=== PATIENT | female | born 1965 | race African-American/Black ===

== ENCOUNTER 2017-07-19 19:36 | Inpatient (IN) | payer OTHER ==
--- NOTE | 2017-07-19 19:57 | ED ---
General Adult HPI - General Chief complaint: Shortness of Breath Stated complaint: SOB Time Seen by Provider: 07/19/17 19:45 Source: EMS, RN notes reviewed Mode of arrival: EMS Limitations: no limitations - History of Present Illness Initial comments: This is a 52-year-old female presents from the emergency room at [facility]. Patient went there because she has a four-day history of cough and shortness of breath and coughing up a lot of sputum. Patient states she also had a fever. Patient states they diagnosed her with pneumonia on both sides. Patient states they were unable to keep it eventually transferred down here. Patient states she still mildly short of breath but she does feel little bit better at this time. Patient had Levaquin started up at the other facility. Patient denies any chest pain or palpitations. Patient denies abdominal pain patient denies nausea vomiting diarrhea. Patient denies headache patient denies numbness weakness. Patient denies any leg swelling or calf pain. - Related Data Allergies Allergy/AdvReac Type Severity Reaction Status Date / Time No Known Allergies Allergy Verified 07/19/17 19:48 Review of Systems ROS Statement: Those systems with pertinent positive or pertinent negative responses have been documented in the HPI. ROS Other: All systems not noted in ROS Statement are negative. Past Medical History Past Medical History: Asthma, Diabetes Mellitus, Fibromyalgia Additional Past Medical History / Comment(s): back pain History of Any Multi-Drug Resistant Organisms: None Reported Past Surgical History: No Surgical Hx Reported Past Psychological History: Anxiety, Depression Smoking Status: Current every day smoker Past Alcohol Use History: Occasional Past Drug Use History: None Reported General Exam - General Exam Comments Initial Comments: GENERAL: Patient is well-developed and well-nourished. Patient is nontoxic and well- hydrated and is in mild distress. ENT: Neck is soft and supple. No significant lymphadenopathy is noted. Oropharynx is clear. Moist mucous membranes. Neck has full range of motion without eliciting any pain. EYES: The sclera were anicteric and conjunctiva were pink and moist. Extraocular movements were intact and pupils were equal round and reactive to light. Eyelids were unremarkable. PULMONARY: Patient is crackles bilateral bases. CARDIOVASCULAR: There is a regular rate and rhythm without any murmurs gallops or rubs. ABDOMEN: Soft and nontender with normal bowel sounds. No palpable organomegaly was noted. There is no palpable pulsatile mass. SKIN: Skin is clear with no lesions or rashes and otherwise unremarkable. NEUROLOGIC: Patient is alert and oriented x3. Cranial nerves II through XII are grossly intact. Motor and sensory are also intact. Normal speech, volume and content. Symmetrical smile. MUSCULOSKELETAL: Normal extremities with adequate strength and full range of motion. No lower extremity swelling or edema. No calf tenderness. LYMPHATICS: No significant lymphadenopathy is noted PSYCHIATRIC: Normal psychiatric evaluation. Limitations: no limitations Course Vital Signs 07/19/17 19:44 Temperature 98.4 F Pulse Rate 99 Respiratory 20 Rate Blood Pressure 116/65 O2 Sat by Pulse 95 Oximetry Disposition Clinical Impression: Pneumonia Disposition: ADMITTED IP TO THIS HOSP Referrals: Krish Arevalo MD [Primary Care Provider] - 1-2 days Time of Disposition: 20:00
[2017-07-19] MEDS ORDERED: PNEUMONIA PROTOCOL UTILIZED 1 EACH MISC PO PRN (20:01)
[2017-07-19] MEDS ORDERED: HYDROcodone/APAP 7.5-325MG 1 EACH TAB PO PRN (21:50)
[2017-07-19] MEDS ORDERED: ALPRAZolam 0.5 MG TAB PO PRN (21:50)
[2017-07-19] MEDS ORDERED: BACLOFEN 10 MG TAB PO SCH (22:00)
[2017-07-19 23:14] LABS: Glucose,Whole Blood 183 mg/dL (75-99)
[2017-07-20] MEDS ORDERED: METHADONE 10 MG TAB PO SCH
[2017-07-20] MEDS ORDERED: BACLOFEN 10 MG TAB PO PRN (01:10)
[2017-07-20] MEDS ORDERED: ALPRAZolam 0.5 MG TAB PO PRN (01:11)
[2017-07-20] MEDS: METHADONE 10 MG TAB PO PRN ×2 (06:16→17:47)
--- NOTE | 2017-07-20 06:52 | XR ---
EXAMINATION TYPE: XR chest 2V DATE OF EXAM: 07/20/2017 HISTORY: pneumonia. REFERENCE: Previous study dated 07/15/2015. FINDINGS: The lungs are overinflated. There is diffuse groundglass opacity throughout both lungs. Thi s has improved slightly. There is atelectatic change at the right lung base. No definite pleural flui d. Size is upper limits of normal. IMPRESSION: DIFFUSE, BILATERAL AIRSPACE DISEASE, MOST COMPATIBLE WITH BILATERAL PNEUMONIAS.
[2017-07-20] MEDS: IPRATROPIUM-ALBUTEROL 3 ML NEB INHALATION SCH ×4 (07:17→19:18)
[2017-07-20] MEDS: BUDESONIDE 1 MG/2 ML NEBU INHALATION SCH ×2 (07:17→19:18)
[2017-07-20 07:45] LABS: Glucose,Whole Blood 166 mg/dL (75-99)
[2017-07-20] MEDS: POTASSIUM CHLORIDE ER 20 MEQ TAB.ER PO SCH ×2 (07:58→20:36)
[2017-07-20] MEDS: TOPIRAMATE 25 MG TAB PO SCH ×2 (07:58→20:35)
[2017-07-20] MEDS: PREGABALIN 75 MG CAP PO SCH ×2 (07:58→20:36)
[2017-07-20] MEDS ORDERED: PANTOPRAZOLE 40 MG TABLET PO SCH (09:00)
[2017-07-20] MEDS ORDERED: TOPIRAMATE 25 MG TAB PO SCH (09:00)
[2017-07-20] MEDS ORDERED: PREGABALIN 75 MG CAP PO SCH (09:00)
[2017-07-20] MEDS ORDERED: POTASSIUM CHLORIDE ER 20 MEQ TAB.ER PO SCH (09:00)
[2017-07-20] MEDS: cefTRIAXone IN SWFI 1,000 MG/10 ML SYRINGE IVP SCH (12:24)
[2017-07-20] MEDS: VENLAFAXINE HCL ER 75 MG CAP PO SCH (12:24)
[2017-07-20] MEDS: AZITHROMYCIN 500 MG in SODIUM CHLORIDE 0.9% 250 ML IVPB SCH (12:24)
[2017-07-20] MEDS: PANTOPRAZOLE 40 MG TABLET PO SCH (12:25)
[2017-07-20] MEDS: ARIPiprazole 10 MG TAB PO SCH (12:25)
[2017-07-20] MEDS: INSULIN ASPART 100 UNIT/ML 1 ML 10 ML VIAL SQ SCH ×3 (12:34→21:43)
[2017-07-20 12:36] LABS: Glucose,Whole Blood 96 mg/dL (75-99)
[2017-07-20 12:54] LABS: Basophils % (A) 0 %; CH 30.5; CHCM 31.4; Eosinophils % (A) 0 %; HDW 2.11; HGB 12.3 gm/dL (11.4-16.0); Luc # (Auto) 0.17; Luc % (Auto) 1; Lymphocytes % (A) 7 %; MCH 30.9 pg (25.0-35.0); MCHC 31.6 g/dL (31.0-37.0); MCV 97.7 fL (80.0-100.0); Macrocytosis Slight; Mean Platelet Volume 8.3; Monocytes # (A) 0.8 k/uL (0-1.0); Monocytes % (A) 6 %; Neutrophils # (A) 12.8 k/uL (1.3-7.7); Neutrophils % (A) 86 %; RBC 3.99 m/uL (3.80-5.40); WBC 14.8 k/uL (3.8-10.6); WBC (Perox) 15.38
[2017-07-20 13:09] LABS: ALT 35 U/L (9-52); AST 17 U/L (14-36); Alkaline Phosphatase 93 U/L (38-126); Anion Gap 7 mmol/L; Blood Urea Nitrogen 7 mg/dL (7-17); Carbon Dioxide 30 mmol/L (22-30); Chloride 100 mmol/L (98-107); Glucose 97 mg/dL (74-99); Non-African American GFR(MDRD) >60 (>60 ml/min/1.73 sqM); Potassium 4.2 mmol/L (3.5-5.1); Sodium 137 mmol/L (137-145); Total Bilirubin 0.2 mg/dL (0.2-1.3)
[2017-07-20] MEDS ORDERED: methylPREDNISolone SOD SUCCI 125 MG/2 ML VIAL IV STA (15:28)
[2017-07-20] MEDS ORDERED: LEVOFLOXACIN 750MG-D5W PMX 750 MG in DEXTROSE/WATER 1 150ML.BAG IVPB SCH (17:00)
[2017-07-20 17:04] LABS: Glucose,Whole Blood 112 mg/dL (75-99)
[2017-07-20] MEDS: methylPREDNISolone SOD SUCCI 125 MG/2 ML VIAL IV SCH ×2 (17:45→23:53)
--- NOTE | 2017-07-20 19:10 | HP ---
HISTORY AND PHYSICAL DATE OF SERVICE: 07/20/2017. CHIEF COMPLAINT: Shortness of breath, cough and sputum. HISTORY OF PRESENT ILLNESS: This 52-year-old woman with a past medical history of multiple medical problems, including history of asthma, diabetes mellitus, fibromyalgia, hyperlipidemia, history anxiety, depression, being followed by in the outpatient setting was complaining of shortness with cough and sputum over the past 4 days. The patient presented to [facility] and directly transferred to [facility] for further evaluation and treatment. There is no history of fever, rigors, chills. No history of headache, loss of consciousness, seizures. PAST MEDICAL HISTORY: Asthma, diabetes, fibromyalgia, hyperlipidemia, history of anxiety depression. MEDICATIONS PRIOR TO ADMISSION: Include home medications are: 1. HydroDIURIL 25 mg p.o. daily. 2. Xanax 0.5 q.i.d. p.r.n. 3. Topamax 50 mg p.o. b.i.d. 5. Vitamin D2 50,000 p.o. Saturday. 6. Symbicort 80/4.5, 2 puffs b.i.d. 7. Effexor XR 225 mg. 8. Klor-Con 10 mg p.o. daily. 9. Prednisone 10 mg p.o. daily. 10.Q-Jenni 80 mcg 1 puff daily p.r.n. 11.Omeprazole 20 mg daily. 12.Chromo 7.5 q.4h p.r.n. 13.Baclofen 10 mg p.o. t.i.d. 14.Albuterol 1 puff q.4h p.r.n. 15.Abilify 10 mg p.o. daily. 16.Singular 10 mg q.h.s. 17.Advair 250/50, 1 puff b.i.d. 19.Zestril 10 mg p.o. daily. ALLERGIES: None. FAMILY HISTORY: History of diabetes mellitus in the family, aneurysm. SOCIAL HISTORY: History of continued ongoing smoking. History of alcohol. REVIEW OF SYSTEMS: ENT: No diminished vision. No diminished vision. CARDIOVASCULAR: As mentioned earlier. RESPIRATORY: As mentioned earlier. GI: No nausea, vomiting. : No dysuria. NERVOUS: No numbness or weakness. ALLERGY/IMMUNOLOGY: No asthma, hay fever. MUSCULOSKELETAL: As mentioned earlier. HEMATOLOGY/ONCOLOGY: No history of anemia. ENDOCRINE: No history of diabetes, hypothyroidism. CONSTITUTIONAL: As mentioned earlier. DERMATOLOGY: Negative. RHEUMATOLOGY: Negative. PSYCHIATRY: As mentioned earlier. PHYSICAL EXAMINATION: Alert and oriented x3. Pulse 89, blood pressure 109/78, respirations 18, temperature 97.2, pulse ox 93% on 4L. HEENT: Conjunctivae normal. Oral mucosa moist. NECK: No jugular venous distention. No carotid bruits. No lymph node enlargement. CARDIOVASCULAR: S1, S2 muffled. No S3. No S4. RESPIRATORY: Breath sounds diminished in the bases. Bilateral scattered rhonchi. No crackles. Expiratory wheezing also present. Prolongation of expiration present. ABDOMEN: Soft, nontender. No mass palpable. LEGS: No edema. No swelling. NERVOUS SYSTEM: Higher functions as mentioned earlier. Moves all 4 limbs. No focal motor or sensory deficits. LYMPHATIC: No lymph nodes palpable in neck, axillae or groins. SKIN: No ulcers, rash or bleeding. LABS: WBC 14.8, hemoglobin is 12.3. Albumin is 3.8. Influenza negative. ASSESSMENT: 1. Acute bilateral multifocal pneumonia, possibly community-acquired. 2. Increased WBC. 3. Asthma. 4. Diabetes mellitus type 2. 5. Fibromyalgia. 6. Hyperlipidemia. 7. Back pain. 8. History of ethanol. 9. Anxiety and depression. RECOMMENDATIONS AND DISCUSSION: In this 52-year-old woman who presented with multiple complex medical issues, monitor the patient closely. Continue the current medical management and symptomatic treatment. Otherwise at this time, I recommend continuing with bronchodilators , IV steroids. Otherwise repeat labs. Broad-spectrum IV antibiotics. Follow the patient closely with pulmonary, Dr. Johnathan Ponce. Guarded prognosis because of multiple complex medical issues. Further recommendations to follow. See orders for further details. MMODL / IJN: [id number] / ELVIA
[2017-07-20] MEDS: HEPARIN SODIUM,PORCINE 5,000 UNIT/ML 1 ML VIAL SQ SCH (20:36)
[2017-07-20] MEDS: MONTELUKAST 10 MG TAB PO SCH (20:36)
[2017-07-20] MEDS: FAMOTIDINE 20 MG/2 ML VIAL IV SCH (20:36)
[2017-07-20] MEDS ORDERED: MONTELUKAST 10 MG TAB PO SCH (21:00)
[2017-07-20 21:40] LABS: Glucose,Whole Blood 143 mg/dL (75-99)
[2017-07-20] MEDS: HYDROcodone/APAP 7.5-325MG 1 EACH TAB PO PRN (21:44)
--- NOTE | 2017-07-20 21:47 | CONS ---
CONSULTATION Skyla Cruz is a 52-year-old female who is well known to me who comes in with a history of increasing shortness of breath for about 5 days' duration. This has been associated with some chills and scant sputum production. She was seen at [facility], was thought to have pneumonia bilaterally and was transferred for further evaluation. PAST MEDICAL HISTORY: Positive for severe asthma with extremely high IgE levels and positivity to several aeroallergens, history of diabetes mellitus type 2, history of fibromyalgia, anxiety, depression, history of nicotine dependence. FAMILY HISTORY: Positive for asthma in her son, who unfortunately of asthma. SOCIAL HISTORY: The patient is a smoker, smokes about a half pack to 1 pack of cigarettes per day and is in the process of quitting smoking. MEDICATIONS PRIOR TO ADMISSION: 1. HydroDIURIL. 2. Xanax. 3. Topamax. 4. Methadone. 5. Vitamin D2. 6. Budesonide with formoterol in the form of Symbicort. 7. Klor-Con. 8. Prilosec. 9. Qvar. 10.Hydrocodone with acetaminophen. 11.Baclofen. 12.Albuterol. 13.Abilify. 14.Singulair. 15.Lyrica and. 16.Zestril. PHYSICAL EXAMINATION: Patient is sleepy, but arousable. She is in moderate respiratory distress. She has shallow respirations. She is using accessory muscles of respiration. Her respiratory rate is 18, pulse rate of 89, temperature 97.2, blood pressure 109/78, O2 saturation on 4L by nasal cannula is 93%. HEENT reveals pupils that are equal. Chest reveals decreased breath sounds, prolonged expiration, bilateral expiratory wheeze. Cardiovascular system reveals an S1, S2. No S3. No S4. ABDOMEN: Soft. There is no pedal edema. LABS: Reveal a white count of 14.3, hemoglobin of 12.3. Sodium 137, potassium 4.2, chloride 100, bicarb 30, BUN 7, creatinine 0.56. Albumin is 3, total protein of 6. Influenza A and B are negative. Chest x-ray shows bilateral lower zone infiltrates. IMPRESSION AT THIS TIME: 1. Severe asthma with acute exacerbation. 2. Pneumonia. 3. Possible hypersensitivity pneumonitis. 4. Fibromyalgia. 5. Diabetes mellitus. At this point in time, would continue her on azithromycin and Rocephin, have ID further evaluate the patient. Add intravenous steroids at 60 mg IV push with an extra dose of 80 mg right now. Keep her on montelukast, budesonide, albuterol and ipratropium. Keep her on GI and DVT prophylaxis and check peak flows on her. Her prognosis at this time is extremely guarded. I would like to thank you for allowing me to participate in the care off my patient. We did try to arrange anti IgE treatment as Xolair, which would have helped prevent this. Her insurance company is directly responsible in denying this and is responsible for this admission as well as they have denied her care. She was counseled on the need to quit smoking. MMODL / IJN: [id number] /
[2017-07-21] MEDS: methylPREDNISolone SOD SUCCI 125 MG/2 ML VIAL IV SCH ×3 (06:54→17:06)
[2017-07-21 07:21] LABS: Glucose,Whole Blood 131 mg/dL (75-99)
[2017-07-21] MEDS: BUDESONIDE 1 MG/2 ML NEBU INHALATION SCH ×2 (07:24→19:45)
[2017-07-21] MEDS: IPRATROPIUM-ALBUTEROL 3 ML NEB INHALATION SCH ×4 (07:24→19:45)
[2017-07-21] MEDS: METHADONE 10 MG TAB PO PRN ×2 (07:48→20:22)
[2017-07-21] MEDS: INSULIN ASPART 100 UNIT/ML 1 ML 10 ML VIAL SQ SCH ×4 (07:49→21:30)
[2017-07-21] MEDS: FAMOTIDINE 20 MG/2 ML VIAL IV SCH ×2 (07:49→20:14)
[2017-07-21] MEDS: HYDROCHLOROTHIAZIDE 25 MG TAB PO SCH (07:50)
[2017-07-21] MEDS: POTASSIUM CHLORIDE ER 20 MEQ TAB.ER PO SCH ×2 (07:50→20:14)
[2017-07-21] MEDS: PANTOPRAZOLE 40 MG TABLET PO SCH (07:50)
[2017-07-21] MEDS: TOPIRAMATE 25 MG TAB PO SCH ×2 (07:50→20:14)
[2017-07-21] MEDS: VENLAFAXINE HCL ER 75 MG CAP PO SCH (07:50)
[2017-07-21] MEDS: LISINOPRIL 10 MG TAB PO SCH (07:51)
[2017-07-21] MEDS: ARIPiprazole 10 MG TAB PO SCH (07:51)
[2017-07-21] MEDS: HEPARIN SODIUM,PORCINE 5,000 UNIT/ML 1 ML VIAL SQ SCH ×2 (07:51→20:14)
[2017-07-21] MEDS: PREGABALIN 75 MG CAP PO SCH ×2 (07:55→20:14)
[2017-07-21 08:05] LABS: Basophils % (A) 0 %; CH 30.3; Eosinophils % (A) 0 %; HCT 37.9 % (34.0-46.0); HDW 2.12; HGB 11.8 gm/dL (11.4-16.0); Luc # (Auto) 0.07; Luc % (Auto) 1; Lymphocytes # (A) 0.9 k/uL (1.0-4.8); Lymphocytes % (A) 10 %; MCH 30.6 pg (25.0-35.0); MCHC 31.2 g/dL (31.0-37.0); MCV 98.2 fL (80.0-100.0); Macrocytosis Slight; Mean Platelet Volume 8.3; Monocytes # (A) 0.2 k/uL (0-1.0); Monocytes % (A) 2 %; Neutrophils % (A) 87 %; RBC 3.86 m/uL (3.80-5.40); RDW 15.8 % (11.5-15.5); WBC 9.2 k/uL (3.8-10.6); WBC (Perox) 9.17
[2017-07-21 08:22] LABS: Anion Gap 7 mmol/L; Blood Urea Nitrogen 9 mg/dL (7-17); Calcium 9.3 mg/dL (8.4-10.2); Carbon Dioxide 29 mmol/L (22-30); Chloride 102 mmol/L (98-107); Glucose 124 mg/dL (74-99); Non-African American GFR(MDRD) >60 (>60 ml/min/1.73 sqM); Potassium 4.7 mmol/L (3.5-5.1); Sodium 138 mmol/L (137-145)
--- NOTE | 2017-07-21 11:59 | PN ---
PROGRESS NOTE DATE OF SERVICE: 07/21/17 She was seen again on 07/21/17. She is hemodynamically stable, less short of breath. She is sleepy but easily arousable and is awake and alert when she is aroused. On physical examination, her vital signs are stable. She is afebrile. Her chest with increased breath sounds, prolonged expiration. Expiratory wheeze but improved air entry compared to the previous day. Cardiovascular system revealed an S1, S2, abdomen soft. There is no pedal edema. IMPRESSION: At this time is: 1. Severe allergic asthma with acute exacerbation. 2. Continue IV steroids and antibiotics for at least 24 hours more. If she is doing better tomorrow, may consider switching her to oral steroids. Check peak flows on her. Depending on how she does, we shall make further changes to her care. ALEXISL / MANGON: [id number] /
[2017-07-21 12:21] LABS: Glucose,Whole Blood 152 mg/dL (75-99)
[2017-07-21] MEDS: cefTRIAXone IN SWFI 1,000 MG/10 ML SYRINGE IVP SCH (13:34)
[2017-07-21] MEDS: AZITHROMYCIN 500 MG in SODIUM CHLORIDE 0.9% 250 ML IVPB SCH (13:35)
[2017-07-21 17:05] LABS: Glucose,Whole Blood 102 mg/dL (75-99)
--- NOTE | 2017-07-21 19:59 | CONS ---
CONSULTATION DATE OF SERVICE: 07/21/2017. REASON FOR CONSULTATION: Pneumonia. HISTORY OF PRESENT ILLNESS: The patient is a 52-year-old female who has been transferred from the [place] ER for further evaluation of a pneumonia. Apparently the patient presented to the ED with the chief complaints of increasing shortness of breath and cough. However the patient denies significant sputum production. The patient also have a fever. With these symptoms, the patient was transferred to the [facility] ER. The patient has been evaluated by the ER physician. The pt did have chest xray-- bilateral infiltrate suggestive of bilateral pneumonia. The patient did not did have elevated white count of 14.8. The patient was started on Zithromax. ID was consulted for further recommendation regarding antibiotic therapy. REVIEW OF SYSTEMS: Constitutional: Positive for weakness along with the fever. Eyes no complaint. ENT no complaint. Respiratory as per HPI. Cardiovascular: No complaint. Genitourinary: No complaint. Gastrointestinal: No complaint. Musculoskeletal: No complaint. Integumentary: No complaint. Psychological: No complaint. Endocrine: No complaint. Neurologic no complaint. PAST MEDICAL HISTORY: Diabetes mellitus, asthma, fibromyalgia. PAST SURGICAL HISTORY: No major surgery. PAST PSYCHOLOGICAL HISTORY: Positive for anxiety and depression. SOCIAL HISTORY: Positive for smoking 1 pack a day. Patient drinks. No drug use. FAMILY HISTORY: No pertinent findings noticed. ALLERGIES: No known drug allergies. MEDICATIONS: Include the patient is currently on: 1. [place]. 2. DuoNeb. 3. Xanax. 4. Abilify. 5. Zithromax. 6. Baclofen. 7. Pulmicort. 8. Rocephin 1 g daily. 9. Vitamin D2. 10.Pepcid. 11.Heparin. 12.Hydrochlorothiazide. 13.NovoLog. 14.Zestril. 15.Methadone. 16.Solu-Medrol. 17.Singulair. 18.Protonix. 19.K-Dur. 20.Lyrica. 21.Topamax. 22.Effexor. EXAMINATION: Blood pressure 131/87, pulse of 82, temperature of 96.7. He is 98% on room air. General description is a middle-aged female up in the bed in no distress. No tachypnea or accessory muscle of respiration use. HEENT: Shows no pallor or scleral icterus. Oral mucous membranes dry. Neck trachea central. No thyromegaly. Lungs unlabored breathing. Coarse breath sounds bilaterally. Occasional wheeze. Heart S1, S2. Regular rate and rhythm. ABDOMEN: Soft, no tenderness. No guarding or rigidity. Extremities are no edema of the feet. Skin examination: No rash or mass palpable. Neurological patient is awake, alert, oriented x3. Mood and affect normal. LABS: Hemoglobin is 11.8, white count of 9.2. Admission white count was 14.8. BUN of 9, creatinine 0.54. Electrolytes have been normal. Blood culture obtained currently pending. Sputum not collected. DIAGNOSTIC IMPRESSION AND PLAN: Patient admitted to the hospital with increasing shortness of breath and cough with evidence of bilateral pneumonia likely community acquired. The patient seemed to have shown clinical improvement on Rocephin already started by the admitting team. PLAN: 1. Will try to obtain sputum for Gram stain culture and sensitivity. 2. We will keep the patient on Rocephin and Zithromax. 3. Depending upon the clinical response as well as cultures to further adjust medication if needed. Thank you for this consultation. Will follow this patient along with you. MMODL / IJN: [id number] / ELVIA
[2017-07-21] MEDS: MONTELUKAST 10 MG TAB PO SCH (20:14)
[2017-07-21 20:50] LABS: Glucose,Whole Blood 151 mg/dL (75-99)
[2017-07-22] MEDS: methylPREDNISolone SOD SUCCI 125 MG/2 ML VIAL IV SCH ×2 (00:05→06:21)
[2017-07-22 07:16] LABS: Glucose,Whole Blood 113 mg/dL (75-99)
[2017-07-22] MEDS: INSULIN ASPART 100 UNIT/ML 1 ML 10 ML VIAL SQ SCH ×4 (07:20→21:06)
[2017-07-22] MEDS: VENLAFAXINE HCL ER 75 MG CAP PO SCH (07:43)
[2017-07-22] MEDS: FAMOTIDINE 20 MG/2 ML VIAL IV SCH (07:44)
[2017-07-22] MEDS: PREGABALIN 75 MG CAP PO SCH ×2 (07:44→20:59)
[2017-07-22] MEDS: TOPIRAMATE 25 MG TAB PO SCH ×2 (07:44→20:59)
[2017-07-22] MEDS: HEPARIN SODIUM,PORCINE 5,000 UNIT/ML 1 ML VIAL SQ SCH ×2 (07:44→20:59)
[2017-07-22] MEDS: HYDROCHLOROTHIAZIDE 25 MG TAB PO SCH (07:44)
[2017-07-22] MEDS: LISINOPRIL 10 MG TAB PO SCH (07:44)
[2017-07-22] MEDS: PANTOPRAZOLE 40 MG TABLET PO SCH (07:45)
[2017-07-22] MEDS: POTASSIUM CHLORIDE ER 20 MEQ TAB.ER PO SCH ×2 (07:45→20:59)
[2017-07-22] MEDS: ARIPiprazole 10 MG TAB PO SCH (07:45)
[2017-07-22] MEDS: BUDESONIDE 1 MG/2 ML NEBU INHALATION SCH (07:57)
[2017-07-22] MEDS: IPRATROPIUM-ALBUTEROL 3 ML NEB INHALATION SCH ×4 (07:57→20:25)
[2017-07-22 08:18] LABS: Basophils % (A) 0 %; CH 31.5; CHCM 32.3; Eosinophils % (A) 0 %; HCT 40.7 % (34.0-46.0); HGB 13.1 gm/dL (11.4-16.0); Luc # (Auto) 0.05; Luc % (Auto) 1; Lymphocytes # (A) 1.1 k/uL (1.0-4.8); Lymphocytes % (A) 10 %; MCH 31.6 pg (25.0-35.0); MCHC 32.3 g/dL (31.0-37.0); MCV 97.9 fL (80.0-100.0); Mean Platelet Volume 7.4; Monocytes # (A) 0.3 k/uL (0-1.0); Monocytes % (A) 3 %; Neutrophils % (A) 86 %; RBC 4.15 m/uL (3.80-5.40); RDW 14.5 % (11.5-15.5); WBC 10.4 k/uL (3.8-10.6); WBC (Perox) 9.82
[2017-07-22 08:28] LABS: Anion Gap 8 mmol/L; Blood Urea Nitrogen 11 mg/dL (7-17); Calcium 9.3 mg/dL (8.4-10.2); Carbon Dioxide 28 mmol/L (22-30); Chloride 103 mmol/L (98-107); Glucose 141 mg/dL (74-99); Non-African American GFR(MDRD) >60 (>60 ml/min/1.73 sqM); Potassium 4.2 mmol/L (3.5-5.1); Sodium 139 mmol/L (137-145)
[2017-07-22] MEDS ORDERED: INFLUENZA VACCINE (6 MOS+) 60 MCG/0.5 ML SYRINGE IM ONE (08:41)
[2017-07-22] MEDS ORDERED: PNEUMOCOCCAL VACC-PNEUMOVAX 23 25 MCG/0.5 ML VIAL IM ONE (08:41)
--- NOTE | 2017-07-22 08:51 | PN ---
PROGRESS NOTE DATE OF SERVICE: 07/21/2017 This 52-year-old woman who was admitted with acute bilateral multifocal pneumonia is being closely monitored. The patient is also closely monitored by Pulmonary Dr. Johnathan Ponce also. PAST MEDICAL HISTORY: Reviewed. REVIEW OF SYSTEMS: Cardiovascular: No angina. Respiratory: As mentioned earlier. GI mentioned earlier. : No dysuria. Central nervous system: No numbness, weakness. CURRENT MEDICATIONS ARE: Reviewed include: 1. [place] 7.5 mg q.4h p.r.n. 2. DuoNeb q.i.d. and p.r.n. 3. Xanax 0.5 q.i.d. 4. Abilify 10 mg p.o. daily. 5. Zithromax 500 mg p.o. daily. 6. Lioresal 10 mg p.o. t.i.d. 7. Pulmicort 1 mg b.i.d. 8. Rocephin 1 g IV daily. 9. Vitamin D2 50,000 daily. 10.Pepcid 20 mg b.i.d. 11.Heparin 5000 subcu b.i.d. 12.HydroDIURIL. 13.Zestril 10 mg daily. 14.Methadone 20 mg p.o. q.8h p.r.n. 15.Solu-Medrol 60 IV q.6h. 16.Singulair 10 mg q.h.s. 17.Protonix. 18.Lyrica. PHYSICAL EXAMINATION: The patient is alert, oriented times three. Pulse 82, blood pressure 131/80, respiration 18, temperature 98.7, pulse ox 98% on room air. HEENT conjunctivae normal. Neck: No jugular venous distention. Cardiovascular: S1, S2 muffled. Respiratory: Breath sounds diminished in the bases. A few scattered rhonchi and crackles. Abdomen is soft, nontender. Legs are no edema. Central nervous system: No focal deficits. LABORATORY DATA: WBC 9.2, hemoglobin 11.6. BMP within normal limits. ASSESSMENT: 1. Acute bilateral multifocal pneumonia possibly community acquired. 2. Acute allergic asthma acute exacerbation. 3. Increased WBC. 4. Diabetes type 2. 5. Fibromyalgia. 6. Hyperlipidemia. 7. History of back pain. 8. History of ETOH. 9. Anxiety, depression. RECOMMENDATION: In this 52-year-old woman who presented with multiple complex medical issues, we will monitor the patient closely, continue the current management, continue symptomatic treatment, and continue IV steroids. Continue the rest of medications and including antibiotics. Pulmonary evaluation appreciated. Chest x-ray reviewed. We will repeat a chest x-ray in the morning and continue to monitor. Otherwise, see orders for details. Further recommendations to follow. MMODL / IJN: [id number] /
[2017-07-22] MEDS ORDERED: ERGOCALCIFEROL 50,000 UNIT CAP PO SCH (09:00)
--- NOTE | 2017-07-22 09:53 | P.PN ---
Subjective Progress Note Date: 07/22/17 Principal diagnosis: Acute exacerbation of asthma Patient seen and examined. Patient states she has not had any fevers or chills. She is coughing but unable to produce phlegm. The patient has no other needs or complaints at this time. Objective - Vital Signs Vital signs: Vital Signs Temp 97.3 F L 07/22/17 07:00 Pulse 88 07/22/17 08:00 Resp 16 07/22/17 07:00 BP 145/95 07/22/17 07:00 Pulse Ox 92 L 07/22/17 08:00 Intake & Output 07/21/17 07/22/17 07/22/17 18:59 06:59 18:59 Intake Total 400 800 Balance 400 800 Intake: Oral 400 800 Other: # Voids 2 1 - Exam Gen.: Patient is alert and oriented 3, no acute distress, obese Cardiovascular: Regular rate and rhythm, S1/S2 Lungs: Diffuse bilateral expiratory wheezing Abdomen: Soft nontender nondistended positive bowel sounds Extremities: No edema - Labs CBC & Chem 7: 07/22/17 07:47 07/22/17 07:47 Labs: Abnormal Lab Results - Last 24 Hours (Table) 07/21/17 07/21/17 07/21/17 Range/Units 12:15 17:03 20:46 Neutrophils # (1.3-7.7) k/uL Glucose (74-99) mg/dL POC Glucose (mg/dL) 152 H 102 H 151 H (75-99) mg/dL 07/22/17 07/22/17 07/22/17 Range/Units 06:37 07:47 07:47 Neutrophils # 9.0 H (1.3-7.7) k/uL Glucose 141 H (74-99) mg/dL POC Glucose (mg/dL) 113 H (75-99) mg/dL Microbiology - Last 24 Hours (Table) 07/19/17 22:30 Blood Culture - Preliminary Blood No Growth after 48 hours 07/21/17 13:44 Urine Culture - Preliminary Urine,Clean Catch Assessment and Plan Assessment: Acute exacerbation of severe persistent ALLERGIC asthma Bilateral community-acquired pneumonia Possible hypersensitivity pneumonitis Fibromyalgia Leukocytosis POA, improving Diabetes mellitus Dyslipidemia Anxiety and depression Active tobacco abuse O2 to maintain saturation greater than or equal to 90% Solu-Medrol taper Singulair Pulmicort Bronchodilators GI and DVT prophylaxis Incentive spirometry and pulmonary hygiene Smoking cessation Repeat CXR reviewed, shows improvement in bilateral infiltrates, consistent more with HP given rapid improvement Patient would benefit from Xolair, however, her insurance has denies this medication
--- NOTE | 2017-07-22 09:58 | XR ---
EXAMINATION TYPE: XR chest 1V portable DATE OF EXAM: 07/22/2017 COMPARISON: 07/20/2017 HISTORY: Pneumonia TECHNIQUE: Single frontal view of the chest is obtained. FINDINGS: Persistent bilateral airspace disease greater involving the upper lobes. There may be very mild improvement on the left. Heart size stable. No pleural effusion or pneumothorax. IMPRESSION: Bilateral infiltrate with mild improvement on the left relative to the previous exam.
--- NOTE | 2017-07-22 12:06 | PN ---
PROGRESS NOTE DATE OF SERVICE: 07/22/2017. REASON FOR FOLLOWUP: Pneumonia. INTERVAL HISTORY: The patient is afebrile. She is breathing comfortably. Cough decreased in intensity. Denies any chest pain. No abdominal pain. No nausea, vomiting, diarrhea. EXAMINATION: Blood pressure is 145/95 with a pulse of 88, temperature 97.3. She is 92% on 2 L nasal cannula. General description is a middle-aged female up in the bed in no distress. Respiratory system unlabored breathing. Coarse breath sounds bilaterally. No wheeze. Heart S1, S2. Regular rate and rhythm. Abdomen soft, no tenderness. LABS: BUN of 11, creatinine 0.60. White count 10.4, so far blood culture negative. Sputum currently pending. DIAGNOSTIC IMPRESSION AND PLAN: Patient with bilateral pneumonia, likely community-acquired. The patient at this time will continue with Rocephin and Zithromax while waiting for the sputum culture to finalize. Continue supportive care. MMODL / IJN: [id number] /
[2017-07-22] MEDS: AZITHROMYCIN 500 MG in SODIUM CHLORIDE 0.9% 250 ML IVPB SCH (12:12)
[2017-07-22] MEDS: METHADONE 10 MG TAB PO PRN ×2 (12:20→19:28)
[2017-07-22 12:22] LABS: Glucose,Whole Blood 83 mg/dL (75-99)
[2017-07-22] MEDS: cefTRIAXone IN SWFI 1,000 MG/10 ML SYRINGE IVP SCH (12:44)
--- NOTE | 2017-07-22 15:23 | P.DS ---
Providers Date of admission: 07/19/17 20:00 Attending physician: Duong Ghosh Consults: 07/20/17 11:58 Consult Physician Routine Consulting Provider: Joaquin Ponce Consult Reason/Comments: pneumonia Do you want consulting provider notified?: Yes 07/20/17 15:30 Consult Physician Routine Consulting Provider: Alexsander Zarate Consult Reason/Comments: infection Do you want consulting provider notified?: Yes Primary care physician: [facility] Course: This 52 woman with a past medical history of multiple medical problems was admitted with a bilateral multifocal pneumonia and as well as acute asthma exacerbation. Patient was treated with IV antibiotics, bronchodilators and steroids. Dr. JERMAINE Ponce saw the patient during the hospitalization. Patient improved significantly. Patient will be discharged in a stable condition with guarded prognosis. Patient is extremely keen on going home. Total time taken is 35 minutes. On exam vitals are stable. Cardio S1 and S2 normal. Respirator system few scattered rhonchi. Abdomen soft nontender. Nervous system no focal deficit. Final diagnosis 1. Acute bilateral multifocal pneumonia possibly community acquired. 2. Acute ALLERGIC asthma acute exacerbation. 3. Increased WBC. 4. Diabetes was type II. 5. Fibromyalgia. 6. Hyperlipidemia. 7. History of back pain. 8. History of EtOH. 9. Anxiety depression. Plan - Discharge Summary New Discharge Prescriptions: New Azithromycin [Zithromax] 500 mg PO DAILY #7 tab Cefuroxime Axetil [Ceftin] 500 mg PO BID #14 tab Ipratropium-Albuterol Nebulize [Duoneb 0.5 mg-3 mg/3 ml Soln] 3 ml INHALATION RT-QID #120 ampul.neb predniSONE 10 mg PO DIRECTED #30 tab Continue Hydrochlorothiazide [Hydrodiuril] 25 mg PO DAILY ALPRAZolam [Xanax] 0.5 mg PO QID PRN PRN Reason: Anxiety Topiramate [Topamax] 50 mg PO BID Methadone [Dolophine] 20 mg PO Q8HR Ergocalciferol [Vitamin D2 (DRISDOL)] 50,000 unit PO MO Budesonide/Formoterol Fumarate [Symbicort 80-4.5 Mcg Inhaler] 2 puff INHALATION RT-BID Venlafaxine HCl [Effexor XR] 225 mg PO DAILY Potassium Chloride [Klor-Con 20] 20 meq PO BID Omeprazole [PriLOSEC] 20 mg PO DAILY Beclomethasone Dipropionate [Qvar 80 mcg] 1 puff INHALATION RT-DAILY PRN PRN Reason: Shortness Of Breath Omeprazole 20 mg PO DAILY HYDROcodone/APAP 7.5-325MG [[place] 7.5-325] 1 tab PO Q4H PRN PRN Reason: Pain Baclofen 10 mg PO TID Albuterol Inhaler [Ventolin Hfa Inhaler] 1 puff INHALATION RT-Q4H PRN PRN Reason: Shortness Of Breath ARIPiprazole [Abilify] 10 mg PO DAILY Montelukast [Singulair] 10 mg PO HS Fluticasone/Salmeterol [Advair 250-50 Diskus] 1 puff INHALATION RT-BID Pregabalin [Lyrica] 75 mg PO BID Lisinopril [Zestril] 10 mg PO DAILY Discharge Medication List ALPRAZolam [Xanax] 0.5 mg PO QID PRN 07/19/17 [History] ARIPiprazole [Abilify] 10 mg PO DAILY 07/19/17 [History] Albuterol Inhaler [Ventolin Hfa Inhaler] 1 puff INHALATION RT-Q4H PRN 07/19/17 [ History] Baclofen 10 mg PO TID 07/19/17 [History] Beclomethasone Dipropionate [Qvar 80 mcg] 1 puff INHALATION RT-DAILY PRN [History] Budesonide/Formoterol Fumarate [Symbicort 80-4.5 Mcg Inhaler] 2 puff INHALATION RT-BID 07/19/17 [History] Ergocalciferol [Vitamin D2 (DRISDOL)] 50,000 unit PO MO 07/19/17 [History] Fluticasone/Salmeterol [Advair 250-50 Diskus] 1 puff INHALATION RT-BID 07/19/17 [History] HYDROcodone/APAP 7.5-325MG [[place] 7.5-325] 1 tab PO Q4H PRN 07/19/17 [History] Hydrochlorothiazide [Hydrodiuril] 25 mg PO DAILY 07/19/17 [History] Lisinopril [Zestril] 10 mg PO DAILY 07/19/17 [History] Methadone [Dolophine] 20 mg PO Q8HR 07/19/17 [History] Montelukast [Singulair] 10 mg PO HS 07/19/17 [History] Omeprazole 20 mg PO DAILY 07/19/17 [History] Omeprazole [PriLOSEC] 20 mg PO DAILY 07/19/17 [History] Potassium Chloride [Klor-Con 20] 20 meq PO BID 07/19/17 [History] Pregabalin [Lyrica] 75 mg PO BID 07/19/17 [History] Topiramate [Topamax] 50 mg PO BID 07/19/17 [History] Venlafaxine HCl [Effexor XR] 225 mg PO DAILY 07/19/17 [History] Azithromycin [Zithromax] 500 mg PO DAILY #7 tab 07/22/17 [Rx] Cefuroxime Axetil [Ceftin] 500 mg PO BID #14 tab 07/22/17 [Rx] Ipratropium-Albuterol Nebulize [Duoneb 0.5 mg-3 mg/3 ml Soln] 3 ml INHALATION RT -QID #120 ampul.neb 07/22/17 [Rx] predniSONE 10 mg PO DIRECTED #30 tab 07/22/17 [Rx] Follow up Appointment(s)/Referral(s): Stacia Saleem DO [Doctor of Osteopathic Medicine] - 07/23/17 9:00 am () Krish Arevalo MD [Primary Care Provider] - 3 Days (Call for appointment) Joaquin Ponce MD [STAFF PHYSICIAN] - 08/08/17 12:15 pm (at [place]) Ambulatory/Diagnostic Orders: Complete Blood Count w/diff [LAB.AMB] Time Frame: 3 Days, Location: Determined By Patient Patient Instructions/Handouts: How to Stop Smoking (DC), Type 2 Diabetes in Adults (DC), Pneumonia (DC)
[2017-07-22] MEDS: methylPREDNISolone SOD SUCCI 40 MG/ML 1 ML VIAL IV SCH (15:52)
--- NOTE | 2017-07-22 16:40 | PN ---
PROGRESS NOTE . DATE OF SERVICE: 07/22/17 This 52 -year-old woman was admitted with acute asthma exacerbation as well as acute bilateral multifocal pneumonia, is being closely monitored. No chest pain. No palpitations. Patient is on tapering dose of steroids. EXAM: Alert and oriented times three. Pulse is 81, blood pressure 130/80, respiration 18, temp 97.4, pulse ox 94% on room air. HEENT is conjunctivae normal. Neck is no jugular venous distention. Cardiovascular: S1, S2 muffled. Respiratory: Breath sounds diminished in the bases. A few scattered rhonchi and crackles. Abdomen is soft, nontender. Legs are no edema. No swelling. Central nervous system: No focal deficits. LAB: CBC and BMP within normal limits. ASSESSMENT: 1. Acute bilateral multifocal pneumonia possibly community acquired. 2. Acute allergic bronchial asthma acute exacerbation. 3. Increased WBC. 4. Diabetes type 2. 5. Fibromyalgia. 6. Hyperlipidemia. 7. History back pain. 8. History of EtOH. 9. Anxiety, depression. RECOMMENDATIONS AND DISCUSSION: Recommend to continue current management, continue current medications, symptomatic treatment, and continue to taper the steroids. Continue the bronchodilators, antibiotics. Follow closely with Pulmonary. Guarded prognosis. Further recommendations to follow. MMODL / IJN: [id number] /
[2017-07-22 17:19] LABS: Glucose,Whole Blood 82 mg/dL (75-99)
[2017-07-22] MEDS: BUDESONIDE 0.5 MG/2 ML NEBU INHALATION SCH (20:25)
[2017-07-22 20:49] LABS: Glucose,Whole Blood 143 mg/dL (75-99)
[2017-07-22] MEDS: FAMOTIDINE 20 MG TAB PO SCH (20:59)
[2017-07-22] MEDS: MONTELUKAST 10 MG TAB PO SCH (20:59)
[2017-07-22 23:20] VITALS: TEMP 97.2
[2017-07-23] MEDS: methylPREDNISolone SOD SUCCI 40 MG/ML 1 ML VIAL IV SCH ×2 (00:10→07:46)
[2017-07-23] MEDS: METHADONE 10 MG TAB PO PRN (03:25)
[2017-07-23 07:20] LABS: Glucose,Whole Blood 144 mg/dL (75-99)
[2017-07-23 07:33] VITALS: RESP 20
[2017-07-23] MEDS: PREGABALIN 75 MG CAP PO SCH (07:45)
[2017-07-23] MEDS: VENLAFAXINE HCL ER 75 MG CAP PO SCH (07:45)
[2017-07-23] MEDS: HEPARIN SODIUM,PORCINE 5,000 UNIT/ML 1 ML VIAL SQ SCH (07:46)
[2017-07-23] MEDS: ARIPiprazole 10 MG TAB PO SCH (07:46)
[2017-07-23] MEDS: TOPIRAMATE 25 MG TAB PO SCH (07:46)
[2017-07-23] MEDS: PANTOPRAZOLE 40 MG TABLET PO SCH (07:46)
[2017-07-23] MEDS: POTASSIUM CHLORIDE ER 20 MEQ TAB.ER PO SCH (07:46)
[2017-07-23] MEDS: LISINOPRIL 10 MG TAB PO SCH (07:46)
[2017-07-23] MEDS: FAMOTIDINE 20 MG TAB PO SCH (07:46)
[2017-07-23] MEDS: HYDROCHLOROTHIAZIDE 25 MG TAB PO SCH (07:46)
[2017-07-23] MEDS: INSULIN ASPART 100 UNIT/ML 1 ML 10 ML VIAL SQ SCH ×2 (07:48→12:19)
[2017-07-23] MEDS: HYDROcodone/APAP 7.5-325MG 1 EACH TAB PO PRN (07:54)
[2017-07-23] MEDS: BUDESONIDE 0.5 MG/2 ML NEBU INHALATION SCH (08:12)
[2017-07-23] MEDS: IPRATROPIUM-ALBUTEROL 3 ML NEB INHALATION SCH ×2 (08:12→11:48)
[2017-07-23 08:18] VITALS: PULSE 76
[2017-07-23 08:32] LABS: Basophils % (A) 0 %; CH 31.6; CHCM 32.7; Eosinophils % (A) 0 %; HGB 13.7 gm/dL (11.4-16.0); Luc # (Auto) 0.09; Luc % (Auto) 1; Lymphocytes # (A) 1.5 k/uL (1.0-4.8); Lymphocytes % (A) 14 %; MCH 30.9 pg (25.0-35.0); MCV 96.8 fL (80.0-100.0); Mean Platelet Volume 7.3; Monocytes # (A) 0.5 k/uL (0-1.0); Monocytes % (A) 4 %; Neutrophils # (A) 8.5 k/uL (1.3-7.7); Neutrophils % (A) 81 %; RBC 4.44 m/uL (3.80-5.40); RDW 14.3 % (11.5-15.5); WBC 10.6 k/uL (3.8-10.6); WBC (Perox) 10.53
[2017-07-23 08:56] LABS: Anion Gap 9 mmol/L; Blood Urea Nitrogen 14 mg/dL (7-17); Calcium 9.6 mg/dL (8.4-10.2); Carbon Dioxide 28 mmol/L (22-30); Chloride 102 mmol/L (98-107); Glucose 146 mg/dL (74-99); Non-African American GFR(MDRD) >60 (>60 ml/min/1.73 sqM); Potassium 4.1 mmol/L (3.5-5.1); Sodium 139 mmol/L (137-145)
[2017-07-23] MEDS ORDERED: AZITHROMYCIN 500 MG TAB PO SCH (12:00)
[2017-07-23] MEDS: cefTRIAXone IN SWFI 1,000 MG/10 ML SYRINGE IVP SCH (12:03)
[2017-07-23 12:25] LABS: Glucose,Whole Blood 98 mg/dL (75-99)
[2017-07-23 13:01] VITALS: BP 164/102
--- NOTE | 2017-07-23 13:37 | PN ---
PROGRESS NOTE DATE OF SERVICE: 07/23/2017. REASON FOR FOLLOWUP: Pneumonia. INTERVAL HISTORY: The patient is afebrile. She is breathing more comfortably. Denies any chest pain. Occasional cough. No abdominal pain. No diarrhea. EXAMINATION: Blood pressure 155/108 with a pulse of 73. Temperature 97.2. She is 97% on room air. General description is a middle-aged female up in the room in no distress. RESPIRATORY SYSTEM: Unlabored breathing. Occasional wheeze. HEART: S1, S2. Regular rate and rhythm. ABDOMEN: Soft, no tenderness. LABS: Hemoglobin is 13.7, white count 10.6, BUN of 14, creatinine 0.80. Sputum so far negative. DIAGNOSTIC IMPRESSION AND PLAN: Patient with bilateral pneumonia, community-acquired. The patient seemed to be responding to Rocephin, Zithromax. Plan to finish therapy with p.o. Ceftin. Continue supportive care. MMODL / IJN: [id number] /
--- NOTE | 2017-07-23 14:06 | P.PN ---
Subjective Progress Note Date: 07/23/17 Principal diagnosis: Acute exacerbation of asthma Patient seen and examined. Patient states her breathing and wheezing are better today. She is hoping to go home. She denies cough, fever, chills. She follows with Dr. JERMAINE Ponce at the [place] office. Objective - Vital Signs Vital signs: Vital Signs Temp 97.2 F L 07/23/17 07:00 Pulse 76 07/23/17 11:58 Resp 20 07/23/17 07:00 BP 164/102 07/23/17 09:20 Pulse Ox 97 07/23/17 07:00 Intake & Output 07/22/17 07/23/17 07/23/17 18:59 06:59 18:59 Other: Voiding Method Toilet Toilet # Voids 2 2 - Exam Gen.: Patient is alert and oriented 3, no acute distress, obese Cardiovascular: Regular rate and rhythm, S1/S2 Lungs: Diffuse bilateral expiratory wheezing - improving air movement Abdomen: Soft nontender nondistended positive bowel sounds Extremities: No edema - Labs CBC & Chem 7: 07/23/17 08:01 07/23/17 08:01 Labs: Abnormal Lab Results - Last 24 Hours (Table) 07/22/17 07/23/17 07/23/17 Range/Units 20:48 07:06 08:01 Neutrophils # 8.5 H (1.3-7.7) k/uL Glucose (74-99) mg/dL POC Glucose (mg/dL) 143 H 144 H (75-99) mg/dL 07/23/17 Range/Units 08:01 Neutrophils # (1.3-7.7) k/uL Glucose 146 H (74-99) mg/dL POC Glucose (mg/dL) (75-99) mg/dL Microbiology - Last 24 Hours (Table) 07/19/17 22:30 Blood Culture - Preliminary Blood No Growth after 72 hours 07/22/17 08:00 Gram Stain - Preliminary Sputum 07/21/17 13:44 Urine Culture - Final Urine,Clean Catch Assessment and Plan Assessment: Acute exacerbation of severe persistent ALLERGIC asthma Bilateral community-acquired pneumonia Hypersensitivity pneumonitis Fibromyalgia Leukocytosis POA, improving Diabetes mellitus Dyslipidemia Anxiety and depression Active tobacco abuse O2 to maintain saturation greater than or equal to 90% Change to PO Prednisone Singulair Pulmicort Bronchodilators GI and DVT prophylaxis Incentive spirometry and pulmonary hygiene Smoking cessation Repeat CXR reviewed, shows improvement in bilateral infiltrates, consistent more with HP given rapid improvement Patient would benefit from Xolair, however, her insurance has denies this medication OK to DC from pulmonary standpoint with close follow up with Dr. JERMAINE Ponce at the [facility].
--- NOTE | 2017-07-23 16:05 | P.DS ---
Providers Date of admission: 07/19/17 20:00 Expected date of discharge: 07/23/17 Attending physician: Duong Neal. Consults: 07/20/17 11:58 Consult Physician Routine Consulting Provider: Joaquin Ponce Consult Reason/Comments: pneumonia Do you want consulting provider notified?: Yes 07/20/17 15:30 Consult Physician Routine Consulting Provider: Alexsander Zarate Consult Reason/Comments: infection Do you want consulting provider notified?: Yes Primary care physician: [facility] Course: Final diagnosis 1. Acute bilateral multifocal pneumonia possibly community acquired. 2. Acute ALLERGIC asthma acute exacerbation. 3. Diabetes mellitus type II. 4. Fibromyalgia. 5. Hyperlipidemia. 6. History of back pain. 7. History of EtOH. 8. Anxiety depression. Hospital course: This 52 woman with a past medical history of multiple medical problems was admitted with a bilateral multifocal pneumonia and as well as acute asthma exacerbation. Patient was treated with IV antibiotics, bronchodilators and steroids. Dr. JERMAINE Ponce saw the patient during the hospitalization. Patient improved significantly. Patient will be discharged in a stable condition with guarded prognosis. Patient is extremely keen on going home. Total time taken is 35 minutes. The impression and plan of care has been dictated as directed. DrKike: I performed a history and examination of this patient, discussed the same with the dictator. I agree with the dictator's note ,documented as a scribe. Any additional findings or plans will be noted. Patient Condition at Discharge: Stable Plan - Discharge Summary New Discharge Prescriptions: New Azithromycin [Zithromax] 500 mg PO DAILY #7 tab Cefuroxime Axetil [Ceftin] 500 mg PO BID #14 tab Ipratropium-Albuterol Nebulize [Duoneb 0.5 mg-3 mg/3 ml Soln] 3 ml INHALATION RT-QID #120 ampul.neb predniSONE 10 mg PO DIRECTED #30 tab Continue Hydrochlorothiazide [Hydrodiuril] 25 mg PO DAILY ALPRAZolam [Xanax] 0.5 mg PO QID PRN PRN Reason: Anxiety Topiramate [Topamax] 50 mg PO BID Methadone [Dolophine] 20 mg PO Q8HR Ergocalciferol [Vitamin D2 (DRISDOL)] 50,000 unit PO MO Budesonide/Formoterol Fumarate [Symbicort 80-4.5 Mcg Inhaler] 2 puff INHALATION RT-BID Venlafaxine HCl [Effexor XR] 225 mg PO DAILY Potassium Chloride [Klor-Con 20] 20 meq PO BID Omeprazole [PriLOSEC] 20 mg PO DAILY Beclomethasone Dipropionate [Qvar 80 mcg] 1 puff INHALATION RT-DAILY PRN PRN Reason: Shortness Of Breath Omeprazole 20 mg PO DAILY HYDROcodone/APAP 7.5-325MG [[place] 7.5-325] 1 tab PO Q4H PRN PRN Reason: Pain Baclofen 10 mg PO TID Albuterol Inhaler [Ventolin Hfa Inhaler] 1 puff INHALATION RT-Q4H PRN PRN Reason: Shortness Of Breath ARIPiprazole [Abilify] 10 mg PO DAILY Montelukast [Singulair] 10 mg PO HS Fluticasone/Salmeterol [Advair 250-50 Diskus] 1 puff INHALATION RT-BID Pregabalin [Lyrica] 75 mg PO BID Lisinopril [Zestril] 10 mg PO DAILY Discharge Medication List ALPRAZolam [Xanax] 0.5 mg PO QID PRN 07/19/17 [History] ARIPiprazole [Abilify] 10 mg PO DAILY 07/19/17 [History] Albuterol Inhaler [Ventolin Hfa Inhaler] 1 puff INHALATION RT-Q4H PRN 07/19/17 [ History] Baclofen 10 mg PO TID 07/19/17 [History] Beclomethasone Dipropionate [Qvar 80 mcg] 1 puff INHALATION RT-DAILY PRN [History] Budesonide/Formoterol Fumarate [Symbicort 80-4.5 Mcg Inhaler] 2 puff INHALATION RT-BID 07/19/17 [History] Ergocalciferol [Vitamin D2 (DRISDOL)] 50,000 unit PO MO 07/19/17 [History] Fluticasone/Salmeterol [Advair 250-50 Diskus] 1 puff INHALATION RT-BID 07/19/17 [History] HYDROcodone/APAP 7.5-325MG [[place] 7.5-325] 1 tab PO Q4H PRN 07/19/17 [History] Hydrochlorothiazide [Hydrodiuril] 25 mg PO DAILY 07/19/17 [History] Lisinopril [Zestril] 10 mg PO DAILY 07/19/17 [History] Methadone [Dolophine] 20 mg PO Q8HR 07/19/17 [History] Montelukast [Singulair] 10 mg PO HS 07/19/17 [History] Omeprazole 20 mg PO DAILY 07/19/17 [History] Omeprazole [PriLOSEC] 20 mg PO DAILY 07/19/17 [History] Potassium Chloride [Klor-Con 20] 20 meq PO BID 07/19/17 [History] Pregabalin [Lyrica] 75 mg PO BID 07/19/17 [History] Topiramate [Topamax] 50 mg PO BID 07/19/17 [History] Venlafaxine HCl [Effexor XR] 225 mg PO DAILY 07/19/17 [History] Azithromycin [Zithromax] 500 mg PO DAILY #7 tab 07/22/17 [Rx] Cefuroxime Axetil [Ceftin] 500 mg PO BID #14 tab 07/22/17 [Rx] Ipratropium-Albuterol Nebulize [Duoneb 0.5 mg-3 mg/3 ml Soln] 3 ml INHALATION RT -QID #120 ampul.neb 07/22/17 [Rx] predniSONE 10 mg PO DIRECTED #30 tab 07/22/17 [Rx] Follow up Appointment(s)/Referral(s): Stacia Saleem DO [Doctor of Osteopathic Medicine] - 08/08/17 12:15 pm ([place] location. ) Krish Arevalo MD [Primary Care Provider] - 08/07/17 11:00 am () Ambulatory/Diagnostic Orders: Complete Blood Count w/diff [LAB.AMB] Time Frame: 3 Days, Location: Determined By Patient Patient Instructions/Handouts: How to Stop Smoking (DC), Type 2 Diabetes in Adults (DC), Pneumonia (DC) Activity/Diet/Wound Care/Special Instructions: Cardiac, diabetic diet. Limited activity until follow up with primary care doctor. NO smoking, cessation information provided. Discharge Disposition: HOME SELF-CARE
[2017-07-24] MEDS ORDERED: predniSONE 20 MG TAB PO SCH (09:00)
== END 2017-07-23 15:32 | disposition home or self-care (01) | DRG 139 ==
LOC: EC 19:36 → 4MS4W 20:00
PROVIDERS: ADMIT Hospitalist; ATTEND Hospitalist
DX: J18.9 Pneumonia, unspecified organism (principal); J45.901 Unspecified asthma with (acute) exacerbation; F32.9 Major depressive disorder, single episode, unspecified; E11.9 Type 2 diabetes mellitus without complications; M79.7 Fibromyalgia; E78.5 Hyperlipidemia, unspecified; M54.9 Dorsalgia, unspecified; F41.9 Anxiety disorder, unspecified; F17.210 Nicotine dependence, cigarettes, uncomplicated; Z71.6 Tobacco abuse counseling; Z83.3 Family history of diabetes mellitus; Z79.899 Other long term (current) drug therapy; Z79.51 Long term (current) use of inhaled steroids; Z79.891 Long term (current) use of opiate analgesic
CPT/HCPCS: 71010; 71020; 80048; 80053; 85025; 87040; 87070; 87086; 87205; 87502; 90686; 90732; 93005; 94640; 94760; 99285

== ENCOUNTER → 2019-04-29 | Day surgery (SDC) | payer OTHER ==
[2019-04-22 15:41] VITALS: BMI 24.3
[~2019-04-29] MED LIST: ALPRAZolam 0.25 MG TAB PO PRN; ALPRAZolam 0.5 MG TAB PO PRN; ASPIRIN 325 MG TAB PO STA; ATORVASTATIN 80 MG TAB PO STA; BENZOCAINE SPRAY 1 CAN MUCOUS MEM ONE; ENALAPRILAT 1.25 MG/ML 1 ML VIAL IV ONE; ENALAPRILAT 1.25 MG/ML 1 ML VIAL ONE; FUROSEMIDE 20 MG TAB PO SCH; IOPAMIDOL-370 100ML BTL INJ ONE; IV FLUID CONTINUATION 1,000 ML IV ONE; LIDOCAINE 1% INJ 10MG/ML (20 ML MDV) ONE; LIDOCAINE 1% INJ 10MG/ML (20 ML MDV) SQ ONE; NITROGLYCERIN SL TABS 0.4 MG TAB SUBLINGUAL PRN; RX INFO: IV CONTRAST WAS GIVEN 1 EACH MISC MISCELLANE PRN; SODIUM CHLORIDE 0.9% 1,000 ML in EMPTY BAG 1 BAG IV ONE; amLODIPine 10 MG TAB PO SCH; fentaNYL (PF) 50 MCG/ML 2 ML AMP ONE; hydrALAZINE HCL 20 MG/ML 1 ML VIAL IV ONE; hydrALAZINE HCL 20 MG/ML 1 ML VIAL IVP PRN; hydrALAZINE HCL 20 MG/ML 1 ML VIAL ONE
[2019-04-29 08:42] VITALS: TEMP 97.5
[2019-04-29 09:23] VITALS: RESP 14
[2019-04-29] MEDS: BENZOCAINE SPRAY 1 CAN MUCOUS MEM ONE ×2 (09:23→09:39)
[2019-04-29] MEDS: MIDAZOLAM PF (FBP) 2 MG/2 ML VIAL IV ONE ×2 (09:43→09:46)
[2019-04-29] MEDS: LISINOPRIL 20 MG TAB PO SCH ×2 (11:03→12:10)
--- NOTE | 2019-04-29 11:09 | CC ---
CARDIAC CATHETERIZATION REPORT INDICATION: Severe mitral regurgitation. PROCEDURE NOTE: After obtaining informed consent, left heart catheterization, coronary angiogram are performed via the right femoral artery using standard Kristen catheters. Patient tolerated the procedure well without any obvious immediate complications. A femoral angiogram was performed and Angio-Seal was deployed for hemostasis. FINDINGS: 1. Left ventricular end-diastolic pressure is 20 mm. There is no significant gradient across the aortic valve. 2. LEFT VENTRICULOGRAM: Left ventriculogram is not performed due to frequent ventricular ectopy with pigtail in the left ventricle. 3. ANGIOGRAPHIC DATA: Left Main Coronary Artery: Left main coronary artery is a normal-sized vessel and is free of stenosis. Divides into left anterior descending coronary artery and circumflex coronary artery. LAD and its branches and circumflex coronary artery and its branches are free of significant stenosis. Right coronary artery is free of significant disease. CONCLUSIONS: 1. Normal coronary arteries. 2. Severe left ventricular dysfunction and mitral regurgitation based on noninvasive studies. MMODL / IJN: [id number] /
--- NOTE | 2019-04-29 11:21 | ECHOT ---
TRANSESOPHAGEAL ECHOCARDIOGRAM INDICATION: Mitral regurgitation. PROCEDURE NOTE: After obtaining informed consent, a transesophageal echocardiogram was performed in left lateral position using an Omniplane probe. Local and IV sedation were obtained using Xylocaine spray, intravenous Versed and fentanyl. The patient tolerated the procedure well without any obvious immediate complications. FINDINGS: 1. Mitral Valve: Mitral valve appears anatomically normal with poor coaptation of the mitral valve leaflets with moderate to severe eccentric mitral regurgitation that it seems predominantly posteriorly directed. 2. Tricuspid valve shows severe tricuspid regurgitation. 3. Aortic valve is a 3-leaflet valve. There is no evidence of aortic stenosis or regurgitation. 4. Left atrium appears enlarged. 5. Right atrium appears severely enlarged. 6. Right ventricle appears mildly enlarged. 7. Left ventricle is enlarged and shows severe diffuse global hypokinesis with an ejection fraction of around 25% to 30%. 8. Aorta shows [id number] atherosclerotic changes. CONCLUSIONS: 1. Moderate to severe mitral regurgitation secondary to poor coaptation of the mitral valve leaflets. 2. Severe tricuspid regurgitation. 3. Severe left ventricular systolic dysfunction. 4. Severe enlargement of the right atrium. PLAN: I am going to ask a cardiothoracic surgeon to evaluate the patient for possible mitral and tricuspid valve repair. The patient's blood pressures are poorly controlled. I am going to optimize the antihypertensives. MMODL / IJN: [id number] /
--- NOTE | 2019-04-29 12:40 | P.GSCN ---
History of Present Illness Consult date: 04/29/19 Reason for Consult: Severe mitral and tricuspid valve regurgitation, surgical recommendations Requesting physician: Antonio Dumont History of present illness: This is a 54-year-old patient who follows on an outpatient basis with Dr. Anthony Alvarez. She has a previous medical history of poorly controlled hypertension, hyperlipidemia, asthma, remote pneumonia, current tobacco dependence as she has smoked 1 pack per day since she was 11 years old equating to [id number] history, EtOH abuse with 6-12 beers daily with history of alcohol withdrawal, and methamphetamine and Fentanyl abuse clean for 1 month on Suboxone. She was recently in [place] for a year spending time with her terminally ill son who from colon cancer approximately 3-4 months ago. Her brought her back from [place] about a month ago. Apparently while in [place] she had multiple hospitalizations for what they thought was asthma but likely was in fact heart failure. Her complaints were of shortness of breath with exertion, she had no complaints of chest pain, lightheadedness, dizziness, nausea, syncope, or any other symptoms. Upon returning to [place] she went to see Dr. Dumont from [facility]. In the office a transthoracic echocardiogram was completed demonstrating LV dysfunction with severe mitral and tricuspid regurgitation. She was also noted to have uncontrolled hypertension. Norvasc a nd Toprol were initiated and the patient was recommended to undergo heart catheterization and transesophageal echocardiogram, both of which were completed today. The heart catheterization demonstrated normal coronaries with no obstruction. Transesophageal echocardiogram confirmed diffuse global hypokinesis with an ejection fraction 25-30%, poor coaptation of the mitral valve leaflets with moderate to severe regurgitation and posteriorly directed eccentric jet, and severe tricuspid regurgitation. Dr. Trejo from cardiothoracic surgery was consulted regarding surgical recommendations. Review of Systems Review of systems was completed and was negative except as noted. - Cardiovascular Reports as per HPI, Reports shortness of breath Past Medical History Past Medical History: Asthma, Heart Failure, Fibromyalgia, Hyperlipidemia, Hypertension, Pneumonia Additional Past Medical History / Comment(s): back pain, DDD, SOB w/exertion, "2 leaky valves" per pt. History of Any Multi-Drug Resistant Organisms: None Reported Past Surgical History: Hernia Repair Past Anesthesia/Blood Transfusion Reactions: No Reported Reaction Past Psychological History: Depression Smoking Status: Current every day smoker Past Alcohol Use History: Daily Additional Past Alcohol Use History / Comment(s): 1 pack per day smoker since she was 11, 6-12 beers daily Past Drug Use History: Methamphetamine Additional Drug Use History / Comment(s): Methamphetamine and fentanyl use, quit 1 month ago, currently on Suboxone - Past Family History Mother Family Medical History: Diabetes Mellitus Sister(s) Family Medical History: Asthma Father Additional Family Medical History / Comment(s): of brain anrysm 48 Son(s) Family Medical History: Cancer Additional Family Medical History / Comment(s): at 35 years old of aggressive colon cancer Medications and Allergies Home Medications Medication Instructions Recorded Confirmed Type Albuterol Sulfate [Proair Hfa] 1 - 2 puff INHALATION Q6HR PRN 04/22/19 04/29/19 History Buprenorphine HCl/Naloxone HCl 1 each SL BID 04/22/19 04/29/19 History [Suboxone 12 mg-3 mg Sl Film] Metoprolol Succinate (ER) [Toprol 50 mg PO DAILY 04/22/19 04/29/19 History XL] Montelukast [Singulair] 10 mg PO DAILY 04/22/19 04/29/19 History Rosuvastatin [Crestor] 20 mg PO TU 04/22/19 04/29/19 History ALPRAZolam [Xanax] 0.5 mg PO BID PRN 04/29/19 04/29/19 History Furosemide [Lasix] 20 mg PO DAILY #90 tab 04/29/19 Rx Lisinopril [Zestril] 20 mg PO DAILY #90 tab 04/29/19 Rx amLODIPine [Norvasc] 10 mg PO DAILY #90 tab 04/29/19 Rx Allergies Allergy/AdvReac Type Severity Reaction Status Date / Time No Known Allergies Allergy Verified 04/29/19 08:33 Surgical - Exam Vital Signs Temp Pulse Resp BP Pulse Ox 97.5 F L 80 18 165/101 97 04/29/19 08:41 04/29/19 08:41 04/29/19 08:41 04/29/19 08:41 04/29/19 08:41 - General well developed, well nourished, no distress, no pain - Eyes PERRL, normal ocular movement - ENT no hearing loss, poor half-way - Neck no masses, no bruits, trachea midline - Respiratory Lungs sounds diminished with coarse expiratory wheezes heard bilaterally. Respirations even, nonlabored. Currently on 2 L nasal cannula with oxygen sat uration 100%. No chest wall deformities. - Cardiovascular S1, S2 present. Regular rate and rhythm, sinus rhythm on telemetry. Palpable peripheral pulses bilaterally. No edema present. No calf pain or tenderness noted. No varicosities noted. - Abdomen Abdomen: soft, non tender, bowel sounds - Genitourinary Deferred - Rectum Deferred - Integumentary no rash, no growths - Neurologic Patient is very sleepy but does arouse to voice - Musculoskeletal normal posture - Psychiatric oriented to time, oriented to person, oriented to place, speech is normal, memory intact Assessment and Plan Assessment: 1. Severe mitral regurgitation 2. Severe tricuspid regurgitation 3. Poorly controlled hypertension 4. Hyperlipidemia 5. Asthma 6. Remote pneumonia 7. Current tobacco dependence 8. Daily EtOH abuse with history of withdrawal 9. 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 Chart/diagnostics were reviewed including heart catheterization film and transesophageal echocardiogram film. The case will be discussed with Dr. Trejo who will see the patient today before she leaves the hospital. The usual perioperative course was discussed with the patient and , risks and benefits were reviewed, all questions were answered. We will obtain carotid Dopplers, pulmonary function tests, and lab work. The patient will need dental clearance prior to surgery and this was discussed and agreed upon with the patient/. We would highly recommend the patient quit smoking, as well as quit drinking to prevent withdrawal post surgery. STS risk score will be calculated and discussed with the patient and her . More recommendations to follow once Dr. Trejo has had the opportunity to review the patient's films and talked with the patient and her . Thank you Dr. Dumont for this consult. We look forward to working with you care patient. Time with Patient: Greater than 30
[2019-04-29 15:11] VITALS: BP 121/73; PULSE 78
--- NOTE | 2019-04-29 15:17 | US ---
EXAMINATION TYPE: US carotid duplex BILAT DATE OF EXAM: 04/29/2019 COMPARISON: NONE CLINICAL HISTORY: preop open heart. valve replacement EXAM MEASUREMENTS: RIGHT: Peak Systolic Velocity (PSV) cm/sec ----- Right CCA: 39.8 ----- Right ICA: 72.9 ----- Right ECA: 76.4 ICA/CCA ratio: 1.8 RIGHT: End Diastole cm/sec ----- Right CCA: 15.6 ----- Right ICA: 17.1 ----- Right ECA: 14.5 LEFT: Peak Systolic Velocity (PSV) cm/sec ----- Left CCA: 60.5 ----- Left ICA: 62.4 ----- Left ECA: 58.6 ICA/CCA ratio: 1.0 LEFT: End Diastole cm/sec ----- Left CCA: 14.2 ----- Left ICA: 29.6 ----- Left ECA: 14.4 VERTEBRALS (direction of flow): Right Vertebral: Antegrade Left Vertebral: not seen Rhythm: Normal Challenging study due to heavy breathing, mild homogeneous plaque seen with no significant stenosis IMPRESSION: Atheromatous plaquing. Significant flow-limiting stenosis based on velocities is not rosa m dent. Criteria for Assigning % of Stenosis / Diameter reduction (Estimation based on the indirect measurements of the internal carotid artery velocities (ICA PSV). 1. Normal (no stenosis)=ICA PSV < 125 cm/s: ratio < 2.0: ICA EDV<40 cm/s. 2. Less than 50% stenosis=ICA PSV < 125 cm/s: ratio < 2.0: ICA EDV<40 cm/s. 3. 50 to 69% stenosis=ICA PSV of 125 to 230 cm/s: ration 2.0 ? 4.0: ICA EDV 40-100 cm/s. 4. Greater than 70% stenosis to near occlusion= ICA PSV > 230 cm/s: ratio > 4.0: ICA EDV > 100 cm/s. 5. Near occlusion= ICA PSV velocities may be low or undetectable: variable ratio and ICA EDV. 6. Total occlusion=unable to detect flow.
[2019-04-29 20:16] LABS: Hepatitis A Antibody IgM Non-Reactive (Non-Reactive); Hepatitis B Core IgM Non-Reactive (Non-Reactive); Hepatitis B Surface Antigen Non-Reactive (Non-Reactive); Hepatitis C IgG Antibody Non-Reactive (Non-Reactive)
[2019-04-29 22:22] LABS: Hemoglobin A1C 5.2 % (4.0-6.0)
--- NOTE | 2019-05-15 13:18 | CDI ---
Documentation Clarification Request Date: 05/15/19 From: Kita Mirza, [employer]ender ([phone]) Patient: Skyla Cruz Acct: [id number] Date of Service: 04/29/[address] Johnathan Dumont, On 04/29/19 you performed a SEBASTIÁN on this patient. However, your dictated report does not include indication that you performed all aspects of SEBASTIÁN---there is no documentation that you did the color doppler or pulse wave portions of the procedure. If you performed, color doppler and pulse wave, please dictate an addendum to you SEBASTIÁN procedure report OR you may dictate that addendum detail below the line on this Clarification Form since this document will be part of the legal medical record for this patient. OR Please indicate below that you did not perform these aspects during this SEBASTIÁN. Thank you for you assistance in our effort to ensure accurate documentation and charging for services provided to your patient. MTDD
== END ==
LOC: CATHCVL 08:17
PROVIDERS: ATTEND Internal Medicine Cardiovascular Disease
DX: I08.1 Rheumatic disorders of both mitral and tricuspid valves (principal); I70.0 Atherosclerosis of aorta; I49.3 Ventricular premature depolarization; I10 Essential (primary) hypertension; E78.5 Hyperlipidemia, unspecified; F17.210 Nicotine dependence, cigarettes, uncomplicated; F10.11 Alcohol abuse, in remission; F11.10 Opioid abuse, uncomplicated; F15.11 Other stimulant abuse, in remission; Z80.0 Family history of malignant neoplasm of digestive organs; Z79.899 Other long term (current) drug therapy
CPT/HCPCS: 93312; 93320; 93325; 93458; 80061; 80074; 84443; 83036; 93880; C1760; C1894; C1769; J0360; J2001; Q9967; J2250

== ENCOUNTER 2019-12-06 03:33 | Inpatient (IN) | payer OTHER ==
--- NOTE | 2019-12-06 03:42 | ED ---
Altered Mental Status HPI - General Stated Complaint: Altered Mental Status Time Seen by Provider: 12/06/19 03:35 Limitations: altered mental status - History of Present Illness Initial Comments: This patient is a 54-year-old woman who arrives as a transfer from [facility]. The patient had gone there after her was concerned about altered mental status. The patient reportedly had not wanted to get out of bed in the morning and had declined breakfast. She then basically spent all day in bed, and then she also reportedly was unresponsive she was brought to the other hospital. The workup at the other hospital included chest x-ray that is reported to have shown lower lobe infiltrate and small left upper lobe infiltrate. She had head CT that was interpreted as negative. She had lab s revealing white blood cell count 17.7 thousand. Lactic acid 3.5. BUN of 26 and creatinine 1.8. Urine drug screen positive for methadone, and the patient currently being treated for opioid addiction. Remainder of labs unremarkable. The patient also reported to be hypotensive on arrival with blood pressures ranging from the 70s over 40s to the 90s. Patient also was tachycardic and febrile. Treatment at the other hospital included 3 L saline bolus, dose of cefepime 2 g, and dose of vancomycin. On arrival, patient not able to give additional history here due to mental status change. MD Complaint: altered mental status Onset/Timin -: days(s) Consistency of Symptoms: getting worse Treatments Prior to Arrival: IV fluid, oxygen, other pre-hospital medication - Related Data Home Medications Medication Instructions Recorded Confirmed Buprenorphine HCl/Naloxone HCl 1 film SL BID 04/22/19 12/06/19 [Suboxone 12 mg-3 mg Sl Film] Montelukast [Singulair] 10 mg PO DAILY 04/22/19 12/06/19 Rosuvastatin [Crestor] 20 mg PO DAILY 04/22/19 12/06/19 Ergocalciferol [Vitamin D2 50,000 unit PO Q7D 12/06/19 12/06/19 (DRISDOL)] Escitalopram [Lexapro] 10 mg PO DAILY 12/06/19 12/06/19 Escitalopram [Lexapro] 20 mg PO DAILY 12/06/19 12/06/19 PARoxetine HCL [Paxil] 30 mg PO DAILY 12/06/19 12/06/19 Pregabalin [Lyrica] 150 mg PO BID 12/06/19 12/06/19 busPIRone HCL 15 mg PO TID 12/06/19 12/06/19 Previous Rx's Medication Instructions Recorded amLODIPine [Norvasc] 10 mg PO DAILY #90 tab 04/29/19 Albuterol Inhaler [Ventolin Hfa 2 puff INHALATION RT-QID puff 12/18/19 Inhaler] Amoxic-Pot Clav 875-125Mg 1 tab PO Q12HR 5 Days #10 tab 12/18/19 [Augmentin 875-125] Carvedilol [Coreg] 3.125 mg PO BID #10 tablet 12/18/19 Tiotropium [place] [Spiriva] 1 cap INHALATION DAILY #1 device 12/18/19 predniSONE [Deltasone] 10 mg PO DAILY tab 12/18/19 Allergies Allergy/AdvReac Type Severity Reaction Status Date / Time No Known Allergies Allergy Verified 12/06/19 10:16 Review of Systems ROS Statement: Those systems with pertinent positive or pertinent negative responses have been documented in the HPI. ROS Other: All systems not noted in ROS Statement are negative. Limitations: ROS unobtainable due to patients medical condition Past Medical History Past Medical History: Asthma, Heart Failure, Fibromyalgia, Hyperlipidemia, Hypertension, Pneumonia Additional Past Medical History / Comment(s): back pain, DDD, SOB w/exertion, "2 leaky valves" per pt. History of Any Multi-Drug Resistant Organisms: None Reported Past Surgical History: Hernia Repair Past Anesthesia/Blood Transfusion Reactions: No Reported Reaction Past Psychological History: Depression Smoking Status: Current every day smoker Past Alcohol Use History: Daily Additional Past Alcohol Use History / Comment(s): 1 pack per day smoker since she was 11, 6-12 beers daily Past Drug Use History: Methamphetamine Additional Drug Use History / Comment(s): Methamphetamine and fentanyl use, quit 1 month ago, currently on Suboxone - Past Family History Mother Family Medical History: Diabetes Mellitus Sister(s) Family Medical History: Asthma Father Additional Family Medical History / Comment(s): of brain anrysm 48 Son(s) Family Medical History: Cancer Additional Family Medical History / Comment(s): at 35 years old of aggressive colon cancer General Exam General appearance: obtunded Head exam: Present: atraumatic, normocephalic, normal inspection Eye exam: Present: PERRL, conjunctival injection. Absent: scleral icterus ENT exam: Present: mucous membranes dry Neck exam: Present: normal inspection Respiratory exam: Present: respiratory distress (Tachypnea), rales (Left-sided), rhonchi Cardiovascular Exam: Present: normal rhythm, tachycardia, normal heart sounds. Absent: systolic murmur, diastolic murmur, rubs, gallop GI/Abdominal exam: Present: soft. Absent: distended, tenderness, guarding, rebound, rigid, mass Extremities exam: Present: normal capillary refill. Absent: pedal edema, calf tenderness Back exam: Present: normal inspection Neurological exam: Present: altered. Absent: motor sensory deficit Skin exam: Present: warm, dry, intact, normal color. Absent: rash Course Vital Signs 12/06/19 12/06/19 12/06/19 03:37 03:53 04:34 Temperature 97.7 F Pulse Rate 110 H 107 H 109 H Respiratory 28 H 30 H 26 H Rate Blood Pressure 74/45 98/68 88/60 O2 Sat by Pulse 96 97 100 Oximetry 12/06/19 12/06/19 05:15 05:45 Temperature Pulse Rate 109 H 108 H Respiratory 24 24 Rate Blood Pressure 91/59 98/64 O2 Sat by Pulse 96 96 Oximetry - Reevaluation(s) Reevaluation #1: 12/06/19 05:34 Case D/W Dr. Sharp and his recommendations incorporated. Procedures - Central Line Placement Right Femoral Consent Obtained: emergent situation Patient Placed on Monitor/Pulse Ox: Yes MD Prep: mask, gown, gloves Central Line Prep: Chlorhexidine scrub Local Anesthesia Used: Lidocaine 1% Central Line Lumen Inserted: triple Central Line Position: good blood return, all ports aspirated, flushed, capped, sutured in place with nylon Dressing Applied: Tegaderm Patient Tolerated Procedure: well Complications: none Additional Comments: Following timeout, the patient has a right femoral triple-lumen central venous catheter placed, with the indication that the patient is hypotensive requiring pressors, fluids and multiple medications. The placement is accomplished without complication patient tolerated well. Medical Decision Making - Medical Decision Making Patient is a 54-year-old woman transferred here for pneumonia, sepsis, altered mental status. The patient did remain hypotensive despite fluid resuscitation, and on arrival I did place a central line, please see the procedure note. Patient started on levo fed. - Lab Data Result diagrams: 12/17/19 04:50 12/18/19 10:52 Lab Results 12/06/19 12/06/19 12/06/19 Range/Units 03:37 04:07 04:07 WBC 12.5 H (3.8-10.6) k/uL RBC 3.81 (3.80-5.40) m/uL Hgb 12.1 (11.4-16.0) gm/dL Hct 36.0 (34.0-46.0) % MCV 94.3 (80.0-100.0) fL MCH 31.7 (25.0-35.0) pg MCHC 33.6 (31.0-37.0) g/dL RDW 13.8 (11.5-15.5) % Plt Count 146 L (150-450) k/uL Neutrophils % (Manual) 57 % Band Neutrophils % 28 % Lymphocytes % (Manual) 13 % Monocytes % (Manual) 2 % Neutrophils # (Manual) 10.60 H (1.3-7.7) k/uL Lymphocytes # (Manual) 1.63 (1.0-4.8) k/uL Monocytes # (Manual) 0.25 (0-1.0) k/uL Nucleated RBCs 0 (0-0) /100 WBC Manual Slide Review Performed Sodium (137-145) mmol/L Potassium (3.5-5.1) mmol/L Chloride (98-107) mmol/L Carbon Dioxide (22-30) mmol/L Anion Gap mmol/L BUN (7-17) mg/dL Creatinine (0.52-1.04) mg/dL Est GFR (CKD-EPI)AfAm (>60 ml/min/1.73 sqM) Est GFR (CKD-EPI)NonAf (>60 ml/min/1.73 sqM) Glucose (74-99) mg/dL POC Glucose (mg/dL) 92 (75-99) mg/dL POC Glu All Around Presser ID Jessy Dimas Lactic Ac Sepsis Rflx Plasma Lactic Acid Mateo (0.7-2.0) mmol/L Calcium (8.4-10.2) mg/dL Total Bilirubin (0.2-1.3) mg/dL AST (14-36) U/L ALT (4-34) U/L Alkaline Phosphatase (38-126) U/L Troponin I (0.000-0.034) ng/mL Total Protein (6.3-8.2) g/dL Albumin (3.5-5.0) g/dL Urine Color Yellow Urine Appearance Clear (Clear) Urine pH 5.5 (5.0-8.0) Ur Specific Mcmillan 1.015 (1.001-1.035) Urine Protein Trace H (Negative) Urine Glucose (UA) Negative (Negative) Urine Ketones Negative (Negative) Urine Blood Moderate H (Negative) Urine Nitrite Negative (Negative) Urine Bilirubin Negative (Negative) Urine Urobilinogen <2.0 (<2.0) mg/dL Ur Leukocyte Esterase Negative (Negative) Urine RBC 1 (0-5) /hpf Urine WBC 2 (0-5) /hpf Ur Squamous Epith Cells <1 (0-4) /hpf Hyaline Casts 1 (0-2) /lpf Urine Mucus Rare H (None) /hpf Coronavirus (PCR) Hepatitis A IgM Ab (Non-Reactive) Hep Bs Antigen (Non-Reactive) Hep B Core IgM Ab (Non-Reactive) Hep C IgG Ab (Non-Reactive) Influenza Type A RNA (Not Detectd) Influenza Type B (PCR) (Not Detectd) 12/06/19 12/06/19 12/06/19 Range/Units 04:07 04:07 04:07 WBC (3.8-10.6) k/uL RBC (3.80-5.40) m/uL Hgb (11.4-16.0) gm/dL Hct (34.0-46.0) % MCV (80.0-100.0) fL MCH (25.0-35.0) pg MCHC (31.0-37.0) g/dL RDW (11.5-15.5) % Plt Count (150-450) k/uL Neutrophils % (Manual) % Band Neutrophils % % Lymphocytes % (Manual) % Monocytes % (Manual) % Neutrophils # (Manual) (1.3-7.7) k/uL Lymphocytes # (Manual) (1.0-4.8) k/uL Monocytes # (Manual) (0-1.0) k/uL Nucleated RBCs (0-0) /100 WBC Manual Slide Review Sodium 139 (137-145) mmol/L Potassium 3.9 (3.5-5.1) mmol/L Chloride 110 H (98-107) mmol/L Carbon Dioxide 22 (22-30) mmol/L Anion Gap 7 mmol/L BUN 26 H (7-17) mg/dL Creatinine 1.11 H (0.52-1.04) mg/dL Est GFR (CKD-EPI)AfAm 64 (>60 ml/min/1.73 sqM) Est GFR (CKD-EPI)NonAf 56 (>60 ml/min/1.73 sqM) Glucose 104 H (74-99) mg/dL POC Glucose (mg/dL) (75-99) mg/dL POC Glu All Around Presser ID Lactic Ac Sepsis Rflx Plasma Lactic Acid Mateo 2.2 H* (0.7-2.0) mmol/L Calcium 7.1 L (8.4-10.2) mg/dL Total Bilirubin 2.1 H (0.2-1.3) mg/dL AST 163 H (14-36) U/L ALT 35 H (4-34) U/L Alkaline Phosphatase 37 L (38-126) U/L Troponin I 0.947 H* (0.000-0.034) ng/mL Total Protein 5.1 L (6.3-8.2) g/dL Albumin 2.7 L (3.5-5.0) g/dL Urine Color Urine Appearance (Clear) Urine pH (5.0-8.0) Ur Specific Mcmillan (1.001-1.035) Urine Protein (Negative) Urine Glucose (UA) (Negative) Urine Ketones (Negative) Urine Blood (Negative) Urine Nitrite (Negative) Urine Bilirubin (Negative) Urine Urobilinogen (<2.0) mg/dL Ur Leukocyte Esterase (Negative) Urine RBC (0-5) /hpf Urine WBC (0-5) /hpf Ur Squamous Epith Cells (0-4) /hpf Hyaline Casts (0-2) /lpf Urine Mucus (None) /hpf Coronavirus (PCR) Hepatitis A IgM Ab (Non-Reactive) Hep Bs Antigen (Non-Reactive) Hep B Core IgM Ab (Non-Reactive) Hep C IgG Ab (Non-Reactive) Influenza Type A RNA (Not Detectd) Influenza Type B (PCR) (Not Detectd) 12/06/19 12/06/19 12/06/19 Range/Units 04:07 04:07 04:14 WBC (3.8-10.6) k/uL RBC (3.80-5.40) m/uL Hgb (11.4-16.0) gm/dL Hct (34.0-46.0) % MCV (80.0-100.0) fL MCH (25.0-35.0) pg MCHC (31.0-37.0) g/dL RDW (11.5-15.5) % Plt Count (150-450) k/uL Neutrophils % (Manual) % Band Neutrophils % % Lymphocytes % (Manual) % Monocytes % (Manual) % Neutrophils # (Manual) (1.3-7.7) k/uL Lymphocytes # (Manual) (1.0-4.8) k/uL Monocytes # (Manual) (0-1.0) k/uL Nucleated RBCs (0-0) /100 WBC Manual Slide Review Sodium (137-145) mmol/L Potassium (3.5-5.1) mmol/L Chloride (98-107) mmol/L Carbon Dioxide (22-30) mmol/L Anion Gap mmol/L BUN (7-17) mg/dL Creatinine (0.52-1.04) mg/dL Est GFR (CKD-EPI)AfAm (>60 ml/min/1.73 sqM) Est GFR (CKD-EPI)NonAf (>60 ml/min/1.73 sqM) Glucose (74-99) mg/dL POC Glucose (mg/dL) (75-99) mg/dL POC Glu All Around Presser ID Lactic Ac Sepsis Rflx Plasma Lactic Acid Mateo (0.7-2.0) mmol/L Calcium (8.4-10.2) mg/dL Total Bilirubin (0.2-1.3) mg/dL AST (14-36) U/L ALT (4-34) U/L Alkaline Phosphatase (38-126) U/L Troponin I (0.000-0.034) ng/mL Total Protein (6.3-8.2) g/dL Albumin (3.5-5.0) g/dL Urine Color Urine Appearance (Clear) Urine pH (5.0-8.0) Ur Specific Mcmillan (1.001-1.035) Urine Protein (Negative) Urine Glucose (UA) (Negative) Urine Ketones (Negative) Urine Blood (Negative) Urine Nitrite (Negative) Urine Bilirubin (Negative) Urine Urobilinogen (<2.0) mg/dL Ur Leukocyte Esterase (Negative) Urine RBC (0-5) /hpf Urine WBC (0-5) /hpf Ur Squamous Epith Cells (0-4) /hpf Hyaline Casts (0-2) /lpf Urine Mucus (None) /hpf Coronavirus (PCR) [facility] Hep[facility] A IgM Ab Non-Reactive (Non-Reactive) Hep Bs Antigen Non-Reactive (Non-Reactive) Hep B Core IgM Ab Non-Reactive (Non-Reactive) Hep C IgG Ab Non-Reactive (Non-Reactive) Influenza Type A RNA Not Detected (Not Detectd) Influenza Type B (PCR) Not Detected (Not Detectd) 12/06/19 Range/Units 04:54 WBC (3.8-10.6) k/uL RBC (3.80-5.40) m/uL Hgb (11.4-16.0) gm/dL Hct (34.0-46.0) % MCV (80.0-100.0) fL MCH (25.0-35.0) pg MCHC (31.0-37.0) g/dL RDW (11.5-15.5) % Plt Count (150-450) k/uL Neutrophils % (Manual) % Band Neutrophils % % Lymphocytes % (Manual) % Monocytes % (Manual) % Neutrophils # (Manual) (1.3-7.7) k/uL Lymphocytes # (Manual) (1.0-4.8) k/uL Monocytes # (Manual) (0-1.0) k/uL Nucleated RBCs (0-0) /100 WBC Manual Slide Review Sodium (137-145) mmol/L Potassium (3.5-5.1) mmol/L Chloride (98-107) mmol/L Carbon Dioxide (22-30) mmol/L Anion Gap mmol/L BUN (7-17) mg/dL Creatinine (0.52-1.04) mg/dL Est GFR (CKD-EPI)AfAm (>60 ml/min/1.73 sqM) Est GFR (CKD-EPI)NonAf (>60 ml/min/1.73 sqM) Glucose (74-99) mg/dL POC Glucose (mg/dL) (75-99) mg/dL POC Glu All Around Presser ID Lactic Ac Sepsis Rflx Y Plasma Lactic Acid Mateo (0.7-2.0) mmol/L Calcium (8.4-10.2) mg/dL Total Bilirubin (0.2-1.3) mg/dL AST (14-36) U/L ALT (4-34) U/L Alkaline Phosphatase (38-126) U/L Troponin I (0.000-0.034) ng/mL Total Protein (6.3-8.2) g/dL Albumin (3.5-5.0) g/dL Urine Color Urine Appearance (Clear) Urine pH (5.0-8.0) Ur Specific Mcmillan (1.001-1.035) Urine Protein (Negative) Urine Glucose (UA) (Negative) Urine Ketones (Negative) Urine Blood (Negative) Urine Nitrite (Negative) Urine Bilirubin (Negative) Urine Urobilinogen (<2.0) mg/dL Ur Leukocyte Esterase (Negative) Urine RBC (0-5) /hpf Urine WBC (0-5) /hpf Ur Squamous Epith Cells (0-4) /hpf Hyaline Casts (0-2) /lpf Urine Mucus (None) /hpf Coronavirus (PCR) Hepatitis A IgM Ab (Non-Reactive) Hep Bs Antigen (Non-Reactive) Hep B Core IgM Ab (Non-Reactive) Hep C IgG Ab (Non-Reactive) Influenza Type A RNA (Not Detectd) Influenza Type B (PCR) (Not Detectd) - EKG Data -: EKG Interpreted by [place] EKG shows normal: sinus rhythm, axis (Normal), intervals (IN interval 138 seconds, QRS duration 90 ms, both Normal. QTC 636 ms, prolonged.), QRS complexes (Normal), ST-T waves (Possible anterior ischemia.) Rate: tachycardia (Rate approximately 111 bpm) Critical Care Time Critical Care Time: Yes (35 minutes) Disposition Clinical Impression: Pneumonia, Delirium due to general medical condition, Hypotension, Sepsis, Elevated troponin I level Disposition: ADMITTED IP TO THIS HOSP Condition: Critical
[2019-12-06 03:43] LABS: Glucose,Whole Blood 92 mg/dL (75-99)
[2019-12-06] MEDS ORDERED: NOREPINEPHRINE 4 MG in SODIUM CHLORIDE 0.9% 250 ML IV ONE (03:45)
[2019-12-06] MEDS ORDERED: NOREPINEPHRINE 8 MG in SODIUM CHLORIDE 0.9% 250 ML IV STA (03:52)
[2019-12-06] MEDS ORDERED: NOREPINEPHRINE 32 MG in SODIUM CHLORIDE 0.9% 218 ML IV ONE (03:55)
[2019-12-06 04:27] LABS: Appearance,Urine Clear (Clear); Bilirubin,Urine Negative (Negative); Blood,Urine Moderate (Negative); Color,Urine Yellow; Glucose,Urine (UA) Negative (Negative); Hyaline Casts,Urine 1 /lpf (0-2); Ketones,Urine Negative (Negative); Leukocyte Esterase,Urine Negative (Negative); Mucus,Urine Rare /hpf; Nitrite,Urine Negative (Negative); PH, Urine 5.5 (5.0-8.0); Protein,Urine Trace (Negative); RBC,Urine 1 /hpf (0-5); Specific Gravity,Urine 1.015 (1.001-1.035); Squamous Epithelial Cell,Urine <1 /hpf (0-4); Urobilinogen,Urine <2.0 mg/dL (<2.0); WBC,Urine 2 /hpf (0-5)
[2019-12-06 04:28] LABS: HGB 12.1 gm/dL (11.4-16.0); MCH 31.7 pg (25.0-35.0); MCHC 33.6 g/dL (31.0-37.0); MCV 94.3 fL (80.0-100.0); Mean Platelet Volume 8.3; Platelet Count 146 k/uL (150-450); RBC 3.81 m/uL (3.80-5.40); RDW 13.8 % (11.5-15.5); WBC 12.5 k/uL (3.8-10.6)
[2019-12-06 04:33] LABS: Albumin 2.7 g/dL (3.5-5.0); Calcium 7.1 mg/dL (8.4-10.2); Potassium 3.9 mmol/L (3.5-5.1); Total Bilirubin 2.1 mg/dL (0.2-1.3); Total Protein 5.1 g/dL (6.3-8.2)
[2019-12-06 04:56] LABS: Band Neutrophils % 28 %; Lymphocytes # (M) 1.63 k/uL (1.0-4.8); Monocytes # (M) 0.25 k/uL (0-1.0); Neutrophils % (M) 57 %; Nucleated Red Blood Cells 0 /100 WBC (0-0); Total Cells Counted 200
[2019-12-06] MEDS ORDERED: NALOXONE 0.4 MG/ML 1 ML VIAL IV PRN (05:21)
[2019-12-06] MEDS ORDERED: PNEUMONIA PROTOCOL UTILIZED 1 EACH MISC PO PRN (05:21)
[2019-12-06] MEDS ORDERED: ACETAMINOPHEN SUPPOSITORY 650 MG SUPP RECTAL PRN (05:21)
[2019-12-06] MEDS ORDERED: VANCOMYCIN IV PER PHARMACY 1 EACH MISC MISCELLANE PRN (05:26)
[2019-12-06] MEDS: SODIUM CHLORIDE 0.9% 1,000 ML IV SCH ×2 (05:32→13:51)
[2019-12-06 06:21] LABS: Glucose,Whole Blood 90 mg/dL (75-99)
[2019-12-06] MEDS: PIPERACILLIN-TAZOBACTAM 3.375 GM in SODIUM CHLORIDE 0.9% 100 ML IVPB SCH ×3 (08:09→23:26)
[2019-12-06] MEDS: IPRATROPIUM-ALBUTEROL 3 ML NEB INHALATION SCH ×2 (08:16→13:04)
[2019-12-06 08:51] LABS: ABG Base Excess -2.4 mmol/L; ABG HCO3 25 mmol/L (21-25); ABG Oxygen Saturation 84.2 % (94-97); ABG PCO2 55 mmHg (35-45); ABG PH 7.26 (7.35-7.45); ABG TCO2 26 mmol/L (19-24); Allen Test Performed? Yes
--- NOTE | 2019-12-06 08:53 | XR ---
EXAMINATION TYPE: XR chest 1V portable DATE OF EXAM: 12/06/2019 HISTORY: respiratory distress. REFERENCE: Previous study dated 07/22/2017. FINDINGS: There is a moderate opacity of the left lower lung. This likely represents a combination of consolidation and pleural fluid. There is some interstitial change present bilaterally, worse in the left upper lobe. There is a small amount of right pleural fluid. The heart is obscured. IMPRESSION: LEFT LOWER LOBE OPACITY, LIKELY REPRESENTING A COMBINATION OF CONSOLIDATION AND PLEURAL F LUID. INTERSTITIAL CHANGE IN THE LEFT UPPER LOBE MAY BE PART OF THIS INFLAMMATORY PROCESS.
[2019-12-06] MEDS: PROPOFOL 1,000 MG in EMPTY BAG 1 BAG IV SCH ×3 (09:05→20:39)
[2019-12-06 09:35] LABS: ABG Base Excess -3.2 mmol/L; ABG HCO3 25 mmol/L (21-25); ABG Oxygen Saturation 96.8 % (94-97); ABG PCO2 69 mmHg (35-45); ABG PO2 113 mmHg (83-108); ABG TCO2 27 mmol/L (19-24)
[2019-12-06 09:37] LABS: ABG PO2 55 mmHg (83-108)
[2019-12-06 09:38] LABS: ABG PH 7.17 (7.35-7.45); Allen Test Performed? ns
--- NOTE | 2019-12-06 09:40 | XR ---
EXAMINATION TYPE: XR chest 1V DATE OF EXAM: 12/06/2019 HISTORY: intubation. REFERENCE: Previous study dated 12/06/2019. FINDINGS: There has been interval intubation of the patient. ET tube is in satisfactory position with its tip approximately 4.9 cm from the augustine. An NG tube is in place and its tip is within the stoma ch. There is continuing left lower lobe infiltrate +/- effusion. There is atelectasis at the right lung b ase. The heart is not enlarged. IMPRESSION: 1. NO SIGNIFICANT CHANGE IN THE APPEARANCE OF CHEST. 2. SATISFACTORY ET TUBE PLACEMENT.
[2019-12-06] MEDS: FAMOTIDINE 20 MG/2 ML VIAL IV SCH ×2 (09:53→20:39)
[2019-12-06] MEDS ORDERED: CISATRACURIUM 2 MG/ML 5 ML VIAL IV ONE ×2 (11:15→13:07)
[2019-12-06] MEDS: ZINC SULFATE 220 MG CAP PO SCH (11:29)
[2019-12-06] MEDS ORDERED: SODIUM CHLORIDE 0.9% 1,000 ML IV ONE ×2 (11:30→12:53)
--- NOTE | 2019-12-06 11:56 | P.HPIM ---
History of Present Illness 54-year-old female was transferred from [facility] after she present today with altered mental status found to have significant pneumonia in the left lower lobe appears to have lobar pneumonia. Patient was isolated for COVID and the testing was ordered for that patient was severely septic patient went into respiratory failure requiring intubation patient was subsequently intubated patient is presently on Zosyn and vancomycin and azithromycin. Hydroxychloroquine is being considered because of concerns of COVID, and. Patient is definitely high risk for that as she goes to methadone clinic for opiate addiction. Patient was tested for hepatitis in April 2019 which was negative for any chronic hep C and hep B. She does have mildly elevated troponin secondary to sepsis. Patient is not requiring any pressor support at this time patient was in shock yesterday was requiring pressors as today.. Patient does have significant valvular heart disease including very low ejection fraction the past because of which I'm cutting down the fluids to 75 mL per hour today patient is admitted sedated presently on 70% FiO2 and PEEP of 15 set up respiratory DrKike Delacruz patient has both hypercapnic and hypoxic respiratory f ailure.. Patient does have mildly elevated liver enzymes because of which I'll obtain another hepatitis panel. Patient is on Nimbex and the propofol drips Review of Systems Unable to obtain due to her clinical condition Past Medical History Past Medical History: Asthma, Heart Failure, Fibromyalgia, Hyperlipidemia, Hypertension, Pneumonia Additional Past Medical History / Comment(s): back pain, DDD, SOB w/exertion, "2 leaky valves" per pt. History of Any Multi-Drug Resistant Organisms: None Reported Past Surgical History: Hernia Repair Past Anesthesia/Blood Transfusion Reactions: No Reported Reaction Past Psychological History: Depression Smoking Status: Current every day smoker Past Alcohol Use History: Daily Additional Past Alcohol Use History / Comment(s): 1 pack per day smoker since she was 11, 6-12 beers daily Past Drug Use History: Methamphetamine Additional Drug Use History / Comment(s): Methamphetamine and fentanyl use, quit 1 month ago, currently on Suboxone - Past Family History Mother Family Medical History: Diabetes Mellitus Sister(s) Family Medical History: Asthma Father Additional Family Medical History / Comment(s): of brain anrysm 48 Son(s) Family Medical History: Cancer Additional Family Medical History / Comment(s): at 35 years old of aggressive colon cancer Medications and Allergies Home Medications Medication Instructions Recorded Confirmed Type Albuterol Sulfate [Proair Hfa] 1 - 2 puff INHALATION RT-Q6H PRN 04/22/19 12/06/19 History Buprenorphine HCl/Naloxone HCl 1 film SL BID 04/22/19 12/06/19 History [Suboxone 12 mg-3 mg Sl Film] Metoprolol Succinate (ER) [Toprol 50 mg PO BID 04/22/19 12/06/19 History XL] Montelukast [Singulair] 10 mg PO DAILY 04/22/19 12/06/19 History Rosuvastatin [Crestor] 20 mg PO DAILY 04/22/19 12/06/19 History amLODIPine [Norvasc] 10 mg PO DAILY #90 tab 04/29/19 12/06/19 Rx Doxycycline Monohydrate [Monodox] 100 mg PO DAILY 12/06/19 12/06/19 History Ergocalciferol [Vitamin D2] 50,000 unit PO Q7D 12/06/19 12/06/19 History Escitalopram [Lexapro] 10 mg PO DAILY 12/06/19 12/06/19 History Escitalopram [Lexapro] 20 mg PO DAILY 12/06/19 12/06/19 History Naproxen 500 mg PO BID 12/06/19 12/06/19 History PARoxetine HCL [Paxil] 30 mg PO DAILY 12/06/19 12/06/19 History Pregabalin [Lyrica] 150 mg PO BID 12/06/19 12/06/19 History Sacubitril/Valsartan [Entresto 24 1 tab PO DAILY 12/06/19 12/06/19 History mg-26 mg Tablet] busPIRone HCL 15 mg PO TID 12/06/19 12/06/19 History Allergies Allergy/AdvReac Type Severity Reaction Status Date / Time No Known Allergies Allergy Verified 12/06/19 10:16 Physical Exam Vitals: Vital Signs Temp Pulse Resp BP Pulse Ox 12/06/19 11:00 128 H 26 H 107/62 95 12/06/19 10:30 126 H 26 H 128/68 97 12/06/19 10:00 125 H 26 H 138/70 99 12/06/19 09:30 125 H 20 120/69 98 12/06/19 09:00 116 H 18 88 L 12/06/19 08:30 116 H 17 112/73 89 L 12/06/19 08:15 115 H 15 103/68 88 L 12/06/19 08:00 98.0 F 114 H 15 108/62 89 L 12/06/19 07:45 112 H 15 108/66 89 L 12/06/19 07:30 112 H 13 98/64 90 L 12/06/19 07:15 110 H 15 105/64 86 L 12/06/19 07:00 111 H 20 93/72 91 L 12/06/19 06:45 111 H 18 102/64 89 L 12/06/19 06:30 108 H 14 103/62 90 L 12/06/19 06:10 98.3 F 108 H 15 94/63 92 L 12/06/19 06:01 107 H 15 12/06/19 05:45 108 H 24 98/64 96 12/06/19 05:15 109 H 24 91/59 96 12/06/19 04:34 109 H 26 H 88/60 100 12/06/19 03:53 107 H 30 H 98/68 97 12/06/19 03:37 97.7 F 110 H 28 H 74/45 96 Intake and Output 12/05/19 12/06/19 12/06/19 22:59 06:59 14:59 Intake Total 135.68 706.742 Output Total 550 545 Balance -414.32 161.742 Intake: IV 565 Piperacillin-Tazobactam 3 100 .375 gm In Sodium Chloride 0.9% 100 ml @ 25 mls/hr IVPB Q8HR [facility] Rx# :[id number] Sodium Chloride 0.9% 1, 465 000 ml @ 75 mls/hr IV . [id number] [facility] Rx#:[id number] Intake, IV Titration 135.68 141.742 Amount Norepinephrine 32 mg In 5.68 3.761 Sodium Chloride 0.9% 218 ml @ 0.05 MCG/KG/MIN 2. 078 mls/hr IV .Q24H [facility] Rx#:[id number] Propofol 1,000 mg In 7.981 Empty Bag 1 bag @ Titrate IV .Q0M [facility] Rx#: [id number] Sodium Chloride 0.9% 1, 130 130 000 ml @ 75 mls/hr IV . [id number] [facility] Rx#:[id number] Output: Urine 550 545 Other: Voiding Method Indwelling Catheter Indwelling Catheter Weight 88.677 kg ABP, PAP, CO, CI - Last 8 Hours Arterial Blood Pressure 77/41 Arterial Blood Pressure 98/46 Arterial Blood Pressure 130/52 Arterial Blood Pressure 131/58 PHYSICAL EXAMINATION: GENERAL: Patient is intubated sedated HEENT: Pupils are round and equally reacting to light. EOMI. No scleral icterus. No conjunctival pallor. Normocephalic, atraumatic. No pharyngeal erythema. No thyromegaly. CARDIOVASCULAR: S1 and S2 present. No murmurs, rubs, or gallops. PULMONARY: Chest is clear to auscultation, no wheezing or crackles. ABDOMEN: Soft, nontender, nondistended, normoactive bowel sounds. No palpable organomegaly. MUSCULOSKELETAL: No joint swelling or deformity. EXTREMITIES: No cyanosis, clubbing, or pedal edema. NEUROLOGICAL: On sedation please refer to nursing documentation for scores SKIN: No rashes. Results CBC & Chem 7: 12/06/19 04:07 12/06/19 04:07 Labs: Abnormal Lab Results - Last 24 Hours (Table) 12/06/19 12/06/19 12/06/19 Range/Units 04:07 04:07 04:07 WBC 12.5 H (3.8-10.6) k/uL Plt Count 146 L (150-450) k/uL Neutrophils # (Manual) 10.60 H (1.3-7.7) k/uL ABG pH (7.35-7.45) ABG pCO2 (35-45) mmHg ABG pO2 (83-108) mmHg ABG Total CO2 (19-24) mmol/L ABG O2 Saturation (94-97) % Chloride 110 H (98-107) mmol/L BUN 26 H (7-17) mg/dL Creatinine 1.11 H (0.52-1.04) mg/dL Glucose 104 H (74-99) mg/dL Plasma Lactic Acid Mateo (0.7-2.0) mmol/L Calcium 7.1 L (8.4-10.2) mg/dL Total Bilirubin 2.1 H (0.2-1.3) mg/dL AST 163 H (14-36) U/L ALT 35 H (4-34) U/L Alkaline Phosphatase 37 L (38-126) U/L Troponin I (0.000-0.034) ng/mL Total Protein 5.1 L (6.3-8.2) g/dL Albumin 2.7 L (3.5-5.0) g/dL Urine Protein Trace H (Negative) Urine Blood Moderate H (Negative) Urine Mucus Rare H (None) /hpf 12/06/19 12/06/19 12/06/19 Range/Units 04:07 04:07 08:40 WBC (3.8-10.6) k/uL Plt Count (150-450) k/uL Neutrophils # (Manual) (1.3-7.7) k/uL ABG pH (7.35-7.45) ABG pCO2 (35-45) mmHg ABG pO2 (83-108) mmHg ABG Total CO2 (19-24) mmol/L ABG O2 Saturation (94-97) % Chloride (98-107) mmol/L BUN (7-17) mg/dL Creatinine (0.52-1.04) mg/dL Glucose (74-99) mg/dL Plasma Lactic Acid Mateo 2.2 H* 2.4 H* (0.7-2.0) mmol/L Calcium (8.4-10.2) mg/dL Total Bilirubin (0.2-1.3) mg/dL AST (14-36) U/L ALT (4-34) U/L Alkaline Phosphatase (38-126) U/L Troponin I 0.947 H* (0.000-0.034) ng/mL Total Protein (6.3-8.2) g/dL Albumin (3.5-5.0) g/dL Urine Protein (Negative) Urine Blood (Negative) Urine Mucus (None) /hpf 12/06/19 12/06/19 Range/Units 08:48 09:28 WBC (3.8-10.6) k/uL Plt Count (150-450) k/uL Neutrophils # (Manual) (1.3-7.7) k/uL ABG pH 7.26 L 7.17 L* (7.35-7.45) ABG pCO2 55 H 69 H (35-45) mmHg ABG pO2 55 L* 113 H (83-108) mmHg ABG Total CO2 26 H 27 H (19-24) mmol/L ABG O2 Saturation 84.2 L (94-97) % Chloride (98-107) mmol/L BUN (7-17) mg/dL Creatinine (0.52-1.04) mg/dL Glucose (74-99) mg/dL Plasma Lactic Acid Mateo (0.7-2.0) mmol/L Calcium (8.4-10.2) mg/dL Total Bilirubin (0.2-1.3) mg/dL AST (14-36) U/L ALT (4-34) U/L Alkaline Phosphatase (38-126) U/L Troponin I (0.000-0.034) ng/mL Total Protein (6.3-8.2) g/dL Albumin (3.5-5.0) g/dL Urine Protein (Negative) Urine Blood (Negative) Urine Mucus (None) /hpf Assessment and Plan Plan: -Septic shock: Shock improved at this time because on IV fluids patient will be continued on broad-spectrum antibiotics vancomycin and Zosyn and azithromycin sputum cultures and blood cultures were obtained patient mostly has lobar pneumonia although COVID need to be ruled out as well. She is on isolation for that. Hydroxy chloroquine is being considered as well -Acute hypercapnic and hypoxic respiratory failure: Continue with ventilator support continue with inhalational treatments. -History of congestive heart failure severe systolic dysfunction I do not know the ejection fraction. Patient has multi valvular heart disease including severe mitral regurgitation severe tricuspid regurgitation. Will need to be cautious with IV fluids will Cut down the IV fluids closely monitor for worsening of heart failure. -COPD present smoker further management as mentioned above -History of opiate abuse with mildly elevated liver enzymes will obtain a hepatitis panel. -Fibromyalgia -Hyperlipidemia -Hypertension
[2019-12-06] MEDS ORDERED: AZITHROMYCIN 500 MG in SODIUM CHLORIDE 0.9% 250 ML IVPB SCH (12:00)
[2019-12-06] MEDS: ACETAMINOPHEN TAB 325 MG TAB PO PRN (12:09)
--- NOTE | 2019-12-06 12:25 | XR ---
EXAMINATION TYPE: XR chest 1V confirm line [facility] DATE OF EXAM: 12/06/2019 HISTORY: line placement. REFERENCE: Previous study dated 12/06/2019. FINDINGS: Patient is ET tube and NG tube remain in place, unchanged in appearance. There has been a l eft internal jugular catheter inserted. Its tip is in the right atrium. I do not see evidence of pneu mothorax. There continues to be dense consolidation on the left with interstitial change in the left upper lobe. Heart size is largely obscured. I suspect a small right pleural effusion. IMPRESSION: 1. NO SIGNIFICANT CHANGE IN APPEARANCE OF THE CHEST. 2. I DO NOT SEE A POST CATHETER INSERTION COMPLICATION.
--- NOTE | 2019-12-06 13:22 | PCN ---
PROCEDURE NOTE PRE-PROCEDURE DIAGNOSES:: 1. Hemodynamic monitoring. 2. IV access for fluid resuscitation. POST PROCEDURE DIAGNOSES:: 1. Hemodynamic monitoring. 2. IV access for fluid resuscitation. PROCEDURE: Left internal jugular catheter placement. TRIPLE LUMEN CATHETER PLACEMENT: Indication: Hemodynamic monitoring/Intravenous access. A time-out was completed verifying correct patient, procedure, site, positioning, and implant(s) or special equipment if applicable. The patient was placed in a dependent position appropriate for triple lumen catheter placement based on the vein to be cannulated. The patient's left neck was prepped and draped in sterile fashion. 1% Lidocaine was used to anesthetize the surrounding skin area. A triple lumen 9F Cordis catheter was introduced into the left internal jugular using Seldinger technique. The catheter was threaded smoothly over the guide wire and appropriate blood return was obtained. Each lumen of the catheter was evacuated of air and flushed with sterile saline. The catheter was then sutured in place to the skin and a sterile dressing applied. Perfusion to the extremity distal to the point of catheter insertion was checked and found to be adequate. There were no immediate complications. MMODL / IJN: [id number] /
[2019-12-06] MEDS: HYDROXYCHLOROQUINE ORAL SUSP 200 MG/8 ML ORAL.SYRG PO SCH ×2 (13:30→23:22)
[2019-12-06] MEDS: CISATRACURIUM 200 MG in SODIUM CHLORIDE 0.9% 100 ML IV SCH (13:30)
[2019-12-06 15:16] LABS: Allen Test Performed? Yes
[2019-12-06 15:17] LABS: ABG Base Excess -4.2 mmol/L; ABG HCO3 24 mmol/L (21-25); ABG Oxygen Saturation 93.7 % (94-97); ABG PCO2 67 mmHg (35-45); ABG PO2 81 mmHg (83-108); ABG TCO2 26 mmol/L (19-24)
[2019-12-06 15:24] LABS: ABG PH 7.17 (7.35-7.45)
[2019-12-06] MEDS ORDERED: INSULIN ASPART (NovoLOG) 100 UNIT/ML VIAL SQ SCH (15:45)
--- NOTE | 2019-12-06 17:32 | CONS ---
CONSULTATION PULMONARY/CRITICAL CARE CONSULTATION: DATE OF CONSULTATION: December 06, 2019. REASON FOR CONSULTATION: Mental status changes and respiratory failure. HISTORY OF PRESENT ILLNESS: This is a 54-year-old Black female who apparently is a transfer from [facility]. She apparently had gone there because her was concerned about her mental status changes. The patient apparently had not wanted to get out of bed in the morning and also declined to have any breakfast. She apparently spent a whole day in bed and then she also was unresponsive and when she was brought to the hospital, she had a chest x-ray which showed lower lobe infiltrates and small left upper lobe infiltrate. She had a CT scan that was interpreted as negative. Her white count was 17.7. Her lactic acid was 3.5, and she had some other abnormalities including a drug screen that was positive for methadone. Anyway, the patient was admitted to the hospital and then developed worsening respiratory status and required intubation and mechanical ventilation. The intubation was done by Anesthesia. At that time they placed an art line. It was sutured in. Anyway, currently we are seeing her for the first time in the intensive care unit. The patient again is admitted for respiratory failure, hypoxemia, pneumonia, and sepsis. Currently, the patient is on the volume assist-control mode with a rate of 26, tidal volume 350, FiO2 100%, PEEP of 5. Blood gases show pO2 of 113, pCO2 of 69, and a pH of 7.17. The patient will have the FiO2 dropped down to 90%. In addition, we will increase the PEEP from 5-10. Repeat blood gases. Finally, the blood gases that were done were done on FiO2 of 20. Repeat blood gases are going to be performed because we did increase the rate from 20-26. We attempted VC plus cycle ventilation. This is because she was dyssynchronous with the ventilator. We went for a targeted tidal volume 350, inspiratory time of 0.8 seconds. Unfortunately, she was not able to synchronize with the ventilator. Hence, we gave her Nimbex 10 mg and started her on the Nimbex drip at 2 mcg/kg per minute. Her COVID status is currently pending. Her flu status is negative. In addition, she is on saline at 130 mL an hour. Levophed has currently been turned off. Propofol at 30 mcg/kg per minute. I have asked the nurses to start Vital high-protein at 10 mL an hour in anticipation of dietary recommendations. Currently, she is on vancomycin, Zinc, Zithromax, Zosyn and Plaquenil. The endotracheal tube can be pulled back 1 cm. Current medications include ProAir HFA, Suboxone, metoprolol, montelukast, Crestor, and Xanax. She apparently is also on amlodipine, Lasix and Zestril. ALLERGIES: Denied. PAST MEDICAL HISTORY: Positive for heart failure, asthma, fibromyalgia, hyperlipidemia, hypertension, pneumonia. Additional medical history includes chronic back pain, degenerative disk disease, and valvular heart disease. SURGICAL HISTORY: Includes previous hernia repair. SOCIAL HISTORY: Positive for ongoing tobacco use. She also drinks 6-12 beers a day. She has used methamphetamines in the past. FAMILY HISTORY: Positive for mother with diabetes. Sister with asthma and a father who of a brain aneurysm at age 48. She has a son who apparently had aggressive colon cancer who at age 45. REVIEW OF SYSTEMS: Cannot be obtained. The patient is currently mechanically ventilated. PHYSICAL EXAMINATION: VITAL SIGNS: Current vital signs include a temperature of 98.8, heart rate 120, respiratory rate 26, blood pressure 107/65 mean 79, and CVP of 13. Saturations are 95%. GENERAL: Currently sedated and paralyzed. HEENT examination is unremarkable. Mucous membranes are moist. No oral lesions. NECK: Supple. Full range of motion. No adenopathy. Neck veins are flat. CARDIOVASCULAR: Examination reveals tachycardia. Heart rate about 115. Appears to be sinus. Regular. S1, S2 normal. LUNGS: Reveal diffuse coarse rhonchi bilaterally. Breath sounds equal. No crackles. ABDOMEN: Soft. No bowel sounds. EXTREMITIES are intact. No edema. SKIN: Without rash. NEUROLOGIC: Examination is difficult to assess. LABS: Reviewed. Her current laboratory data includes a white count of 12.5, hemoglobin 12.1, hematocrit 36, platelet count 146,000. Blood gases initially as mentioned above show pO2 of 113, pCO2 of 69, and pH is 7.17. Sodium 139.9, chloride 110, CO2 22, anion gap is 7, BUN and creatinine were 26 and 1.11. Lactic acid was 2.4, glucose 104, calcium 7.1, bilirubin 2.1, AST 163, ALT 35, troponin 0.947. The urine, which appears to be negative. Her Covid-19 status is currently pending. Specimens to be sent to the lab for evaluation. Chest x-ray showed a dense consolidation in the left mid lung and left lower lobe. There may be a small right-sided effusion. Also, the central line looks to be in good position. That was placed by us today. CURRENT MEDICATIONS: Reviewed. She is on Tylenol, chlorhexidine, Nimbex, Pepcid hydroxychloroquine, Narcan, norepinephrine intermittently, Zosyn, vancomycin, and Zinc. ASSESSMENT: 1. Acute hypoxemic respiratory failure secondary to pneumonia, rule out Covid-19 infection. 2. Mental status changes, likely secondary to underlying sepsis. 3. Hypotension, secondary to infection and sepsis. 4. History of asthma. 5. History of congestive heart failure. 6. History of fibromyalgia. 7. History of hyperlipidemia. 8. History of hypertension. 9. History of valvular heart disease. PLAN: The patient's medications are reviewed. The patient is on appropriate medication. We will continue to follow. An art line was placed by the nurse envelope machine adjuster when he intubated the patient early this morning. We placed a central line. It was a left internal jugular triple lumen catheter. Chest x-ray looks good. We will continue to follow. Prognosis is guarded. Again medications are reviewed. MMODL / IJN: [id number] / MTDD
[2019-12-06] MEDS ORDERED: VANCOMYCIN 1,500 MG in SODIUM CHLORIDE 0.9% 250 ML IVPB SCH (18:00)
[2019-12-06 18:13] LABS: Glucose,Whole Blood 100 mg/dL (75-99)
[2019-12-06] MEDS: INSULIN ASPART (NovoLOG) 100 UNIT/ML VIAL SQ SCH ×2 (18:22→23:23)
[2019-12-06] MEDS: CHLORHEXIDINE GLUCONATE 15 ML CUP MUCOUS MEM SCH (20:39)
[2019-12-06 23:22] LABS: Glucose,Whole Blood 117 mg/dL (75-99)
[2019-12-07] MEDS: SODIUM CHLORIDE 0.9% 1,000 ML IV SCH ×2 (04:10→17:17)
[2019-12-07 04:25] LABS: HGB 11.4 gm/dL (11.4-16.0); MCH 30.8 pg (25.0-35.0); MCHC 31.7 g/dL (31.0-37.0); Mean Platelet Volume 8.7; Platelet Count 165 k/uL (150-450); RBC 3.72 m/uL (3.80-5.40)
[2019-12-07 04:42] LABS: ALT 43 U/L (4-34); AST 143 U/L (14-36); African American GFR (CKD) >90 (>60 ml/min/1.73 sqM); Albumin 2.4 g/dL (3.5-5.0); Alkaline Phosphatase 68 U/L (38-126); Anion Gap 3 mmol/L; Blood Urea Nitrogen 22 mg/dL (7-17); Calcium 7.3 mg/dL (8.4-10.2); Carbon Dioxide 28 mmol/L (22-30); Chloride 113 mmol/L (98-107); Glucose 132 mg/dL (74-99); Non-African American GFR(CKD) 86 (>60 ml/min/1.73 sqM); Potassium 4.2 mmol/L (3.5-5.1); Sodium 144 mmol/L (137-145); Total Bilirubin 2.7 mg/dL (0.2-1.3); Total Protein 4.8 g/dL (6.3-8.2)
[2019-12-07 05:00] LABS: Band Neutrophils % 58 %; Metamyelocytes % 1 %; Myelocytes % 2 %; Neutrophils % (M) 35 %; Nucleated Red Blood Cells 1 /100 WBC (0-0); Total Cells Counted 200
[2019-12-07] MEDS: PROPOFOL 1,000 MG in EMPTY BAG 1 BAG IV SCH ×6 (05:00→23:24)
[2019-12-07 05:01] LABS: Toxic Vacuolation Present; WBC 20.1 k/uL (3.8-10.6)
[2019-12-07] MEDS ORDERED: LEVOFLOXACIN 750MG-D5W PMX 750 MG in DEXTROSE/WATER 1 150ML.BAG IVPB SCH (05:30)
[2019-12-07] MEDS: NOREPINEPHRINE 32 MG in SODIUM CHLORIDE 0.9% 218 ML IV SCH (05:37)
[2019-12-07 05:41] LABS: Glucose,Whole Blood 124 mg/dL (75-99)
[2019-12-07 05:42] LABS: ABG Base Excess -2.5 mmol/L; ABG HCO3 26 mmol/L (21-25); ABG Oxygen Saturation 95.5 % (94-97); ABG PO2 85 mmHg (83-108); ABG TCO2 28 mmol/L (19-24)
[2019-12-07] MEDS: VANCOMYCIN 1,500 MG in SODIUM CHLORIDE 0.9% 250 ML IVPB SCH ×2 (05:43→17:22)
[2019-12-07] MEDS: INSULIN ASPART (NovoLOG) 100 UNIT/ML VIAL SQ SCH ×4 (05:44→23:38)
[2019-12-07 05:47] LABS: Allen Test Performed? no
--- NOTE | 2019-12-07 07:46 | XR ---
EXAMINATION TYPE: XR chest 1V portable DATE OF EXAM: 12/07/2019 COMPARISON: 12/06/2019 HISTORY: Follow-up pneumonia FINDINGS: Indwelling tubes and catheters are unchanged. Airspace consolidation throughout the left mid and left lower lobe. No significant change appreciated . Stable appearance of the cardio-mediastinal structures at this time. Pleural effusion unchanged. IMPRESSION: 1. Stable portable chest. Clinical correlation and follow up until resolution is recommended.
[2019-12-07] MEDS ORDERED: SODIUM CHLORIDE 0.9% 1,000 ML IV ONE ×3 (07:51→14:52)
[2019-12-07] MEDS: PIPERACILLIN-TAZOBACTAM 3.375 GM in SODIUM CHLORIDE 0.9% 100 ML IVPB SCH ×3 (08:42→23:41)
[2019-12-07] MEDS: CHLORHEXIDINE GLUCONATE 15 ML CUP MUCOUS MEM SCH ×2 (08:44→20:04)
[2019-12-07] MEDS: FAMOTIDINE 20 MG/2 ML VIAL IV SCH ×2 (08:44→20:04)
[2019-12-07] MEDS: ZINC SULFATE 220 MG CAP PO SCH (08:50)
[2019-12-07] MEDS: HYDROXYCHLOROQUINE ORAL SUSP 200 MG/8 ML ORAL.SYRG PO SCH ×2 (09:17→20:04)
[2019-12-07 11:53] LABS: Glucose,Whole Blood 141 mg/dL (75-99)
[2019-12-07 12:18] LABS: Hepatitis A Antibody IgM Non-Reactive (Non-Reactive); Hepatitis B Core IgM Non-Reactive (Non-Reactive); Hepatitis B Surface Antigen Non-Reactive (Non-Reactive); Hepatitis C IgG Antibody Non-Reactive (Non-Reactive)
[2019-12-07] MEDS: AZITHROMYCIN 500 MG in SODIUM CHLORIDE 0.9% 250 ML IVPB SCH (12:21)
--- NOTE | 2019-12-07 12:50 | P.PN ---
Subjective 54-year-old female was transferred from [facility] after she present today with altered mental status found to have significant pneumonia in the left lower lobe appears to have lobar pneumonia. Patient was isolated for COVID and the testing was ordered for that patient was severely septic patient went into respiratory failure requiring intubation patient was subsequently intubated patient is presently on Zosyn and vancomycin and azithromycin. Hydroxychloroquine is being considered because of concerns of COVID, and. Patient is definitely high risk for that as she goes to methadone clinic for opiate addiction. Patient was tested for hepatitis in April 2019 which was negative for any chronic hep C and hep B. She does have mildly elevated troponin secondary to sepsis. Patient is not requiring any pressor support at this time patient was in shock yesterday was requiring pressors as today.. Patient does have significant valvular heart disease including very low ejection fraction the past because of which I'm cutting down the fluids to 75 mL per hour today patient is admitted sedated presently on 70% FiO2 and PEEP of 15 set up respiratory rate of around 25 patient has both hypercapnic and hypoxic respiratory failure.. Patient does have mildly elevated liver enzymes because of which I'll obtain another hepatitis panel. Patient is on Nimbex and the propofol drips 12/07/2019 Patient is still not doing well. Patient remains on ventilator patient is still on 85% FiO2 patient remains acidotic is in both the acute hypoxic and hypercapnic Respiratory failure patient set up respiratory rate yesterday was around 25 in spite of which patient is breathing over the ventilator since patient remains acidotic patient was started on Nimbex drip and the respiratory rate was increased to 35 patient is on height deep at 15 overall she is looking worse. Her white blood cell count is 20,000. Patient is still on norepi nephrine Review of systems: Unable to obtain due to her clinical condition All inpatient medications were reviewed and appropriate changes in these medications as dictated in the interval history and assessment and plan. Objective - Vital Signs Vital signs: Vital Signs Temp 98.2 F 12/07/19 04:00 Pulse 124 H 12/07/19 07:00 Resp 34 H 12/07/19 07:00 BP 103/59 12/07/19 07:00 Pulse Ox 95 12/07/19 07:00 Intake & Output 12/06/19 12/07/19 12/07/19 18:59 06:59 18:59 Intake Total 3916.223 1719.792 323.973 Output Total 1295 1050 30 Balance 2621.223 669.792 293.973 Weight 83.6 kg Intake: IV 3338 1122 206 Azithromycin 500 mg In 250 Sodium Chloride 0.9% 250 ml @ 250 mls/hr IVPB DAILY [facility] Rx#:[id number] Piperacillin-Tazobactam 3 200 100 .375 gm In Sodium Chloride 0.9% 100 ml @ 25 mls/hr IVPB Q8HR [facility] Rx# :[id number] Pressure Bag 48 72 6 Sodium Chloride 0.9% 1, 840 825 75 000 ml @ 75 mls/hr IV . [id number] [facility] Rx#:[id number] Sodium Chloride 0.9% 1, 2000 000 ml @ 999 mls/hr IV . Q1H1M [facility] Rx#:[id number] Vancomycin 1,500 mg In 125 125 Sodium Chloride 0.9% 250 ml @ 125 mls/hr IVPB Q12H [facility] Rx#:[id number] Intake, IV Titration 538.223 243.792 95.973 Amount Cisatracurium 200 mg In 28.553 Sodium Chloride 0.9% 100 ml @ 1 MCG/KG/MIN 5.321 mls/hr IV .Q24H [facility] Rx#: [id number] Norepinephrine 32 mg In 29.670 Sodium Chloride 0.9% 218 ml @ 0.05 MCG/KG/MIN 2. 078 mls/hr IV .Q24H [facility] Rx#:[id number] Propofol 1,000 mg In 100.000 243.792 95.973 Empty Bag 1 bag @ Titrate IV .Q0M [facility] Rx#: [id number] Sodium Chloride 0.9% 1, 130 000 ml @ 75 mls/hr IV . [id number] [facility] Rx#:[id number] Vancomycin 1,500 mg In 250 Sodium Chloride 0.9% 250 ml @ 125 mls/hr IVPB Q12H [facility] Rx#:[id number] Tube Feeding 40 264 22 Other 90 Output: Urine 1295 1050 30 Other: Voiding Method Indwelling Catheter Indwelling Catheter ABP, PAP, CO, CI - Last Documented Arterial Blood Pressure 55/36 - Exam PHYSICAL EXAMINATION: GENERAL: Patient is intubated sedated HEENT: Pupils are round and equally reacting to light. EOMI. No scleral icterus. No conjunctival pallor. Normocephalic, atraumatic. No pharyngeal erythema. No thyromegaly. CARDIOVASCULAR: S1 and S2 present. No rubs, or gallops. The solids murmur in the tricuspid and mitral areas PULMONARY: Chest is clear to auscultation, no wheezing or crackles. ABDOMEN: Soft, nontender, nondistended, normoactive bowel sounds. No palpable organomegaly. MUSCULOSKELETAL: No joint swelling or deformity. EXTREMITIES: No cyanosis, clubbing, or pedal edema. NEUROLOGICAL: On sedation please refer to nursing documentation for scores SKIN: No rashes - Labs CBC & Chem 7: 12/07/19 04:15 12/07/19 04:15 Labs: Abnormal Lab Results - Last 24 Hours (Table) 12/06/19 12/06/19 12/06/19 Range/Units 15:14 18:11 23:21 WBC (3.8-10.6) k/uL RBC (3.80-5.40) m/uL Neutrophils # (Manual) (1.3-7.7) k/uL Lymphocytes # (Manual) (1.0-4.8) k/uL Metamyelocytes # (Man) (0) k/uL Myelocytes # (Manual) (0) k/uL Nucleated RBCs (0-0) /100 WBC ABG pH 7.17 L* (7.35-7.45) ABG pCO2 67 H (35-45) mmHg ABG pO2 81 L (83-108) mmHg ABG HCO3 (21-25) mmol/L ABG Total CO2 26 H (19-24) mmol/L ABG O2 Saturation 93.7 L (94-97) % Chloride (98-107) mmol/L BUN (7-17) mg/dL Glucose (74-99) mg/dL POC Glucose (mg/dL) 100 H 117 H (75-99) mg/dL Calcium (8.4-10.2) mg/dL Total Bilirubin (0.2-1.3) mg/dL AST (14-36) U/L ALT (4-34) U/L Total Protein (6.3-8.2) g/dL Albumin (3.5-5.0) g/dL 12/07/19 12/07/19 12/07/19 Range/Units 04:15 04:15 05:39 WBC 20.1 H (3.8-10.6) k/uL RBC 3.72 L (3.80-5.40) m/uL Neutrophils # (Manual) 18.60 H (1.3-7.7) k/uL Lymphocytes # (Manual) 0.80 L (1.0-4.8) k/uL Metamyelocytes # (Man) 0.20 H (0) k/uL Myelocytes # (Manual) 0.40 H (0) k/uL Nucleated RBCs 1 H (0-0) /100 WBC ABG pH (7.35-7.45) ABG pCO2 (35-45) mmHg ABG pO2 (83-108) mmHg ABG HCO3 (21-25) mmol/L ABG Total CO2 (19-24) mmol/L ABG O2 Saturation (94-97) % Chloride 113 H (98-107) mmol/L BUN 22 H (7-17) mg/dL Glucose 132 H (74-99) mg/dL POC Glucose (mg/dL) 124 H (75-99) mg/dL Calcium 7.3 L (8.4-10.2) mg/dL Total Bilirubin 2.7 H (0.2-1.3) mg/dL AST 143 H (14-36) U/L ALT 43 H (4-34) U/L Total Protein 4.8 L (6.3-8.2) g/dL Albumin 2.4 L (3.5-5.0) g/dL 12/07/19 12/07/19 Range/Units 05:41 11:52 WBC (3.8-10.6) k/uL RBC (3.80-5.40) m/uL Neutrophils # (Manual) (1.3-7.7) k/uL Lymphocytes # (Manual) (1.0-4.8) k/uL Metamyelocytes # (Man) (0) k/uL Myelocytes # (Manual) (0) k/uL Nucleated RBCs (0-0) /100 WBC ABG pH 7.16 L* (7.35-7.45) ABG pCO2 73 H* (35-45) mmHg ABG pO2 (83-108) mmHg ABG HCO3 26 H (21-25) mmol/L ABG Total CO2 28 H (19-24) mmol/L ABG O2 Saturation (94-97) % Chloride (98-107) mmol/L BUN (7-17) mg/dL Glucose (74-99) mg/dL POC Glucose (mg/dL) 141 H (75-99) mg/dL Calcium (8.4-10.2) mg/dL Total Bilirubin (0.2-1.3) mg/dL AST (14-36) U/L ALT (4-34) U/L Total Protein (6.3-8.2) g/dL Albumin (3.5-5.0) g/dL Microbiology - Last 24 Hours (Table) 12/06/19 04:07 Blood Culture - Preliminary Blood No Growth after 24 hours 12/06/19 12:30 Gram Stain - Preliminary Sputum Sputum Culture - Preliminary Assessment and Plan Plan: -Septic shock: Shock improved at this time because on IV fluids patient will be continued on broad-spectrum antibiotics vancomycin and Zosyn and azithromycin sputum cultures and blood cultures were obtained patient mostly has lobar pneumonia although COVID need to be ruled out as well. She is on isolation for that. Hydroxy chloroquine is being considered as well, patient is still not doing well patient is an above-mentioned mentioned settings -Acute hypercapnic and acute hypoxic respiratory failure: Continue with ventilator support continue with inhalational treatments. -History of congestive heart failure severe systolic dysfunction I do not know the ejection fraction. Patient has multi valvular heart disease including severe mitral regurgitation severe tricuspid regurgitation. Patient remains on IV fluids because of severe sepsis. -COPD present smoker further management as mentioned above -History of opiate abuse with mildly elevated liver enzymes will obtain a hepatitis panel. -Fibromyalgia -Hyperlipidemia -Hypertension
[2019-12-07] MEDS: CISATRACURIUM 200 MG in SODIUM CHLORIDE 0.9% 100 ML IV SCH (13:50)
--- NOTE | 2019-12-07 13:55 | P.PN ---
Subjective Progress Note Date: 12/07/19 On today's evaluation of 12/07/2019 and seeing the patient for a follow-up. This patient came with an extensive left lung pneumonia/airspace disease/consolidation and she is intubated on a mechanical ventilator. Note that she was quite septic and the time of arrival. She is also being ruled out for COVID 19 infection. The patient has multiple medical problems and comorbidities. The patient has COPD/asthma. The patient also has CHF with an ejection fraction of 25-30% along with previous history of moderate degree of mitral regurgitation. She has history of substance abuse including methamphe tamine and fentanyl and the patient has been on methadone on outpatient basis. The patient has hypertension, hyperlipidemia, fibromyalgia, osteoarthritis and previous history of alcoholism This morning, the patient remains sedated with propofol which is currently running at 40 mg per KG per minute. The patient is also paralyzed with Nimbex 01 g per KG per minute. The patient is receiving IV fluids at the rate of 75 mL an hour. The patient is on norepinephrine infusion at 0.15 g per KG per minute. She is an assist-control mode of ventilator. The patient is at the rate of 34 with a tidal volume of 350 and FiO2 of 85% with a PEEP of 15. The blood gases from today showed a pH of 7.16 with a pCO2 of 73 and pO2 of 85 and this was done and FiO2 of 85%. The white cell count is at 20 per lactic acid level is down to 2.4. Renal function is stable with a creatinine of 0.7. Sodium is at 144. The patient had been she with a combination of antibiotics. For now we have the patient a combination of vancomycin and Zosyn. I added Zithromax today. I also have the patient on Plaquenil for the possibility of an underlying coronavirus infection of the lungs. A repeat echocardiogram is still pending regarding the left ventricle ejection fraction and the extent of mitral regurgitation. Noted the patient was noted to be having a lower CVP this morning. I went ahead and gave her another liter of normal saline with a possibility of giving her a second liter if she continues to have lower urine output. Troponin is at 0.9. Blood cultures still negative. Sputum Gram stain and cultures also negative. Note that on her blood work, the patient has a 28% bandemia time of admission and currently she is up to 58%. Legionella urine antigen will be also sent. Objective - Vital Signs Vital signs: Vital Signs Temp 98.2 F 12/07/19 04:00 Pulse 124 H 12/07/19 07:00 Resp 34 H 12/07/19 07:00 BP 103/59 12/07/19 07:00 Pulse Ox 95 12/07/19 07:00 Intake & Output 12/06/19 12/07/19 12/07/19 18:59 06:59 18:59 Intake Total 3916.223 1719.792 323.973 Output Total 1295 1050 30 Balance 2621.223 669.792 293.973 Weight 83.6 kg Intake: IV 3338 1122 206 Azithromycin 500 mg In 250 Sodium Chloride 0.9% 250 ml @ 250 mls/hr IVPB DAILY [facility] Rx#:[id number] Piperacillin-Tazobactam 3 200 100 .375 gm In Sodium Chloride 0.9% 100 ml @ 25 mls/hr IVPB Q8HR [facility] Rx# :[id number] Pressure Bag 48 72 6 Sodium Chloride 0.9% 1, 840 825 75 000 ml @ 75 mls/hr IV . [id number] [facility] Rx#:[id number] Sodium Chloride 0.9% 1, 2000 000 ml @ 999 mls/hr IV . Q1H1M [facility] Rx#:[id number] Vancomycin 1,500 mg In 125 125 Sodium Chloride 0.9% 250 ml @ 125 mls/hr IVPB Q12H [facility] Rx#:[id number] Intake, IV Titration 538.223 243.792 95.973 Amount Cisatracurium 200 mg In 28.553 Sodium Chloride 0.9% 100 ml @ 1 MCG/KG/MIN 5.321 mls/hr IV .Q24H [facility] Rx#: [id number] Norepinephrine 32 mg In 29.670 Sodium Chloride 0.9% 218 ml @ 0.05 MCG/KG/MIN 2. 078 mls/hr IV .Q24H [facility] Rx#:[id number] Propofol 1,000 mg In 100.000 243.792 95.973 Empty Bag 1 bag @ Titrate IV .Q0M [facility] Rx#: [id number] Sodium Chloride 0.9% 1, 130 000 ml @ 75 mls/hr IV . [id number] [facility] Rx#:[id number] Vancomycin 1,500 mg In 250 Sodium Chloride 0.9% 250 ml @ 125 mls/hr IVPB Q12H [facility] Rx#:[id number] Tube Feeding 40 264 22 Other 90 Output: Urine 1295 1050 30 Other: Voiding Method Indwelling Catheter Indwelling Catheter ABP, PAP, CO, CI - Last Documented Arterial Blood Pressure 55/36 - Exam Gen. appearance, comfortable likely distress sedated paralyzed success with the mechanical ventilator for now. Head exam was generally normal. There was no scleral icterus or corneal arcus. Mucous membranes were moist. Neck was supple and without jugular venous distension, thyromegaly, or carotid bruits. Carotids were easily palpable bilaterally. There was no adenopathy. Orogastric and orotracheal tube are both in place and the patient is a left IJ triple-lumen catheter in place. Lung sounds are diminished and some crackles in lung bases bilaterally more so on the left. Otherwise breath on that equal and symmetrical. Heart sounds are regular, positive S1-S2 and there is a systolic ejection murmur grade 3/6 heard along left lateral sternal border. Abdominal exam revealed normal bowel sounds. The abdomen was soft, non-tender, and without masses, organomegaly, or appreciable enlargement of the abdominal aorta. Examination of the extremities revealed easily palpable radial, femoral and pedal pulses. There was no cyanosis, clubbing or edema. Examination of the skin revealed no evidence of significant rashes, suspicious appearing nevi or other concerning lesions. Neurologically the patient sedated and paralyzed. - Labs CBC & Chem 7: 12/07/19 04:15 12/07/19 04:15 Labs: Abnormal Lab Results - Last 24 Hours (Table) 12/06/19 12/06/19 12/06/19 Range/Units 15:14 18:11 23:21 WBC (3.8-10.6) k/uL RBC (3.80-5.40) m/uL Neutrophils # (Manual) (1.3-7.7) k/uL Lymphocytes # (Manual) (1.0-4.8) k/uL Metamyelocytes # (Man) (0) k/uL Myelocytes # (Manual) (0) k/uL Nucleated RBCs (0-0) /100 WBC ABG pH 7.17 L* (7.35-7.45) ABG pCO2 67 H (35-45) mmHg ABG pO2 81 L (83-108) mmHg ABG HCO3 (21-25) mmol/L ABG Total CO2 26 H (19-24) mmol/L ABG O2 Saturation 93.7 L (94-97) % Chloride (98-107) mmol/L BUN (7-17) mg/dL Glucose (74-99) mg/dL POC Glucose (mg/dL) 100 H 117 H (75-99) mg/dL Calcium (8.4-10.2) mg/dL Total Bilirubin (0.2-1.3) mg/dL AST (14-36) U/L ALT (4-34) U/L Total Protein (6.3-8.2) g/dL Albumin (3.5-5.0) g/dL 12/07/19 12/07/19 12/07/19 Range/Units 04:15 04:15 05:39 WBC 20.1 H (3.8-10.6) k/uL RBC 3.72 L (3.80-5.40) m/uL Neutrophils # (Manual) 18.60 H (1.3-7.7) k/uL Lymphocytes # (Manual) 0.80 L (1.0-4.8) k/uL Metamyelocytes # (Man) 0.20 H (0) k/uL Myelocytes # (Manual) 0.40 H (0) k/uL Nucleated RBCs 1 H (0-0) /100 WBC ABG pH (7.35-7.45) ABG pCO2 (35-45) mmHg ABG pO2 (83-108) mmHg ABG HCO3 (21-25) mmol/L ABG Total CO2 (19-24) mmol/L ABG O2 Saturation (94-97) % Chloride 113 H (98-107) mmol/L BUN 22 H (7-17) mg/dL Glucose 132 H (74-99) mg/dL POC Glucose (mg/dL) 124 H (75-99) mg/dL Calcium 7.3 L (8.4-10.2) mg/dL Total Bilirubin 2.7 H (0.2-1.3) mg/dL AST 143 H (14-36) U/L ALT 43 H (4-34) U/L Total Protein 4.8 L (6.3-8.2) g/dL Albumin 2.4 L (3.5-5.0) g/dL 12/07/19 12/07/19 Range/Units 05:41 11:52 WBC (3.8-10.6) k/uL RBC (3.80-5.40) m/uL Neutrophils # (Manual) (1.3-7.7) k/uL Lymphocytes # (Manual) (1.0-4.8) k/uL Metamyelocytes # (Man) (0) k/uL Myelocytes # (Manual) (0) k/uL Nucleated RBCs (0-0) /100 WBC ABG pH 7.16 L* (7.35-7.45) ABG pCO2 73 H* (35-45) mmHg ABG pO2 (83-108) mmHg ABG HCO3 26 H (21-25) mmol/L ABG Total CO2 28 H (19-24) mmol/L ABG O2 Saturation (94-97) % Chloride (98-107) mmol/L BUN (7-17) mg/dL Glucose (74-99) mg/dL POC Glucose (mg/dL) 141 H (75-99) mg/dL Calcium (8.4-10.2) mg/dL Total Bilirubin (0.2-1.3) mg/dL AST (14-36) U/L ALT (4-34) U/L Total Protein (6.3-8.2) g/dL Albumin (3.5-5.0) g/dL Microbiology - Last 24 Hours (Table) 12/06/19 04:07 Blood Culture - Preliminary Blood No Growth after 24 hours 12/06/19 12:30 Gram Stain - Preliminary Sputum Sputum Culture - Preliminary Assessment and Plan Plan: 1 left lower lobe pneumonia. The patient extensive consolidation of the left lower lobe. Suspect a bacterial infection. We are also ruling out the possibility of a COVID 19 infection. Nevertheless, the presentation is most typical of an underlying bacterial infection. The patient has bandemia, leukocy tosis, and a pro-calcitonin level will be sent. Meanwhile the patient is also septic shock related to this extensive left lung pneumonia. Current antibiotic coverage including a combination of Zosyn, vancomycin and Zithromax. The patient was also given Plaquenil for the above-mentioned reason. 2 septic shock currently pressor dependent secondary to pneumonia 3 acute hypoxic/hypercapnic respiratory failure secondary to above 4 history of valvular heart disease with impaired left ventricular ejection fraction of 25-30% and moderate degree of mitral regurgitation. Awaiting a repeat echocardiogram 5 troponin elevation secondary to above 6 COPD 7 history of opiate dependence including fentanyl and the patient has done amphetamines in the past and the patient was receiving subaxon on outpatient basis 8 history of alcoholism 9 fibromyalgia and chronic pain 10 hypertension 11 hyperlipidemia 12 acute leukocytosis and bandemia secondary to above Plan Keep the patient in droplet isolation for the reasons mentioned above At a Legionella urine antigen Continue the current antibiotic coverage Give the patient total of 2 L of IV fluids normal saline Monitor CVP Wean off pressors if possible Continue the combination of sedation and paralytics is. I the patient would benefit from fentanyl drip knowing that she has chronic necrotic dependence. This should also help us in weaning the patient of the paralytics. Monitor the blood pressure and wean off the pressors slowly to maintain mean artery pressure above 65 Start the patient enteral feeding for nutritional support Condition is critical. Awaiting a repeat echocardiogram. We'll continue to follow make further recommendations based on her progress. There is a critically care evaluation that was on a more than 30 minutes. Time with Patient: Greater than 30
--- NOTE | 2019-12-07 16:25 | CDI ---
Documentation Clarification Form Date: 12/07/2019 04:10:24 PM From: Dede Henson RN, CCDS Admit Date: 12/06/2019 05:21:00 AM Patient Name: Skyla Cruz Visit Number: [id number] Discharge Date: ATTENTION: The Clinical Documentation Specialists (CDI) and [facility] Coding Staff appreciate your assistance in clarifying documentation. Please respond to the clarification below the line at the bottom and electronically sign. The CDI & [facility] Coding staff will review the response and follow-up if needed. Please note: Queries are made part of the Legal Health Record. If you have any questions, please contact the author of this message via ITS. Dr. Jonnathan Neal Altered Mental Status was documented in the ED clinical impression on 12/05, H&P and subsequent progress notes, and further clarification is requested for the mental status change. History/Risk Factors: Hypertension, Asthma, Heart Failure Clinical Indicators: 54-year-old female present with altered mental status. She was reported to be unresponsive and was brought to the [facility] and transfer to [place]. Labs: WBC 12.5, Lactic acid 2.2, BUN 26, Creatinine 1.11. Urine drug screen positive for methadone and the patient currently being treated for opioid addition General appearance: obtunded (ED exam) 12/05 Vital signs in ED on arrival: 74/45 110 28 97.7 96 % 15 % NRB 12/05 EKG: Sinus tachycardia 111 bpm 12/05 Chest X Ray: Left lower lobe opacity. combination of consolidation and pleural fluid. Interstitial change in the left upper lobe may be part of this inflammatory process. 12/05 ED clinical impression: Pneumonia, Sepsis Treatment: ICU/Telemetry monitoring Mechanical Intubation (monitoring per pulmonary) Azithromycin 500 mg IV Daily Plaquenil 200 mg PO BID Vancomycin IV (Pharmacy to dose) Levophed 1.959 mls/hr Zosyn 3.375 gm IV Q8hrs Vasopressin 153 mls@4.59 mls hr IV In your professional opinion, please clarify the etiology of the Altered Mental Status, if known. Metabolic Encephalopathy (specify Underlying Medical Illness) Other condition (please specify) Unable to determine (Last Revision: December 2017) she was intubated when I evaluated the patient because of which I cannot really say patient is encephalopathic MTDD
--- NOTE | 2019-12-07 16:33 | ECHOF ---
Referral Reason:r/o endocarditis MEASUREMENTS -------- HEIGHT: 170.2 cm WEIGHT: 83.5 kg BP: IVSd: 0.9 cm (0.6 - 1.1) LVIDd: 3.5 cm (3.9 - 5.3) LVPWd: 1.5 cm (0.6 - 1.1) IVSs: 1.3 cm LVIDs: 3.7 cm LVPWs: 1.3 cm LA Diam: 2.5 cm (2.7 - 3.8) Ao Diam: 2.7 cm (2.0 - 3.7) LA Diam: 3.4 cm (2.7 - 3.8) MV EXCURSION: 20.327 mm (> 18.000) MV EF SLOPE: 86 mm/s (70 - 150) EPSS: 0.5 cm MV E Maynor: 0.56 m/s MV DecT: 143 ms MV A Maynor: 0.56 m/s MV E/A Ratio: 0.99 RAP: 5.00 mmHg RVSP: 39.63 mmHg FINDINGS -------- Sinus rhythm. Resting tachycardia (HR>100bpm). This was a technically difficult study with suboptimal views. LV size, wall thickness and systolic function are normal, with an EF greater than 55%. The left verenice tricular size is normal. The right ventricle is normal in size. The left atrial size is normal. The right atrial size is normal. The aortic valve was not well visualized. There is no evidence of aortic regurgitation. The mitral valve was not well visualized. Mild mitral regurgitation is present. Mild tricuspid regurgitation present. There is no evidence of pulmonary hypertension. The right v entricular systolic pressure, as measured by Doppler, is 39.63mmHg. The pulmonic valve was not well visualized. There is no pulmonic regurgitation present. The aortic root size is normal. There is no pericardial effusion. CONCLUSIONS -------- 1. LV size, wall thickness and systolic function are normal, with an EF greater than 55%. 2. The left ventricular size is normal. 3. The left atrial size is normal. 4. The aortic valve was not well visualized. 5. Mild mitral regurgitation is present. 6. Mild tricuspid regurgitation present. 7. There is no evidence of pulmonary hypertension. 8. There is no pulmonic regurgitation present. 9. There is no pericardial effusion. LICENSED MARINE ENGINEER: Betty Tony RDCS
[2019-12-07] MEDS: ARTIFICIAL TEARS-HYPROMELLOSE DROPS 15 ML BTL BOTH EYES SCH ×3 (17:17→23:42)
[2019-12-07 18:21] LABS: Glucose,Whole Blood 115 mg/dL (75-99)
[2019-12-07] MEDS: CISATRACURIUM 200 MG in SODIUM CHLORIDE 0.9% 180 ML IV SCH (20:14)
[2019-12-07] MEDS: SODIUM CHLORIDE 0.9% 150 ML with VASOPRESSIN 60 UNIT IV SCH ×2 (23:17)
[2019-12-07 23:33] LABS: Glucose,Whole Blood 97 mg/dL (75-99)
[2019-12-08] MEDS: PROPOFOL 1,000 MG in EMPTY BAG 1 BAG IV SCH ×4 (03:23→22:32)
[2019-12-08 04:38] LABS: HCT 33.5 % (34.0-46.0); HGB 10.2 gm/dL (11.4-16.0); Hypochromasia Slight; MCH 30.3 pg (25.0-35.0); MCHC 30.6 g/dL (31.0-37.0); MCV 99.1 fL (80.0-100.0); Mean Platelet Volume 8.9; Platelet Count 137 k/uL (150-450); RBC 3.38 m/uL (3.80-5.40); RDW 14.4 % (11.5-15.5); WBC 24.3 k/uL (3.8-10.6)
[2019-12-08 04:48] LABS: Albumin 2.1 g/dL (3.5-5.0); Calcium 7.5 mg/dL (8.4-10.2); Total Bilirubin 0.9 mg/dL (0.2-1.3); Total Protein 4.4 g/dL (6.3-8.2)
[2019-12-08] MEDS ORDERED: VANCOMYCIN TROUGH DUE 1 EACH MISC MISCELLANE ONE (05:00)
[2019-12-08 05:16] LABS: ABG Base Excess -5.3 mmol/L; ABG HCO3 23 mmol/L (21-25); ABG Oxygen Saturation 95.8 % (94-97); ABG PCO2 62 mmHg (35-45); ABG PO2 83 mmHg (83-108); ABG TCO2 25 mmol/L (19-24); Allen Test Performed? Yes
[2019-12-08 05:18] LABS: ABG PH 7.18 (7.35-7.45)
[2019-12-08 05:25] LABS: Glucose,Whole Blood 102 mg/dL (75-99)
[2019-12-08] MEDS: INSULIN ASPART (NovoLOG) 100 UNIT/ML VIAL SQ SCH ×4 (05:26→23:41)
[2019-12-08] MEDS: NOREPINEPHRINE 32 MG in SODIUM CHLORIDE 0.9% 218 ML IV SCH (05:27)
[2019-12-08] MEDS: ARTIFICIAL TEARS-HYPROMELLOSE DROPS 15 ML BTL BOTH EYES SCH ×6 (05:27→23:41)
[2019-12-08] MEDS: SODIUM CHLORIDE 0.9% 1,000 ML IV SCH ×2 (05:28→21:01)
[2019-12-08] MEDS: VANCOMYCIN 1,500 MG in SODIUM CHLORIDE 0.9% 250 ML IVPB SCH ×2 (05:28→21:26)
[2019-12-08 05:30] LABS: Band Neutrophils % 8 %; Eosinophils # (M) 0.24 k/uL (0-0.7); Lymphocytes # (M) 0.73 k/uL (1.0-4.8); Monocytes # (M) 2.19 k/uL (0-1.0); Myelocytes # (M) 0.24 k/uL (0); Myelocytes % 1 %; Neutrophils % (M) 78 %; Nucleated Red Blood Cells 0 /100 WBC (0-0); Total Cells Counted 200
--- NOTE | 2019-12-08 07:28 | XR ---
EXAMINATION TYPE: XR chest 1V portable DATE OF EXAM: 12/08/2019 Comparison: 12/07/2019 Clinical History: 54-year-old female Tube placement Findings: ET tube is satisfactory. Left CVC tip in upper right atrium. Left heart margin now obscured by adjace nt pleural parenchymal opacity. Increasing consolidation throughout the left hemithorax now only spar ing the apex. Increasing patchy density right base as well. Impression: 1. Progressive airspace disease on the left; now only the apex remains aerated. 2. Increasing patchy infiltrate at the right base as well.
[2019-12-08] MEDS: FAMOTIDINE 20 MG/2 ML VIAL IV SCH (09:34)
[2019-12-08] MEDS: PIPERACILLIN-TAZOBACTAM 3.375 GM in SODIUM CHLORIDE 0.9% 100 ML IVPB SCH ×3 (09:34→23:41)
[2019-12-08] MEDS: CHLORHEXIDINE GLUCONATE 15 ML CUP MUCOUS MEM SCH ×2 (09:34→21:00)
[2019-12-08] MEDS: HYDROXYCHLOROQUINE ORAL SUSP 200 MG/8 ML ORAL.SYRG PO SCH ×2 (09:35→21:00)
[2019-12-08] MEDS: ZINC SULFATE 220 MG CAP PO SCH (09:35)
[2019-12-08] MEDS: methylPREDNISolone SOD SUCCI 40 MG/ML 1 ML VIAL IV SCH ×3 (09:37→23:41)
[2019-12-08] MEDS: AZITHROMYCIN 500 MG in SODIUM CHLORIDE 0.9% 250 ML IVPB SCH (11:30)
--- NOTE | 2019-12-08 11:58 | P.PN ---
Subjective 54-year-old female was transferred from [facility] after she present today with altered mental status found to have significant pneumonia in the left lower lobe appears to have lobar pneumonia. Patient was isolated for COVID and the testing was ordered for that patient was severely septic patient went into respiratory failure requiring intubation patient was subsequently intubated patient is presently on Zosyn and vancomycin and azithromycin. Hydroxychloroquine is being considered because of concerns of COVID, and. Patient is definitely high risk for that as she goes to methadone clinic for opiate addiction. Patient was tested for hepatitis in April 2019 which was negative for any chronic hep C and hep B. She does have mildly elevated troponin secondary to sepsis. Patient is not requiring any pressor support at this time patient was in shock yesterday was requiring pressors as today.. Patient does have significant valvular heart disease including very low ejection fraction the past because of which I'm cutting down the fluids to 75 mL per hour today patient is admitted sedated presently on 70% FiO2 and PEEP of 15 set up respiratory rate of around 25 patient has both hypercapnic and hypoxic respiratory failure.. Patient does have mildly elevated liver enzymes because of which I'll obtain another hepatitis panel. Patient is on Nimbex and the propofol drips 12/07/2019 Patient is still not doing well. Patient remains on ventilator patient is still on 85% FiO2 patient remains acidotic is in both the acute hypoxic and hypercapnic Respiratory failure patient set up respiratory rate yesterday was around 25 in spite of which patient is breathing over the ventilator since patient remains acidotic patient was started on Nimbex drip and the respiratory rate was increased to 35 patient is on height deep at 15 overall she is looking worse. Her white blood cell count is 20,000. Patient is still on norepi nephrine 12/08/2019 Patient respiratory status remains the same and remains on the same ventilator settings. Patient had a repeat echocardiogram which did not show any heart failure or mitral regurgitation. Patient has fairly good out in urine output but patient creatinine went up continues to remain in hypercapnic and hypoxic respiratory failure in spite of above-mentioned vent settings and remains acidotic which is respiratory acidosis as well as a competent of metabolic acidosis. Her heart rate has come down. Covid 19 testing is pending Review of systems: Unable to obtain due to her clinical condition All inpatient medications were reviewed and appropriate changes in these medications as dictated in the interval history and assessment and plan. Objective - Vital Signs Vital signs: Vital Signs Temp 98.5 F 12/08/19 04:00 Pulse 95 12/08/19 07:00 Resp 34 H 12/08/19 07:00 BP 108/68 12/08/19 07:00 Pulse Ox 97 12/08/19 07:00 Intake & Output 12/07/19 12/08/19 12/08/19 18:59 06:59 18:59 Intake Total 4281.144 2671.812 245.923 Output Total 190 275 50 Balance 389.234 3245.812 195.923 Weight 83.6 kg 85.6 kg 85.6 kg Intake: IV 497 1197 206 Piperacillin-Tazobactam 3 100 .375 gm In Sodium Chloride 0.9% 100 ml @ 25 mls/hr IVPB Q8HR [facility] Rx# :[id number] Pressure Bag 72 72 6 Sodium Chloride 0.9% 1, 300 900 75 000 ml @ 75 mls/hr IV . [id number] [facility] Rx#:[id number] Vancomycin 1,500 mg In 125 125 125 Sodium Chloride 0.9% 250 ml @ 125 mls/hr IVPB Q12H [facility] Rx#:[id number] Intake, IV Titration 276.884 353.812 17.923 Amount Norepinephrine 32 mg In 181.596 17.923 Sodium Chloride 0.9% 218 ml @ 0.05 MCG/KG/MIN 1. 959 mls/hr IV .Q24H [facility]O Rx#:[id number] Propofol 1,000 mg In 276.884 172.216 Empty Bag 1 bag @ Titrate IV .Q0M REGINO Rx#: [id number] Tube Feeding 264 264 22 Other 90 90 Output: Urine 190 275 50 Other: Voiding Method Indwelling Catheter Indwelling Catheter ABP, PAP, CO, CI - Last Documented Arterial Blood Pressure 87/48 - Exam PHYSICAL EXAMINATION: GENERAL: Patient is intubated sedated HEENT: Pupils are round and equally reacting to light. EOMI. No scleral icterus. No conjunctival pallor. Normocephalic, atraumatic. No pharyngeal erythema. No thyromegaly. CARDIOVASCULAR: S1 and S2 present. No rubs, or gallops. The solids murmur in the tricuspid and mitral areas PULMONARY: Chest is clear to auscultation, no wheezing or crackles. ABDOMEN: Soft, nontender, nondistended, normoactive bowel sounds. No palpable organomegaly. MUSCULOSKELETAL: No joint swelling or deformity. EXTREMITIES: No cyanosis, clubbing, or pedal edema. NEUROLOGICAL: On sedation please refer to nursing documentation for scores SKIN: No rashes - Labs CBC & Chem 7: 12/08/19 04:30 12/08/19 04:30 Labs: Abnormal Lab Results - Last 24 Hours (Table) 12/07/19 12/07/19 12/08/19 Range/Units 04:15 18:19 04:30 WBC 24.3 H (3.8-10.6) k/uL RBC 3.38 L (3.80-5.40) m/uL Hgb 10.2 L (11.4-16.0) gm/dL Hct 33.5 L (34.0-46.0) % MCHC 30.6 L (31.0-37.0) g/dL Plt Count 137 L (150-450) k/uL Neutrophils # (Manual) 20.80 H (1.3-7.7) k/uL Lymphocytes # (Manual) 0.73 L (1.0-4.8) k/uL Monocytes # (Manual) 2.19 H (0-1.0) k/uL Myelocytes # (Manual) 0.24 H (0) k/uL ABG pH (7.35-7.45) ABG pCO2 (35-45) mmHg ABG Total CO2 (19-24) mmol/L Chloride (98-107) mmol/L BUN (7-17) mg/dL Creatinine (0.52-1.04) mg/dL Glucose (74-99) mg/dL POC Glucose (mg/dL) 115 H (75-99) mg/dL Calcium (8.4-10.2) mg/dL AST (14-36) U/L ALT (4-34) U/L Total Protein (6.3-8.2) g/dL Albumin (3.5-5.0) g/dL Procalcitonin 96.48 H (0.02-0.09) ng/mL 12/08/19 12/08/19 12/08/19 Range/Units 04:30 05:12 05:24 WBC (3.8-10.6) k/uL RBC (3.80-5.40) m/uL Hgb (11.4-16.0) gm/dL Hct (34.0-46.0) % MCHC (31.0-37.0) g/dL Plt Count (150-450) k/uL Neutrophils # (Manual) (1.3-7.7) k/uL Lymphocytes # (Manual) (1.0-4.8) k/uL Monocytes # (Manual) (0-1.0) k/uL Myelocytes # (Manual) (0) k/uL ABG pH 7.18 L* (7.35-7.45) ABG pCO2 62 H (35-45) mmHg ABG Total CO2 25 H (19-24) mmol/L Chloride 117 H (98-107) mmol/L BUN 31 H (7-17) mg/dL Creatinine 1.60 H (0.52-1.04) mg/dL Glucose 113 H (74-99) mg/dL POC Glucose (mg/dL) 102 H (75-99) mg/dL Calcium 7.5 L (8.4-10.2) mg/dL AST 80 H (14-36) U/L ALT 35 H (4-34) U/L Total Protein 4.4 L (6.3-8.2) g/dL Albumin 2.1 L (3.5-5.0) g/dL Procalcitonin (0.02-0.09) ng/mL Microbiology - Last 24 Hours (Table) 12/06/19 12:30 Gram Stain - Final Sputum Sputum Culture - Final 12/06/19 04:07 Blood Culture - Preliminary Blood No Growth after 48 hours Assessment and Plan Plan: -Septic shock: Shock improved at this time because on IV fluids patient will be continued on broad-spectrum antibiotics vancomycin and Zosyn and azithromycin sputum cultures and blood cultures were obtained patient mostly has lobar pneumonia although COVID need to be ruled out as well. She is on isolation for that. Hydroxy chloroquine is being considered as well, patient is still not doing well patient is an above-mentioned mentioned settings -Acute renal failure secondary to sepsis and septic shock can use supportive care IV fluids -Acute hypercapnic and acute hypoxic respiratory failure: Continue with ventilator support continue with inhalational treatments. -History of congestive heart failure severe systolic dysfunction I do not know the ejection fraction. Patient has multi valvular heart disease including severe mitral regurgitation severe tricuspid regurgitation. Patient remains on IV fluids because of severe sepsis. Patient had a echocardiogram which did not show any mitral regurgitation doesn't have any heart failure. -COPD present smoker further management as mentioned above -History of opiate abuse with mildly elevated liver enzymes will obtain a hepatitis panel. -Fibromyalgia -Hyperlipidemia -Hypertension
[2019-12-08 12:03] LABS: Glucose,Whole Blood 115 mg/dL (75-99)
[2019-12-08 12:38] LABS: Amorphous Sediment,Urine Rare /hpf; Appearance,Urine Cloudy (Clear); Bacteria,Urine Rare /hpf; Bilirubin,Urine Negative (Negative); Blood,Urine Small (Negative); Color,Urine Yellow; Glucose,Urine (UA) Negative (Negative); Ketones,Urine Negative (Negative); Leukocyte Esterase,Urine Negative (Negative); Mucus,Urine Rare /hpf; Nitrite,Urine Negative (Negative); PH, Urine 5.5 (5.0-8.0); Protein,Urine 1+ (Negative); Specific Gravity,Urine 1.016 (1.001-1.035); Squamous Epithelial Cell,Urine 1 /hpf (0-4); Urobilinogen,Urine <2.0 mg/dL (<2.0); WBC,Urine 13 /hpf (0-5)
--- NOTE | 2019-12-08 13:33 | P.PN ---
Subjective Progress Note Date: 12/08/19 On today's evaluation of 12/07/2019 and seeing the patient for a follow-up. This patient came with an extensive left lung pneumonia/airspace disease/consolidation and she is intubated on a mechanical ventilator. Note that she was quite septic and the time of arrival. She is also being ruled out for COVID 19 infection. The patient has multiple medical problems and comorbidities. The patient has COPD/asthma. The patient also has CHF with an ejection fraction of 25-30% along with previous history of moderate degree of mitral regurgitation. She has history of substance abuse including methamphe tamine and fentanyl and the patient has been on methadone on outpatient basis. The patient has hypertension, hyperlipidemia, fibromyalgia, osteoarthritis and previous history of alcoholism This morning, the patient remains sedated with propofol which is currently running at 40 mg per KG per minute. The patient is also paralyzed with Nimbex 01 g per KG per minute. The patient is receiving IV fluids at the rate of 75 mL an hour. The patient is on norepinephrine infusion at 0.15 g per KG per minute. She is an assist-control mode of ventilator. The patient is at the rate of 34 with a tidal volume of 350 and FiO2 of 85% with a PEEP of 15. The blood gases from today showed a pH of 7.16 with a pCO2 of 73 and pO2 of 85 and this was done and FiO2 of 85%. The white cell count is at 20 per lactic acid level is down to 2.4. Renal function is stable with a creatinine of 0.7. Sodium is at 144. The patient had been she with a combination of antibiotics. For now we have the patient a combination of vancomycin and Zosyn. I added Zithromax today. I also have the patient on Plaquenil for the possibility of an underlying coronavirus infection of the lungs. A repeat echocardiogram is still pending regarding the left ventricle ejection fraction and the extent of mitral regurgitation. Noted the patient was noted to be having a lower CVP this morning. I went ahead and gave her another liter of normal saline with a possibility of giving her a second liter if she continues to have lower urine output. Troponin is at 0.9. Blood cultures still negative. Sputum Gram stain and cultures also negative. Note that on her blood work, the patient has a 28% bandemia time of admission and currently she is up to 58%. Legionella urine antigen will be also sent. On today's evaluation of 12/08/2019 the patient remains intubated on a mechanical ventilator. We will inform that the patient's blood cultures from [place] showed a gram-positive cocci in pairs. Based on that, we aren't anticipating the possibility of an underlying pneumococcal left lung pneumonia. The patient continues to have extensive consolidation of the left lung on today's chest x-ray. Meanwhile, the patient is a mechanical ventilator. She is quite bronchospastic and wheezy. No nebulizers or steroids have been utilizing anticipating a Covid 19 infection which I think it's less likely possibility on today's evaluation. The patient is currently on an assist-control mode at the rate of 34 with a tidal volume of 350 and FiO2 of 70% with a PEEP of 15. Peak airway pressures 42. Static pressure is 28. The patient is sedated with propofol at a dose of 40 g per KG per minute. The patient on Nimbex at 1 g per KG per minute. The patient is also on norepinephrine infusion at 0.3 g per KG per minute. The patient is also on vasopressin physiologic dose. The patient is septic shock. White cell count is up to 24 with a hemoglobin of 10.2. The patient has a percent bandemia which is improved compared to yesterday. The blood gas showed a pH of 7.18 with a pCO2 of 62 and pO2 of 83. The pro-calcitonin level was 96.4 indicating bacterial infection. Covid testing is still pending for now. The patient is receiving a combination of Zithromax, vancomycin and Zosyn for now. Plaquenil be continued pending the Covid 19 status. The patient also suffered an acute kidney injury. Creatinine is up to 1.6 and the patient has a positive fluid balance of 2.5 L over the past 24 hours. Objective - Vital Signs Vital signs: Vital Signs Temp 98.5 F 12/08/19 04:00 Pulse 95 12/08/19 07:00 Resp 34 H 12/08/19 07:00 BP 108/68 12/08/19 07:00 Pulse Ox 97 12/08/19 07:00 Intake & Output 12/07/19 12/08/19 12/08/19 18:59 06:59 18:59 Intake Total 2958.323 8906.812 245.923 Output Total 190 275 50 Balance 670.180 9180.812 195.923 Weight 83.6 kg 85.6 kg 85.6 kg Intake: IV 497 1197 206 Piperacillin-Tazobactam 3 100 .375 gm In Sodium Chloride 0.9% 100 ml @ 25 mls/hr IVPB Q8HR [facility] Rx# :[id number] Pressure Bag 72 72 6 Sodium Chloride 0.9% 1, 300 900 75 000 ml @ 75 mls/hr IV . [id number] [facility] Rx#:[id number] Vancomycin 1,500 mg In 125 125 125 Sodium Chloride 0.9% 250 ml @ 125 mls/hr IVPB Q12H [facility] Rx#:[id number] Intake, IV Titration 276.884 353.812 17.923 Amount Norepinephrine 32 mg In 181.596 17.923 Sodium Chloride 0.9% 218 ml @ 0.05 MCG/KG/MIN 1. 959 mls/hr IV .Q24H [facility] Rx#:[id number] Propofol 1,000 mg In 276.884 172.216 Empty Bag 1 bag @ Titrate IV .Q0M [facility] Rx#: [id number] Tube Feeding 264 264 22 Other 90 90 Output: Urine 190 275 50 Other: Voiding Method Indwelling Catheter Indwelling Catheter ABP, PAP, CO, CI - Last Documented Arterial Blood Pressure 87/48 - Exam Gen. appearance, comfortable likely distress sedated paralyzed success with the mechanical ventilator for now. The patient has an orogastric and orotracheal tube are both in place. Head exam was generally normal. There was no scleral icterus or corneal arcus. Mucous membranes were moist. Neck was supple and without jugular venous distension, thyromegaly, or carotid bruits. Carotids were easily palpable bilaterally. There was no adenopathy. Orogastric and orotracheal tube are both in place and the patient is a left IJ triple-lumen catheter in place. Lung sounds are diminished and some crackles in lung bases bilaterally more so on the left. Otherwise breath on that equal and symmetrical. On today's evaluation the patient's furthermore bronchospastic and wheezy. Heart sounds are regular, positive S1-S2 and there is a systolic ejection murmur grade 3/6 heard along left lateral sternal border. Abdominal exam revealed normal bowel sounds. The abdomen was soft, non-tender, and without masses, organomegaly, or appreciable enlargement of the abdominal aorta. Examination of the extremities revealed easily palpable radial, femoral and pedal pulses. There was no cyanosis, clubbing or edema. Examination of the skin revealed no evidence of significant rashes, suspicious appearing nevi or other concerning lesions. Neurologically the patient sedated and paralyzed. - Labs CBC & Chem 7: 12/08/19 04:30 12/08/19 04:30 Labs: Abnormal Lab Results - Last 24 Hours (Table) 12/07/19 12/07/19 12/08/19 Range/Units 04:15 18:19 04:30 WBC 24.3 H (3.8-10.6) k/uL RBC 3.38 L (3.80-5.40) m/uL Hgb 10.2 L (11.4-16.0) gm/dL Hct 33.5 L (34.0-46.0) % MCHC 30.6 L (31.0-37.0) g/dL Plt Count 137 L (150-450) k/uL Neutrophils # (Manual) 20.80 H (1.3-7.7) k/uL Lymphocytes # (Manual) 0.73 L (1.0-4.8) k/uL Monocytes # (Manual) 2.19 H (0-1.0) k/uL Myelocytes # (Manual) 0.24 H (0) k/uL ABG pH (7.35-7.45) ABG pCO2 (35-45) mmHg ABG Total CO2 (19-24) mmol/L Chloride (98-107) mmol/L BUN (7-17) mg/dL Creatinine (0.52-1.04) mg/dL Glucose (74-99) mg/dL POC Glucose (mg/dL) 115 H (75-99) mg/dL Calcium (8.4-10.2) mg/dL AST (14-36) U/L ALT (4-34) U/L Total Protein (6.3-8.2) g/dL Albumin (3.5-5.0) g/dL Procalcitonin 96.48 H (0.02-0.09) ng/mL Urine Appearance (Clear) Urine Protein (Negative) Urine Blood (Negative) Urine WBC (0-5) /hpf Amorphous Sediment (None) /hpf Urine Bacteria (None) /hpf Urine Mucus (None) /hpf 12/08/19 12/08/19 12/08/19 Range/Units 04:30 05:12 05:24 WBC (3.8-10.6) k/uL RBC (3.80-5.40) m/uL Hgb (11.4-16.0) gm/dL Hct (34.0-46.0) % MCHC (31.0-37.0) g/dL Plt Count (150-450) k/uL Neutrophils # (Manual) (1.3-7.7) k/uL Lymphocytes # (Manual) (1.0-4.8) k/uL Monocytes # (Manual) (0-1.0) k/uL Myelocytes # (Manual) (0) k/uL ABG pH 7.18 L* (7.35-7.45) ABG pCO2 62 H (35-45) mmHg ABG Total CO2 25 H (19-24) mmol/L Chloride 117 H (98-107) mmol/L BUN 31 H (7-17) mg/dL Creatinine 1.60 H (0.52-1.04) mg/dL Glucose 113 H (74-99) mg/dL POC Glucose (mg/dL) 102 H (75-99) mg/dL Calcium 7.5 L (8.4-10.2) mg/dL AST 80 H (14-36) U/L ALT 35 H (4-34) U/L Total Protein 4.4 L (6.3-8.2) g/dL Albumin 2.1 L (3.5-5.0) g/dL Procalcitonin (0.02-0.09) ng/mL Urine Appearance (Clear) Urine Protein (Negative) Urine Blood (Negative) Urine WBC (0-5) /hpf Amorphous Sediment (None) /hpf Urine Bacteria (None) /hpf Urine Mucus (None) /hpf 12/08/19 12/08/19 Range/Units 11:45 12:02 WBC (3.8-10.6) k/uL RBC (3.80-5.40) m/uL Hgb (11.4-16.0) gm/dL Hct (34.0-46.0) % MCHC (31.0-37.0) g/dL Plt Count (150-450) k/uL Neutrophils # (Manual) (1.3-7.7) k/uL Lymphocytes # (Manual) (1.0-4.8) k/uL Monocytes # (Manual) (0-1.0) k/uL Myelocytes # (Manual) (0) k/uL ABG pH (7.35-7.45) ABG pCO2 (35-45) mmHg ABG Total CO2 (19-24) mmol/L Chloride (98-107) mmol/L BUN (7-17) mg/dL Creatinine (0.52-1.04) mg/dL Glucose (74-99) mg/dL POC Glucose (mg/dL) 115 H (75-99) mg/dL Calcium (8.4-10.2) mg/dL AST (14-36) U/L ALT (4-34) U/L Total Protein (6.3-8.2) g/dL Albumin (3.5-5.0) g/dL Procalcitonin (0.02-0.09) ng/mL Urine Appearance Cloudy H (Clear) Urine Protein 1+ H (Negative) Urine Blood Small H (Negative) Urine WBC 13 H (0-5) /hpf Amorphous Sediment Rare H (None) /hpf Urine Bacteria Rare H (None) /hpf Urine Mucus Rare H (None) /hpf Microbiology - Last 24 Hours (Table) 12/06/19 12:30 Gram Stain - Final Sputum Sputum Culture - Final 12/06/19 04:07 Blood Culture - Preliminary Blood No Growth after 48 hours Assessment and Plan Plan: 1 left lower lobe pneumonia, strongly suspect pneumococcal pneumonia as the patient's blood culture was positive for gram-positive cocci in pairs. This is coming from [facility].. The patient extensive consolidation of the left lower lobe. Suspect a bacterial infection with above-mentioned cultures and the pro-calcitonin being very high. We are also ruling out the possibility of a COVID 19 infection. Meanwhile the patient is also septic shock related to this extensive left lung pneumonia. Current antibiotic coverage including a combination of Zosyn, vancomycin and Zithromax. The patient was also given Plaquenil for the above-mentioned reason. The chest x-ray from today shows extensive left lung consolidation. The patient continues to have leukocytosis and the patient continues to be pressor dependent. The serum cortisol was at 26. 2 septic shock currently pressor dependent secondary to pneumonia, and the patient remains on high-dose pressors and the patient is currently on a combination of norepinephrine infusion running at 0.3 mg per KG per minute in ad dition to vasopressin physiologic dose. 3 acute hypoxic/hypercapnic respiratory failure secondary to above 4 history of valvular heart disease with impaired left ventricular ejection fraction of 25-30% and moderate degree of mitral regurgitation. Awaiting a repeat echocardiogram. Note that the repeat echocardiogram showed no evidence of any significant mitral regurgitation and the patient ejection fraction was reported to be around 55%. 5 acute kidney injury with a creatinine of 1.6 and the patient is oliguric at this point in time 6 COPD 7 history of opiate dependence including fentanyl and the patient has done amphetamines in the past and the patient was receiving subaxon on outpatient basis 8 history of alcoholism 9 fibromyalgia and chronic pain 10 hypertension 11 hyperlipidemia 12 acute leukocytosis and bandemia secondary to above\ 13 troponin leak secondary to above Plan This is likely a pneumococcal left lung pneumonia awaiting further cultures and sensitivities. The patient will be given same antibiotic coverage for now. Continue the current antibiotic coverage The patient has been aggressively resuscitated IV fluids. He remains pressor dependent. The patient will be kept on IV fluids at the rate of 75 mL an hour. The patient has a total of 2 boluses yesterday. The patient is also on a combination of norepinephrine infusion and vasopressin. Will add IV Solu-Medrol 40 mg every 8 hours Abdomen nebulized treatment [id number] as the patient's quite bronchospastic and wheezy with elevated peak airway pressures Continue the combination of sedation and paralytics is. Check triglycerides for tomorrow Monitor the blood pressure and wean off the pressors slowly to maintain mean artery pressure above 65 enteral feeding for nutritional support Condition is critical. The follow-up echocardiogram results were encouraging.. We'll continue to follow make further recommendations based on her progress. There is a critically care evaluation that was on a more than 30 minutes.
[2019-12-08] MEDS ORDERED: IPRATROPIUM-ALBUTEROL 3 ML NEB INHALATION SCH (16:00)
[2019-12-08] MEDS: ALBUTEROL INHALER 60 PUFF/8 GM INHALER (MHU) INHALATION SCH ×3 (17:10→23:00)
[2019-12-08] MEDS ORDERED: ALBUTEROL HFA INHALER INHALATION ONE ×2 (17:10)
[2019-12-08 17:17] LABS: Glucose,Whole Blood 150 mg/dL (75-99)
[2019-12-08] MEDS: SODIUM CHLORIDE 0.9% 150 ML with VASOPRESSIN 60 UNIT IV SCH ×2 (17:36)
[2019-12-08 23:36] LABS: Glucose,Whole Blood 157 mg/dL (75-99)
[2019-12-09] MEDS: PROPOFOL 1,000 MG in EMPTY BAG 1 BAG IV SCH ×4 (02:00→19:53)
[2019-12-09] MEDS: ALBUTEROL INHALER 60 PUFF/8 GM INHALER (MHU) INHALATION SCH ×2 (03:30→07:55)
[2019-12-09] MEDS ORDERED: ALBUTEROL HFA INHALER INHALATION ONE ×2 (03:30)
[2019-12-09] MEDS: ARTIFICIAL TEARS-HYPROMELLOSE DROPS 15 ML BTL BOTH EYES SCH ×6 (04:07→23:25)
[2019-12-09 04:37] LABS: Albumin 2.3 g/dL (3.5-5.0); Calcium 8.1 mg/dL (8.4-10.2); Potassium 3.9 mmol/L (3.5-5.1); Total Bilirubin 0.5 mg/dL (0.2-1.3); Total Protein 4.8 g/dL (6.3-8.2)
[2019-12-09 05:15] LABS: ABG Base Excess -5.6 mmol/L; ABG HCO3 23 mmol/L (21-25); ABG Oxygen Saturation 92.9 % (94-97); ABG PCO2 60 mmHg (35-45); ABG PO2 68 mmHg (83-108); ABG TCO2 25 mmol/L (19-24); Allen Test Performed? Yes
[2019-12-09 05:18] LABS: ABG PH 7.19 (7.35-7.45)
[2019-12-09 05:23] LABS: HCT 33.3 % (34.0-46.0); HGB 10.1 gm/dL (11.4-16.0); Hypochromasia Moderate; MCH 30.4 pg (25.0-35.0); MCHC 30.5 g/dL (31.0-37.0); MCV 99.6 fL (80.0-100.0); Mean Platelet Volume 8.9; Platelet Count 129 k/uL (150-450); RBC 3.34 m/uL (3.80-5.40); RDW 14.2 % (11.5-15.5)
[2019-12-09 06:10] LABS: Glucose,Whole Blood 170 mg/dL (75-99)
[2019-12-09] MEDS: INSULIN ASPART (NovoLOG) 100 UNIT/ML VIAL SQ SCH ×4 (06:17→23:23)
[2019-12-09] MEDS: CISATRACURIUM 200 MG in SODIUM CHLORIDE 0.9% 180 ML IV SCH ×2 (06:18→14:11)
[2019-12-09 07:30] LABS: Band Neutrophils % 27 %; Metamyelocytes % 2 %; Neutrophils % (M) 65 %; Nucleated Red Blood Cells 2 /100 WBC (0-0); Total Cells Counted 200
[2019-12-09 07:31] LABS: Anisocytosis (M) Present; Lymphocytes # (M) 1.96 k/uL (1.0-4.8); Metamyelocytes # (M) 0.65 k/uL (0); Monocytes # (M) 0.65 k/uL (0-1.0); WBC 32.6 k/uL (3.8-10.6)
[2019-12-09 07:32] LABS: Polychromasia Present
[2019-12-09 07:33] LABS: Large Platelets Present
--- NOTE | 2019-12-09 07:41 | XR ---
EXAMINATION TYPE: XR chest 1V portable DATE OF EXAM: 12/09/2019 Comparison: 12/08/2019 Clinical History: 54-year-old female Tube placement Findings: ET tube is satisfactory. Distal aspect of the NG tube is cut off from the [id number]. Heart normal size. Continued extensive consolidation left mid and lower lung with slight improved aer ation. Right lung relatively clear. Impression: Improving aeration but with continued extensive left mid and lower lung consolidation.
[2019-12-09] MEDS: NOREPINEPHRINE 32 MG in SODIUM CHLORIDE 0.9% 218 ML IV SCH (09:14)
[2019-12-09] MEDS: SODIUM CHLORIDE 0.9% 1,000 ML IV SCH (09:15)
[2019-12-09] MEDS: CHLORHEXIDINE GLUCONATE 15 ML CUP MUCOUS MEM SCH ×2 (09:39→20:06)
[2019-12-09] MEDS: PIPERACILLIN-TAZOBACTAM 3.375 GM in SODIUM CHLORIDE 0.9% 100 ML IVPB SCH ×3 (09:39→23:25)
[2019-12-09] MEDS: FAMOTIDINE 20 MG/2 ML VIAL IV SCH (09:41)
[2019-12-09 11:52] LABS: Glucose,Whole Blood 183 mg/dL (75-99)
[2019-12-09 12:26] LABS: ABG Base Excess -4.9 mmol/L; ABG HCO3 23 mmol/L (21-25); ABG Oxygen Saturation 95.8 % (94-97); ABG PCO2 60 mmHg (35-45); ABG PO2 80 mmHg (83-108); ABG TCO2 25 mmol/L (19-24); Allen Test Performed? Yes
[2019-12-09] MEDS: IPRATROPIUM-ALBUTEROL 3 ML NEB INHALATION SCH ×3 (12:26→20:37)
[2019-12-09] MEDS: methylPREDNISolone SOD SUCCI 125 MG/2 ML VIAL IV SCH ×3 (13:26→23:25)
[2019-12-09] MEDS: SODIUM CHLORIDE 0.45% 1,000 ML IV SCH (13:28)
--- NOTE | 2019-12-09 13:58 | P.PN ---
Subjective Progress Note Date: 12/09/19 On today's evaluation of 12/07/2019 and seeing the patient for a follow-up. This patient came with an extensive left lung pneumonia/airspace disease/consolidation and she is intubated on a mechanical ventilator. Note that she was quite septic and the time of arrival. She is also being ruled out for COVID 19 infection. The patient has multiple medical problems and comorbidities. The patient has COPD/asthma. The patient also has CHF with an ejection fraction of 25-30% along with previous history of moderate degree of mitral regurgitation. She has history of substance abuse including methamphe tamine and fentanyl and the patient has been on methadone on outpatient basis. The patient has hypertension, hyperlipidemia, fibromyalgia, osteoarthritis and previous history of alcoholism This morning, the patient remains sedated with propofol which is currently running at 40 mg per KG per minute. The patient is also paralyzed with Nimbex 01 g per KG per minute. The patient is receiving IV fluids at the rate of 75 mL an hour. The patient is on norepinephrine infusion at 0.15 g per KG per minute. She is an assist-control mode of ventilator. The patient is at the rate of 34 with a tidal volume of 350 and FiO2 of 85% with a PEEP of 15. The blood gases from today showed a pH of 7.16 with a pCO2 of 73 and pO2 of 85 and this was done and FiO2 of 85%. The white cell count is at 20 per lactic acid level is down to 2.4. Renal function is stable with a creatinine of 0.7. Sodium is at 144. The patient had been she with a combination of antibiotics. For now we have the patient a combination of vancomycin and Zosyn. I added Zithromax today. I also have the patient on Plaquenil for the possibility of an underlying coronavirus infection of the lungs. A repeat echocardiogram is still pending regarding the left ventricle ejection fraction and the extent of mitral regurgitation. Noted the patient was noted to be having a lower CVP this morning. I went ahead and gave her another liter of normal saline with a possibility of giving her a second liter if she continues to have lower urine output. Troponin is at 0.9. Blood cultures still negative. Sputum Gram stain and cultures also negative. Note that on her blood work, the patient has a 28% bandemia time of admission and currently she is up to 58%. Legionella urine antigen will be also sent. On today's evaluation of 12/08/2019 the patient remains intubated on a mechanical ventilator. We will inform that the patient's blood cultures from [facility] showed a gram-positive cocci in pairs. Based on that, we aren't anticipating the possibility of an underlying pneumococcal left lung pneumonia. The patient continues to have extensive consolidation of the left lung on today's chest x-ray. Meanwhile, the patient is a mechanical ventilator. She is quite bronchospastic and wheezy. No nebulizers or steroids have been utilizing anticipating a Covid 19 infection which I think it's less likely possibility on today's evaluation. The patient is currently on an assist-control mode at the rate of 34 with a tidal volume of 350 and FiO2 of 70% with a PEEP of 15. Peak airway pressures 42. Static pressure is 28. The patient is sedated with propofol at a dose of 40 g per KG per minute. The patient on Nimbex at 1 g per KG per minute. The patient is also on norepinephrine infusion at 0.3 g per KG per minute. The patient is also on vasopressin physiologic dose. The patient is septic shock. White cell count is up to 24 with a hemoglobin of 10.2. The patient has a percent bandemia which is improved compared to yesterday. The blood gas showed a pH of 7.18 with a pCO2 of 62 and pO2 of 83. The pro-calcitonin level was 96.4 indicating bacterial infection. Covid testing is still pending for now. The patient is receiving a combination of Zithromax, vancomycin and Zosyn for now. Plaquenil be continued pending the Covid 19 status. The patient also suffered an acute kidney injury. Creatinine is up to 1.6 and the patient has a positive fluid balance of 2.5 L over the past 24 hours. On 12/09/2019, the patient remains on a mechanical ventilator. This morning, the patient remains essentially on the same ventilator setting. The patient remains on assist control mode at the rate of 34 with a tidal volume of 350 and FiO2 of 60% with a PEEP of 15. The patient's pulse ox currently is around 93%. The peak airway pressures around 40 with a static pressure of 26. The patient has an extensive left lung consolidation which seems to be slightly improved compared to yesterday. We will inform that the patient had a positive gram- positive cocci in pairs and the blood culture that was obtained in the outside hospital. For that reason, I discontinue the Zithromax and a The patient a combination of Zosyn and vancomycin. Also, the Covid 19 testing came back negative and the patient was taken off the Plaquenil. The patient has a blood gas that showed a pH of 7.2 with a pCO2 of 60 and pO2 of 80. The patient was started on bronchodilators. The patient was also started on IV Solu-Medrol y esterday. The patient is being weaned off the pressors. Note that over the past 24-48 hours the patient was profoundly hypotensive and the patient also developed a component of an acute kidney injury. Creatinine came up to 1.6 and today's up to 1.8. Nevertheless urine output improved and the patient has been taken off the vasopressin and the patient is down on the norepinephrine infusion which is currently running at 0.08 g per KG per minute. The patient continues to be paralyzed with Nimbex and the proposed running at 40 g per KG per minute. The patient is on high protein vital running at 42 mL an hour. She is tolerating her enteral feeding for nutritional support. She is afebrile. No other significant events otherwise for now. The cultures that were obtained here in the hospital were all negative. Objective - Vital Signs Vital signs: Vital Signs Temp 97.8 F 12/09/19 12:15 Pulse 89 12/09/19 13:30 Resp 19 12/09/19 13:30 BP 104/63 12/09/19 13:30 Pulse Ox 99 12/09/19 13:00 Intake & Output 12/08/19 12/09/19 12/09/19 18:59 06:59 18:59 Intake Total 2370.010 2557.497 1255.805 Output Total 841 985 485 Balance 8818.361 3072.497 770.805 Weight 85.6 kg 86.6 kg 86.6 kg Intake: IV 1422 1322 667 Azithromycin 500 mg In 250 Sodium Chloride 0.9% 250 ml @ 250 mls/hr IVPB DAILY [facility] Rx#:[id number] Normal Saline Pressure 72 72 42 Bag Piperacillin-Tazobactam 3 75 100 100 .375 gm In Sodium Chloride 0.9% 100 ml @ 25 mls/hr IVPB Q8HR [facility] Rx# :[id number] Sodium Chloride 0.9% 1, 900 900 525 000 ml @ 75 mls/hr IV . [id number] [facility] Rx#:[id number] Vancomycin 1,500 mg In 125 250 Sodium Chloride 0.9% 250 ml @ 125 mls/hr IVPB Q12H [facility] Rx#:[id number] Intake, IV Titration 346.010 553.497 126.805 Amount Cisatracurium 200 mg In 58.531 186.590 Sodium Chloride 0.9% 180 ml @ 1 MCG/KG/MIN 5.321 mls/hr IV .Q24H [facility] Rx#: [id number] Norepinephrine 32 mg In 87.479 105.979 26.805 Sodium Chloride 0.9% 218 ml @ 0.05 MCG/KG/MIN 1. 959 mls/hr IV .Q24H [facility] Rx#:[id number] Propofol 1,000 mg In 200 260.928 100 Empty Bag 1 bag @ Titrate IV .Q0M [facility] Rx#: [id number] Tube Feeding 512 592 462 Other 90 90 Output: Urine 841 985 485 Other: Voiding Method Indwelling Catheter Indwelling Catheter Indwelling Catheter ABP, PAP, CO, CI - Last Documented Arterial Blood Pressure 127/59 - Exam Gen. appearance, comfortable likely distress sedated paralyzed success with the mechanical ventilator for now. The patient has an orogastric and orotracheal tube are both in place. Head exam was generally normal. There was no scleral icterus or corneal arcus. Mucous membranes were moist. Neck was supple and without jugular venous distension, thyromegaly, or carotid bruits. Carotids were easily palpable bilaterally. There was no adenopathy. Orogastric and orotracheal tube are both in place and the patient is a left IJ triple-lumen catheter in place. Lung sounds are diminished and some crackles in lung bases bilaterally more so on the left. Otherwise breath on that equal and symmetrical. On today's evalu ation the patient continues to be bronchospastic and wheezy. Heart sounds are regular, positive S1-S2 and there is a systolic ejection murmur grade 3/6 heard along left lateral sternal border. Abdominal exam revealed normal bowel sounds. The abdomen was soft, non-tender, and without masses, organomegaly, or appreciable enlargement of the abdominal aorta. Examination of the extremities revealed easily palpable radial, femoral and pedal pulses. There was no cyanosis, clubbing or edema. Examination of the skin revealed no evidence of significant rashes, suspicious appearing nevi or other concerning lesions. Neurologically the patient sedated and paralyzed. - Labs CBC & Chem 7: 12/09/19 04:15 12/09/19 04:15 Labs: Abnormal Lab Results - Last 24 Hours (Table) 12/08/19 12/08/19 12/09/19 Range/Units 17:15 23:34 04:15 WBC 32.6 H (3.8-10.6) k/uL RBC 3.34 L (3.80-5.40) m/uL Hgb 10.1 L (11.4-16.0) gm/dL Hct 33.3 L (34.0-46.0) % MCHC 30.5 L (31.0-37.0) g/dL Plt Count 129 L (150-450) k/uL Neutrophils # (Manual) 29.90 H (1.3-7.7) k/uL Metamyelocytes # (Man) 0.65 H (0) k/uL Nucleated RBCs 2 H (0-0) /100 WBC ABG pH (7.35-7.45) ABG pCO2 (35-45) mmHg ABG pO2 (83-108) mmHg ABG Total CO2 (19-24) mmol/L ABG O2 Saturation (94-97) % Sodium (137-145) mmol/L Chloride (98-107) mmol/L BUN (7-17) mg/dL Creatinine (0.52-1.04) mg/dL Glucose (74-99) mg/dL POC Glucose (mg/dL) 150 H 157 H (75-99) mg/dL Calcium (8.4-10.2) mg/dL AST (14-36) U/L Alkaline Phosphatase (38-126) U/L Total Protein (6.3-8.2) g/dL Albumin (3.5-5.0) g/dL 12/09/19 12/09/19 12/09/19 Range/Units 04:15 05:10 06:09 WBC (3.8-10.6) k/uL RBC (3.80-5.40) m/uL Hgb (11.4-16.0) gm/dL Hct (34.0-46.0) % MCHC (31.0-37.0) g/dL Plt Count (150-450) k/uL Neutrophils # (Manual) (1.3-7.7) k/uL Metamyelocytes # (Man) (0) k/uL Nucleated RBCs (0-0) /100 WBC ABG pH 7.19 L* (7.35-7.45) ABG pCO2 60 H (35-45) mmHg ABG pO2 68 L (83-108) mmHg ABG Total CO2 25 H (19-24) mmol/L ABG O2 Saturation 92.9 L (94-97) % Sodium 150 H (137-145) mmol/L Chloride 119 H (98-107) mmol/L BUN 34 H (7-17) mg/dL Creatinine 1.80 H (0.52-1.04) mg/dL Glucose 167 H (74-99) mg/dL POC Glucose (mg/dL) 170 H (75-99) mg/dL Calcium 8.1 L (8.4-10.2) mg/dL AST 51 H (14-36) U/L Alkaline Phosphatase 133 H (38-126) U/L Total Protein 4.8 L (6.3-8.2) g/dL Albumin 2.3 L (3.5-5.0) g/dL 12/09/19 12/09/19 Range/Units 11:50 12:22 WBC (3.8-10.6) k/uL RBC (3.80-5.40) m/uL Hgb (11.4-16.0) gm/dL Hct (34.0-46.0) % MCHC (31.0-37.0) g/dL Plt Count (150-450) k/uL Neutrophils # (Manual) (1.3-7.7) k/uL Metamyelocytes # (Man) (0) k/uL Nucleated RBCs (0-0) /100 WBC ABG pH 7.20 L (7.35-7.45) ABG pCO2 60 H (35-45) mmHg ABG pO2 80 L (83-108) mmHg ABG Total CO2 25 H (19-24) mmol/L ABG O2 Saturation (94-97) % Sodium (137-145) mmol/L Chloride (98-107) mmol/L BUN (7-17) mg/dL Creatinine (0.52-1.04) mg/dL Glucose (74-99) mg/dL POC Glucose (mg/dL) 183 H (75-99) mg/dL Calcium (8.4-10.2) mg/dL AST (14-36) U/L Alkaline Phosphatase (38-126) U/L Total Protein (6.3-8.2) g/dL Albumin (3.5-5.0) g/dL Microbiology - Last 24 Hours (Table) 12/08/19 11:45 Urine Culture - Final Urine,Catheterized 12/06/19 04:07 Blood Culture - Preliminary Blood No Growth after 72 hours 12/06/19 12:30 Gram Stain - Final Sputum Sputum Culture - Final Assessment and Plan Plan: 1 left lower lobe pneumonia, strongly suspect pneumococcal pneumonia as the patient's blood culture was positive for gram-positive cocci in pairs. We are still awaiting for the final cultures to be sent over from [facility]. Meanwhile the cultures were obtained here in our hospital has been negative. The patient continues to have extensive consolidation of the left lung although there is some mild interval improvement. We ruled out out the possibility of a COVID 19 infection. The septic shock is related to this extensive left lung pneumonia. Current antibiotic coverage including a combination of Zosyn, vancomycin and Zithromax. The Zithromax will be discontinued. The Plaquenil will be also discontinued. Hemodynamically, the patient is somewhat improved compared to yesterday. The blood pressure is improved and the patient is on a lower dose of inotropes compared to yesterday. Vasopressin has been discontinued. Nevertheless, the patient remains sedated and paralyzed on a mechanical ventilator. 2 septic shock currently pressor dependent secondary to pneumonia, and the patient remains on high-dose pressors and the patient is currently on a combination of norepinephrine infusion running at 0.3 mg per KG per minute in addition to vasopressin physiologic dose. Note that over the past 24 hours, the patient's blood pressure improved and the patient is currently off the vasopressin and norepinephrine infusion has been drop down to 0.08 mcg/kg per minute. 3 acute hypoxic/hypercapnic respiratory failure secondary to above 4 history of valvular heart disease with impaired left ventricular ejection fraction of 25-30% and moderate degree of mitral regurgitation. Awaiting a repeat echocardiogram. Note that the repeat echocardiogram showed no evidence of any significant mitral regurgitation and the patient ejection fraction was reported to be around 55%. 5 acute kidney injury with a creatinine of 1. 8 and the patient demonstrates improvement in the urine output. 6 COPD 7 history of opiate dependence including fentanyl and the patient has done amphetamines in the past and the patient was receiving subaxone on outpatient basis 8 history of alcoholism 9 fibromyalgia and chronic pain 10 hypertension 11 hyperlipidemia 12 acute leukocytosis and bandemia secondary to above, no white cell count remains quite elevated. 13 troponin leak secondary to above Plan Still awaiting the final cultures obtained and [facility] to clearly narrow down the microorganism causing this left lung pneumonia. Suspect pneumococcal pneumonia. Continue Zosyn and vancomycin Discontinue the Zithromax Discontinue the Plaquenil as the patient was ruled out for Covid 19 infection Increase his IV Solu Medrol 60 mg every 6 hours Continue his own about treatments around the clock Take the patient off the vasopressin and the patient was weaned off the norepinephrine infusion Monitor the white count Monitor renal function Monitor creatinine Unable to wean this patient off the mechanical ventilator for now. The patient remains quite hypoxic and she is still requiring permissive hypercapnia. Peak pressures still elevated as the patient remains quite bronchospastic and wheezy. Not ready for any further weaning. We'll continue the treatment. There is a critically care evaluation that was on a more than 30 minutes. Time with Patient: Greater than 30
[2019-12-09] MEDS: VANCOMYCIN 1,500 MG in SODIUM CHLORIDE 0.9% 250 ML IVPB SCH (14:11)
--- NOTE | 2019-12-09 15:13 | P.PN ---
Subjective 54-year-old female was transferred from [facility] after she present today with altered mental status found to have significant pneumonia in the left lower lobe appears to have lobar pneumonia. Patient was isolated for COVID and the testing was ordered for that patient was severely septic patient went into respiratory failure requiring intubation patient was subsequently intubated patient is presently on Zosyn and vancomycin and azithromycin. Hydroxychloroquine is being considered because of concerns of COVID, and. Patient is definitely high risk for that as she goes to methadone clinic for opiate addiction. Patient was tested for hepatitis in April 2019 which was negative for any chronic hep C and hep B. She does have mildly elevated troponin secondary to sepsis. Patient is not requiring any pressor support at this time patient was in shock yesterday was requiring pressors as today.. Patient does have significant valvular heart disease including very low ejection fraction the past because of which I'm cutting down the fluids to 75 mL per hour today patient is admitted sedated presently on 70% FiO2 and PEEP of 15 set up respiratory rate of around 25 patient has both hypercapnic and hypoxic respiratory failure.. Patient does have mildly elevated liver enzymes because of which I'll obtain another hepatitis panel. Patient is on Nimbex and the propofol drips 12/07/2019 Patient is still not doing well. Patient remains on ventilator patient is still on 85% FiO2 patient remains acidotic is in both the acute hypoxic and hypercapnic Respiratory failure patient set up respiratory rate yesterday was around 25 in spite of which patient is breathing over the ventilator since patient remains acidotic patient was started on Nimbex drip and the respiratory rate was increased to 35 patient is on height deep at 15 overall she is looking worse. Her white blood cell count is 20,000. Patient is still on norepi nephrine 12/08/2019 Patient respiratory status remains the same and remains on the same ventilator settings. Patient had a repeat echocardiogram which did not show any heart failure or mitral regurgitation. Patient has fairly good out in urine output but patient creatinine went up continues to remain in hypercapnic and hypoxic respiratory failure in spite of above-mentioned vent settings and remains acidotic which is respiratory acidosis as well as a competent of metabolic acidosis. Her heart rate has come down. Covid 19 testing is pending. 12/09/2019 Patient's covid 19is negative and patient remains on mechanical ventilator with the continued hypercapnic and hypoxic respiratory failure with metabolic and the respiratory acidosis patient was started on Solu-Medrol patient's hydroxyc hloroquine was discontinued patient is wheezing systemic steroids frequency was increased by pulmonology, creatinine continued to go up patient can use to be a norepinephrine Nimbex propofol patient is receiving enteral NG tube feedings patient remains on IV fluids with hyperchloremia and hyponatremia because of switching the IV fluids to half-normal saline Review of systems: Unable to obtain due to her clinical condition All inpatient medications were reviewed and appropriate changes in these medications as dictated in the interval history and assessment and plan. Objective - Vital Signs Vital signs: Vital Signs Temp 97.8 F 12/09/19 12:15 Pulse 92 12/09/19 14:00 Resp 34 H 12/09/19 14:00 BP 99/63 12/09/19 14:00 Pulse Ox 99 12/09/19 14:00 Intake & Output 12/08/19 12/09/19 12/09/19 18:59 06:59 18:59 Intake Total 2370.010 2557.497 1496.281 Output Total 841 985 535 Balance 1358.844 8547.497 961.281 Weight 85.6 kg 86.6 kg 86.6 kg Intake: IV 1422 1322 748 0.45 NACL 75 Azithromycin 500 mg In 250 Sodium Chloride 0.9% 250 ml @ 250 mls/hr IVPB DAILY [facility] Rx#:[id number] Normal Saline Pressure 72 72 48 Bag Piperacillin-Tazobactam 3 75 100 100 .375 gm In Sodium Chloride 0.9% 100 ml @ 25 mls/hr IVPB Q8HR [facility] Rx# :[id number] Sodium Chloride 0.9% 1, 900 900 525 000 ml @ 75 mls/hr IV . [id number] [facility] Rx#:[id number] Vancomycin 1,500 mg In 125 250 Sodium Chloride 0.9% 250 ml @ 125 mls/hr IVPB Q12H [facility] Rx#:[id number] Intake, IV Titration 346.010 553.497 244.281 Amount Cisatracurium 200 mg In 58.531 186.590 41.947 Sodium Chloride 0.9% 180 ml @ 1 MCG/KG/MIN 5.321 mls/hr IV .Q24H [facility] Rx#: [id number] Norepinephrine 32 mg In 87.479 105.979 27.334 Sodium Chloride 0.9% 218 ml @ 0.05 MCG/KG/MIN 1. 959 mls/hr IV .Q24H [facility] Rx#:[id number] Propofol 1,000 mg In 200 260.928 100 Empty Bag 1 bag @ Titrate IV .Q0M [facility] Rx#: [id number] Sodium Chloride 0.45% 1, 75 000 ml @ 75 mls/hr IV . [id number] [facility] Rx#:[id number] Tube Feeding 512 592 504 Other 90 90 Output: Urine 841 985 535 Other: Voiding Method Indwelling Catheter Indwelling Catheter Indwelling Catheter ABP, PAP, CO, CI - Last Documented Arterial Blood Pressure 121/57 - Exam PHYSICAL EXAMINATION: GENERAL: Patient is intubated sedated HEENT: Pupils are round and equally reacting to light. EOMI. No scleral icterus. No conjunctival pallor. Normocephalic, atraumatic. No pharyngeal erythema. No thyromegaly. CARDIOVASCULAR: S1 and S2 present. No rubs, or gallops. The solids murmur in the tricuspid and mitral areas PULMONARY: Chest is clear to auscultation, no wheezing or crackles. ABDOMEN: Soft, nontender, nondistended, normoactive bowel sounds. No palpable organomegaly. MUSCULOSKELETAL: No joint swelling or deformity. EXTREMITIES: No cyanosis, clubbing, or pedal edema. NEUROLOGICAL: On sedation please refer to nursing documentation for scores SKIN: No rashes - Labs CBC & Chem 7: 12/09/19 04:15 12/09/19 04:15 Labs: Abnormal Lab Results - Last 24 Hours (Table) 12/08/19 12/08/19 12/09/19 Range/Units 17:15 23:34 04:15 WBC 32.6 H (3.8-10.6) k/uL RBC 3.34 L (3.80-5.40) m/uL Hgb 10.1 L (11.4-16.0) gm/dL Hct 33.3 L (34.0-46.0) % MCHC 30.5 L (31.0-37.0) g/dL Plt Count 129 L (150-450) k/uL Neutrophils # (Manual) 29.90 H (1.3-7.7) k/uL Metamyelocytes # (Man) 0.65 H (0) k/uL Nucleated RBCs 2 H (0-0) /100 WBC ABG pH (7.35-7.45) ABG pCO2 (35-45) mmHg ABG pO2 (83-108) mmHg ABG Total CO2 (19-24) mmol/L ABG O2 Saturation (94-97) % Sodium (137-145) mmol/L Chloride (98-107) mmol/L BUN (7-17) mg/dL Creatinine (0.52-1.04) mg/dL Glucose (74-99) mg/dL POC Glucose (mg/dL) 150 H 157 H (75-99) mg/dL Calcium (8.4-10.2) mg/dL AST (14-36) U/L Alkaline Phosphatase (38-126) U/L Total Protein (6.3-8.2) g/dL Albumin (3.5-5.0) g/dL 12/09/19 12/09/19 12/09/19 Range/Units 04:15 05:10 06:09 WBC (3.8-10.6) k/uL RBC (3.80-5.40) m/uL Hgb (11.4-16.0) gm/dL Hct (34.0-46.0) % MCHC (31.0-37.0) g/dL Plt Count (150-450) k/uL Neutrophils # (Manual) (1.3-7.7) k/uL Metamyelocytes # (Man) (0) k/uL Nucleated RBCs (0-0) /100 WBC ABG pH 7.19 L* (7.35-7.45) ABG pCO2 60 H (35-45) mmHg ABG pO2 68 L (83-108) mmHg ABG Total CO2 25 H (19-24) mmol/L ABG O2 Saturation 92.9 L (94-97) % Sodium 150 H (137-145) mmol/L Chloride 119 H (98-107) mmol/L BUN 34 H (7-17) mg/dL Creatinine 1.80 H (0.52-1.04) mg/dL Glucose 167 H (74-99) mg/dL POC Glucose (mg/dL) 170 H (75-99) mg/dL Calcium 8.1 L (8.4-10.2) mg/dL AST 51 H (14-36) U/L Alkaline Phosphatase 133 H (38-126) U/L Total Protein 4.8 L (6.3-8.2) g/dL Albumin 2.3 L (3.5-5.0) g/dL 12/09/19 12/09/19 Range/Units 11:50 12:22 WBC (3.8-10.6) k/uL RBC (3.80-5.40) m/uL Hgb (11.4-16.0) gm/dL Hct (34.0-46.0) % MCHC (31.0-37.0) g/dL Plt Count (150-450) k/uL Neutrophils # (Manual) (1.3-7.7) k/uL Metamyelocytes # (Man) (0) k/uL Nucleated RBCs (0-0) /100 WBC ABG pH 7.20 L (7.35-7.45) ABG pCO2 60 H (35-45) mmHg ABG pO2 80 L (83-108) mmHg ABG Total CO2 25 H (19-24) mmol/L ABG O2 Saturation (94-97) % Sodium (137-145) mmol/L Chloride (98-107) mmol/L BUN (7-17) mg/dL Creatinine (0.52-1.04) mg/dL Glucose (74-99) mg/dL POC Glucose (mg/dL) 183 H (75-99) mg/dL Calcium (8.4-10.2) mg/dL AST (14-36) U/L Alkaline Phosphatase (38-126) U/L Total Protein (6.3-8.2) g/dL Albumin (3.5-5.0) g/dL Microbiology - Last 24 Hours (Table) 12/08/19 11:45 Urine Culture - Final Urine,Catheterized 12/06/19 04:07 Blood Culture - Preliminary Blood No Growth after 72 hours Assessment and Plan Plan: -Septic shock: Shock improved at this time because on IV fluids patient will be continued on broad-spectrum antibiotics vancomycin and Zosyn ,sputum cultures still pendingwere obtained patient mostly has lobar pneumonia although COVID negative. She is on isolation for that. Hydroxy chloroquine his continued -Acute renal failure secondary to sepsis and septic shock can use supportive care IV fluids -Acute hypercapnic and acute hypoxic respiratory failure: Continue with ventilator support continue with inhalational treatments. -History of congestive heart failure severe systolic dysfunction I do not know the ejection fraction. Patient has multi valvular heart disease including severe mitral regurgitation severe tricuspid regurgitation. Patient remains on IV fluids because of severe sepsis. Patient had a echocardiogram which did not show any mitral regurgitation doesn't have any heart failure. -COPD present smoker further management as mentioned above -History of opiate abuse with mildly elevated liver enzymes will obtain a hepatitis panel. -Fibromyalgia -Hyperlipidemia -Hypertension
[2019-12-09 18:02] LABS: Glucose,Whole Blood 145 mg/dL (75-99)
[2019-12-09 23:24] LABS: Glucose,Whole Blood 128 mg/dL (75-99)
[2019-12-10] MEDS: IPRATROPIUM-ALBUTEROL 3 ML NEB INHALATION SCH ×6 (00:19→19:22)
[2019-12-10] MEDS: PROPOFOL 1,000 MG in EMPTY BAG 1 BAG IV SCH ×6 (00:31→21:20)
[2019-12-10] MEDS: SODIUM CHLORIDE 0.45% 1,000 ML IV SCH ×2 (00:42→16:17)
[2019-12-10] MEDS: ARTIFICIAL TEARS-HYPROMELLOSE DROPS 15 ML BTL BOTH EYES SCH ×6 (03:59→23:16)
[2019-12-10] MEDS: NOREPINEPHRINE 32 MG in SODIUM CHLORIDE 0.9% 218 ML IV SCH (03:59)
[2019-12-10 04:48] LABS: HCT 30.5 % (34.0-46.0); HGB 9.3 gm/dL (11.4-16.0); Hypochromasia Moderate; MCH 30.6 pg (25.0-35.0); MCHC 30.6 g/dL (31.0-37.0); MCV 99.9 fL (80.0-100.0); Macrocytosis Slight; Mean Platelet Volume 9.3; Platelet Count 120 k/uL (150-450); RBC 3.05 m/uL (3.80-5.40); RDW 14.5 % (11.5-15.5)
[2019-12-10] MEDS ORDERED: VANCOMYCIN TROUGH DUE 1 EACH MISC MISCELLANE ONE (05:00)
[2019-12-10 05:07] LABS: Band Neutrophils % 8 %; Lymphocytes # (M) 2.81 k/uL (1.0-4.8); Monocytes # (M) 1.87 k/uL (0-1.0); Neutrophils % (M) 72 %; Nucleated Red Blood Cells 3 /100 WBC (0-0); Total Cells Counted 200; WBC 23.4 k/uL (3.8-10.6)
[2019-12-10 05:18] LABS: Glucose,Whole Blood 147 mg/dL (75-99)
[2019-12-10] MEDS: INSULIN ASPART (NovoLOG) 100 UNIT/ML VIAL SQ SCH ×4 (05:23→23:15)
[2019-12-10] MEDS: VANCOMYCIN 1,500 MG in SODIUM CHLORIDE 0.9% 250 ML IVPB SCH (05:25)
[2019-12-10] MEDS: methylPREDNISolone SOD SUCCI 125 MG/2 ML VIAL IV SCH ×4 (05:25→23:15)
[2019-12-10 05:29] LABS: ABG Base Excess -5.3 mmol/L; ABG HCO3 23 mmol/L (21-25); ABG Oxygen Saturation 98.1 % (94-97); ABG PCO2 65 mmHg (35-45); ABG PO2 116 mmHg (83-108); ABG TCO2 25 mmol/L (19-24)
[2019-12-10 05:32] LABS: ABG PH 7.16 (7.35-7.45); Allen Test Performed? no
[2019-12-10 05:58] LABS: Albumin 2.2 g/dL (3.5-5.0); Calcium 8.1 mg/dL (8.4-10.2); Potassium 4.3 mmol/L (3.5-5.1); Total Bilirubin 0.3 mg/dL (0.2-1.3); Total Protein 4.7 g/dL (6.3-8.2)
--- NOTE | 2019-12-10 07:20 | XR ---
EXAMINATION TYPE: XR chest 1V portable DATE OF EXAM: 12/10/2019 COMPARISON: 12/09/2019 HISTORY: Ventilatory dependent respiratory failure. TECHNIQUE: Single frontal view of the chest is obtained. FINDINGS: The endotracheal tube has been slightly retracted in the interim terminating approximately 5 cm of the augustine. This could be related to patient's head positioning. Attention on follow-up exam s. Enteric tube appear satisfactorily placed with its fenestrated portion beyond the gastroesophageal junction. The left lung remains similar with multifocal consolidation and obscuration of the left he midiaphragm. Some faint probable right basilar atelectasis otherwise the right lung is well aerated. Cardiomediastinal silhouette is stable. IMPRESSION: 1. Unchanged multifocal left lung opacities with probable pleural effusion obscuring the left hemidia phragm. Minimal right basilar atelectasis is also seen. 2. Endotracheal tube is slightly cephalad in position in comparison to the prior, which may be relate d the patient's head positioning, attention on follow-up exams.
[2019-12-10] MEDS: PIPERACILLIN-TAZOBACTAM 3.375 GM in SODIUM CHLORIDE 0.9% 100 ML IVPB SCH ×3 (08:52→23:16)
[2019-12-10] MEDS: CHLORHEXIDINE GLUCONATE 15 ML CUP MUCOUS MEM SCH ×2 (08:53→19:47)
[2019-12-10] MEDS: FAMOTIDINE 20 MG/2 ML VIAL IV SCH (08:53)
[2019-12-10 09:13] LABS: ABG Base Excess -5.4 mmol/L; ABG HCO3 23 mmol/L (21-25); ABG Oxygen Saturation 98.6 % (94-97); ABG PCO2 57 mmHg (35-45); ABG PH 7.21 (7.35-7.45); ABG PO2 141 mmHg (83-108); ABG TCO2 24 mmol/L (19-24); Allen Test Performed? Yes
[2019-12-10] MEDS ORDERED: FUROSEMIDE 10 MG/ML 4 ML VIAL IV STA (09:51)
[2019-12-10 11:59] LABS: Glucose,Whole Blood 185 mg/dL (75-99)
--- NOTE | 2019-12-10 12:13 | P.PN ---
Subjective 54-year-old female was transferred from [facility] after she present today with altered mental status found to have significant pneumonia in the left lower lobe appears to have lobar pneumonia. Patient was isolated for COVID and the testing was ordered for that patient was severely septic patient went into respiratory failure requiring intubation patient was subsequently intubated patient is presently on Zosyn and vancomycin and azithromycin. Hydroxychloroquine is being considered because of concerns of COVID, and. Patient is definitely high risk for that as she goes to methadone clinic for opiate addiction. Patient was tested for hepatitis in April 2019 which was negative for any chronic hep C and hep B. She does have mildly elevated troponin secondary to sepsis. Patient is not requiring any pressor support at this time patient was in shock yesterday was requiring pressors as today.. Patient does have significant valvular heart disease including very low ejection fraction the past because of which I'm cutting down the fluids to 75 mL per hour today patient is admitted sedated presently on 70% FiO2 and PEEP of 15 set up respiratory rate of around 25 patient has both hypercapnic and hypoxic respiratory failure.. Patient does have mildly elevated liver enzymes because of which I'll obtain another hepatitis panel. Patient is on Nimbex and the propofol drips 12/07/2019 Patient is still not doing well. Patient remains on ventilator patient is still on 85% FiO2 patient remains acidotic is in both the acute hypoxic and hypercapnic Respiratory failure patient set up respiratory rate yesterday was around 25 in spite of which patient is breathing over the ventilator since patient remains acidotic patient was started on Nimbex drip and the respiratory rate was increased to 35 patient is on height deep at 15 overall she is looking worse. Her white blood cell count is 20,000. Patient is still on norepi nephrine 12/08/2019 Patient respiratory status remains the same and remains on the same ventilator settings. Patient had a repeat echocardiogram which did not show any heart failure or mitral regurgitation. Patient has fairly good out in urine output but patient creatinine went up continues to remain in hypercapnic and hypoxic respiratory failure in spite of above-mentioned vent settings and remains acidotic which is respiratory acidosis as well as a competent of metabolic acidosis. Her heart rate has come down. Covid 19 testing is pending. 12/09/2019 Patient's covid 19is negative and patient remains on mechanical ventilator with the continued hypercapnic and hypoxic respiratory failure with metabolic and the respiratory acidosis patient was started on Solu-Medrol patient's hydroxyc hloroquine was discontinued patient is wheezing systemic steroids frequency was increased by pulmonology, creatinine continued to go up patient can use to be a norepinephrine Nimbex propofol patient is receiving enteral NG tube feedings patient remains on IV fluids with hyperchloremia and hyponatremia because of switching the IV fluids to half-normal saline 12/10/2019 Patient is negative for Covid 19, vent settings are bit better today patient is off pressor support and also IV fluids patient is actually receiving IV fluids patient is. Positive fluid balance and hyponatremic and hypochloremic now. Patient's serum creatinine is actually bit worse to 2.11, most probably secondary to acute tubular necrosis, patient is off pressor support patient vent settings are better patient is presently on 50% FiO2 PEEP of 10 Review of systems: Unable to obtain due to her clinical condition All inpatient medications were reviewed and appropriate changes in these medications as dictated in the interval history and assessment and plan. Objective - Vital Signs Vital signs: Vital Signs Temp 97.5 F L 12/10/19 08:00 Pulse 86 12/10/19 12:02 Resp 29 H 12/10/19 11:00 BP 101/59 12/10/19 11:00 Pulse Ox 96 12/10/19 11:00 Intake & Output 12/09/19 12/10/19 12/10/19 18:59 06:59 18:59 Intake Total 2312.281 1265.801 5740.652 Output Total 700 875 260 Balance 1612.281 861.215 912.652 Weight 86.6 kg 99 kg Intake: IV 1422 972 455 0.45 NACL 375 900 75 Normal Saline Pressure 72 72 30 Bag Piperacillin-Tazobactam 3 200 100 .375 gm In Sodium Chloride 0.9% 100 ml @ 25 mls/hr IVPB Q8HR REGINO Rx# :[id number] Sodium Chloride 0.9% 1, 525 000 ml @ 75 mls/hr IV . [id number] REGINO Rx#:[id number] Vancomycin 250 250 Intake, IV Titration 344.281 170.215 477.652 Amount Cisatracurium 200 mg In 41.947 105.444 Sodium Chloride 0.9% 180 ml @ 1 MCG/KG/MIN 5.321 mls/hr IV .Q24H REGINO Rx#: [id number] Norepinephrine 32 mg In 27.334 2.782 2.208 Sodium Chloride 0.9% 218 ml @ 0.05 MCG/KG/MIN 1. 959 mls/hr IV .Q24H REGINO Rx#:[id number] Piperacillin-Tazobactam 3 100 .375 gm In Sodium Chloride 0.9% 100 ml @ 25 mls/hr IVPB Q8HR REGINO Rx# :[id number] Propofol 1,000 mg In 200 167.433 100 Empty Bag 1 bag @ Titrate IV .Q0M REGINO Rx#: [id number] Sodium Chloride 0.45% 1, 75 170 000 ml @ 10 mls/hr IV . Q24H REGINO Rx#:[id number] Tube Feeding 546 504 210 Other 90 30 Output: Urine 700 875 260 Other: Voiding Method Indwelling Catheter Indwelling Catheter Indwelling Catheter ABP, PAP, CO, CI - Last Documented Arterial Blood Pressure 131/61 - Exam PHYSICAL EXAMINATION: GENERAL: Patient is intubated sedated HEENT: Pupils are round and equally reacting to light. EOMI. No scleral icterus. No conjunctival pallor. Normocephalic, atraumatic. No pharyngeal erythema. No thyromegaly. CARDIOVASCULAR: S1 and S2 present. No rubs, or gallops. The solids murmur in the tricuspid and mitral areas PULMONARY: Chest is clear to auscultation, no wheezing or crackles. ABDOMEN: Soft, nontender, nondistended, normoactive bowel sounds. No palpable organomegaly. MUSCULOSKELETAL: No joint swelling or deformity. EXTREMITIES: No cyanosis, clubbing, or pedal edema. NEUROLOGICAL: On sedation please refer to nursing documentation for scores SKIN: No rashes - Labs CBC & Chem 7: 12/10/19 04:05 12/10/19 04:05 Labs: Abnormal Lab Results - Last 24 Hours (Table) 12/09/19 12/09/19 12/09/19 Range/Units 12:22 18:00 23:22 WBC (3.8-10.6) k/uL RBC (3.80-5.40) m/uL Hgb (11.4-16.0) gm/dL Hct (34.0-46.0) % MCHC (31.0-37.0) g/dL Plt Count (150-450) k/uL Neutrophils # (Manual) (1.3-7.7) k/uL Monocytes # (Manual) (0-1.0) k/uL Nucleated RBCs (0-0) /100 WBC ABG pH 7.20 L (7.35-7.45) ABG pCO2 60 H (35-45) mmHg ABG pO2 80 L (83-108) mmHg ABG Total CO2 25 H (19-24) mmol/L ABG O2 Saturation (94-97) % Sodium (137-145) mmol/L Chloride (98-107) mmol/L BUN (7-17) mg/dL Creatinine (0.52-1.04) mg/dL Glucose (74-99) mg/dL POC Glucose (mg/dL) 145 H 128 H (75-99) mg/dL Calcium (8.4-10.2) mg/dL Alkaline Phosphatase (38-126) U/L Total Protein (6.3-8.2) g/dL Albumin (3.5-5.0) g/dL 12/10/19 12/10/19 12/10/19 Range/Units 04:05 04:05 05:16 WBC 23.4 H (3.8-10.6) k/uL RBC 3.05 L (3.80-5.40) m/uL Hgb 9.3 L (11.4-16.0) gm/dL Hct 30.5 L (34.0-46.0) % MCHC 30.6 L (31.0-37.0) g/dL Plt Count 120 L (150-450) k/uL Neutrophils # (Manual) 18.70 H (1.3-7.7) k/uL Monocytes # (Manual) 1.87 H (0-1.0) k/uL Nucleated RBCs 3 H (0-0) /100 WBC ABG pH (7.35-7.45) ABG pCO2 (35-45) mmHg ABG pO2 (83-108) mmHg ABG Total CO2 (19-24) mmol/L ABG O2 Saturation (94-97) % Sodium 149 H (137-145) mmol/L Chloride 121 H (98-107) mmol/L BUN 41 H (7-17) mg/dL Creatinine 2.11 H (0.52-1.04) mg/dL Glucose 136 H (74-99) mg/dL POC Glucose (mg/dL) 147 H (75-99) mg/dL Calcium 8.1 L (8.4-10.2) mg/dL Alkaline Phosphatase 150 H (38-126) U/L Total Protein 4.7 L (6.3-8.2) g/dL Albumin 2.2 L (3.5-5.0) g/dL 12/10/19 12/10/19 12/10/19 Range/Units 05:20 09:10 11:58 WBC (3.8-10.6) k/uL RBC (3.80-5.40) m/uL Hgb (11.4-16.0) gm/dL Hct (34.0-46.0) % MCHC (31.0-37.0) g/dL Plt Count (150-450) k/uL Neutrophils # (Manual) (1.3-7.7) k/uL Monocytes # (Manual) (0-1.0) k/uL Nucleated RBCs (0-0) /100 WBC ABG pH 7.16 L* 7.21 L (7.35-7.45) ABG pCO2 65 H 57 H (35-45) mmHg ABG pO2 116 H 141 H (83-108) mmHg ABG Total CO2 25 H (19-24) mmol/L ABG O2 Saturation 98.1 H 98.6 H (94-97) % Sodium (137-145) mmol/L Chloride (98-107) mmol/L BUN (7-17) mg/dL Creatinine (0.52-1.04) mg/dL Glucose (74-99) mg/dL POC Glucose (mg/dL) 185 H (75-99) mg/dL Calcium (8.4-10.2) mg/dL Alkaline Phosphatase (38-126) U/L Total Protein (6.3-8.2) g/dL Albumin (3.5-5.0) g/dL Microbiology - Last 24 Hours (Table) 12/06/19 04:07 Blood Culture - Preliminary Blood No Growth after 96 hours 12/08/19 11:45 Urine Culture - Final Urine,Catheterized Assessment and Plan Plan: -Septic shock: Shock improved at this time because on IV fluids patient will be continued on broad-spectrum antibiotics Zosyn ,sputum cultures did not show any abnormality blood cultures were also negative, COVID negative. Patient remains hypoxic hypoxic hypercapnic and acidotic but significant improvement compared to yesterday patient has set up respiratory 25 breathing over the ventilator patient is off pressor support,off fluids, off Nimbex. Patient FiO2 is 50% presently people for 10 -Acute renal failure secondary to sepsis and septic shock can use supportive care IV fluids were discussed because of anasarca. Nephrology will be consulted -Acute hypercapnic and acute hypoxic respiratory failure: Continue with ventilator support continue with inhalational treatments. -History of congestive heart failure severe systolic dysfunction I do not know the ejection fraction. Patient has multi valvular heart disease including severe mitral regurgitation severe tricuspid regurgitation. Patient remains on IV fluids because of severe sepsis. Patient had a echocardiogram which did not show any mitral regurgitation doesn't have any heart failure. -COPD present smoker further management as mentioned above -History of opiate abuse with mildly elevated liver enzymes will obtain a hepatitis panel. -Fibromyalgia -Hyperlipidemia -Hypertension
[2019-12-10] MEDS: CISATRACURIUM 200 MG in SODIUM CHLORIDE 0.9% 180 ML IV SCH (13:49)
--- NOTE | 2019-12-10 15:36 | P.PN ---
Subjective Progress Note Date: 12/10/19 On today's evaluation of 12/07/2019 and seeing the patient for a follow-up. This patient came with an extensive left lung pneumonia/airspace disease/consolidation and she is intubated on a mechanical ventilator. Note that she was quite septic and the time of arrival. She is also being ruled out for COVID 19 infection. The patient has multiple medical problems and comorbidities. The patient has COPD/asthma. The patient also has CHF with an ejection fraction of 25-30% along with previous history of moderate degree of mitral regurgitation. She has history of substance abuse including methamphe tamine and fentanyl and the patient has been on methadone on outpatient basis. The patient has hypertension, hyperlipidemia, fibromyalgia, osteoarthritis and previous history of alcoholism This morning, the patient remains sedated with propofol which is currently running at 40 mg per KG per minute. The patient is also paralyzed with Nimbex 01 g per KG per minute. The patient is receiving IV fluids at the rate of 75 mL an hour. The patient is on norepinephrine infusion at 0.15 g per KG per minute. She is an assist-control mode of ventilator. The patient is at the rate of 34 with a tidal volume of 350 and FiO2 of 85% with a PEEP of 15. The blood gases from today showed a pH of 7.16 with a pCO2 of 73 and pO2 of 85 and this was done and FiO2 of 85%. The white cell count is at 20 per lactic acid level is down to 2.4. Renal function is stable with a creatinine of 0.7. Sodium is at 144. The patient had been she with a combination of antibiotics. For now we have the patient a combination of vancomycin and Zosyn. I added Zithromax today. I also have the patient on Plaquenil for the possibility of an underlying coronavirus infection of the lungs. A repeat echocardiogram is still pending regarding the left ventricle ejection fraction and the extent of mitral regurgitation. Noted the patient was noted to be having a lower CVP this morning. I went ahead and gave her another liter of normal saline with a possibility of giving her a second liter if she continues to have lower urine output. Troponin is at 0.9. Blood cultures still negative. Sputum Gram stain and cultures also negative. Note that on her blood work, the patient has a 28% bandemia time of admission and currently she is up to 58%. Legionella urine antigen will be also sent. On today's evaluation of 12/08/2019 the patient remains intubated on a mechanical ventilator. We will inform that the patient's blood cultures from [place] showed a gram-positive cocci in pairs. Based on that, we aren't anticipating the possibility of an underlying pneumococcal left lung pneumonia. The patient continues to have extensive consolidation of the left lung on today's chest x-ray. Meanwhile, the patient is a mechanical ventilator. She is quite bronchospastic and wheezy. No nebulizers or steroids have been utilizing anticipating a Covid 19 infection which I think it's less likely possibility on today's evaluation. The patient is currently on an assist-control mode at the rate of 34 with a tidal volume of 350 and FiO2 of 70% with a PEEP of 15. Peak airway pressures 42. Static pressure is 28. The patient is sedated with propofol at a dose of 40 g per KG per minute. The patient on Nimbex at 1 g per KG per minute. The patient is also on norepinephrine infusion at 0.3 g per KG per minute. The patient is also on vasopressin physiologic dose. The patient is septic shock. White cell count is up to 24 with a hemoglobin of 10.2. The patient has a percent bandemia which is improved compared to yesterday. The blood gas showed a pH of 7.18 with a pCO2 of 62 and pO2 of 83. The pro-calcitonin level was 96.4 indicating bacterial infection. Covid testing is still pending for now. The patient is receiving a combination of Zithromax, vancomycin and Zosyn for now. Plaquenil be continued pending the Covid 19 status. The patient also suffered an acute kidney injury. Creatinine is up to 1.6 and the patient has a positive fluid balance of 2.5 L over the past 24 hours. On 12/09/2019, the patient remains on a mechanical ventilator. This morning, the patient remains essentially on the same ventilator setting. The patient remains on assist control mode at the rate of 34 with a tidal volume of 350 and FiO2 of 60% with a PEEP of 15. The patient's pulse ox currently is around 93%. The peak airway pressures around 40 with a static pressure of 26. The patient has an extensive left lung consolidation which seems to be slightly improved compared to yesterday. We will inform that the patient had a positive gram- positive cocci in pairs and the blood culture that was obtained in the outside hospital. For that reason, I discontinue the Zithromax and a The patient a combination of Zosyn and vancomycin. Also, the Covid 19 testing came back negative and the patient was taken off the Plaquenil. The patient has a blood gas that showed a pH of 7.2 with a pCO2 of 60 and pO2 of 80. The patient was started on bronchodilators. The patient was also started on IV Solu-Medrol y esterday. The patient is being weaned off the pressors. Note that over the past 24-48 hours the patient was profoundly hypotensive and the patient also developed a component of an acute kidney injury. Creatinine came up to 1.6 and today's up to 1.8. Nevertheless urine output improved and the patient has been taken off the vasopressin and the patient is down on the norepinephrine infusion which is currently running at 0.08 g per KG per minute. The patient continues to be paralyzed with Nimbex and the proposed running at 40 g per KG per minute. The patient is on high protein vital running at 42 mL an hour. She is tolerating her enteral feeding for nutritional support. She is afebrile. No other significant events otherwise for now. The cultures that were obtained here in the hospital were all negative. On 12/10/2019, the patient remains intubated on a mechanical ventilator. The patient also remains sedated and paralyzed. This morning, the patient is an assist-control mode and based on the morning blood gases I made some changes in the mechanical ventilator. Note that the patient was in a assist-control of 34 with a tidal volume of 350 and FiO2 of 60% with a PEEP of 13. The blood gases from this morning showed a pH of 7.16 with a pCO2 of 65 and pO2 of 116. Based on that, increase the tidal volume up to 400s. I also dropped the PEEP. Subsequent evaluation showed that the patient had a pH of 7.21 with a pCO2 of 57 and pO2 of 141. Based on all this, I dropped the PEEP down to 10 and I also drop the FiO2 down to 50% and I dropped a respiratory rate down to 28. In terms of his chest x-ray findings, the patient shows improvement in the left lower lobe consolidation. Hemodynamically, the patient remains on low-dose norepinephrine infusion. The patient is currently on levo fed at 0.01 mcg/kg per minute. The peak air pressure 32 and the static pressures 21. The fluid balance has been positive over the past several days. For that reason the patient will be started on diuretics. Creatinine is up to 2.1. The patient is nonoliguric. Cultures of been all negative thus far and was still awaiting the final cultures to be forwarded to us from an outside hospital which indicated the possibility of a gram-positive cocci in pairs/changes. She is afebrile. She is tolerating enteral feeding for nutrition support. She'll be also taken off the paralytics today and she'll be given a paralytic holiday. He remains on a combination of fentanyl and propofol for sedation. The patient is also taking enteral feeding for nutritional support and she is on vital high protein at the rate of 42 mL an hour. Objective - Vital Signs Vital signs: Vital Signs Temp 97.5 F L 12/10/19 12:00 Pulse 86 12/10/19 15:00 Resp 32 H 12/10/19 15:00 BP 103/63 12/10/19 15:00 Pulse Ox 98 12/10/19 15:00 Intake & Output 12/09/19 12/10/19 12/10/19 18:59 06:59 18:59 Intake Total 2312.281 5727.125 3037.652 Output Total 795 649 7979 Balance 1612.281 861.215 464.652 Weight 86.6 kg 99 kg Intake: IV 1422 972 479 0.45 NACL 375 900 75 Normal Saline Pressure 72 72 54 Bag Piperacillin-Tazobactam 3 200 100 .375 gm In Sodium Chloride 0.9% 100 ml @ 25 mls/hr IVPB Q8HR [facility] Rx# :[id number] Sodium Chloride 0.9% 1, 525 000 ml @ 75 mls/hr IV . [id number] [facility] Rx#:[id number] Vancomycin 250 250 Intake, IV Titration 344.281 170.215 617.652 Amount Cisatracurium 200 mg In 41.947 105.444 Sodium Chloride 0.9% 180 ml @ 1 MCG/KG/MIN 5.321 mls/hr IV .Q24H [facility] Rx#: [id number] Norepinephrine 32 mg In 27.334 2.782 2.208 Sodium Chloride 0.9% 218 ml @ 0.05 MCG/KG/MIN 1. 959 mls/hr IV .Q24H [facility] Rx#:[id number] Piperacillin-Tazobactam 3 100 .375 gm In Sodium Chloride 0.9% 100 ml @ 25 mls/hr IVPB Q8HR [facility] Rx# :[id number] Propofol 1,000 mg In 200 167.433 200 Empty Bag 1 bag @ Titrate IV .Q0M [facility] Rx#: [id number] Sodium Chloride 0.45% 1, 75 210 000 ml @ 10 mls/hr IV . Q24H [facility] Rx#:[id number] Tube Feeding 546 504 378 Other 90 60 Output: Urine 933 029 3530 Other: Voiding Method Indwelling Catheter Indwelling Catheter Indwelling Catheter ABP, PAP, CO, CI - Last Documented Arterial Blood Pressure 118/56 - Exam Gen. appearance, comfortable likely distress sedated paralyzed success with the mechanical ventilator for now. The patient has an orogastric and orotracheal tube are both in place. Head exam was generally normal. There was no scleral icterus or corneal arcus. Mucous membranes were moist. Neck was supple and without jugular venous distension, thyromegaly, or carotid bruits. Carotids were easily palpable bilaterally. There was no adenopathy. Orogastric and orotracheal tube are both in place and the patient is a left IJ triple-lumen catheter in place. Lung sounds are diminished and some crackles in lung bases bilaterally more so on the left. Otherwise breath on that equal and symmetrical. On today's evaluation the patient continues to be bronchospastic and wheezy. Heart sounds are regular, positive S1-S2 and there is a systolic ejection murmur grade 3/6 heard along left lateral sternal border. Abdominal exam revealed normal bowel sounds. The abdomen was soft, non-tender, and without masses, organomegaly, or appreciable enlargement of the abdominal aorta. Examination of the extremities revealed easily palpable radial, femoral and pedal pulses. There was no cyanosis, clubbing or edema. Examination of the skin revealed no evidence of significant rashes, suspicious appearing nevi or other concerning lesions. Neurologically the patient sedated and paralyzed. - Labs CBC & Chem 7: 12/10/19 04:05 12/10/19 04:05 Labs: Abnormal Lab Results - Last 24 Hours (Table) 12/09/19 12/09/19 12/10/19 Range/Units 18:00 23:22 04:05 WBC (3.8-10.6) k/uL RBC (3.80-5.40) m/uL Hgb (11.4-16.0) gm/dL Hct (34.0-46.0) % MCHC (31.0-37.0) g/dL Plt Count (150-450) k/uL Neutrophils # (Manual) (1.3-7.7) k/uL Monocytes # (Manual) (0-1.0) k/uL Nucleated RBCs (0-0) /100 WBC ABG pH (7.35-7.45) ABG pCO2 (35-45) mmHg ABG pO2 (83-108) mmHg ABG Total CO2 (19-24) mmol/L ABG O2 Saturation (94-97) % Sodium (137-145) mmol/L Chloride (98-107) mmol/L BUN (7-17) mg/dL Creatinine (0.52-1.04) mg/dL Glucose (74-99) mg/dL POC Glucose (mg/dL) 145 H 128 H (75-99) mg/dL Calcium (8.4-10.2) mg/dL Alkaline Phosphatase (38-126) U/L Total Protein (6.3-8.2) g/dL Albumin (3.5-5.0) g/dL Procalcitonin 31.53 H (0.02-0.09) ng/mL 12/10/19 12/10/19 12/10/19 Range/Units 04:05 04:05 05:16 WBC 23.4 H (3.8-10.6) k/uL RBC 3.05 L (3.80-5.40) m/uL Hgb 9.3 L (11.4-16.0) gm/dL Hct 30.5 L (34.0-46.0) % MCHC 30.6 L (31.0-37.0) g/dL Plt Count 120 L (150-450) k/uL Neutrophils # (Manual) 18.70 H (1.3-7.7) k/uL Monocytes # (Manual) 1.87 H (0-1.0) k/uL Nucleated RBCs 3 H (0-0) /100 WBC ABG pH (7.35-7.45) ABG pCO2 (35-45) mmHg ABG pO2 (83-108) mmHg ABG Total CO2 (19-24) mmol/L ABG O2 Saturation (94-97) % Sodium 149 H (137-145) mmol/L Chloride 121 H (98-107) mmol/L BUN 41 H (7-17) mg/dL Creatinine 2.11 H (0.52-1.04) mg/dL Glucose 136 H (74-99) mg/dL POC Glucose (mg/dL) 147 H (75-99) mg/dL Calcium 8.1 L (8.4-10.2) mg/dL Alkaline Phosphatase 150 H (38-126) U/L Total Protein 4.7 L (6.3-8.2) g/dL Albumin 2.2 L (3.5-5.0) g/dL Procalcitonin (0.02-0.09) ng/mL 12/10/19 12/10/19 12/10/19 Range/Units 05:20 09:10 11:58 WBC (3.8-10.6) k/uL RBC (3.80-5.40) m/uL Hgb (11.4-16.0) gm/dL Hct (34.0-46.0) % MCHC (31.0-37.0) g/dL Plt Count (150-450) k/uL Neutrophils # (Manual) (1.3-7.7) k/uL Monocytes # (Manual) (0-1.0) k/uL Nucleated RBCs (0-0) /100 WBC ABG pH 7.16 L* 7.21 L (7.35-7.45) ABG pCO2 65 H 57 H (35-45) mmHg ABG pO2 116 H 141 H (83-108) mmHg ABG Total CO2 25 H (19-24) mmol/L ABG O2 Saturation 98.1 H 98.6 H (94-97) % Sodium (137-145) mmol/L Chloride (98-107) mmol/L BUN (7-17) mg/dL Creatinine (0.52-1.04) mg/dL Glucose (74-99) mg/dL POC Glucose (mg/dL) 185 H (75-99) mg/dL Calcium (8.4-10.2) mg/dL Alkaline Phosphatase (38-126) U/L Total Protein (6.3-8.2) g/dL Albumin (3.5-5.0) g/dL Procalcitonin (0.02-0.09) ng/mL Microbiology - Last 24 Hours (Table) 12/06/19 04:07 Blood Culture - Preliminary Blood No Growth after 96 hours 12/08/19 11:45 Urine Culture - Final Urine,Catheterized Assessment and Plan Plan: 1 left lower lobe pneumonia, strongly suspect pneumococcal pneumonia as the patient's blood culture was positive for gram-positive cocci in pairs. We are still awaiting for the final cultures to be sent over from [facility]. The patient remains intubated on a mechanical ventilator. There has been improvement in the patient's oxygenation and the follow-up blood gases shows improvement in oxygenation and the chest x-ray also shows improvement in the left lower lobe consolidation. White cell count remains elevated. Hemodynamically the patient is also improved on low-dose pressors for now. The pleural Level Is at on the Decline in the Level Is down to 31. Patient Remains on a Combination of Zosyn and Vancomycin. 2 septic shock currently pressor dependent secondary to pneumonia, and the patient remains on low-dose pressors for hemodynamic support. . 3 acute hypoxic/hypercapnic respiratory failure secondary to above, oxygenation improving 4 history of valvular heart disease with impaired left ventricular ejection fraction of 25-30% and moderate degree of mitral regurgitation. Awaiting a repeat echocardiogram. Note that the repeat echocardiogram showed no evidence of any significant mitral regurgitation and the patient ejection fraction was reported to be around 55%. 5 acute kidney injury with a creatinine of 2.1 with a positive fluid balance over the past 48-72 hours 6 COPD 7 history of opiate dependence including fentanyl and the patient has done amphetamines in the past and the patient was receiving subaxone on outpatient ba sis 8 history of alcoholism 9 fibromyalgia and chronic pain 10 hypertension 11 hyperlipidemia 12 acute leukocytosis and bandemia secondary to above, no white cell count remains quite elevated. 13 troponin leak secondary to above Plan Give the patient and paralytic holiday and I'm going to stop the paralysis and the patient is able to tolerated well Continue propofol and add fentanyl for sedation Continue ventilator support and this is a ventilator changes were done. The final vent setting revealed that the patient was down to a PEEP of 10 with an FiO2 of 50% and a rate of 28 and a tidal volume of 400. Continue Zosyn and vancomycin Still awaiting the final cultures obtained and [facility] to clearly narrow down the microorganism causing this left lung pneumonia. Suspect IV Solu Medrol 60 mg every 6 hours Continue his own about treatments around the clock weaned off the norepinephrine infusion Monitor the white count, which is improving Monitor renal function, the creatinine is up to 2.1 and the patient is in a positive fluid balance Start the patient on Lasix and we'll give the patient 40 mg of IV Lasix for now and decide on further dosing based on her clinical response There is a critically care evaluation that was on a more than 30 minutes. Time with Patient: Greater than 30
[2019-12-10 17:39] LABS: Glucose,Whole Blood 150 mg/dL (75-99)
[2019-12-10 23:14] LABS: Glucose,Whole Blood 136 mg/dL (75-99)
[2019-12-11] MEDS: IPRATROPIUM-ALBUTEROL 3 ML NEB INHALATION SCH ×7 (00:01→23:30)
[2019-12-11] MEDS: PROPOFOL 1,000 MG in EMPTY BAG 1 BAG IV SCH ×7 (01:17→22:13)
[2019-12-11] MEDS: fentaNYL (PF) 50 MCG/ML 2 ML AMP IVP PRN ×3 (02:07→18:05)
[2019-12-11] MEDS: NOREPINEPHRINE 32 MG in SODIUM CHLORIDE 0.9% 218 ML IV SCH (03:39)
[2019-12-11] MEDS: ARTIFICIAL TEARS-HYPROMELLOSE DROPS 15 ML BTL BOTH EYES SCH ×6 (03:47→23:41)
[2019-12-11 04:52] LABS: Calcium 8.2 mg/dL (8.4-10.2); Potassium 4.1 mmol/L (3.5-5.1)
[2019-12-11 05:10] LABS: HCT 27.8 % (34.0-46.0); HGB 8.9 gm/dL (11.4-16.0); Hypochromasia Slight; MCH 30.9 pg (25.0-35.0); MCV 96.8 fL (80.0-100.0); Mean Platelet Volume 9.4; Platelet Count 130 k/uL (150-450); RBC 2.87 m/uL (3.80-5.40); RDW 14.7 % (11.5-15.5)
[2019-12-11 05:13] LABS: Glucose,Whole Blood 151 mg/dL (75-99)
[2019-12-11] MEDS: methylPREDNISolone SOD SUCCI 125 MG/2 ML VIAL IV SCH ×4 (05:16→23:40)
[2019-12-11] MEDS: INSULIN ASPART (NovoLOG) 100 UNIT/ML VIAL SQ SCH ×4 (05:16→23:40)
[2019-12-11 05:37] LABS: ABG Base Excess -2.3 mmol/L; ABG HCO3 24 mmol/L (21-25); ABG Oxygen Saturation 98.6 % (94-97); ABG PCO2 50 mmHg (35-45); ABG PH 7.29 (7.35-7.45); ABG PO2 131 mmHg (83-108); ABG TCO2 26 mmol/L (19-24); Allen Test Performed? Yes
[2019-12-11 06:05] LABS: Band Neutrophils % 14 %; Neutrophils % (M) 73 %; Nucleated Red Blood Cells 2 /100 WBC (0-0); Total Cells Counted 200
[2019-12-11 06:06] LABS: Lymphocytes # (M) 1.22 k/uL (1.0-4.8); Monocytes # (M) 0.77 k/uL (0-1.0); WBC 15.3 k/uL (3.8-10.6)
[2019-12-11 06:10] LABS: Anisocytosis (M) Present
[2019-12-11 06:11] LABS: Polychromasia Present
[2019-12-11 06:12] LABS: Large Platelets Present
[2019-12-11 06:13] LABS: Poikilocytosis (M) Present
--- NOTE | 2019-12-11 07:15 | XR ---
EXAMINATION TYPE: XR chest 1V portable DATE OF EXAM: 12/11/2019 COMPARISON: December 10, 2019 HISTORY: SOB, Follow Up FINDINGS: Indwelling tubes and catheters are unchanged. Airspace infiltrates throughout the left lung remain unchanged with suspected small sided pleural eff usion. There is increasing infiltrate noted about the right perihilar and right basilar regions. Stable appearance of the cardio-mediastinal structures at this time. Pleural effusion unchanged. IMPRESSION: 1. Airspace infiltrates throughout the left lung remain unchanged with suspected small sided pleural effusion. There is increasing infiltrate noted about the right perihilar and right basilar regions.
[2019-12-11] MEDS: CHLORHEXIDINE GLUCONATE 15 ML CUP MUCOUS MEM SCH ×2 (07:56→20:29)
[2019-12-11] MEDS: FAMOTIDINE 20 MG/2 ML VIAL IV SCH (07:56)
[2019-12-11] MEDS: PIPERACILLIN-TAZOBACTAM 3.375 GM in SODIUM CHLORIDE 0.9% 100 ML IVPB SCH ×3 (07:57→23:40)
[2019-12-11] MEDS ORDERED: FUROSEMIDE 10 MG/ML 4 ML VIAL IV STA (08:48)
[2019-12-11] MEDS ORDERED: VANCOMYCIN 1,500 MG in SODIUM CHLORIDE 0.9% 250 ML IVPB SCH (09:00)
--- NOTE | 2019-12-11 09:30 | P.NPCON ---
History of Present Illness - Reason for Consult acute renal failure - History of Present Illness Reason for consultation: Acute kidney injury History of present illness: Patient is a 54-year-old female seen in renal consultation for acute kidney injury. Patient's baseline creatinine is 1 and is up to 2.32 today. Patient presented to the hospital on December 05 from [facility]. She initially presented with altered mental status and weakness. She is currently intubated. She is noted to have a pneumonia. She is off vasopressors at this time. She is nonoliguric. Urine output is about 75-100 mL per hour. She received IV Lasix yesterday and again this morning. Sodium level is 148. She tested negative for COVID-19. She is receiving tube feeding. Hemodynamically stable. Vital signs are stable. General: The patient appeared well nourished and normally developed. HEENT: Head exam is unremarkable. Neck is without jugular venous distension. Intubated. LUNGS:Breath sounds decreased. HEART: Rate and Rhythm are regular. ABDOMEN: Soft. No distention noted. EXTREMITITES: Trace edema. Past Medical History Past Medical History: Asthma, Heart Failure, Fibromyalgia, Hyperlipidemia, Hypertension, Pneumonia Additional Past Medical History / Comment(s): back pain, DDD, SOB w/exertion, "2 leaky valves" per pt. History of Any Multi-Drug Resistant Organisms: None Reported Past Surgical History: Hernia Repair Past Anesthesia/Blood Transfusion Reactions: No Reported Reaction Past Psychological History: Depression Smoking Status: Current every day smoker Past Alcohol Use History: Daily Additional Past Alcohol Use History / Comment(s): 1 pack per day smoker since she was 11, 6-12 beers daily Past Drug Use History: Methamphetamine Additional Drug Use History / Comment(s): Methamphetamine and fentanyl use, quit 1 month ago, currently on Suboxone - Past Family History Mother Family Medical History: Diabetes Mellitus Sister(s) Family Medical History: Asthma Father Additional Family Medical History / Comment(s): of brain anrysm 48 Son(s) Family Medical History: Cancer Additional Family Medical History / Comment(s): at 35 years old of aggressive colon cancer Medications and Allergies Home Medications Medication Instructions Recorded Confirmed Type Albuterol Sulfate [Proair Hfa] 1 - 2 puff INHALATION RT-Q6H PRN 04/22/19 12/06/19 History Buprenorphine HCl/Naloxone HCl 1 film SL BID 04/22/19 12/06/19 History [Suboxone 12 mg-3 mg Sl Film] Metoprolol Succinate (ER) [Toprol 100 mg PO DAILY 04/22/19 12/07/19 History XL] Montelukast [Singulair] 10 mg PO DAILY 04/22/19 12/06/19 History Rosuvastatin [Crestor] 20 mg PO DAILY 04/22/19 12/06/19 History amLODIPine [Norvasc] 10 mg PO DAILY #90 tab 04/29/19 12/06/19 Rx Doxycycline Monohydrate [Monodox] 100 mg PO DAILY 12/06/19 12/06/19 History Ergocalciferol [Vitamin D2] 50,000 unit PO Q7D 12/06/19 12/06/19 History Escitalopram [Lexapro] 10 mg PO DAILY 12/06/19 12/06/19 History Escitalopram [Lexapro] 20 mg PO DAILY 12/06/19 12/06/19 History Naproxen 500 mg PO BID 12/06/19 12/06/19 History PARoxetine HCL [Paxil] 30 mg PO DAILY 12/06/19 12/06/19 History Pregabalin [Lyrica] 150 mg PO BID 12/06/19 12/06/19 History Sacubitril/Valsartan [Entresto 24 1 tab PO BID 12/06/19 12/07/19 History mg-26 mg Tablet] busPIRone HCL 15 mg PO TID 12/06/19 12/06/19 History Allergies Allergy/AdvReac Type Severity Reaction Status Date / Time No Known Allergies Allergy Verified 12/06/19 10:16 Physical Exam Vitals: Vital Signs Temp Pulse Resp BP Pulse Ox 12/11/19 08:16 78 12/11/19 08:02 78 12/11/19 07:00 75 28 H 113/65 97 12/11/19 06:00 80 22 116/67 97 12/11/19 05:00 83 28 H 115/65 99 12/11/19 04:00 98.1 F 77 28 H 114/67 100 12/11/19 03:59 73 12/11/19 03:50 81 12/11/19 03:00 85 28 H 109/60 98 12/11/19 02:00 82 28 H 115/61 99 12/11/19 01:00 82 28 H 113/64 99 12/11/19 00:18 80 12/11/19 00:02 79 12/11/19 00:00 98 F 82 28 H 111/63 99 12/10/19 23:00 82 28 H 110/63 99 12/10/19 22:00 80 28 H 111/63 100 12/10/19 21:00 88 28 H 103/64 100 12/10/19 20:00 98.1 F 85 14 107/64 99 12/10/19 19:35 80 12/10/19 19:25 78 12/10/19 19:00 86 30 H 106/59 97 12/10/19 18:00 87 31 H 104/64 100 12/10/19 17:00 88 30 H 101/60 99 12/10/19 16:06 80 12/10/19 16:00 98.6 F 79 28 H 100 12/10/19 15:46 82 12/10/19 15:00 86 32 H 103/63 98 12/10/19 14:00 83 30 H 101/61 100 12/10/19 13:00 86 29 H 106/64 97 12/10/19 12:20 88 12/10/19 12:02 86 12/10/19 12:00 97.5 F L 85 29 H 105/61 97 12/10/19 11:00 90 29 H 101/59 96 12/10/19 10:00 90 28 H 98/58 97 Intake and Output 12/10/19 12/11/19 12/11/19 22:59 06:59 14:59 Intake Total 802.596 700.121 184.235 Output Total 855 730 75 Balance -52.404 -29.879 109.235 Intake: IV 178 128 16 0.45 NACL 30 80 10 Normal Saline Pressure 48 48 6 Bag Piperacillin-Tazobactam 3 100 .375 gm In Sodium Chloride 0.9% 100 ml @ 25 mls/hr IVPB Q8HR [facility] Rx# :[id number] Intake, IV Titration 228.596 176.121 126.235 Amount Propofol 1,000 mg In 178.596 176.121 126.235 Empty Bag 1 bag @ Titrate IV .Q0M [facility] Rx#: [id number] Sodium Chloride 0.45% 1, 50 000 ml @ 10 mls/hr IV . Q24H [facility] Rx#:[id number] Tube Feeding 336 336 42 Other 60 60 Output: Urine 855 730 75 Other: Voiding Method Indwelling Catheter Indwelling Catheter Weight 101.4 kg ABP, PAP, CO, CI - Last 8 Hours Arterial Blood Pressure 106/57 Arterial Blood Pressure 105/56 Arterial Blood Pressure 102/55 Arterial Blood Pressure 109/58 Arterial Blood Pressure 101/55 Arterial Blood Pressure 131/59 Results - Lab Results Most recent lab results ABG pH 7.29 (7.35-7.45) L 12/11/19 05:32 ABG pCO2 50 mmHg (35-45) H 12/11/19 05:32 ABG pO2 131 mmHg (83-108) H 12/11/19 05:32 ABG HCO3 24 mmol/L (21-25) 12/11/19 05:32 ABG O2 Saturation 98.6 % (94-97) H 12/11/19 05:32 Calcium 8.2 mg/dL (8.4-10.2) L 12/11/19 04:20 04 04:20 12/11/19 04:20 Assessment and Plan Plan: Assessment: 1. Acute kidney injury secondary to ATN secondary to septic shock. Baseline creatinine near 1 and up at 2.32 today. 2. Septic shock secondary to pneumonia. Maintained on antibiotics. Off vasopressors. 3. Hypernatremia secondary to free water diuresis and lack of oral water intake. 4. Volume overload. Plan: Lasix 40 mg IV once today. Increase free water flushes to 300 mL every 6 hours with tube feeding. Wean FiO2. Continue to monitor renal function and urine output. Case discussed with the nurse and the coding clerks supervisor. Thank you for the consultation. I will continue to follow the patient with you during her hospital stay.
[2019-12-11] MEDS ORDERED: VANCOMYCIN IV PER PHARMACY 1 EACH MISC MISCELLANE PRN (10:23)
[2019-12-11 11:53] LABS: Glucose,Whole Blood 148 mg/dL (75-99)
--- NOTE | 2019-12-11 13:34 | P.PN ---
Subjective Progress Note Date: 12/11/19 On today's evaluation of 12/07/2019 and seeing the patient for a follow-up. This patient came with an extensive left lung pneumonia/airspace disease/consolidation and she is intubated on a mechanical ventilator. Note that she was quite septic and the time of arrival. She is also being ruled out for COVID 19 infection. The patient has multiple medical problems and comorbidities. The patient has COPD/asthma. The patient also has CHF with an ejection fraction of 25-30% along with previous history of moderate degree of mitral regurgitation. She has history of substance abuse including methamphe tamine and fentanyl and the patient has been on methadone on outpatient basis. The patient has hypertension, hyperlipidemia, fibromyalgia, osteoarthritis and previous history of alcoholism This morning, the patient remains sedated with propofol which is currently running at 40 mg per KG per minute. The patient is also paralyzed with Nimbex 01 g per KG per minute. The patient is receiving IV fluids at the rate of 75 mL an hour. The patient is on norepinephrine infusion at 0.15 g per KG per minute. She is an assist-control mode of ventilator. The patient is at the rate of 34 with a tidal volume of 350 and FiO2 of 85% with a PEEP of 15. The blood gases from today showed a pH of 7.16 with a pCO2 of 73 and pO2 of 85 and this was done and FiO2 of 85%. The white cell count is at 20 per lactic acid level is down to 2.4. Renal function is stable with a creatinine of 0.7. Sodium is at 144. The patient had been she with a combination of antibiotics. For now we have the patient a combination of vancomycin and Zosyn. I added Zithromax today. I also have the patient on Plaquenil for the possibility of an underlying coronavirus infection of the lungs. A repeat echocardiogram is still pending regarding the left ventricle ejection fraction and the extent of mitral regurgitation. Noted the patient was noted to be having a lower CVP this morning. I went ahead and gave her another liter of normal saline with a possibility of giving her a second liter if she continues to have lower urine output. Troponin is at 0.9. Blood cultures still negative. Sputum Gram stain and cultures also negative. Note that on her blood work, the patient has a 28% bandemia time of admission and currently she is up to 58%. Legionella urine antigen will be also sent. On today's evaluation of 12/08/2019 the patient remains intubated on a mechanical ventilator. We will inform that the patient's blood cultures from [facility] showed a gram-positive cocci in pairs. Based on that, we aren't anticipating the possibility of an underlying pneumococcal left lung pneumonia. The patient continues to have extensive consolidation of the left lung on today's chest x-ray. Meanwhile, the patient is a mechanical ventilator. She is quite bronchospastic and wheezy. No nebulizers or steroids have been utilizing anticipating a Covid 19 infection which I think it's less likely possibility on today's evaluation. The patient is currently on an assist-control mode at the rate of 34 with a tidal volume of 350 and FiO2 of 70% with a PEEP of 15. Peak airway pressures 42. Static pressure is 28. The patient is sedated with propofol at a dose of 40 g per KG per minute. The patient on Nimbex at 1 g per KG per minute. The patient is also on norepinephrine infusion at 0.3 g per KG per minute. The patient is also on vasopressin physiologic dose. The patient is septic shock. White cell count is up to 24 with a hemoglobin of 10.2. The patient has a percent bandemia which is improved compared to yesterday. The blood gas showed a pH of 7.18 with a pCO2 of 62 and pO2 of 83. The pro-calcitonin level was 96.4 indicating bacterial infection. Covid testing is still pending for now. The patient is receiving a combination of Zithromax, vancomycin and Zosyn for now. Plaquenil be continued pending the Covid 19 status. The patient also suffered an acute kidney injury. Creatinine is up to 1.6 and the patient has a positive fluid balance of 2.5 L over the past 24 hours. On 12/09/2019, the patient remains on a mechanical ventilator. This morning, the patient remains essentially on the same ventilator setting. The patient remains on assist control mode at the rate of 34 with a tidal volume of 350 and FiO2 of 60% with a PEEP of 15. The patient's pulse ox currently is around 93%. The peak airway pressures around 40 with a static pressure of 26. The patient has an extensive left lung consolidation which seems to be slightly improved compared to yesterday. We will inform that the patient had a positive gram- positive cocci in pairs and the blood culture that was obtained in the outside hospital. For that reason, I discontinue the Zithromax and a The patient a combination of Zosyn and vancomycin. Also, the Covid 19 testing came back negative and the patient was taken off the Plaquenil. The patient has a blood gas that showed a pH of 7.2 with a pCO2 of 60 and pO2 of 80. The patient was started on bronchodilators. The patient was also started on IV Solu-Medrol y esterday. The patient is being weaned off the pressors. Note that over the past 24-48 hours the patient was profoundly hypotensive and the patient also developed a component of an acute kidney injury. Creatinine came up to 1.6 and today's up to 1.8. Nevertheless urine output improved and the patient has been taken off the vasopressin and the patient is down on the norepinephrine infusion which is currently running at 0.08 g per KG per minute. The patient continues to be paralyzed with Nimbex and the proposed running at 40 g per KG per minute. The patient is on high protein vital running at 42 mL an hour. She is tolerating her enteral feeding for nutritional support. She is afebrile. No other significant events otherwise for now. The cultures that were obtained here in the hospital were all negative. On 12/10/2019, the patient remains intubated on a mechanical ventilator. The patient also remains sedated and paralyzed. This morning, the patient is an assist-control mode and based on the morning blood gases I made some changes in the mechanical ventilator. Note that the patient was in a assist-control of 34 with a tidal volume of 350 and FiO2 of 60% with a PEEP of 13. The blood gases from this morning showed a pH of 7.16 with a pCO2 of 65 and pO2 of 116. Based on that, increase the tidal volume up to 400s. I also dropped the PEEP. Subsequent evaluation showed that the patient had a pH of 7.21 with a pCO2 of 57 and pO2 of 141. Based on all this, I dropped the PEEP down to 10 and I also drop the FiO2 down to 50% and I dropped a respiratory rate down to 28. In terms of his chest x-ray findings, the patient shows improvement in the left lower lobe consolidation. Hemodynamically, the patient remains on low-dose norepinephrine infusion. The patient is currently on levo fed at 0.01 mcg/kg per minute. The peak air pressure 32 and the static pressures 21. The fluid balance has been positive over the past several days. For that reason the patient will be started on diuretics. Creatinine is up to 2.1. The patient is nonoliguric. Cultures of been all negative thus far and was still awaiting the final cultures to be forwarded to us from an outside hospital which indicated the possibility of a gram-positive cocci in pairs/changes. She is afebrile. She is tolerating enteral feeding for nutrition support. She'll be also taken off the paralytics today and she'll be given a paralytic holiday. He remains on a combination of fentanyl and propofol for sedation. The patient is also taking enteral feeding for nutritional support and she is on vital high protein at the rate of 42 mL an hour. On 12/11/2019 the patient remains intubated on a mechanical ventilator. She is a case of pneumonia with septic shock and multisystem organ failure the patient is still struggling to recover from this. The patient remains on a combination of Zosyn and vancomycin. Clinically, the patient is off paralytics. However, the patient is still requiring a propofol for sedation which is currently running at 14 mcg/kg per minute. On today's evaluation, the patient was assist- control at the rate of 28 with a tidal volume of 400 and PEEP of 10 with an FiO2 of 50%. She was somewhat asynchronous with a mechanical ventilator. She was occasional double stacking. The blood gases showed a pH of 7.29 with a pCO2 of 50 and pO2 131. Based on all this, I switched this patient a VC plus mode with tidal volume of 400. I put in at the rate of 24. Eye doctor tidal down to 40% with a PEEP of 5. I also put her on an inspiratory time of 0.6 seconds. The patient became significantly more synchronous with the mechanical ventilator. The patient however is still the most I a combination of bronchospasm wheezing and for that reason the patient will be kept on a mechanical ventilator for another 24 hours during which she is going to receive bronchodilators and steroids. Antibiotics remain unchanged pending further cultures. The chest x- ray is showing airspace disease throughout the left lung, which is gradually improving compared to the original chest x-ray. There is a small left-sided pleural effusion. There is also some increasing confusion the right lung base. Noted the patient is in a significant fluid positive balance. The patient was given diuretics yesterday. Fluid balance over the past 24 hours is still positive at 2.4 L in the patient's creatinine is up to 2.3. Urine output however his improving. Further diuretics will be given. Case was discussed with nephrology. Objective - Vital Signs Vital signs: Vital Signs Temp 98.5 F 12/11/19 08:00 Pulse 82 12/11/19 12:00 Resp 16 12/11/19 12:00 BP 117/65 12/11/19 12:00 Pulse Ox 100 12/11/19 12:00 Intake & Output 12/10/19 12/11/19 12/11/19 18:59 06:59 18:59 Intake Total 8520.039 5046.349 1227.236 Output Total 1350 1165 1225 Balance 571.020 -106.651 2.236 Weight 101.4 kg 101.4 kg Intake: IV 597 182 496 0.45 NACL 75 110 110 Normal Saline Pressure 72 72 36 Bag Piperacillin-Tazobactam 3 200 100 .375 gm In Sodium Chloride 0.9% 100 ml @ 25 mls/hr IVPB Q8HR [facility] Rx# :[id number] Vancomycin 250 250 Intake, IV Titration 730.020 282.349 184.236 Amount Cisatracurium 200 mg In 105.444 Sodium Chloride 0.9% 180 ml @ 1 MCG/KG/MIN 5.321 mls/hr IV .Q24H [facility] Rx#: [id number] Norepinephrine 32 mg In 2.208 Sodium Chloride 0.9% 218 ml @ 0.05 MCG/KG/MIN 1. 959 mls/hr IV .Q24H [facility] Rx#:[id number] Piperacillin-Tazobactam 3 100 .375 gm In Sodium Chloride 0.9% 100 ml @ 25 mls/hr IVPB Q8HR [facility] Rx# :[id number] Propofol 1,000 mg In 282.368 272.349 184.236 Empty Bag 1 bag @ Titrate IV .Q0M [facility] Rx#: [id number] Sodium Chloride 0.45% 1, 240 10 000 ml @ 10 mls/hr IV . Q24H [facility] Rx#:[id number] Tube Feeding 504 504 247 Other 90 90 300 Output: Urine 1350 1165 1225 Other: Voiding Method Indwelling Catheter Indwelling Catheter Indwelling Catheter ABP, PAP, CO, CI - Last Documented Arterial Blood Pressure 141/66 - Exam Gen. appearance, comfortable likely distress sedated paralyzed success with the mechanical ventilator for now. The patient has an orogastric and orotracheal tube are both in place. Head exam was generally normal. There was no scleral icterus or corneal arcus. Mucous membranes were moist. Neck was supple and without jugular venous distension, thyromegaly, or carotid bruits. Carotids were easily palpable bilaterally. There was no adenopathy. Orogastric and orotracheal tube are both in place and the patient is a left IJ triple-lumen catheter in place. Lung sounds are diminished and some crackles in lung bases bilaterally more so on the left. Otherwise breath on that equal and symmetrical. On today's evaluation the patient continues to be bronchospastic and wheezy. Heart sounds are regular, positive S1-S2 and there is a systolic ejection murmur grade 3/6 heard along left lateral sternal border. Abdominal exam revealed normal bowel sounds. The abdomen was soft, non-tender, and without masses, organomegaly, or appreciable enlargement of the abdominal aorta. Examination of the extremities revealed easily palpable radial, femoral and pedal pulses. There was no cyanosis, clubbing or edema. Examination of the skin revealed no evidence of significant rashes, suspicious appearing nevi or other concerning lesions. Neurologically the patient sedated the patient is off paralytics - Labs CBC & Chem 7: 12/11/19 04:20 12/11/19 04:20 Labs: Abnormal Lab Results - Last 24 Hours (Table) 12/10/19 12/10/19 12/10/19 Range/Units 04:05 17:38 23:13 WBC (3.8-10.6) k/uL RBC (3.80-5.40) m/uL Hgb (11.4-16.0) gm/dL Hct (34.0-46.0) % Plt Count (150-450) k/uL Neutrophils # (Manual) (1.3-7.7) k/uL Nucleated RBCs (0-0) /100 WBC ABG pH (7.35-7.45) ABG pCO2 (35-45) mmHg ABG pO2 (83-108) mmHg ABG Total CO2 (19-24) mmol/L ABG O2 Saturation (94-97) % Sodium (137-145) mmol/L Chloride (98-107) mmol/L BUN (7-17) mg/dL Creatinine (0.52-1.04) mg/dL Glucose (74-99) mg/dL POC Glucose (mg/dL) 150 H 136 H (75-99) mg/dL Calcium (8.4-10.2) mg/dL Procalcitonin 31.53 H (0.02-0.09) ng/mL 12/11/19 12/11/19 12/11/19 Range/Units 04:20 04:20 05:11 WBC 15.3 H (3.8-10.6) k/uL RBC 2.87 L (3.80-5.40) m/uL Hgb 8.9 L (11.4-16.0) gm/dL Hct 27.8 L (34.0-46.0) % Plt Count 130 L (150-450) k/uL Neutrophils # (Manual) 13.30 H (1.3-7.7) k/uL Nucleated RBCs 2 H (0-0) /100 WBC ABG pH (7.35-7.45) ABG pCO2 (35-45) mmHg ABG pO2 (83-108) mmHg ABG Total CO2 (19-24) mmol/L ABG O2 Saturation (94-97) % Sodium 148 H (137-145) mmol/L Chloride 120 H (98-107) mmol/L BUN 55 H (7-17) mg/dL Creatinine 2.32 H (0.52-1.04) mg/dL Glucose 145 H (74-99) mg/dL POC Glucose (mg/dL) 151 H (75-99) mg/dL Calcium 8.2 L (8.4-10.2) mg/dL Procalcitonin (0.02-0.09) ng/mL 12/11/19 12/11/19 Range/Units 05:32 11:52 WBC (3.8-10.6) k/uL RBC (3.80-5.40) m/uL Hgb (11.4-16.0) gm/dL Hct (34.0-46.0) % Plt Count (150-450) k/uL Neutrophils # (Manual) (1.3-7.7) k/uL Nucleated RBCs (0-0) /100 WBC ABG pH 7.29 L (7.35-7.45) ABG pCO2 50 H (35-45) mmHg ABG pO2 131 H (83-108) mmHg ABG Total CO2 26 H (19-24) mmol/L ABG O2 Saturation 98.6 H (94-97) % Sodium (137-145) mmol/L Chloride (98-107) mmol/L BUN (7-17) mg/dL Creatinine (0.52-1.04) mg/dL Glucose (74-99) mg/dL POC Glucose (mg/dL) 148 H (75-99) mg/dL Calcium (8.4-10.2) mg/dL Procalcitonin (0.02-0.09) ng/mL Microbiology - Last 24 Hours (Table) 12/06/19 04:07 Blood Culture - Preliminary Blood No Growth after 120 hours Assessment and Plan Plan: 1 left lower lobe pneumonia, strongly suspect pneumococcal pneumonia as the patient's blood culture was positive for gram-positive cocci in pairs. We are still awaiting for the final cultures to be sent over from [facility]. The patient remains intubated on a mechanical ventilator. The patient is showing improvement in the chest x-ray findings in addition to the oxygenation and ventilation in general. Nevertheless the patient remains bronchospastic and wheezy on today's evaluation. Incidentally ventilator changes will be done and the patient remains on accommodation Zosyn and vancomycin. 2 septic shock currently pressor dependent secondary to pneumonia, and the patient is currently off pressors and the patient is being diuresis with IV Lasix. 3 acute hypoxic/hypercapnic respiratory failure secondary to above, oxygenation improving 4 history of valvular heart disease with impaired left ventricular ejection fraction of 25-30% and moderate degree of mitral regurgitation. Awaiting a repeat echocardiogram. Note that the repeat echocardiogram showed no evidence of any significant mitral regurgitation and the patient ejection fraction was reported to be around 55%. 5 acute kidney injury with a creatinine of 2.3 along with signs of fluid overload, the patient is non-oliguric at this point in time. 6 COPD 7 history of opiate dependence including fentanyl and the patient has done amphetamines in the past and the patient was receiving subaxone on outpatient basis 8 history of alcoholism 9 fibromyalgia and chronic pain 10 hypertension 11 hyperlipidemia 12 acute leukocytosis and bandemia secondary to above, improving white count 13 troponin leak secondary to above Plan Continue vent support and switch this patient to obesity plus mode with a positive alcohol 400 and a 24 with an FiO2 of 40% and a PEEP of 5 and a nighttime of 0.6 seconds Continue propofol for sedation Continue Zosyn and vancomycin Continue IV Solu-Medrol Pressors have been discontinued White cell count is improving Put the patient on Lasix 40 mg IV push every 12 hours Continue bronchodilators Made to keep a mechanical ventilator for now as the patient is not absolutely ready for weaning based on today's evaluation. There is a critically care evaluation that was on a more than 30 minutes. Time with Patient: Greater than 30
[2019-12-11] MEDS: SODIUM CHLORIDE 0.45% 1,000 ML IV SCH (15:04)
--- NOTE | 2019-12-11 15:20 | P.PN ---
Subjective Progress Note Date: 12/11/19 Principal diagnosis: Acute hypoxic/hypercapnic respiratory failure; vent dependent Left lower lobe pneumonia Septic shock 12/11/2019 patient remains intubated on a mechanical ventilator due to pneumonia with septic shock and multisystem organ failure; remains on a combination of Zosyn and vancomycin. The patient however is still bronchospastic and for that reason the patient will be kept on a mechanical ventilator for another 24 hours during which she is going to receive bronchodilators and steroids. Antibiotics remain unchanged pending further cultures. The chest x-ray is showing airspace disease throughout the left lung, which is gradually improving compared to the original chest x-ray. There is a small left-sided pleural effusion. There is also some increasing confusion the right lung base. Noted the patient is in a significant fluid positive balance. The patient was given diuretics yesterday. Fluid balance over the past 24 hours is still positive at 2.4 L in the patient's creatinine is up to 2.3. Urine output however his improving. Further diuretics will be given. Objective - Vital Signs Vital signs: Vital Signs Temp 98.5 F 12/11/19 08:00 Pulse 88 12/11/19 11:23 Resp 13 12/11/19 11:00 BP 112/64 12/11/19 11:00 Pulse Ox 99 12/11/19 11:00 Intake & Output 12/10/19 12/11/19 12/11/19 18:59 06:59 18:59 Intake Total 0562.190 7665.349 860.236 Output Total 1350 1165 975 Balance 571.020 -106.651 -114.764 Weight 101.4 kg 101.4 kg Intake: IV 597 182 470 0.45 NACL 75 110 90 Normal Saline Pressure 72 72 30 Bag Piperacillin-Tazobactam 3 200 100 .375 gm In Sodium Chloride 0.9% 100 ml @ 25 mls/hr IVPB Q8HR [facility] Rx# :[id number] Vancomycin 250 250 Intake, IV Titration 730.020 282.349 184.236 Amount Cisatracurium 200 mg In 105.444 Sodium Chloride 0.9% 180 ml @ 1 MCG/KG/MIN 5.321 mls/hr IV .Q24H [facility] Rx#: [id number] Norepinephrine 32 mg In 2.208 Sodium Chloride 0.9% 218 ml @ 0.05 MCG/KG/MIN 1. 959 mls/hr IV .Q24H [facility] Rx#:[id number] Piperacillin-Tazobactam 3 100 .375 gm In Sodium Chloride 0.9% 100 ml @ 25 mls/hr IVPB Q8HR [facility] Rx# :[id number] Propofol 1,000 mg In 282.368 272.349 184.236 Empty Bag 1 bag @ Titrate IV .Q0M [facility] Rx#: [id number] Sodium Chloride 0.45% 1, 240 10 000 ml @ 10 mls/hr IV . Q24H [facility] Rx#:[id number] Tube Feeding 504 504 206 Other 90 90 Output: Urine 1350 1165 975 Other: Voiding Method Indwelling Catheter Indwelling Catheter Indwelling Catheter ABP, PAP, CO, CI - Last Documented Arterial Blood Pressure 141/66 - Exam Gen. appearance, comfortable likely distress sedated paralyzed success with the mechanical ventilator for now. The patient has an orogastric and orotracheal tube are both in place. Head exam was generally normal. There was no scleral icterus or corneal arcus. Mucous membranes were moist. Neck was supple and without jugular venous distension, thyromegaly, or carotid bruits. Carotids were easily palpable bilaterally. There was no adenopathy. Orogastric and orotracheal tube are both in place and the patient is a left IJ triple-lumen catheter in place. Lung sounds are diminished and some crackles in lung bases bilaterally more so on the left. Otherwise breath on that equal and symmetrical. On today's evaluation the patient continues to be bronchospastic and wheezy. Heart sounds are regular, positive S1-S2 and there is a systolic ejection murmur grade 3/6 heard along left lateral sternal border. Abdominal exam revealed normal bowel sounds. The abdomen was soft, non-tender, and without masses, organomegaly, or appreciable enlargement of the abdominal aorta. Examination of the extremities revealed easily palpable radial, femoral and pedal pulses. There was no cyanosis, clubbing or edema. - Labs CBC & Chem 7: 12/11/19 04:20 12/11/19 04:20 Labs: Abnormal Lab Results - Last 24 Hours (Table) 12/10/19 12/10/19 12/10/19 Range/Units 04:05 11:58 17:38 WBC (3.8-10.6) k/uL RBC (3.80-5.40) m/uL Hgb (11.4-16.0) gm/dL Hct (34.0-46.0) % Plt Count (150-450) k/uL Neutrophils # (Manual) (1.3-7.7) k/uL Nucleated RBCs (0-0) /100 WBC ABG pH (7.35-7.45) ABG pCO2 (35-45) mmHg ABG pO2 (83-108) mmHg ABG Total CO2 (19-24) mmol/L ABG O2 Saturation (94-97) % Sodium (137-145) mmol/L Chloride (98-107) mmol/L BUN (7-17) mg/dL Creatinine (0.52-1.04) mg/dL Glucose (74-99) mg/dL POC Glucose (mg/dL) 185 H 150 H (75-99) mg/dL Calcium (8.4-10.2) mg/dL Procalcitonin 31.53 H (0.02-0.09) ng/mL 12/10/19 12/11/19 12/11/19 Range/Units 23:13 04:20 04:20 WBC 15.3 H (3.8-10.6) k/uL RBC 2.87 L (3.80-5.40) m/uL Hgb 8.9 L (11.4-16.0) gm/dL Hct 27.8 L (34.0-46.0) % Plt Count 130 L (150-450) k/uL Neutrophils # (Manual) 13.30 H (1.3-7.7) k/uL Nucleated RBCs 2 H (0-0) /100 WBC ABG pH (7.35-7.45) ABG pCO2 (35-45) mmHg ABG pO2 (83-108) mmHg ABG Total CO2 (19-24) mmol/L ABG O2 Saturation (94-97) % Sodium 148 H (137-145) mmol/L Chloride 120 H (98-107) mmol/L BUN 55 H (7-17) mg/dL Creatinine 2.32 H (0.52-1.04) mg/dL Glucose 145 H (74-99) mg/dL POC Glucose (mg/dL) 136 H (75-99) mg/dL Calcium 8.2 L (8.4-10.2) mg/dL Procalcitonin (0.02-0.09) ng/mL 12/11/19 12/11/19 Range/Units 05:11 05:32 WBC (3.8-10.6) k/uL RBC (3.80-5.40) m/uL Hgb (11.4-16.0) gm/dL Hct (34.0-46.0) % Plt Count (150-450) k/uL Neutrophils # (Manual) (1.3-7.7) k/uL Nucleated RBCs (0-0) /100 WBC ABG pH 7.29 L (7.35-7.45) ABG pCO2 50 H (35-45) mmHg ABG pO2 131 H (83-108) mmHg ABG Total CO2 26 H (19-24) mmol/L ABG O2 Saturation 98.6 H (94-97) % Sodium (137-145) mmol/L Chloride (98-107) mmol/L BUN (7-17) mg/dL Creatinine (0.52-1.04) mg/dL Glucose (74-99) mg/dL POC Glucose (mg/dL) 151 H (75-99) mg/dL Calcium (8.4-10.2) mg/dL Procalcitonin (0.02-0.09) ng/mL Microbiology - Last 24 Hours (Table) 12/06/19 04:07 Blood Culture - Preliminary Blood No Growth after 120 hours Assessment and Plan Assessment: -Septic shock: Shock improved at this time because on IV fluids patient will be continued on broad-spectrum antibiotics Zosyn ,sputum cultures did not show any abnormality blood cultures were also negative, COVID negative. Patient remains hypoxic hypoxic hypercapnic and acidotic but significant improvement compared to yesterday patient has set up respiratory 25 breathing over the ventilator patient is off pressor support,off fluids, off Nimbex. Patient FiO2 is 50% presently people for 10 -Acute renal failure secondary to sepsis and septic shock can use supportive care IV fluids were discussed because of anasarca. Nephrology will be consulted -Acute hypercapnic and acute hypoxic respiratory failure: Continue with ventilator support continue with inhalational treatments. -History of congestive heart failure severe systolic dysfunction I do not know the ejection fraction. Patient has multi valvular heart disease including severe mitral regurgitation severe tricuspid regurgitation. Patient remains on IV fluids because of severe sepsis. Patient had a echocardiogram which did not show any mitral regurgitation doesn't have any heart failure. -COPD present smoker further management as mentioned above -History of opiate abuse with mildly elevated liver enzymes will obtain a hepatitis panel. -Fibromyalgia -Hyperlipidemia -Hypertension Time with Patient: Greater than 30
[2019-12-11 17:10] LABS: Glucose,Whole Blood 134 mg/dL (75-99)
[2019-12-11] MEDS ORDERED: FUROSEMIDE 10 MG/ML 4 ML VIAL IV SCH (21:00)
[2019-12-11 23:37] LABS: Glucose,Whole Blood 143 mg/dL (75-99)
[2019-12-12] MEDS: PROPOFOL 1,000 MG in EMPTY BAG 1 BAG IV SCH ×6 (01:08→19:33)
[2019-12-12] MEDS: NOREPINEPHRINE 32 MG in SODIUM CHLORIDE 0.9% 218 ML IV SCH (01:42)
[2019-12-12] MEDS: ARTIFICIAL TEARS-HYPROMELLOSE DROPS 15 ML BTL BOTH EYES SCH ×5 (03:46→21:22)
[2019-12-12] MEDS: IPRATROPIUM-ALBUTEROL 3 ML NEB INHALATION SCH ×5 (03:49→19:09)
[2019-12-12 04:55] LABS: ABG Base Excess 1.6 mmol/L; ABG HCO3 26 mmol/L (21-25); ABG Oxygen Saturation 96.9 % (94-97); ABG PCO2 42 mmHg (35-45); ABG PH 7.41 (7.35-7.45); ABG PO2 86 mmHg (83-108); ABG TCO2 28 mmol/L (19-24)
[2019-12-12 04:56] LABS: Allen Test Performed? No
[2019-12-12 05:38] LABS: Glucose,Whole Blood 150 mg/dL (75-99)
[2019-12-12] MEDS: methylPREDNISolone SOD SUCCI 125 MG/2 ML VIAL IV SCH ×3 (05:39→18:20)
[2019-12-12] MEDS: INSULIN ASPART (NovoLOG) 100 UNIT/ML VIAL SQ SCH ×3 (05:39→18:23)
[2019-12-12 06:09] LABS: Basophils % (A) 0 %; Eosinophils % (A) 0 %; HCT 28.3 % (34.0-46.0); HGB 9.2 gm/dL (11.4-16.0); Lymphocytes # (A) 0.8 k/uL (1.0-4.8); Lymphocytes % (A) 5 %; MCH 30.7 pg (25.0-35.0); MCHC 32.6 g/dL (31.0-37.0); MCV 94.2 fL (80.0-100.0); Mean Platelet Volume 9.8; Monocytes # (A) 0.6 k/uL (0-1.0); Monocytes % (A) 4 %; Neutrophils # (A) 15.4 k/uL (1.3-7.7); Neutrophils % (A) 90 %; Platelet Count 142 k/uL (150-450); RDW 14.3 % (11.5-15.5)
[2019-12-12 06:16] LABS: Calcium 8.3 mg/dL (8.4-10.2); Potassium 3.9 mmol/L (3.5-5.1)
--- NOTE | 2019-12-12 06:40 | XR ---
EXAMINATION TYPE: XR chest 1V portable DATE OF EXAM: 12/12/2019 HISTORY: Tube placement. REFERENCE: Previous study dated 12/11/2019. FINDINGS: The patient is NG tube, ET tube and left internal jugular catheter remain in place, unchang ed in appearance. There are continuing bilateral airspace disease. This is worse on the left than the right. There is b lunting of both CP angles and I cannot exclude small effusions. The heart is not enlarged. IMPRESSION: CONTINUING BILATERAL INFILTRATES, WORSE ON THE LEFT THAN THE RIGHT, UNCHANGED FROM PREVIOUS.
[2019-12-12] MEDS: PIPERACILLIN-TAZOBACTAM 3.375 GM in SODIUM CHLORIDE 0.9% 100 ML IVPB SCH ×2 (08:29→16:20)
[2019-12-12] MEDS: CHLORHEXIDINE GLUCONATE 15 ML CUP MUCOUS MEM SCH ×2 (08:29→21:22)
[2019-12-12] MEDS: FAMOTIDINE 20 MG/2 ML VIAL IV SCH (08:31)
--- NOTE | 2019-12-12 08:59 | P.PN ---
Subjective Patient is seen in follow-up for acute kidney injury. Renal function is worse today which is due to diuresis. Patient is nonoliguric with urine output over 100 mL an hour. Sodium level 149 today. She is receiving tube feeding. Maintain on IV Lasix 40 mg twice daily. Vital signs are stable. General: The patient appeared well nourished and normally developed. HEENT: Head exam is unremarkable. Neck is without jugular venous distension. Intubated. LUNGS: Breath sounds decreased. HEART: Rate and Rhythm are regular. ABDOMEN: No distention. Soft. EXTREMITITES: Trace edema. Objective - Vital Signs Vital signs: Vital Signs Temp 99.6 F 12/12/19 04:00 Pulse 86 12/12/19 07:18 Resp 19 12/12/19 07:00 BP 133/73 12/12/19 07:00 Pulse Ox 97 12/12/19 07:00 Intake & Output 12/11/19 12/12/19 12/12/19 18:59 06:59 18:59 Intake Total 2105.496 2796.498 135.726 Output Total 2075 1535 75 Balance 30.496 1261.498 60.726 Weight 101.4 kg 99 kg Intake: IV 778 1486 26 0.45 NACL 250 220 20 Normal Saline Pressure 78 66 6 Bag Piperacillin-Tazobactam 3 200 75 .375 gm In Sodium Chloride 0.9% 100 ml @ 25 mls/hr IVPB Q8HR [facility] Rx# :[id number] Sodium Chloride 0.9% 1, 1125 000 ml @ 75 mls/hr IV . [id number] [facility] Rx#:[id number] Vancomycin 250 Intake, IV Titration 275.496 337.498 67.726 Amount Propofol 1,000 mg In 275.496 337.498 67.726 Empty Bag 1 bag @ Titrate IV .Q0M [facility] Rx#: [id number] Tube Feeding 452 373 42 Other 600 600 Output: Urine 2075 1535 75 Other: Voiding Method Indwelling Catheter Indwelling Catheter ABP, PAP, CO, CI - Last Documented Arterial Blood Pressure 130/63 - Labs CBC & Chem 7: 12/12/19 04:35 12/12/19 04:35 Labs: Abnormal Lab Results - Last 24 Hours (Table) 12/11/19 12/11/1920 Range/Units 11:52 17:09 23:35 WBC (3.8-10.6) k/uL RBC (3.80-5.40) m/uL Hgb (11.4-16.0) gm/dL Hct (34.0-46.0) % Plt Count (150-450) k/uL Neutrophils # (1.3-7.7) k/uL Lymphocytes # (1.0-4.8) k/uL ABG HCO3 (21-25) mmol/L ABG Total CO2 (19-24) mmol/L Sodium (137-145) mmol/L Chloride (98-107) mmol/L BUN (7-17) mg/dL Creatinine (0.52-1.04) mg/dL Glucose (74-99) mg/dL POC Glucose (mg/dL) 148 H 134 H 143 H (75-99) mg/dL Calcium (8.4-10.2) mg/dL 12/12/19 12/12/19 12/12/19 Range/Units 04:35 04:35 04:50 WBC 17.0 H (3.8-10.6) k/uL RBC 3.00 L (3.80-5.40) m/uL Hgb 9.2 L (11.4-16.0) gm/dL Hct 28.3 L (34.0-46.0) % Plt Count 142 L (150-450) k/uL Neutrophils # 15.4 H (1.3-7.7) k/uL Lymphocytes # 0.8 L (1.0-4.8) k/uL ABG HCO3 26 H (21-25) mmol/L ABG Total CO2 28 H (19-24) mmol/L Sodium 149 H (137-145) mmol/L Chloride 117 H (98-107) mmol/L BUN 67 H (7-17) mg/dL Creatinine 2.73 H (0.52-1.04) mg/dL Glucose 155 H (74-99) mg/dL POC Glucose (mg/dL) (75-99) mg/dL Calcium 8.3 L (8.4-10.2) mg/dL 12/12/19 Range/Units 05:35 WBC (3.8-10.6) k/uL RBC (3.80-5.40) m/uL Hgb (11.4-16.0) gm/dL Hct (34.0-46.0) % Plt Count (150-450) k/uL Neutrophils # (1.3-7.7) k/uL Lymphocytes # (1.0-4.8) k/uL ABG HCO3 (21-25) mmol/L ABG Total CO2 (19-24) mmol/L Sodium (137-145) mmol/L Chloride (98-107) mmol/L BUN (7-17) mg/dL Creatinine (0.52-1.04) mg/dL Glucose (74-99) mg/dL POC Glucose (mg/dL) 150 H (75-99) mg/dL Calcium (8.4-10.2) mg/dL Microbiology - Last 24 Hours (Table) 12/06/19 04:07 Blood Culture - Final Blood No Growth after 144 hours Assessment and Plan Plan: Assessment: 1. Acute kidney injury secondary to ATN secondary to septic shock and diuresis. Baseline creatinine near 1 and up at 2.73 today. 2. Septic shock secondary to pneumonia. Maintained on antibiotics. Off vasopressors. 3. Hypernatremia secondary to free water diuresis and lack of oral water intake. 4. Volume overload. Plan: Hold Lasix today. Increase free water flushes to 400 mL every 4 hours with tube feeding. Wean FiO2. Continue to monitor renal function and urine output. Monitor vancomycin levels. Dose to be adjusted for renal function. Case discussed with the nurse and the micro[employer] architect.
[2019-12-12 12:54] LABS: Glucose,Whole Blood 151 mg/dL (75-99)
--- NOTE | 2019-12-12 13:23 | P.PN ---
Subjective Progress Note Date: 12/12/19 On today's evaluation of 12/07/2019 and seeing the patient for a follow-up. This patient came with an extensive left lung pneumonia/airspace disease/consolidation and she is intubated on a mechanical ventilator. Note that she was quite septic and the time of arrival. She is also being ruled out for COVID 19 infection. The patient has multiple medical problems and comorbidities. The patient has COPD/asthma. The patient also has CHF with an ejection fraction of 25-30% along with previous history of moderate degree of mitral regurgitation. She has history of substance abuse including methamphe tamine and fentanyl and the patient has been on methadone on outpatient basis. The patient has hypertension, hyperlipidemia, fibromyalgia, osteoarthritis and previous history of alcoholism This morning, the patient remains sedated with propofol which is currently running at 40 mg per KG per minute. The patient is also paralyzed with Nimbex 01 g per KG per minute. The patient is receiving IV fluids at the rate of 75 mL an hour. The patient is on norepinephrine infusion at 0.15 g per KG per minute. She is an assist-control mode of ventilator. The patient is at the rate of 34 with a tidal volume of 350 and FiO2 of 85% with a PEEP of 15. The blood gases from today showed a pH of 7.16 with a pCO2 of 73 and pO2 of 85 and this was done and FiO2 of 85%. The white cell count is at 20 per lactic acid level is down to 2.4. Renal function is stable with a creatinine of 0.7. Sodium is at 144. The patient had been she with a combination of antibiotics. For now we have the patient a combination of vancomycin and Zosyn. I added Zithromax today. I also have the patient on Plaquenil for the possibility of an underlying coronavirus infection of the lungs. A repeat echocardiogram is still pending regarding the left ventricle ejection fraction and the extent of mitral regurgitation. Noted the patient was noted to be having a lower CVP this morning. I went ahead and gave her another liter of normal saline with a possibility of giving her a second liter if she continues to have lower urine output. Troponin is at 0.9. Blood cultures still negative. Sputum Gram stain and cultures also negative. Note that on her blood work, the patient has a 28% bandemia time of admission and currently she is up to 58%. Legionella urine antigen will be also sent. On today's evaluation of 12/08/2019 the patient remains intubated on a mechanical ventilator. We will inform that the patient's blood cultures from [place] showed a gram-positive cocci in pairs. Based on that, we aren't anticipating the possibility of an underlying pneumococcal left lung pneumonia. The patient continues to have extensive consolidation of the left lung on today's chest x-ray. Meanwhile, the patient is a mechanical ventilator. She is quite bronchospastic and wheezy. No nebulizers or steroids have been utilizing anticipating a Covid 19 infection which I think it's less likely possibility on today's evaluation. The patient is currently on an assist-control mode at the rate of 34 with a tidal volume of 350 and FiO2 of 70% with a PEEP of 15. Peak airway pressures 42. Static pressure is 28. The patient is sedated with propofol at a dose of 40 g per KG per minute. The patient on Nimbex at 1 g per KG per minute. The patient is also on norepinephrine infusion at 0.3 g per KG per minute. The patient is also on vasopressin physiologic dose. The patient is septic shock. White cell count is up to 24 with a hemoglobin of 10.2. The patient has a percent bandemia which is improved compared to yesterday. The blood gas showed a pH of 7.18 with a pCO2 of 62 and pO2 of 83. The pro-calcitonin level was 96.4 indicating bacterial infection. Covid testing is still pending for now. The patient is receiving a combination of Zithromax, vancomycin and Zosyn for now. Plaquenil be continued pending the Covid 19 status. The patient also suffered an acute kidney injury. Creatinine is up to 1.6 and the patient has a positive fluid balance of 2.5 L over the past 24 hours. On 12/09/2019, the patient remains on a mechanical ventilator. This morning, the patient remains essentially on the same ventilator setting. The patient remains on assist control mode at the rate of 34 with a tidal volume of 350 and FiO2 of 60% with a PEEP of 15. The patient's pulse ox currently is around 93%. The peak airway pressures around 40 with a static pressure of 26. The patient has an extensive left lung consolidation which seems to be slightly improved compared to yesterday. We will inform that the patient had a positive gram- positive cocci in pairs and the blood culture that was obtained in the outside hospital. For that reason, I discontinue the Zithromax and a The patient a combination of Zosyn and vancomycin. Also, the Covid 19 testing came back negative and the patient was taken off the Plaquenil. The patient has a blood gas that showed a pH of 7.2 with a pCO2 of 60 and pO2 of 80. The patient was started on bronchodilators. The patient was also started on IV Solu-Medrol y esterday. The patient is being weaned off the pressors. Note that over the past 24-48 hours the patient was profoundly hypotensive and the patient also developed a component of an acute kidney injury. Creatinine came up to 1.6 and today's up to 1.8. Nevertheless urine output improved and the patient has been taken off the vasopressin and the patient is down on the norepinephrine infusion which is currently running at 0.08 g per KG per minute. The patient continues to be paralyzed with Nimbex and the proposed running at 40 g per KG per minute. The patient is on high protein vital running at 42 mL an hour. She is tolerating her enteral feeding for nutritional support. She is afebrile. No other significant events otherwise for now. The cultures that were obtained here in the hospital were all negative. On 12/10/2019, the patient remains intubated on a mechanical ventilator. The patient also remains sedated and paralyzed. This morning, the patient is an assist-control mode and based on the morning blood gases I made some changes in the mechanical ventilator. Note that the patient was in a assist-control of 34 with a tidal volume of 350 and FiO2 of 60% with a PEEP of 13. The blood gases from this morning showed a pH of 7.16 with a pCO2 of 65 and pO2 of 116. Based on that, increase the tidal volume up to 400s. I also dropped the PEEP. Subsequent evaluation showed that the patient had a pH of 7.21 with a pCO2 of 57 and pO2 of 141. Based on all this, I dropped the PEEP down to 10 and I also drop the FiO2 down to 50% and I dropped a respiratory rate down to 28. In terms of his chest x-ray findings, the patient shows improvement in the left lower lobe consolidation. Hemodynamically, the patient remains on low-dose norepinephrine infusion. The patient is currently on levo fed at 0.01 mcg/kg per minute. The peak air pressure 32 and the static pressures 21. The fluid balance has been positive over the past several days. For that reason the patient will be started on diuretics. Creatinine is up to 2.1. The patient is nonoliguric. Cultures of been all negative thus far and was still awaiting the final cultures to be forwarded to us from an outside hospital which indicated the possibility of a gram-positive cocci in pairs/changes. She is afebrile. She is tolerating enteral feeding for nutrition support. She'll be also taken off the paralytics today and she'll be given a paralytic holiday. He remains on a combination of fentanyl and propofol for sedation. The patient is also taking enteral feeding for nutritional support and she is on vital high protein at the rate of 42 mL an hour. On 12/11/2019 the patient remains intubated on a mechanical ventilator. She is a case of pneumonia with septic shock and multisystem organ failure the patient is still struggling to recover from this. The patient remains on a combination of Zosyn and vancomycin. Clinically, the patient is off paralytics. However, the patient is still requiring a propofol for sedation which is currently running at 14 mcg/kg per minute. On today's evaluation, the patient was assist- control at the rate of 28 with a tidal volume of 400 and PEEP of 10 with an FiO2 of 50%. She was somewhat asynchronous with a mechanical ventilator. She was occasional double stacking. The blood gases showed a pH of 7.29 with a pCO2 of 50 and pO2 131. Based on all this, I switched this patient a VC plus mode with tidal volume of 400. I put in at the rate of 24. Eye doctor tidal down to 40% with a PEEP of 5. I also put her on an inspiratory time of 0.6 seconds. The patient became significantly more synchronous with the mechanical ventilator. The patient however is still the most I a combination of bronchospasm wheezing and for that reason the patient will be kept on a mechanical ventilator for another 24 hours during which she is going to receive bronchodilators and steroids. Antibiotics remain unchanged pending further cultures. The chest x- ray is showing airspace disease throughout the left lung, which is gradually improving compared to the original chest x-ray. There is a small left-sided pleural effusion. There is also some increasing confusion the right lung base. Noted the patient is in a significant fluid positive balance. The patient was given diuretics yesterday. Fluid balance over the past 24 hours is still positive at 2.4 L in the patient's creatinine is up to 2.3. Urine output however his improving. Further diuretics will be given. Case was discussed with nephrology. On 12/11/2019, the patient is being seen for a follow-up. The patient is still sedated on propofol and she is currently running at 50 g per KG per minute. She is also on vital high protein for enteral feeding and nutritional support. She is on assist control mode of ventilation and she is in a VC plus mode and I haven't on a tidal volume of 400 with a rate of 24 with an FiO2 of 40% and a PEEP of 5. She was noted to have double stacking and she was requiring significant a higher volumes. Based on that, increase the tidal volume gradually up to 550 and I also dropped a respiratory rate down to 18. She was kept on a PEEP of 5 and FiO2 of 40%. Her current inspiratory time is at 0.65. Her inhalation exhalation ratio is 1-2 and the most recent blood gases from today shows A pH of 7.4 with a pCO2 of 42 and pO2 of 86. Chest x-ray bilateral infiltrates worse on the left compared to the right, somewhat improved compared to yesterday. The patient has no significant orotracheal secretions. The cultures that were sent over from the outside hospital do not to be a coagulase- negative staph epidermidis and it was not of any valuable information. The patient remains on a combination of Zosyn and vancomycin. Vancomycin trough was quite elevated and the patient's vancomycin is currently on hold. All of the cultures are negative. The patient is on is there is Zosyn also. She has developed an acute kidney failure and the creatinine is up to 2.7. Nevertheless the patient is nonoliguric. Neck fluid balance is at +1.4. Noted the patient was given Lasix yesterday at a dose of 40 mg every 12 hours. Based on the ris ing and a creatinine in the based on the ongoing improvement in urine output, we'll stop the Lasix upon discussing this with nephrology. The patient is a component of hyperchloremic hypernatremia. Sodium level is at 149. The patient is receiving free water through the NG. On examination, she is much less bronchospastic and wheezy. Her peak airway pressures down to 22. Static pressures down to 15-17. She is afebrile for now. She is on no pressors. She is tolerating her tube feeds. Objective - Vital Signs Vital signs: Vital Signs Temp 98.9 F 12/12/19 08:00 Pulse 90 12/12/19 11:29 Resp 21 12/12/19 11:00 BP 134/74 12/12/19 11:00 Pulse Ox 97 12/12/19 11:00 Intake & Output 12/11/19 12/12/19 12/12/19 18:59 06:59 18:59 Intake Total 2105.496 2796.498 981.330 Output Total 2075 1535 475 Balance 30.496 1261.498 506.330 Weight 101.4 kg 99 kg Intake: IV 778 1486 104 0.45 NACL 250 220 80 Normal Saline Pressure 78 66 24 Bag Piperacillin-Tazobactam 3 200 75 .375 gm In Sodium Chloride 0.9% 100 ml @ 25 mls/hr IVPB Q8HR [facility] Rx# :[id number] Sodium Chloride 0.9% 1, 1125 000 ml @ 75 mls/hr IV . [id number] [facility] Rx#:[id number] Vancomycin 250 Intake, IV Titration 275.496 337.498 267.330 Amount Piperacillin-Tazobactam 3 100 .375 gm In Sodium Chloride 0.9% 100 ml @ 25 mls/hr IVPB Q8HR [facility] Rx# :[id number] Propofol 1,000 mg In 275.496 337.498 167.330 Empty Bag 1 bag @ Titrate IV .Q0M [facility] Rx#: [id number] Tube Feeding 452 373 210 Other 600 600 400 Output: Urine 2075 1535 475 Other: Voiding Method Indwelling Catheter Indwelling Catheter Indwelling Catheter ABP, PAP, CO, CI - Last Documented Arterial Blood Pressure 134/64 - Exam Gen. appearance, comfortable likely distress sedated paralyzed success with the mechanical ventilator for now. The patient has an orogastric and orotracheal tube are both in place. Head exam was generally normal. There was no scleral icterus or corneal arcus. Mucous membranes were moist. Neck was supple and without jugular venous distension, thyromegaly, or carotid bruits. Carotids were easily palpable bilaterally. There was no adenopathy. Orogastric and orotracheal tube are both in place and the patient is a left IJ triple-lumen catheter in place. Lung sounds are diminished and some crackles in lung bases bilaterally more so on the left. Otherwise breath on that equal and symmetrical. On today's evaluation the patient continues to be bronchospastic and wheezy. Heart sounds are regular, positive S1-S2 and there is a systolic ejection murmur grade 3/6 heard along left lateral sternal border. Abdominal exam revealed normal bowel sounds. The abdomen was soft, non-tender, and without masses, organomegaly, or appreciable enlargement of the abdominal aorta. Examination of the extremities revealed easily palpable radial, femoral and pedal pulses. There was no cyanosis, clubbing and there is increased edema in all 4 extremities questions upper extremities bilaterally. Examination of the skin revealed no evidence of significant rashes, suspicious appearing nevi or other concerning lesions. Neurologically the patient sedated the patient is off paralytics - Labs CBC & Chem 7: 12/12/19 04:35 12/12/19 04:35 Labs: Abnormal Lab Results - Last 24 Hours (Table) 12/11/19 12/11/19 12/12/19 Range/Units 17:09 23:35 04:35 WBC 17.0 H (3.8-10.6) k/uL RBC 3.00 L (3.80-5.40) m/uL Hgb 9.2 L (11.4-16.0) gm/dL Hct 28.3 L (34.0-46.0) % Plt Count 142 L (150-450) k/uL Neutrophils # 15.4 H (1.3-7.7) k/uL Lymphocytes # 0.8 L (1.0-4.8) k/uL ABG HCO3 (21-25) mmol/L ABG Total CO2 (19-24) mmol/L Sodium (137-145) mmol/L Chloride (98-107) mmol/L BUN (7-17) mg/dL Creatinine (0.52-1.04) mg/dL Glucose (74-99) mg/dL POC Glucose (mg/dL) 134 H 143 H (75-99) mg/dL Calcium (8.4-10.2) mg/dL 12/12/19 12/12/19 12/12/19 Range/Units 04:35 04:50 05:35 WBC (3.8-10.6) k/uL RBC (3.80-5.40) m/uL Hgb (11.4-16.0) gm/dL Hct (34.0-46.0) % Plt Count (150-450) k/uL Neutrophils # (1.3-7.7) k/uL Lymphocytes # (1.0-4.8) k/uL ABG HCO3 26 H (21-25) mmol/L ABG Total CO2 28 H (19-24) mmol/L Sodium 149 H (137-145) mmol/L Chloride 117 H (98-107) mmol/L BUN 67 H (7-17) mg/dL Creatinine 2.73 H (0.52-1.04) mg/dL Glucose 155 H (74-99) mg/dL POC Glucose (mg/dL) 150 H (75-99) mg/dL Calcium 8.3 L (8.4-10.2) mg/dL 12/12/19 Range/Units 12:52 WBC (3.8-10.6) k/uL RBC (3.80-5.40) m/uL Hgb (11.4-16.0) gm/dL Hct (34.0-46.0) % Plt Count (150-450) k/uL Neutrophils # (1.3-7.7) k/uL Lymphocytes # (1.0-4.8) k/uL ABG HCO3 (21-25) mmol/L ABG Total CO2 (19-24) mmol/L Sodium (137-145) mmol/L Chloride (98-107) mmol/L BUN (7-17) mg/dL Creatinine (0.52-1.04) mg/dL Glucose (74-99) mg/dL POC Glucose (mg/dL) 151 H (75-99) mg/dL Calcium (8.4-10.2) mg/dL Microbiology - Last 24 Hours (Table) 12/06/19 04:07 Blood Culture - Final Blood No Growth after 144 hours Assessment and Plan Plan: 1 left lower lobe pneumonia, strongly suspect bacterial pneumonia and the patient's final cultures of been all negative. Cultures forwarded to us from the outside hospital returned goods sorter to be coagulase-negative staph. Follow-up chest x-ray shows improvement in the left lower lobe consolidation. The patient is less bronchospastic and wheezy on examination. The patient is covered with a combination of Zosyn and vancomycin. The patient was double stacking on the mechanical ventilator and this is a ventilator changes were done. 2 septic shock currently pressor dependent secondary to pneumonia, and the patient is currently off pressors and the patient is being diuresis with IV Lasix. Diabetes mellitus. Today as the patient developed an acute kidney injury with ongoing rise in the creatinine up to 2.7. Nevertheless she is non- oliguric and she is producing adequate urine output. 3 acute hypoxic/hypercapnic respiratory failure secondary to above, oxygenation improving , today's evaluation the patient was noted to have some double stacking and the necessity ventilator changes were done. 4 history of valvular heart disease with impaired left ventricular ejection fraction of 25-30% and moderate degree of mitral regurgitation. Awaiting a repeat echocardiogram. Note that the repeat echocardiogram showed no evidence of any significant mitral regurgitation and the patient ejection fraction was reported to be around 55%. 5 acute kidney injury with a creatinine of 2.7 along with signs of fluid ov erload, the patient is non-oliguric at this point in time. 6 COPD 7 history of opiate dependence including fentanyl and the patient has done amphetamines in the past and the patient was receiving subaxone on outpatient basis 8 history of alcoholism 9 fibromyalgia and chronic pain 10 hypertension 11 hyperlipidemia 12 acute leukocytosis and bandemia secondary to above, improving white count 13 troponin leak secondary to above Plan Continue vent support and switch this patient to obesity plus mode with a positive alcohol 550 and a 18 with an FiO2 of 40% and a PEEP of 5 and a nighttime of 0.6 seconds. With these changes, the patient became much more success with a mechanical ventilator and the patient was not double stacking. She had high volume requirements. Continue propofol for sedation, may consider the addition of fentanyl at later stages part of weaning the Precedex as the patient may have an underlying dependence opiates. Continue Zosyn and vancomycin, vancomycin trough is quite elevated and currently the medications on hold Continue IV Solu-Medrol Pressors have been discontinued, the patient is maintaining her on blood pressure White cell count is improving Put the patient Lasix on hold and monitor the creatinine Continue bronchodilators Made to keep a mechanical ventilator for now as the patient is not absolutely ready for weaning based on today's evaluation. There is a critically care evaluation that was on a more than 30 minutes. Time with Patient: Greater than 30
--- NOTE | 2019-12-12 15:40 | P.PN ---
Subjective Progress Note Date: 12/12/19 Principal diagnosis: Acute hypoxic/hypercapnic respiratory failure; vent dependent Left lower lobe pneumonia Septic shock 12/11/2019 patient remains intubated on a mechanical ventilator due to pneumonia with septic shock and multisystem organ failure; remains on a combination of Zosyn and vancomycin. The patient however is still bronchospastic and for that reason the patient will be kept on a mechanical ventilator for another 24 hours during which she is going to receive bronchodilators and steroids. Antibiotics remain unchanged pending further cultures. The chest x-ray is showing airspace disease throughout the left lung, which is gradually improving compared to the original chest x-ray. There is a small left-sided pleural effusion. There is also some increasing confusion the right lung base. Noted the patient is in a significant fluid positive balance. The patient was given diuretics yesterday. Fluid balance over the past 24 hours is still positive at 2.4 L in the patient's creatinine is up to 2.3. Urine output however his improving. Further diuretics will be given. 12/11/2019 The patient remains intubated; on vital high protein for enteral feeding and nutritional support. Chest x-ray bilateral infiltrates worse on the left compared to the right, somewhat improved compared to yesterday; [id number] staph epidermidis; The patient remains on a combination of Zosyn and vancomycin. Vancomycin trough was quite elevated and the patient's vancomycin is currently on hold. All of the cultures are negative. The patient has developed an acute kidney failure and the creatinine is up to 2.7; patient is nonoliguric; patient was given Lasix yesterday at a dose of 40 mg every 12 hours. Based on the rising and a creatinine in the based on the ongoing improvement in urine output, nephrology recommended discontinuing Lasix. The patient is a component of hyperchloremic hypernatremia. Sodium level is at 149. The patient is receiving free water through the NG. On examination, she is much less bronchospastic and wheezy. Her peak airway pressures down to 22. Static pressures down to 15-17. She is afebrile for now. Objective - Vital Signs Vital signs: Vital Signs Temp 98.9 F 12/12/19 08:00 Pulse 89 12/12/19 11:00 Resp 21 12/12/19 11:00 BP 134/74 12/12/19 11:00 Pulse Ox 97 04/04/20 11:00 Intake & Output 12/11/19 12/12/19 12/12/19 18:59 06:59 18:59 Intake Total 2105.496 2796.498 881.726 Output Total 2075 1535 475 Balance 30.496 1261.498 406.726 Weight 101.4 kg 99 kg Intake: IV 778 1486 104 0.45 NACL 250 220 80 Normal Saline Pressure 78 66 24 Bag Piperacillin-Tazobactam 3 200 75 .375 gm In Sodium Chloride 0.9% 100 ml @ 25 mls/hr IVPB Q8HR [facility] Rx# :[id number] Sodium Chloride 0.9% 1, 1125 000 ml @ 75 mls/hr IV . [id number] [facility] Rx#:[id number] Vancomycin 250 Intake, IV Titration 275.496 337.498 167.726 Amount Piperacillin-Tazobactam 3 100 .375 gm In Sodium Chloride 0.9% 100 ml @ 25 mls/hr IVPB Q8HR [facility] Rx# :[id number] Propofol 1,000 mg In 275.496 337.498 67.726 Empty Bag 1 bag @ Titrate IV .Q0M [facility] Rx#: [id number] Tube Feeding 452 373 210 Other 600 600 400 Output: Urine 5 1535 475 Other: Voiding Method Indwelling Catheter Indwelling Catheter Indwelling Catheter ABP, PAP, CO, CI - Last Documented Arterial Blood Pressure 134/64 - Exam Gen. appearance, comfortable likely distress sedated paralyzed success with the mechanical ventilator for now. The patient has an orogastric and orotracheal tube are both in place. Head exam was generally normal. There was no scleral icterus or corneal arcus. Mucous membranes were moist. Neck was supple and without jugular venous distension, thyromegaly, or carotid bruits. Carotids were easily palpable bilaterally. There was no adenopathy. Orogastric and orotracheal tube are both in place and the patient is a left IJ triple-lumen catheter in place. Lung sounds are diminished and some crackles in lung bases bilaterally more so on the left. Otherwise breath on that equal and symmetrical. On today's evaluation the patient continues to be bronchospastic and wheezy. Heart sounds are regular, positive S1-S2 and there is a systolic ejection murmur grade 3/6 heard along left lateral sternal border. Abdominal exam revealed normal bowel sounds. The abdomen was soft, non-tender, and without masses, organomegaly, or appreciable enlargement of the abdominal aorta. Examination of the extremities revealed easily palpable radial, femoral and pedal pulses. There was no cyanosis, clubbing or edema. - Labs CBC & Chem 7: 12/12/19 04:35 12/12/19 04:35 Labs: Abnormal Lab Results - Last 24 Hours (Table) 12/11/19 12/11/19 12/11/19 Range/Units 11:52 17:09 23:35 WBC (3.8-10.6) k/uL RBC (3.80-5.40) m/uL Hgb (11.4-16.0) gm/dL Hct (34.0-46.0) % Plt Count (150-450) k/uL Neutrophils # (1.3-7.7) k/uL Lymphocytes # (1.0-4.8) k/uL ABG HCO3 (21-25) mmol/L ABG Total CO2 (19-24) mmol/L Sodium (137-145) mmol/L Chloride (98-107) mmol/L BUN (7-17) mg/dL Creatinine (0.52-1.04) mg/dL Glucose (74-99) mg/dL POC Glucose (mg/dL) 148 H 134 H 143 H (75-99) mg/dL Calcium (8.4-10.2) mg/dL 12/12/19 12/12/19 12/12/19 Range/Units 04:35 04:35 04:50 WBC 17.0 H (3.8-10.6) k/uL RBC 3.00 L (3.80-5.40) m/uL Hgb 9.2 L (11.4-16.0) gm/dL Hct 28.3 L (34.0-46.0) % Plt Count 142 L (150-450) k/uL Neutrophils # 15.4 H (1.3-7.7) k/uL Lymphocytes # 0.8 L (1.0-4.8) k/uL ABG HCO3 26 H (21-25) mmol/L ABG Total CO2 28 H (19-24) mmol/L Sodium 149 H (137-145) mmol/L Chloride 117 H (98-107) mmol/L BUN 67 H (7-17) mg/dL Creatinine 2.73 H (0.52-1.04) mg/dL Glucose 155 H (74-99) mg/dL POC Glucose (mg/dL) (75-99) mg/dL Calcium 8.3 L (8.4-10.2) mg/dL 12/12/19 Range/Units 05:35 WBC (3.8-10.6) k/uL RBC (3.80-5.40) m/uL Hgb (11.4-16.0) gm/dL Hct (34.0-46.0) % Plt Count (150-450) k/uL Neutrophils # (1.3-7.7) k/uL Lymphocytes # (1.0-4.8) k/uL ABG HCO3 (21-25) mmol/L ABG Total CO2 (19-24) mmol/L Sodium (137-145) mmol/L Chloride (98-107) mmol/L BUN (7-17) mg/dL Creatinine (0.52-1.04) mg/dL Glucose (74-99) mg/dL POC Glucose (mg/dL) 150 H (75-99) mg/dL Calcium (8.4-10.2) mg/dL Microbiology - Last 24 Hours (Table) 12/06/19 04:07 Blood Culture - Final Blood No Growth after 144 hours Assessment and Plan Assessment: -Septic shock: Shock improved at this time because on IV fluids patient will be continued on broad-spectrum antibiotics Zosyn ,sputum cultures did not show any abnormality blood cultures were also negative, COVID negative. Patient remains hypoxic hypoxic hypercapnic and acidotic but significant improvement compared to yesterday patient has set up respiratory 25 breathing over the ventilator patient is off pressor support,off fluids, off Nimbex. Patient FiO2 is 50% presently people for 10 -Acute renal failure secondary to sepsis and septic shock can use supportive care IV fluids were discussed because of anasarca. Nephrology will be consulted -Acute hypercapnic and acute hypoxic respiratory failure: Continue with ventilator support continue with inhalational treatments. -History of congestive heart failure severe systolic dysfunction I do not know the ejection fraction. Patient has multi valvular heart disease including severe mitral regurgitation severe tricuspid regurgitation. Patient remains on IV fluids because of severe sepsis. Patient had a echocardiogram which did not show any mitral regurgitation doesn't have any heart failure. -COPD present smoker further management as mentioned above -History of opiate abuse with mildly elevated liver enzymes will obtain a hepati tis panel. -Fibromyalgia -Hyperlipidemia -Hypertension Time with Patient: Greater than 30
[2019-12-12] MEDS: SODIUM CHLORIDE 0.45% 1,000 ML IV SCH (16:16)
[2019-12-12 18:21] LABS: Glucose,Whole Blood 141 mg/dL (75-99)
[2019-12-12] MEDS: fentaNYL (PF) 50 MCG/ML 2 ML AMP IVP PRN (19:32)
[2019-12-12 23:55] LABS: Glucose,Whole Blood 167 mg/dL (75-99)
[2019-12-13] MEDS: methylPREDNISolone SOD SUCCI 125 MG/2 ML VIAL IV SCH ×4 (00:40→17:38)
[2019-12-13] MEDS: INSULIN ASPART (NovoLOG) 100 UNIT/ML VIAL SQ SCH ×4 (00:40→18:03)
[2019-12-13] MEDS: PIPERACILLIN-TAZOBACTAM 3.375 GM in SODIUM CHLORIDE 0.9% 100 ML IVPB SCH ×2 (00:40→07:33)
[2019-12-13] MEDS: ARTIFICIAL TEARS-HYPROMELLOSE DROPS 15 ML BTL BOTH EYES SCH ×6 (00:41→22:19)
[2019-12-13] MEDS: PROPOFOL 1,000 MG in EMPTY BAG 1 BAG IV SCH ×2 (01:31→06:26)
[2019-12-13] MEDS: NOREPINEPHRINE 32 MG in SODIUM CHLORIDE 0.9% 218 ML IV SCH (03:11)
[2019-12-13] MEDS: IPRATROPIUM-ALBUTEROL 3 ML NEB INHALATION SCH ×7 (03:29→20:39)
[2019-12-13] MEDS: DEXMEDETOMIDINE/0.9% NACL(PMX) 400 MCG in EMPTY BAG 1 BAG IV SCH ×3 (03:31→14:48)
[2019-12-13 04:32] LABS: ABG Base Excess 2.1 mmol/L; ABG HCO3 26 mmol/L (21-25); ABG Oxygen Saturation 97.6 % (94-97); ABG PCO2 37 mmHg (35-45); ABG PH 7.46 (7.35-7.45); ABG PO2 93 mmHg (83-108); ABG TCO2 27 mmol/L (19-24); Allen Test Performed? Yes
[2019-12-13 06:07] LABS: Glucose,Whole Blood 194 mg/dL (75-99)
[2019-12-13] MEDS: fentaNYL (PF) 50 MCG/ML 2 ML AMP IVP PRN ×4 (06:15→20:09)
[2019-12-13 06:34] LABS: Basophils % (A) 0 %; Eosinophils % (A) 0 %; HCT 30.2 % (34.0-46.0); HGB 9.7 gm/dL (11.4-16.0); Lymphocytes # (A) 0.8 k/uL (1.0-4.8); Lymphocytes % (A) 5 %; MCH 30.5 pg (25.0-35.0); MCHC 32.1 g/dL (31.0-37.0); MCV 94.8 fL (80.0-100.0); Mean Platelet Volume 9.6; Monocytes # (A) 0.6 k/uL (0-1.0); Monocytes % (A) 4 %; Neutrophils # (A) 12.2 k/uL (1.3-7.7); Neutrophils % (A) 89 %; Platelet Count 149 k/uL (150-450); RBC 3.18 m/uL (3.80-5.40); RDW 14.2 % (11.5-15.5); WBC 13.7 k/uL (3.8-10.6)
[2019-12-13 06:40] LABS: Calcium 8.2 mg/dL (8.4-10.2)
--- NOTE | 2019-12-13 06:44 | XR ---
EXAMINATION TYPE: XR chest 1V DATE OF EXAM: 12/13/2019 HISTORY: intubated. REFERENCE: Previous study dated 12/12/2019. FINDINGS: The patient is ET tube, NG tube and left internal jugular catheter remain in place, unchang ed in appearance. There continue to BE patchy bilateral infiltrates, worse on the left within the right. There is blunt ing of both CP angles. I could not exclude small effusions. The heart is not enlarged. There may have been very slight worsening in the degree of airspace disease on the left. IMPRESSION: I CANNOT EXCLUDE A MILD DEGREE OF WORSENING LEFT-SIDED AIRSPACE DISEASE.
[2019-12-13] MEDS: FAMOTIDINE 20 MG/2 ML VIAL IV SCH (08:04)
[2019-12-13] MEDS: CHLORHEXIDINE GLUCONATE 15 ML CUP MUCOUS MEM SCH ×2 (08:04→20:09)
[2019-12-13] MEDS: CLEVIDIPINE BUTYRATE 25 MG in EMPTY BAG 1 BAG IV SCH ×7 (09:12→22:32)
--- NOTE | 2019-12-13 09:42 | P.PN ---
Subjective Patient is seen in follow-up for acute kidney injury. Renal function is improving. Patient is nonoliguric with urine output over 100 mL an hour. Sodium level 148 today. She is receiving tube feeding with free water flushes. Lasix was held as of yesterday. Vital signs are stable. General: The patient appeared well nourished and normally developed. HEENT: Head exam is unremarkable. Neck is without jugular venous distension. Intubated. LUNGS: Breath sounds decreased. HEART: Rate and Rhythm are regular. ABDOMEN: No distention. Soft. EXTREMITITES: Trace edema. Objective - Vital Signs Vital signs: Vital Signs Temp 97.8 F 12/13/19 04:00 Pulse 55 L 12/13/19 08:19 Resp 18 12/13/19 07:00 BP 152/92 12/13/19 05:00 Pulse Ox 99 12/13/19 07:00 Intake & Output 12/12/19 12/13/19 12/13/19 18:59 06:59 18:59 Intake Total 2307.835 2426.801 778.420 Output Total 1325 1580 375 Balance 982.835 846.801 403.420 Weight 98.9 kg Intake: IV 512 297 172 0.45 NACL 240 240 60 Normal Saline Pressure 72 57 12 Bag Piperacillin-Tazobactam 3 200 100 .375 gm In Sodium Chloride 0.9% 100 ml @ 25 mls/hr IVPB Q8HR [facility] Rx# :[id number] Intake, IV Titration 365.835 341.801 80.420 Amount Clevidipine Butyrate 25 1.067 mg In Empty Bag 1 bag @ 1 MG/HR 2 mls/hr IV .Q24H [facility] Rx#:[id number] Dexmedetomidine/0.9% NaCl 42.900 47.309 (Pmx) 400 mcg In Empty Bag 1 bag @ Titrate IV . Q0M [facility] Rx#:[id number] Piperacillin-Tazobactam 3 100 .375 gm In Sodium Chloride 0.9% 100 ml @ 25 mls/hr IVPB Q8HR [facility] Rx# :[id number] Propofol 1,000 mg In 265.835 298.901 32.044 Empty Bag 1 bag @ Titrate IV .Q0M [facility] Rx#: [id number] Tube Feeding 630 588 126 Other 800 1200 400 Output: Urine 1325 1580 375 Other: Voiding Method Indwelling Catheter Indwelling Catheter ABP, PAP, CO, CI - Last Documented Arterial Blood Pressure 162/77 - Labs CBC & Chem 7: 12/13/19 04:22 12/13/19 04:22 Labs: Abnormal Lab Results - Last 24 Hours (Table) 12/12/19 12/12/19 12/12/19 Range/Units 12:52 18:20 23:54 WBC (3.8-10.6) k/uL RBC (3.80-5.40) m/uL Hgb (11.4-16.0) gm/dL Hct (34.0-46.0) % Plt Count (150-450) k/uL Neutrophils # (1.3-7.7) k/uL Lymphocytes # (1.0-4.8) k/uL ABG pH (7.35-7.45) ABG HCO3 (21-25) mmol/L ABG Total CO2 (19-24) mmol/L ABG O2 Saturation (94-97) % Sodium (137-145) mmol/L Chloride (98-107) mmol/L BUN (7-17) mg/dL Creatinine (0.52-1.04) mg/dL Glucose (74-99) mg/dL POC Glucose (mg/dL) 151 H 141 H 167 H (75-99) mg/dL Calcium (8.4-10.2) mg/dL 12/13/19 12/13/19 12/13/19 Range/Units 04:22 04:22 04:27 WBC 13.7 H (3.8-10.6) k/uL RBC 3.18 L (3.80-5.40) m/uL Hgb 9.7 L (11.4-16.0) gm/dL Hct 30.2 L (34.0-46.0) % Plt Count 149 L (150-450) k/uL Neutrophils # 12.2 H (1.3-7.7) k/uL Lymphocytes # 0.8 L (1.0-4.8) k/uL ABG pH 7.46 H (7.35-7.45) ABG HCO3 26 H (21-25) mmol/L ABG Total CO2 27 H (19-24) mmol/L ABG O2 Saturation 97.6 H (94-97) % Sodium 148 H (137-145) mmol/L Chloride 119 H (98-107) mmol/L BUN 76 H (7-17) mg/dL Creatinine 2.40 H (0.52-1.04) mg/dL Glucose 169 H (74-99) mg/dL POC Glucose (mg/dL) (75-99) mg/dL Calcium 8.2 L (8.4-10.2) mg/dL 12/13/19 Range/Units 06:06 WBC (3.8-10.6) k/uL RBC (3.80-5.40) m/uL Hgb (11.4-16.0) gm/dL Hct (34.0-46.0) % Plt Count (150-450) k/uL Neutrophils # (1.3-7.7) k/uL Lymphocytes # (1.0-4.8) k/uL ABG pH (7.35-7.45) ABG HCO3 (21-25) mmol/L ABG Total CO2 (19-24) mmol/L ABG O2 Saturation (94-97) % Sodium (137-145) mmol/L Chloride (98-107) mmol/L BUN (7-17) mg/dL Creatinine (0.52-1.04) mg/dL Glucose (74-99) mg/dL POC Glucose (mg/dL) 194 H (75-99) mg/dL Calcium (8.4-10.2) mg/dL Microbiology - Last 24 Hours (Table) 12/06/19 04:07 Blood Culture - Final Blood No Growth after 144 hours Assessment and Plan Plan: Assessment: 1. Acute kidney injury secondary to ATN secondary to septic shock and diuresis. Baseline creatinine near 1 and peaked at 2.73 this admission. 2.4 today. 2. Septic shock secondary to pneumonia. Maintained on antibiotics. Off vasopressors. 3. Hypernatremia secondary to free water diuresis and lack of oral water intake. 4. Volume overload. Improving. Plan: Continue to hold Lasix. Increase free water flushes to 500 mL every 4 hours with tube feeding. Wean FiO2. Continue to monitor renal function and urine output. Monitor vancomycin levels. Dose to be adjusted for renal function. Prognosis poor. No improvement in her neurologic status.
--- NOTE | 2019-12-13 11:25 | CT ---
EXAMINATION TYPE: CT brain wo con DATE OF EXAM: 12/13/2019 COMPARISON: Outside study from [facility] dated 12/05/2019. HISTORY: altered mental status CT DLP: 1099.4 mGycm Automated exposure control for dose reduction was used. FINDINGS: This study is compromised by patient motion artifact. It is virtually nondiagnostic for subtle change s. IMPRESSION: NONDIAGNOSTIC STUDY. THIS SHOULD BE REPEATED.
[2019-12-13 11:53] LABS: Glucose,Whole Blood 154 mg/dL (75-99)
--- NOTE | 2019-12-13 13:31 | P.PN ---
Subjective Progress Note Date: 12/13/19 On today's evaluation of 12/07/2019 and seeing the patient for a follow-up. This patient came with an extensive left lung pneumonia/airspace disease/consolidation and she is intubated on a mechanical ventilator. Note that she was quite septic and the time of arrival. She is also being ruled out for COVID 19 infection. The patient has multiple medical problems and comorbidities. The patient has COPD/asthma. The patient also has CHF with an ejection fraction of 25-30% along with previous history of moderate degree of mitral regurgitation. She has history of substance abuse including methamphe tamine and fentanyl and the patient has been on methadone on outpatient basis. The patient has hypertension, hyperlipidemia, fibromyalgia, osteoarthritis and previous history of alcoholism This morning, the patient remains sedated with propofol which is currently running at 40 mg per KG per minute. The patient is also paralyzed with Nimbex 01 g per KG per minute. The patient is receiving IV fluids at the rate of 75 mL an hour. The patient is on norepinephrine infusion at 0.15 g per KG per minute. She is an assist-control mode of ventilator. The patient is at the rate of 34 with a tidal volume of 350 and FiO2 of 85% with a PEEP of 15. The blood gases from today showed a pH of 7.16 with a pCO2 of 73 and pO2 of 85 and this was done and FiO2 of 85%. The white cell count is at 20 per lactic acid level is down to 2.4. Renal function is stable with a creatinine of 0.7. Sodium is at 144. The patient had been she with a combination of antibiotics. For now we have the patient a combination of vancomycin and Zosyn. I added Zithromax today. I also have the patient on Plaquenil for the possibility of an underlying coronavirus infection of the lungs. A repeat echocardiogram is still pending regarding the left ventricle ejection fraction and the extent of mitral regurgitation. Noted the patient was noted to be having a lower CVP this morning. I went ahead and gave her another liter of normal saline with a possibility of giving her a second liter if she continues to have lower urine output. Troponin is at 0.9. Blood cultures still negative. Sputum Gram stain and cultures also negative. Note that on her blood work, the patient has a 28% bandemia time of admission and currently she is up to 58%. Legionella urine antigen will be also sent. On today's evaluation of 12/08/2019 the patient remains intubated on a mechanical ventilator. We will inform that the patient's blood cultures from [place] showed a gram-positive cocci in pairs. Based on that, we aren't anticipating the possibility of an underlying pneumococcal left lung pneumonia. The patient continues to have extensive consolidation of the left lung on today's chest x-ray. Meanwhile, the patient is a mechanical ventilator. She is quite bronchospastic and wheezy. No nebulizers or steroids have been utilizing anticipating a Covid 19 infection which I think it's less likely possibility on today's evaluation. The patient is currently on an assist-control mode at the rate of 34 with a tidal volume of 350 and FiO2 of 70% with a PEEP of 15. Peak airway pressures 42. Static pressure is 28. The patient is sedated with propofol at a dose of 40 g per KG per minute. The patient on Nimbex at 1 g per KG per minute. The patient is also on norepinephrine infusion at 0.3 g per KG per minute. The patient is also on vasopressin physiologic dose. The patient is septic shock. White cell count is up to 24 with a hemoglobin of 10.2. The patient has a percent bandemia which is improved compared to yesterday. The blood gas showed a pH of 7.18 with a pCO2 of 62 and pO2 of 83. The pro-calcitonin level was 96.4 indicating bacterial infection. Covid testing is still pending for now. The patient is receiving a combination of Zithromax, vancomycin and Zosyn for now. Plaquenil be continued pending the Covid 19 status. The patient also suffered an acute kidney injury. Creatinine is up to 1.6 and the patient has a positive fluid balance of 2.5 L over the past 24 hours. On 12/09/2019, the patient remains on a mechanical ventilator. This morning, the patient remains essentially on the same ventilator setting. The patient remains on assist control mode at the rate of 34 with a tidal volume of 350 and FiO2 of 60% with a PEEP of 15. The patient's pulse ox currently is around 93%. The peak airway pressures around 40 with a static pressure of 26. The patient has an extensive left lung consolidation which seems to be slightly improved compared to yesterday. We will inform that the patient had a positive gram- positive cocci in pairs and the blood culture that was obtained in the outside hospital. For that reason, I discontinue the Zithromax and a The patient a combination of Zosyn and vancomycin. Also, the Covid 19 testing came back negative and the patient was taken off the Plaquenil. The patient has a blood gas that showed a pH of 7.2 with a pCO2 of 60 and pO2 of 80. The patient was started on bronchodilators. The patient was also started on IV Solu-Medrol y esterday. The patient is being weaned off the pressors. Note that over the past 24-48 hours the patient was profoundly hypotensive and the patient also developed a component of an acute kidney injury. Creatinine came up to 1.6 and today's up to 1.8. Nevertheless urine output improved and the patient has been taken off the vasopressin and the patient is down on the norepinephrine infusion which is currently running at 0.08 g per KG per minute. The patient continues to be paralyzed with Nimbex and the proposed running at 40 g per KG per minute. The patient is on high protein vital running at 42 mL an hour. She is tolerating her enteral feeding for nutritional support. She is afebrile. No other significant events otherwise for now. The cultures that were obtained here in the hospital were all negative. On 12/10/2019, the patient remains intubated on a mechanical ventilator. The patient also remains sedated and paralyzed. This morning, the patient is an assist-control mode and based on the morning blood gases I made some changes in the mechanical ventilator. Note that the patient was in a assist-control of 34 with a tidal volume of 350 and FiO2 of 60% with a PEEP of 13. The blood gases from this morning showed a pH of 7.16 with a pCO2 of 65 and pO2 of 116. Based on that, increase the tidal volume up to 400s. I also dropped the PEEP. Subsequent evaluation showed that the patient had a pH of 7.21 with a pCO2 of 57 and pO2 of 141. Based on all this, I dropped the PEEP down to 10 and I also drop the FiO2 down to 50% and I dropped a respiratory rate down to 28. In terms of his chest x-ray findings, the patient shows improvement in the left lower lobe consolidation. Hemodynamically, the patient remains on low-dose norepinephrine infusion. The patient is currently on levo fed at 0.01 mcg/kg per minute. The peak air pressure 32 and the static pressures 21. The fluid balance has been positive over the past several days. For that reason the patient will be started on diuretics. Creatinine is up to 2.1. The patient is nonoliguric. Cultures of been all negative thus far and was still awaiting the final cultures to be forwarded to us from an outside hospital which indicated the possibility of a gram-positive cocci in pairs/changes. She is afebrile. She is tolerating enteral feeding for nutrition support. She'll be also taken off the paralytics today and she'll be given a paralytic holiday. He remains on a combination of fentanyl and propofol for sedation. The patient is also taking enteral feeding for nutritional support and she is on vital high protein at the rate of 42 mL an hour. On 12/11/2019 the patient remains intubated on a mechanical ventilator. She is a case of pneumonia with septic shock and multisystem organ failure the patient is still struggling to recover from this. The patient remains on a combination of Zosyn and vancomycin. Clinically, the patient is off paralytics. However, the patient is still requiring a propofol for sedation which is currently running at 14 mcg/kg per minute. On today's evaluation, the patient was assist- control at the rate of 28 with a tidal volume of 400 and PEEP of 10 with an FiO2 of 50%. She was somewhat asynchronous with a mechanical ventilator. She was occasional double stacking. The blood gases showed a pH of 7.29 with a pCO2 of 50 and pO2 131. Based on all this, I switched this patient a VC plus mode with tidal volume of 400. I put in at the rate of 24. Eye doctor tidal down to 40% with a PEEP of 5. I also put her on an inspiratory time of 0.6 seconds. The patient became significantly more synchronous with the mechanical ventilator. The patient however is still the most I a combination of bronchospasm wheezing and for that reason the patient will be kept on a mechanical ventilator for another 24 hours during which she is going to receive bronchodilators and steroids. Antibiotics remain unchanged pending further cultures. The chest x- ray is showing airspace disease throughout the left lung, which is gradually improving compared to the original chest x-ray. There is a small left-sided pleural effusion. There is also some increasing confusion the right lung base. Noted the patient is in a significant fluid positive balance. The patient was given diuretics yesterday. Fluid balance over the past 24 hours is still positive at 2.4 L in the patient's creatinine is up to 2.3. Urine output however his improving. Further diuretics will be given. Case was discussed with nephrology. On 12/12/2019, the patient is being seen for a follow-up. The patient is still sedated on propofol and she is currently running at 50 g per KG per minute. She is also on vital high protein for enteral feeding and nutritional support. She is on assist control mode of ventilation and she is in a VC plus mode and I haven't on a tidal volume of 400 with a rate of 24 with an FiO2 of 40% and a PEEP of 5. She was noted to have double stacking and she was requiring significant a higher volumes. Based on that, increase the tidal volume gradually up to 550 and I also dropped a respiratory rate down to 18. She was kept on a PEEP of 5 and FiO2 of 40%. Her current inspiratory time is at 0.65. Her inhalation exhalation ratio is 1-2 and the most recent blood gases from today shows A pH of 7.4 with a pCO2 of 42 and pO2 of 86. Chest x-ray bilateral infiltrates worse on the left compared to the right, somewhat improved compared to yesterday. The patient has no significant orotracheal secretions. The cultures that were sent over from the outside hospital do not to be a coagulase- negative staph epidermidis and it was not of any valuable information. The patient remains on a combination of Zosyn and vancomycin. Vancomycin trough was quite elevated and the patient's vancomycin is currently on hold. All of the cultures are negative. The patient is on is there is Zosyn also. She has developed an acute kidney failure and the creatinine is up to 2.7. Nevertheless the patient is nonoliguric. Neck fluid balance is at +1.4. Noted the patient was given Lasix yesterday at a dose of 40 mg every 12 hours. Based on the ris ing and a creatinine in the based on the ongoing improvement in urine output, we'll stop the Lasix upon discussing this with nephrology. The patient is a component of hyperchloremic hypernatremia. Sodium level is at 149. The patient is receiving free water through the NG. On examination, she is much less bronchospastic and wheezy. Her peak airway pressures down to 22. Static pressures down to 15-17. She is afebrile for now. She is on no pressors. She is tolerating her tube feeds. On 12/13/2019 on seeing the patient for a follow-up. Note that the patient is a case of extensive left lung pneumonia with septic shock and she was ruled out for coronary 19 infection. The patient was extremely hypoxic and hemodynamically unstable at time of admission and she gradually improved. This morning, we are on no pressors. The patient is on propofol which were trying to wean and replace it with Precedex. I'm trying to introduce Precedex as the patient is getting quite agitated and restless and tachypneic and tachycardic and hypertensive as the propofol is being weaned off. Nevertheless, she never gets the point where she becomes unresponsive. I'm also going to do a CAT scan of the brain to evaluate her underlying mental status as the patient unable to come off the propofol without any major difficulties. This morning from 4 is running at 20 g and Precedex at 0.7. She remains on a mechanical ventilator. She is having significant amount of double stacking. For that reason, I switched to a pressure control mode of ventilation and she is at the rate of 18 with a pressure control of 24 cm of water with an FiO2 of 40% with a PEEP of 5 and a respiratory time of 1 ms. This very much is eliminated her double stacking and she is very synchronous with the mechanical ventilator for now. She is afebrile. She remains on examination Zosyn and vancomycin. She remains on IV Solu Medrol pH is on DuoNeb nebulized treatments on the clock. In regards to her acute hypertension, I'm going to use clevidipine drip for blood pressure control. The creatinine is improving and creatinine is down to 2.4. She is producing adequate amount of urine output. The blood gases showed a pH of 7.46 with a pCO2 of 37 and pO2 of 93 and this was done and FiO2 of 40%. The chest x- ray shows left sided airspace disease. CAT scan of the brain is to follow. The white cell count is down to 13.7. Hemoglobin is at 9.7. The net fluid balance remains +1.43 yesterday and 1.8 L for today. Her weight is up and she would benefit from diuresis. We'll discuss this with nephrology. Note that she was also getting free water flushes at a dose of 500 mL every 4 hours. Her sodium level is down to 148. Objective - Vital Signs Vital signs: Vital Signs Temp 97.8 F 12/13/19 08:00 Pulse 93 12/13/19 09:00 Resp 20 12/13/19 09:00 BP 155/92 12/13/19 09:00 Pulse Ox 99 12/13/19 09:00 Intake & Output 12/12/19 12/13/19 12/13/19 18:59 06:59 18:59 Intake Total 2307.835 2426.801 868.419 Output Total 1325 1580 375 Balance 982.835 846.801 493.419 Weight 98.9 kg Intake: IV 512 297 172 0.45 NACL 240 240 60 Normal Saline Pressure 72 57 12 Bag Piperacillin-Tazobactam 3 200 100 .375 gm In Sodium Chloride 0.9% 100 ml @ 25 mls/hr IVPB Q8HR [facility] Rx# :[id number] Intake, IV Titration 365.835 341.801 128.419 Amount Clevidipine Butyrate 25 49.066 mg In Empty Bag 1 bag @ 1 MG/HR 2 mls/hr IV .Q24H [facility] Rx#:[id number] Dexmedetomidine/0.9% NaCl 42.900 47.309 (Pmx) 400 mcg In Empty Bag 1 bag @ Titrate IV . Q0M [facility] Rx#:[id number] Piperacillin-Tazobactam 3 100 .375 gm In Sodium Chloride 0.9% 100 ml @ 25 mls/hr IVPB Q8HR [facility] Rx# :[id number] Propofol 1,000 mg In 265.835 298.901 32.044 Empty Bag 1 bag @ Titrate IV .Q0M RE[facility] Rx#: [id number] Tube Feeding 630 588 168 Other 800 1200 400 Output: Urine 1325 1580 375 Other: Voiding Method Indwelling Catheter Indwelling Catheter ABP, PAP, CO, CI - Last Documented Arterial Blood Pressure 191/97 - Exam Gen. appearance, comfortable likely distress sedated paralyzed success with the mechanical ventilator for now. The patient has an orogastric and orotracheal tube are both in place. The patient is on a pressure control mode of ventilation. She is quite synchronous with the mechanical ventilator. No kentrell ble stacking at this point in time. Head exam was generally normal. There was no scleral icterus or corneal arcus. Mucous membranes were moist. Neck was supple and without jugular venous distension, thyromegaly, or carotid bruits. Carotids were easily palpable bilaterally. There was no adenopathy. Orogastric and orotracheal tube are both in place and the patient is a left IJ triple-lumen catheter in place. Lung sounds are diminished and some crackles in lung bases bilaterally more so on the left. Otherwise breath on that equal and symmetrical. On today's evaluation the patient continues to be bronchospastic and wheezy. Heart sounds are regular, positive S1-S2 and there is a systolic ejection murmur grade 3/6 heard along left lateral sternal border. Abdominal exam revealed normal bowel sounds. The abdomen was soft, non-tender, and without masses, organomegaly, or appreciable enlargement of the abdominal aorta. Examination of the extremities revealed easily palpable radial, femoral and pedal pulses. There was no cyanosis, clubbing and there is increased edema in all 4 extremities questions upper extremities bilaterally. Examination of the skin revealed no evidence of significant rashes, suspicious appearing nevi or other concerning lesions. Neurologically the patient sedated the patient is off paralytics. The patient is on a combination of Precedex and propofol. Unable to come off the propofol without being hypertensive agitated restless and tachycardic. For that reason P recedex was added. - Labs CBC & Chem 7: 12/13/19 04:22 12/13/19 04:22 Labs: Abnormal Lab Results - Last 24 Hours (Table) 12/12/19 12/12/19 12/13/19 Range/Units 18:20 23:54 04:22 WBC 13.7 H (3.8-10.6) k/uL RBC 3.18 L (3.80-5.40) m/uL Hgb 9.7 L (11.4-16.0) gm/dL Hct 30.2 L (34.0-46.0) % Plt Count 149 L (150-450) k/uL Neutrophils # 12.2 H (1.3-7.7) k/uL Lymphocytes # 0.8 L (1.0-4.8) k/uL ABG pH (7.35-7.45) ABG HCO3 (21-25) mmol/L ABG Total CO2 (19-24) mmol/L ABG O2 Saturation (94-97) % Sodium (137-145) mmol/L Chloride (98-107) mmol/L BUN (7-17) mg/dL Creatinine (0.52-1.04) mg/dL Glucose (74-99) mg/dL POC Glucose (mg/dL) 141 H 167 H (75-99) mg/dL Calcium (8.4-10.2) mg/dL 12/13/19 12/13/19 12/13/19 Range/Units 04:22 04:27 06:06 WBC (3.8-10.6) k/uL RBC (3.80-5.40) m/uL Hgb (11.4-16.0) gm/dL Hct (34.0-46.0) % Plt Count (150-450) k/uL Neutrophils # (1.3-7.7) k/uL Lymphocytes # (1.0-4.8) k/uL ABG pH 7.46 H (7.35-7.45) ABG HCO3 26 H (21-25) mmol/L ABG Total CO2 27 H (19-24) mmol/L ABG O2 Saturation 97.6 H (94-97) % Sodium 148 H (137-145) mmol/L Chloride 119 H (98-107) mmol/L BUN 76 H (7-17) mg/dL Creatinine 2.40 H (0.52-1.04) mg/dL Glucose 169 H (74-99) mg/dL POC Glucose (mg/dL) 194 H (75-99) mg/dL Calcium 8.2 L (8.4-10.2) mg/dL 12/13/19 Range/Units 11:51 WBC (3.8-10.6) k/uL RBC (3.80-5.40) m/uL Hgb (11.4-16.0) gm/dL Hct (34.0-46.0) % Plt Count (150-450) k/uL Neutrophils # (1.3-7.7) k/uL Lymphocytes # (1.0-4.8) k/uL ABG pH (7.35-7.45) ABG HCO3 (21-25) mmol/L ABG Total CO2 (19-24) mmol/L ABG O2 Saturation (94-97) % Sodium (137-145) mmol/L Chloride (98-107) mmol/L BUN (7-17) mg/dL Creatinine (0.52-1.04) mg/dL Glucose (74-99) mg/dL POC Glucose (mg/dL) 154 H (75-99) mg/dL Calcium (8.4-10.2) mg/dL Assessment and Plan Plan: 1 left lower lobe pneumonia, strongly suspect bacterial pneumonia and the patient's final cultures of been all negative. Cultures forwarded to us from the outside hospital apple turner to be coagulase-negative staph. The patient gradually improved in terms of left lower lobe pneumonia and septic shock. The patient demonstrated improvement in the oxygenation. The patient also demonstrated improvement in the overall hemodynamics. Nevertheless, she is currently at the point where she hasn't recovered her mentation and while being given a sedation holiday she is becoming quite restless and agitated and tachypneic and tachycardic making it very difficult to wean her off the mechanical ventilator. I have placed on pressure control mode of ventilation to prevent any patient/ventilator asynchrony and this has worked nicely. I'm going to utilize Precedex and try to wean off the propofol if possible. I think she would deserve a CAT scan of the brain to make sure there is no acute abnormalities contributing to her difficulties from weaning off the mechanical ventilator with seems to be essentially neurologic at this point in time. Note that this patient also has issues with substance abuse, drug dependence and alcoholism. 2 septic shock currently pressor dependent secondary to pneumonia, and the patient is currently off pressors She is non-oliguric and she is producing adequate urine output. 3 acute hypoxic/hypercapnic respiratory failure secondary to above, oxygenation improved and the patient has still some residual consolidation of the left lung base. There may be also a component of pulmonary vessel congestion/effusions. 4 history of valvular heart disease with impaired left ventricular ejection fraction of 25-30% and moderate degree of mitral regurgitation. Awaiting a repeat echocardiogram. Note that the repeat echocardiogram showed no evidence of any significant mitral regurgitation and the patient ejection fraction was reported to be around 55%. 5 acute kidney injury with a creatinine of 2.4 along with signs of fluid overload, the patient is non-oliguric at this point in time. Nephrology has hold off diuretics as the patient had developed some hyperchloremic hypernatremia. The patient is receiving free water flushes through the NG 6 COPD 7 history of opiate dependence including fentanyl and the patient has done amphetamines in the past and the patient was receiving subaxone on outpatient basis 8 history of alcoholism 9 fibromyalgia and chronic pain 10 hypertension 11 hyperlipidemia 12 acute leukocytosis and bandemia secondary to above, improving white count 13 troponin leak secondary to above Plan Keep the patient on pressure control mode of ventilation Wean off propofol and utilize Precedex for sedation Use Cleviprex for blood pressure control should the patient develop any acute hypersensitivity reaction Evaluate mental status periodically CAT scan of the brain to evaluate her inability to come off sedation as the patient is still unresponsive and does not fully recover from sedation once off propofol and she becomes acutely agitated and restless and hypertensive and tachycardic and tachypneic. Continue the current antibiotic coverage which included examination of Zosyn and vancomycin Continue IV Solu-Medrol White cell count is improving Monitor sodium level and continue the free water flushes Discussed diuretics with nephrology Continue enteral feeding for nutritional support There is a critically care evaluation that was on a more than 30 minutes. Time with Patient: Greater than 30
--- NOTE | 2019-12-13 15:38 | P.PN ---
Subjective Progress Note Date: 12/13/19 Principal diagnosis: Acute hypoxic/hypercapnic respiratory failure; vent dependent Left lower lobe pneumonia Septic shock 12/11/2019 patient remains intubated on a mechanical ventilator due to pneumonia with septic shock and multisystem organ failure; remains on a combination of Zosyn and vancomycin. The patient however is still bronchospastic and for that reason the patient will be kept on a mechanical ventilator for another 24 hours during which she is going to receive bronchodilators and steroids. Antibiotics remain unchanged pending further cultures. The chest x-ray is showing airspace disease throughout the left lung, which is gradually improving compared to the original chest x-ray. There is a small left-sided pleural effusion. There is also some increasing confusion the right lung base. Noted the patient is in a significant fluid positive balance. The patient was given diuretics yesterday. Fluid balance over the past 24 hours is still positive at 2.4 L in the patient's creatinine is up to 2.3. Urine output however his improving. Further diuretics will be given. 12/12/2019 The patient remains intubated; on vital high protein for enteral feeding and nutritional support. Chest x-ray bilateral infiltrates worse on the left compared to the right, somewhat improved compared to yesterday; [id number] staph epidermidis; The patient remains on a combination of Zosyn and vancomycin. Vancomycin trough was quite elevated and the patient's vancomycin is currently on hold. All of the cultures are negative. The patient has developed an acute kidney failure and the creatinine is up to 2.7; patient is nonoliguric; patient was given Lasix yesterday at a dose of 40 mg every 12 hours. Based on the rising and a creatinine in the based on the ongoing improvement in urine output, nephrology recommended discontinuing Lasix. The patient is a component of hyperchloremic hypernatremia. Sodium level is at 149. The patient is receiving free water through the NG. On examination, she is much less bronchospastic and wheezy. Her peak airway pressures down to 22. Static pressures down to 15-17. She is afebrile for now. 12/13/2019 Patient is seen and evaluated in ICU; remains intubated and mechanically ventilated due to extensive left lung pneumonia with septic shock; patient has been ruled out for COVID 19 infection; patient remains afebrile; remains on IV antibiotics in form of Zosyn and vancomycin; continue with IV Solu-Medrol and rhonchal dilator nebulizer treatments; patient did have episode of acute hypertension and Levaquin to pain drip is used for blood pressure control; review of lab work reveals improvement in creatinine down to 2.4, WBC is down to 13.7, hemoglobin is at 9.7, sodium level is down to 148; patient had chest x-ray done which shows left-sided airspace disease; CT of head is ordered and pending Objective - Vital Signs Vital signs: Vital Signs Temp 97.8 F 12/13/19 08:00 Pulse 93 12/13/19 09:00 Resp 20 12/13/19 09:00 BP 155/92 12/13/19 09:00 Pulse Ox 99 12/13/19 09:00 Intake & Output 12/12/19 12/13/19 12/13/19 18:59 06:59 18:59 Intake Total 2307.835 2426.801 820.953 Output Total 1325 1580 375 Balance 982.835 846.801 445.953 Weight 98.9 kg Intake: IV 512 297 172 0.45 NACL 240 240 60 Normal Saline Pressure 72 57 12 Bag Piperacillin-Tazobactam 3 200 100 .375 gm In Sodium Chloride 0.9% 100 ml @ 25 mls/hr IVPB Q8HR [facility] Rx# :[id number] Intake, IV Titration 365.835 341.801 80.953 Amount Clevidipine Butyrate 25 1.600 mg In Empty Bag 1 bag @ 1 MG/HR 2 mls/hr IV .Q24H [facility] Rx#:[id number] Dexmedetomidine/0.9% NaCl 42.900 47.309 (Pmx) 400 mcg In Empty Bag 1 bag @ Titrate IV . Q0M [facility] Rx#:[id number] Piperacillin-Tazobactam 3 100 .375 gm In Sodium Chloride 0.9% 100 ml @ 25 mls/hr IVPB Q8HR [facility] Rx# :[id number] Propofol 1,000 mg In 265.835 298.901 32.044 Empty Bag 1 bag @ Titrate IV .Q0M [facility] Rx#: [id number] Tube Feeding 630 588 168 Other 800 1200 400 Output: Urine 1325 1580 375 Other: Voiding Method Indwelling Catheter Indwelling Catheter ABP, PAP, CO, CI - Last Documented Arterial Blood Pressure 191/97 - Exam Gen. appearance, comfortable likely distress sedated paralyzed success with the mechanical ventilator for now. The patient has an orogastric and orotracheal tube are both in place. Head exam was generally normal. There was no scleral icterus or corneal arcus. Mucous membranes were moist. Neck was supple and without jugular venous distension, thyromegaly, or carotid bruits. Carotids were easily palpable bilaterally. There was no adenopathy. Orogastric and orotracheal tube are both in place and the patient is a left IJ triple-lumen catheter in place. Lung sounds are diminished and some crackles in lung bases bilaterally more so on the left. Otherwise breath on that equal and symmetrical. On today's evaluation the patient continues to be bronchospastic and wheezy. Heart sounds are regular, positive S1-S2 and there is a systolic ejection murmur grade 3/6 heard along left lateral sternal border. Abdominal exam revealed normal bowel sounds. The abdomen was soft, non-tender, and without masses, organomegaly, or appreciable enlargement of the abdominal aorta. Examination of the extremities revealed easily palpable radial, femoral and pedal pulses. There was no cyanosis, clubbing or edema. - Labs CBC & Chem 7: 12/13/19 04:22 12/13/19 04:22 Labs: Abnormal Lab Results - Last 24 Hours (Table) 12/12/19 12/12/19 12/12/19 Range/Units 12:52 18:20 23:54 WBC (3.8-10.6) k/uL RBC (3.80-5.40) m/uL Hgb (11.4-16.0) gm/dL Hct (34.0-46.0) % Plt Count (150-450) k/uL Neutrophils # (1.3-7.7) k/uL Lymphocytes # (1.0-4.8) k/uL ABG pH (7.35-7.45) ABG HCO3 (21-25) mmol/L ABG Total CO2 (19-24) mmol/L ABG O2 Saturation (94-97) % Sodium (137-145) mmol/L Chloride (98-107) mmol/L BUN (7-17) mg/dL Creatinine (0.52-1.04) mg/dL Glucose (74-99) mg/dL POC Glucose (mg/dL) 151 H 141 H 167 H (75-99) mg/dL Calcium (8.4-10.2) mg/dL 12/13/19 12/13/19 12/13/19 Range/Units 04:22 04:22 04:27 WBC 13.7 H (3.8-10.6) k/uL RBC 3.18 L (3.80-5.40) m/uL Hgb 9.7 L (11.4-16.0) gm/dL Hct 30.2 L (34.0-46.0) % Plt Count 149 L (150-450) k/uL Neutrophils # 12.2 H (1.3-7.7) k/uL Lymphocytes # 0.8 L (1.0-4.8) k/uL ABG pH 7.46 H (7.35-7.45) ABG HCO3 26 H (21-25) mmol/L ABG Total CO2 27 H (19-24) mmol/L ABG O2 Saturation 97.6 H (94-97) % Sodium 148 H (137-145) mmol/L Chloride 119 H (98-107) mmol/L BUN 76 H (7-17) mg/dL Creatinine 2.40 H (0.52-1.04) mg/dL Glucose 169 H (74-99) mg/dL POC Glucose (mg/dL) (75-99) mg/dL Calcium 8.2 L (8.4-10.2) mg/dL 12/13/19 Range/Units 06:06 WBC (3.8-10.6) k/uL RBC (3.80-5.40) m/uL Hgb (11.4-16.0) gm/dL Hct (34.0-46.0) % Plt Count (150-450) k/uL Neutrophils # (1.3-7.7) k/uL Lymphocytes # (1.0-4.8) k/uL ABG pH (7.35-7.45) ABG HCO3 (21-25) mmol/L ABG Total CO2 (19-24) mmol/L ABG O2 Saturation (94-97) % Sodium (137-145) mmol/L Chloride (98-107) mmol/L BUN (7-17) mg/dL Creatinine (0.52-1.04) mg/dL Glucose (74-99) mg/dL POC Glucose (mg/dL) 194 H (75-99) mg/dL Calcium (8.4-10.2) mg/dL Assessment and Plan Assessment: -Septic shock: Shock improved at this time because on IV fluids patient will be continued on broad-spectrum antibiotics Zosyn ,sputum cultures did not show any abnormality blood cultures were also negative, COVID negative. Patient remains hypoxic hypoxic hypercapnic and acidotic but significant improvement compared to yesterday patient has set up respiratory 25 breathing over the ventilator patient is off pressor support,off fluids, off Nimbex. Patient FiO2 is 50% presently people for 10 -Acute renal failure secondary to sepsis and septic shock can use supportive care IV fluids were discussed because of anasarca. Nephrology will be consulted -Acute hypercapnic and acute hypoxic respiratory failure: Continue with ventilator support continue with inhalational treatments. -History of congestive heart failure severe systolic dysfunction I do not know the ejection fraction. Patient has multi valvular heart disease including severe mitral regurgitation severe tricuspid regurgitation. Patient remains on IV fluids because of severe sepsis. Patient had a echocardiogram which did not show any mitral regurgitation doesn't have any heart failure. -COPD present smoker further management as mentioned above -History of opiate abuse with mildly elevated liver enzymes will obtain a hepatitis panel. -Fibromyalgia -Hyperlipidemia -Hypertension
[2019-12-13] MEDS: SODIUM CHLORIDE 0.45% 1,000 ML IV SCH (15:57)
[2019-12-13 17:59] LABS: Glucose,Whole Blood 163 mg/dL (75-99)
[2019-12-13 23:54] LABS: Glucose,Whole Blood 162 mg/dL (75-99)
[2019-12-14] MEDS: CLEVIDIPINE BUTYRATE 25 MG in EMPTY BAG 1 BAG IV SCH ×6 (00:11→20:43)
[2019-12-14] MEDS: INSULIN ASPART (NovoLOG) 100 UNIT/ML VIAL SQ SCH ×5 (00:11→23:36)
[2019-12-14] MEDS: methylPREDNISolone SOD SUCCI 125 MG/2 ML VIAL IV SCH ×5 (00:27→23:37)
[2019-12-14] MEDS: ARTIFICIAL TEARS-HYPROMELLOSE DROPS 15 ML BTL BOTH EYES SCH ×4 (00:27→12:31)
[2019-12-14] MEDS: IPRATROPIUM-ALBUTEROL 3 ML NEB INHALATION SCH ×6 (01:05→19:04)
[2019-12-14] MEDS: NOREPINEPHRINE 32 MG in SODIUM CHLORIDE 0.9% 218 ML IV SCH (04:37)
[2019-12-14] MEDS: HEPARIN SODIUM,PORCINE 5,000 UNIT/ML 1 ML VIAL SQ SCH ×2 (04:45→23:37)
[2019-12-14 05:07] LABS: ABG Base Excess 3.4 mmol/L; ABG HCO3 26 mmol/L (21-25); ABG Oxygen Saturation 98.8 % (94-97); ABG PCO2 32 mmHg (35-45); ABG PH 7.52 (7.35-7.45); ABG PO2 112 mmHg (83-108); ABG TCO2 27 mmol/L (19-24)
[2019-12-14 05:11] LABS: Allen Test Performed? no
[2019-12-14] MEDS: fentaNYL (PF) 50 MCG/ML 2 ML AMP IVP PRN ×2 (05:49→20:48)
[2019-12-14 05:52] LABS: Basophils % (A) 0 %; Eosinophils % (A) 0 %; HCT 33.4 % (34.0-46.0); Lymphocytes % (A) 5 %; MCH 29.9 pg (25.0-35.0); MCHC 32.9 g/dL (31.0-37.0); MCV 90.9 fL (80.0-100.0); Mean Platelet Volume 9.9; Monocytes # (A) 0.5 k/uL (0-1.0); Monocytes % (A) 2 %; Neutrophils % (A) 92 %; Platelet Count 191 k/uL (150-450); RBC 3.67 m/uL (3.80-5.40); RDW 14.2 % (11.5-15.5); WBC 21.8 k/uL (3.8-10.6)
[2019-12-14] MEDS ORDERED: VANCOMYCIN 1,500 MG in SODIUM CHLORIDE 0.9% 250 ML IVPB ONE (06:00)
[2019-12-14 06:02] LABS: Calcium 8.4 mg/dL (8.4-10.2); Potassium 3.4 mmol/L (3.5-5.1)
[2019-12-14 06:13] LABS: Glucose,Whole Blood 141 mg/dL (75-99)
--- NOTE | 2019-12-14 07:22 | XR ---
EXAMINATION TYPE: XR chest 1V DATE OF EXAM: 12/14/2019 COMPARISON: 12/13/2019 HISTORY: Ventilatory dependent respiratory failure TECHNIQUE: Single frontal view of the chest is obtained. FINDINGS: Multifocal patchy opacities remain in the left midlung, left lung base and along the right hemidiaphragm overall similar in appearance to the prior. Numerous lines and tubes overlie the chest . Enteric tube and endotracheal tube as well as left-sided central venous catheter appear in a simila r position to the prior. 30 mediastinal silhouette is shifted to the left secondary to rotation but d oes not appear enlarged. IMPRESSION: Similar-appearing multifocal bilateral airspace disease, likely multifocal pneumonia. Tr gaston bilateral pleural effusions also suspected.
[2019-12-14 07:56] LABS: ABG PH 7.16 (7.35-7.45)
[2019-12-14 07:57] LABS: ABG PCO2 73 mmHg (35-45)
[2019-12-14] MEDS ORDERED: Potassium Replacement Protocol 1 EACH MISC MISCELLANE PRN (09:01)
[2019-12-14] MEDS: FAMOTIDINE 20 MG/2 ML VIAL IV SCH (09:11)
[2019-12-14] MEDS: CHLORHEXIDINE GLUCONATE 15 ML CUP MUCOUS MEM SCH ×2 (09:11→20:33)
[2019-12-14] MEDS: PIPERACILLIN-TAZOBACTAM 3.375 GM in SODIUM CHLORIDE 0.9% 100 ML IVPB SCH ×3 (09:12→23:36)
[2019-12-14] MEDS: DEXMEDETOMIDINE/0.9% NACL(PMX) 400 MCG in EMPTY BAG 1 BAG IV SCH ×3 (09:20→20:45)
[2019-12-14] MEDS: POTASSIUM BICARBONATE/CIT AC 20 MEQ TABLET.EFF NG-TUBE SCH ×2 (09:47→11:53)
[2019-12-14 10:30] LABS: Amorphous Sediment,Urine Rare /hpf; Appearance,Urine Clear (Clear); Bacteria,Urine Rare /hpf; Bilirubin,Urine Negative (Negative); Blood,Urine Small (Negative); Color,Urine Light Yellow; Glucose,Urine (UA) Negative (Negative); Ketones,Urine Negative (Negative); Leukocyte Esterase,Urine Negative (Negative); Mucus,Urine Rare /hpf; Nitrite,Urine Negative (Negative); PH, Urine 5.5 (5.0-8.0); Protein,Urine Negative (Negative); RBC,Urine 4 /hpf (0-5); Specific Gravity,Urine 1.011 (1.001-1.035); Urobilinogen,Urine <2.0 mg/dL (<2.0); WBC,Urine 2 /hpf (0-5)
[2019-12-14 12:30] LABS: Glucose,Whole Blood 113 mg/dL (75-99)
--- NOTE | 2019-12-14 13:22 | P.PN ---
Subjective Progress Note Date: 12/14/19 Principal diagnosis: Acute left lower lobe pneumonia, community acquired pneumonia. On today's evaluation of 12/07/2019 and seeing the patient for a follow-up. This patient came with an extensive left lung pneumonia/airspace disease/consolidation and she is intubated on a mechanical ventilator. Note that she was quite septic and the time of arrival. She is also being ruled out for COVID 19 infection. The patient has multiple medical problems and comorbidities. The patient has COPD/asthma. The patient also has CHF with an ejection fraction of 25-30% along with previous history of moderate degree of mitral regurgitation. She has history of substance abuse including methamphetamine and fentanyl and the patient has been on methadone on outpatient basis. The patient has hypertension, hyperlipidemia, fibromyalgia, osteoarthritis and previous history of alcoholism This morning, the patient remains sedated with propofol which is currently running at 40 mg per KG per minute. The patient is also paralyzed with Nimbex 01 g per KG per minute. The patient is receiving IV fluids at the rate of 75 mL an hour. The patient is on norepinephrine infusion at 0.15 g per KG per minute. She is an assist-control mode of ventilator. The patient is at the rate of 34 with a tidal volume of 350 and FiO2 of 85% with a PEEP of 15. The blood gases from today showed a pH of 7.16 with a pCO2 of 73 and pO2 of 85 and this was done and FiO2 of 85%. The white cell count is at 20 per lactic acid level is down to 2.4. Renal function is stable with a creatinine of 0.7. Sodi um is at 144. The patient had been she with a combination of antibiotics. For now we have the patient a combination of vancomycin and Zosyn. I added Zithromax today. I also have the patient on Plaquenil for the possibility of an underlying coronavirus infection of the lungs. A repeat echocardiogram is still pending regarding the left ventricle ejection fraction and the extent of mitral regurgitation. Noted the patient was noted to be having a lower CVP this morning. I went ahead and gave her another liter of normal saline with a possibility of giving her a second liter if she continues to have lower urine output. Troponin is at 0.9. Blood cultures still negative. Sputum Gram stain and cultures also negative. Note that on her blood work, the patient has a 28% bandemia time of admission and currently she is up to 58%. Legionella urine antigen will be also sent. On today's evaluation of 12/08/2019 the patient remains intubated on a mechanical ventilator. We will inform that the patient's blood cultures from [place] showed a gram-positive cocci in pairs. Based on that, we aren't anticipating the possibility of an underlying pneumococcal left lung pneumonia. The patient continues to have extensive consolidation of the left lung on today's chest x-ray. Meanwhile, the patient is a mechanical ventilator. She is quite bronchospastic and wheezy. No nebulizers or steroids have been utilizing anticipating a Covid 19 infection which I think it's less likely possibility on today's evaluation. The patient is currently on an assist-control mode at the rate of 34 with a tidal volume of 350 and FiO2 of 70% with a PEEP of 15. Peak airway pressures 42. Static pressure is 28. The patient is sedated with propofol at a dose of 40 g per KG per minute. The patient on Nimbex at 1 g per KG per minute. The patient is also on norepinephrine infusion at 0.3 g per KG per minute. The patient is also on vasopressin physiologic dose. The patient is septic shock. White cell count is up to 24 with a hemoglobin of 10.2. The patient has a percent bandemia which is improved compared to yesterday. The blood gas showed a pH of 7.18 with a pCO2 of 62 and pO2 of 83. The pro-calcitonin level was 96.4 indicating bacterial infection. Covid testing is still pending for now. The patient is receiving a combination of Zithromax, vancomycin and Zosyn for now. Plaquenil be continued pending the Covid 19 status. The patient also suffered an acute kidney injury. Creatinine is up to 1.6 and the patient has a positive fluid balance of 2.5 L over the past 24 hours. On 12/09/2019, the patient remains on a mechanical ventilator. This morning, the patient remains essentially on the same ventilator setting. The patient remains on assist control mode at the rate of 34 with a tidal volume of 350 and FiO2 of 60% with a PEEP of 15. The patient's pulse ox currently is around 93%. The peak airway pressures around 40 with a static pressure of 26. The patient has an extensive left lung consolidation which seems to be slightly improved compared to yesterday. We will inform that the patient had a positive gram- positive cocci in pairs and the blood culture that was obtained in the outside hospital. For that reason, I discontinue the Zithromax and a The patient a combination of Zosyn and vancomycin. Also, the Covid 19 testing came back negative and the patient was taken off the Plaquenil. The patient has a blood gas that showed a pH of 7.2 with a pCO2 of 60 and pO2 of 80. The patient was started on bronchodilators. The patient was also started on IV Solu-Medrol yesterday. The patient is being weaned off the pressors. Note that over the past 24-48 hours the patient was profoundly hypotensive and the patient also developed a component of an acute kidney injury. Creatinine came up to 1.6 and today's up to 1.8. Nevertheless urine output improved and the patient has been taken off the vasopressin and the patient is down on the norepinephrine infusion which is currently running at 0.08 g per KG per minute. The patient continues to be paralyzed with Nimbex and the proposed running at 40 g per KG per minute. The patient is on high protein vital running at 42 mL an hour. She is tolerating her enteral feeding for nutritional support. She is afebrile. No other significant events otherwise for now. The cultures that were obtained here in the hospital were all negative. On 12/10/2019, the patient remains intubated on a mechanical ventilator. The patient also remains sedated and paralyzed. This morning, the patient is an assist-control mode and based on the morning blood gases I made some changes in the mechanical ventilator. Note that the patient was in a assist-control of 34 with a tidal volume of 350 and FiO2 of 60% with a PEEP of 13. The blood gases from this morning showed a pH of 7.16 with a pCO2 of 65 and pO2 of 116. Based on that, increase the tidal volume up to 400s. I also dropped the PEEP. Subsequent evaluation showed that the patient had a pH of 7.21 with a pCO2 of 57 and pO2 of 141. Based on all this, I dropped the PEEP down to 10 and I also drop the FiO2 down to 50% and I dropped a respiratory rate down to 28. In terms of his chest x-ray findings, the patient shows improvement in the left lower l obe consolidation. Hemodynamically, the patient remains on low-dose norepinephrine infusion. The patient is currently on levo fed at 0.01 mcg/kg per minute. The peak air pressure 32 and the static pressures 21. The fluid balance has been positive over the past several days. For that reason the patient will be started on diuretics. Creatinine is up to 2.1. The patient is nonoliguric. Cultures of been all negative thus far and was still awaiting the final cultures to be forwarded to us from an outside hospital which indicated the possibility of a gram-positive cocci in pairs/changes. She is afebrile. She is tolerating enteral feeding for nutrition support. She'll be also taken off the paralytics today and she'll be given a paralytic holiday. He remains on a combination of fentanyl and propofol for sedation. The patient is also taking enteral feeding for nutritional support and she is on vital high protein at the rate of 42 mL an hour. On 12/11/2019 the patient remains intubated on a mechanical ventilator. She is a case of pneumonia with septic shock and multisystem organ failure the patient is still struggling to recover from this. The patient remains on a combination of Zosyn and vancomycin. Clinically, the patient is off paralytics. However, the patient is still requiring a propofol for sedation which is currently running at 14 mcg/kg per minute. On today's evaluation, the patient was assist- control at the rate of 28 with a tidal volume of 400 and PEEP of 10 with an FiO2 of 50%. She was somewhat asynchronous with a mechanical ventilator. She was occasional double stacking. The blood gases showed a pH of 7.29 with a pCO2 of 50 and pO2 131. Based on all this, I switched this patient a VC plus mode with tidal volume of 400. I put in at the rate of 24. Eye doctor tidal down to 40% with a PEEP of 5. I also put her on an inspiratory time of 0.6 seconds. The patient became significantly more synchronous with the mechanical ventilator. The patient however is still the most I a combination of bronchospasm wheezing and for that reason the patient will be kept on a mechanical ventilator for another 24 hours during which she is going to receive bronchodilators and steroids. Antibiotics remain unchanged pending further cultures. The chest x-ray is showing airspace disease throughout the left lung, which is gradually improving compared to the original chest x-ray. There is a small left-sided pleural effusion. There is also some increasing confusion the right lung base. Noted the patient is in a significant fluid positive balance. The patient was given diuretics yesterday. Fluid balance over the past 24 hours is still positive at 2.4 L in the patient's creatinine is up to 2.3. Urine output however his improving. Further diuretics will be given. Case was discussed with nephrology. On 12/12/2019, the patient is being seen for a follow-up. The patient is still sedated on propofol and she is currently running at 50 g per KG per minute. She is also on vital high protein for enteral feeding and nutritional support. She is on assist control mode of ventilation and she is in a VC plus mode and I haven't on a tidal volume of 400 with a rate of 24 with an FiO2 of 40% and a PEEP of 5. She was noted to have double stacking and she was requiring significant a higher volumes. Based on that, increase the tidal volume gradually up to 550 and I also dropped a respiratory rate down to 18. She was kept on a PEEP of 5 and FiO2 of 40%. Her current inspiratory time is at 0.65. Her inhalation exhalation ratio is 1-2 and the most recent blood gases from today shows A pH of 7.4 with a pCO2 of 42 and pO2 of 86. Chest x-ray bilateral infiltrates worse on the left compared to the right, somewhat improved compared to yesterday. The patient has no significant orotracheal secretions. The cultures that were sent over from the outside hospital do not to be a coagulase- negative staph epidermidis and it was not of any valuable information. The patient remains on a combination of Zosyn and vancomycin. Vancomycin trough was quite elevated and the patient's vancomycin is currently on hold. All of the cultures are negative. The patient is on is there is Zosyn also. She has developed an acute kidney failure and the creatinine is up to 2.7. Nevertheless the patient is nonoliguric. Neck fluid balance is at +1.4. Noted the patient was given Lasix yesterday at a dose of 40 mg every 12 hours. Based on the rising and a creatinine in the based on the ongoing improvement in urine output, we'll stop the Lasix upon discussing this with nephrology. The patient is a component of hyperchloremic hypernatremia. Sodium level is at 149. The patient is receiving free water through the NG. On examination, she is much less bronchospastic and wheezy. Her peak airway pressures down to 22. Static pressures down to 15-17. She is afebrile for now. She is on no pressors. She is tolerating her tube feeds. On 12/13/2019 on seeing the patient for a follow-up. Note that the patient is a case of extensive left lung pneumonia with septic shock and she was ruled out for coronary 19 infection. The patient was extremely hypoxic and hemodynamically unstable at time of admission and she gradually improved. This morning, we are on no pressors. The patient is on propofol which were trying to wean and replace it with Precedex. I'm trying to introduce Precedex as the patient is getting quite agitated and restless and tachypneic and tachycardic and hypertensive as the propofol is being weaned off. Nevertheless, she never gets the point where she becomes unresponsive. I'm also going to do a CAT scan of the brain to evaluate her underlying mental status as the patient unable to come off the propofol without any major difficulties. This morning from 4 is running at 20 g and Precedex at 0.7. She remains on a mechanical ventilator. She is having significant amount of double stacking. For that reason, I switched to a pressure control mode of ventilation and she is at the rate of 18 with a pressure control of 24 cm of water with an FiO2 of 40% with a PEEP of 5 and a respiratory time of 1 ms. This very much is eliminated her double stacking and she is very synchronous with the mechanical ventilator for now. She is afebrile. She remains on examination Zosyn and vancomycin. She remains on IV Solu Medrol pH is on DuoNeb nebulized treatments on the clock. In regards to her acute hypertension, I'm going to use clevidipine drip for blood pressure control. The creatinine is improving and creatinine is down to 2.4. She is producing adequate amount of urine output. The blood gases showed a pH of 7.46 with a pCO2 of 37 and pO2 of 93 and this was done and FiO2 of 40%. The chest x- ray shows left sided airspace disease. CAT scan of the brain is to follow. The white cell count is down to 13.7. Hemoglobin is at 9.7. The net fluid balance remains +1.43 yesterday and 1.8 L for today. Her weight is up and she would benefit from diuresis. We'll discuss this with nephrology. Note that she was also getting free water flushes at a dose of 500 mL every 4 hours. Her sodium level is down to 148. Reevaluated today on 12/14/19, patient is being followed for extensive left-sided pneumonia and septic shock. Patient was ruled out for covid 19, patient remains intubated on mechanical ventilation. Patient is on pressure control of 24, FiO2 is 40%, PEEP of 5. And inspiratory time 1ms. Chest x-ray continues to show extensive infiltrate in the left lung, especially in the left lower lobe, and some extent involving the right lower lobe. Consistent with multifocal pneumonia, possibility of underlying interstitial edema is not entirely ruled out. ABG this morning showed a pO2 of 112 pCO2 of 32 pH of 7.52, and this is on 40% FiO2. Her echocardiogram showed good LV function, and significant mitral valve disease. Patient was noted to be extremely agitated off Precedex. Hence I placed her back on Precedex. She is clearly not ready for any weaning. Gets extremely agitated, restless, tachycardic, tachypneic, off sedation. Sputum cultures have been nondiagnostic, hence I discontinued her vancomycin, and place the patient on Zosyn. Remains on updraft treatments, she is also on Solu- Medrol. Remains on clevidipine drip for control of blood pressure. CBC continues to show leukocytosis with WBC count of 21.8 hemoglobin is 11. Renal profile is slightly better compared to yesterday, her creatinine is down to 2.22 from 2.73 few days ago. I did recommend increasing the Lasix dose today since her chest x-ray is suggestive of mild interstitial edema in addition to her underlying pneumonia Objective - Vital Signs Vital signs: Vital Signs Temp 99.6 F 12/14/19 12:00 Pulse 104 H 12/14/19 13:00 Resp 18 12/14/19 13:00 BP 127/68 12/13/19 20:00 Pulse Ox 97 12/14/19 13:00 Intake & Output 12/13/19 12/14/19 12/14/19 18:59 06:59 18:59 Intake Total 2895.448 5303.049 9214.874 Output Total 1925 2400 1215 Balance 970.448 -375.186 1172.874 Weight 97.7 kg 97.7 kg Intake: IV 406 200 512 0.45 NACL 240 140 70 Normal Saline Pressure 66 60 42 Bag Piperacillin-Tazobactam 3 100 .375 gm In Sodium Chloride 0.9% 100 ml @ 25 mls/hr IVPB Q8HR [facility] Rx# :[id number] Piperacillin-Tazobactam 3 400 .375 gm In Sodium Chloride 0.9% 100 ml @ 25 mls/hr IVPB Q8HR [facility] Rx# :[id number] Intake, IV Titration 375.448 157.892 97.874 Amount Clevidipine Butyrate 25 164.933 153.734 88.267 mg In Empty Bag 1 bag @ 1 MG/HR 2 mls/hr IV .Q24H [facility] Rx#:[id number] Dexmedetomidine/0.9% NaCl 178.471 4.158 (Pmx) 400 mcg In Empty Bag 1 bag @ Titrate IV . Q0M [facility] Rx#:[id number] Dexmedetomidine/0.9% NaCl 9.607 (Pmx) 400 mcg In Empty Bag 1 bag @ Titrate IV . Q0M [facility] Rx#:[id number] Propofol 1,000 mg In 32.044 Empty Bag 1 bag @ Titrate IV .Q0M [facility] Rx#: [id number] Tube Feeding 714 546 168 Other 1400 1000 1500 Output: Urine 5 2400 1215 Other: Voiding Method Indwelling Catheter Indwelling Catheter Indwelling Catheter ABP, PAP, CO, CI - Last Documented Arterial Blood Pressure 132/56 - Exam Physical Exam: Revealed a 54-year-old female in no distress, however noted to be agitated off Precedex. Head: Atraumatic, normocephalic, endotracheal tube and orogastric tube are intact. HEENT:[Neck is supple.] [No neck masses.] [No thyromegaly.] [No JVD.] Chest: [Symmetrical chest expansion, crackles and rhonchi noted bilaterally especially at the left base.] Cardiac Exam: [Normal S1 and S2, no S3 gallop, 2/6 systolic murmur thought the precordium. Abdomen: [Soft, nontender, no megaly, no rebound, no guarding, normal bowel sounds.] Extremities: [No clubbing, no edema, no cyanosis.] Neurological Exam: [No focal neurologic deficit.] Skin: No rashes. - Labs CBC & Chem 7: 12/14/19 05:35 12/14/19 05:35 Labs: Abnormal Lab Results - Last 24 Hours (Table) 12/07/19 12/13/19 12/13/19 Range/Units 05:41 17:57 23:52 WBC (3.8-10.6) k/uL RBC (3.80-5.40) m/uL Hgb (11.4-16.0) gm/dL Hct (34.0-46.0) % Neutrophils # (1.3-7.7) k/uL ABG pH 7.16 L* (7.35-7.45) ABG pCO2 73 H* (35-45) mmHg ABG pO2 (83-108) mmHg ABG HCO3 (21-25) mmol/L ABG Total CO2 (19-24) mmol/L ABG O2 Saturation (94-97) % Sodium (137-145) mmol/L Potassium (3.5-5.1) mmol/L Chloride (98-107) mmol/L BUN (7-17) mg/dL Creatinine (0.52-1.04) mg/dL Glucose (74-99) mg/dL POC Glucose (mg/dL) 163 H 162 H (75-99) mg/dL Magnesium (1.6-2.3) mg/dL Urine Blood (Negative) Amorphous Sediment (None) /hpf Urine Bacteria (None) /hpf Urine Mucus (None) /hpf 12/14/19 12/14/19 12/14/19 Range/Units 05:02 05:35 05:35 WBC 21.8 H (3.8-10.6) k/uL RBC 3.67 L (3.80-5.40) m/uL Hgb 11.0 L (11.4-16.0) gm/dL Hct 33.4 L (34.0-46.0) % Neutrophils # 20.0 H (1.3-7.7) k/uL ABG pH 7.52 H (7.35-7.45) ABG pCO2 32 L (35-45) mmHg ABG pO2 112 H (83-108) mmHg ABG HCO3 26 H (21-25) mmol/L ABG Total CO2 27 H (19-24) mmol/L ABG O2 Saturation 98.8 H (94-97) % Sodium 148 H (137-145) mmol/L Potassium 3.4 L (3.5-5.1) mmol/L Chloride 115 H (98-107) mmol/L BUN 69 H (7-17) mg/dL Creatinine 2.22 H (0.52-1.04) mg/dL Glucose 161 H (74-99) mg/dL POC Glucose (mg/dL) (75-99) mg/dL Magnesium (1.6-2.3) mg/dL Urine Blood (Negative) Amorphous Sediment (None) /hpf Urine Bacteria (None) /hpf Urine Mucus (None) /hpf 12/14/19 12/14/19 12/14/19 Range/Units 05:35 06:12 09:45 WBC (3.8-10.6) k/uL RBC (3.80-5.40) m/uL Hgb (11.4-16.0) gm/dL Hct (34.0-46.0) % Neutrophils # (1.3-7.7) k/uL ABG pH (7.35-7.45) ABG pCO2 (35-45) mmHg ABG pO2 (83-108) mmHg ABG HCO3 (21-25) mmol/L ABG Total CO2 (19-24) mmol/L ABG O2 Saturation (94-97) % Sodium (137-145) mmol/L Potassium (3.5-5.1) mmol/L Chloride (98-107) mmol/L BUN (7-17) mg/dL Creatinine (0.52-1.04) mg/dL Glucose (74-99) mg/dL POC Glucose (mg/dL) 141 H (75-99) mg/dL Magnesium 2.7 H (1.6-2.3) mg/dL Urine Blood Small H (Negative) Amorphous Sediment Rare H (None) /hpf Urine Bacteria Rare H (None) /hpf Urine Mucus Rare H (None) /hpf 12/14/19 Range/Units 12:28 WBC (3.8-10.6) k/uL RBC (3.80-5.40) m/uL Hgb (11.4-16.0) gm/dL Hct (34.0-46.0) % Neutrophils # (1.3-7.7) k/uL ABG pH (7.35-7.45) ABG pCO2 (35-45) mmHg ABG pO2 (83-108) mmHg ABG HCO3 (21-25) mmol/L ABG Total CO2 (19-24) mmol/L ABG O2 Saturation (94-97) % Sodium (137-145) mmol/L Potassium (3.5-5.1) mmol/L Chloride (98-107) mmol/L BUN (7-17) mg/dL Creatinine (0.52-1.04) mg/dL Glucose (74-99) mg/dL POC Glucose (mg/dL) 113 H (75-99) mg/dL Magnesium (1.6-2.3) mg/dL Urine Blood (Negative) Amorphous Sediment (None) /hpf Urine Bacteria (None) /hpf Urine Mucus (None) /hpf Assessment and Plan Assessment: Impression: Acute community-acquired pneumonia Septic shock secondary to pneumonia Acute hypoxic and hypercapnic respiratory failure secondary to above. Valvular heart disease and moderate mitral regurgitation Suspect some component of acute on chronic congestive heart failure, diastolic in nature ejection fraction is 55% on repeat echocardiogram. Acute kidney injury/acute tubular necrosis being followed by nephrology. History of underlying COPD History of opiate dependence patient has been on Suboxone on outpatient basis. History of alcoholism History of fibromyalgia and chronic pain syndrome Benign essential hypertension Dyslipidemia Recommendation: Continue ventilatory support. Continue GI and deep prophylaxis. Continue nutritional support. Continue ventilator on pressure control mode, seems to be working better than assist volume control. Continue Precedex for now, patient is not ready for weaning Neurologic see on consultation. Change antibiotics to Zosyn only, discontinue vancomycin. Continue free water flushes Check urinalysis again, patient is putting out over 150 mL/h in urine. Prognosis is extremely poor and guarded, Critical care time is 40 minutes. We'll continue to follow. Time with Patient: Greater than 30
--- NOTE | 2019-12-14 14:05 | PN ---
PROGRESS NOTE The patient is seen for follow up for acute kidney injury. The patient remains on the vent. She has also been confused. Blood pressure was 136/59, heart rate 104 per minute. The patient is afebrile. She has been off of sedation. The patient has had good urine output, 24-hour urine output of about 4.3 liters. PHYSICAL EXAMINATION: EXAMINATION OF THE HEART: S1, S2. EXAMINATION OF THE LUNGS: Bilateral breath sounds are heard. ABDOMEN: Soft, nontender. EXTREMITIES OF THE LOWER EXTREMITIES: Shows trace edema bilaterally. DISASTER RESPONSE DIRECTOR EXAM: Cannot be performed. The patient has been moving her extremities but has been confused. LABS: Show sodium 148, potassium 3.4, chloride 115, BUN 69, serum creatinine 2.2. ASSESSMENT: 1. Acute kidney injury, ATN, currently improving. The patient has good urine output. No nephrotoxic agents on board. 2. Hypernatremia. Maintained on free water down the feeding tube. 3. Hypokalemia status post replacement. 4. Hypoxic respiratory failure, currently on the vent. 5. Septic shock from pneumonia, now off of pressors. PLAN: Monitor vancomycin levels. Okay to continue as renal function continues to improve. Continue with free water flushes for the hypernatremia. Repeat labs in a.m. MMODL / IJN: [id number] /
--- NOTE | 2019-12-14 14:56 | P.PN ---
Subjective Progress Note Date: 12/14/19 Principal diagnosis: Principal diagnosis: Acute hypoxic/hypercapnic respiratory failure; vent dependent Left lower lobe pneumonia Septic shock 12/11/2019 patient remains intubated on a mechanical ventilator due to pneumonia with septic shock and multisystem organ failure; remains on a combination of Zosyn and vancomycin. The patient however is still bronchospastic and for that reason the patient will be kept on a mechanical ventilator for another 24 hours during which she is going to receive bronchodilators and steroids. Antibiotics remain unchanged pending further cultures. The chest x-ray is showing airspace disease throughout the left lung, which is gradually improving compared to the original chest x-ray. There is a small left-sided pleural effusion. There is also some increasing confusion the right lung base. Noted the patient is in a significant fluid positive balance. The patient was given diuretics yesterday. Fluid balance over the past 24 hours is still positive at 2.4 L in the patient's creatinine is up to 2.3. Urine output however his improving. Further diuretics will be given. 12/12/2019 The patient remains intubated; on vital high protein for enteral feeding and nutritional support. Chest x-ray bilateral infiltrates worse on the left compared to the right, somewhat improved compared to yesterday; [id number] staph epidermidis; The patient remains on a combination of Zosyn and vancomycin. Vancomycin trough was quite elevated and the patient's vancomycin is currently on hold. All of the cultures are negative. The patient has developed an acute kidney failure and the creatinine is up to 2.7; patient is nonoliguric; patient was given Lasix yesterday at a dose of 40 mg every 12 hours. Based on the rising and a creatinine in the based on the ongoing improvement in urine output, nephrology recommended discontinuing Lasix. The patient is a component of hyperchloremic hypernatremia. Sodium level is at 149. The patient is receiving free water through the NG. On examination, she is much less bronchospastic and wheezy. Her peak airway pressures down to 22. Static pressures down to 15-17. She is afebrile for now. 12/13/2019 Patient is seen and evaluated in ICU; remains intubated and mechanically ventilated due to extensive left lung pneumonia with septic shock; patient has been ruled out for COVID 19 infection; patient remains afebrile; remains on IV antibiotics in form of Zosyn and vancomycin; continue with IV Solu-Medrol and rhonchal dilator nebulizer treatments; patient did have episode of acute hypertension and Levaquin to pain drip is used for blood pressure control; review of lab work reveals improvement in creatinine down to 2.4, WBC is down to 13.7, hemoglobin is at 9.7, sodium level is down to 148; patient had chest x-ray done which shows left-sided airspace disease; CT of head is ordered and pending 12/14/2019 Patient is seen and evaluated in follow-up and currently remains in the ICU intubated. Patient is being seen and evaluated by neurology today and currently undergoing an EEG. Multiple medical consultations following. Patient remains on IV antibiotics in the form of Zosyn. Currently remains on Cleviprex for hypertension and Precedex she becomes severely agitated. No attempts for weaning off the vent today. Creatinine slightly improved at 2.2 and is to continue with free water flushes through the NG per nephrology recommendations. Patient continue with bronchodilators along with IV steroids. CT of the head was done yesterday although was nondiagnostic due to movement and motion artifact and patient is currently undergoing EEG today. Will await report. Objective - Vital Signs Vital signs: Vital Signs Temp 99.6 F 12/14/19 12:00 Pulse 92 12/14/19 14:00 Resp 18 12/14/19 14:00 BP 127/68 12/13/19 20:00 Pulse Ox 96 12/14/19 14:00 Intake & Output 12/13/19 12/14/19 12/14/19 18:59 06:59 18:59 Intake Total 2895.448 6733.927 0729.874 Output Total 1925 2400 1395 Balance 970.448 -496.108 998.874 Weight 97.7 kg 97.7 kg Intake: IV 406 200 628 0.45 NACL 240 140 80 Normal Saline Pressure 66 60 48 Bag Piperacillin-Tazobactam 3 100 .375 gm In Sodium Chloride 0.9% 100 ml @ 25 mls/hr IVPB Q8HR [facility] Rx# :[id number] Piperacillin-Tazobactam 3 500 .375 gm In Sodium Chloride 0.9% 100 ml @ 25 mls/hr IVPB Q8HR [facility] Rx# :[id number] Intake, IV Titration 375.448 157.892 97.874 Amount Clevidipine Butyrate 25 164.933 153.734 88.267 mg In Empty Bag 1 bag @ 1 MG/HR 2 mls/hr IV .Q24H [facility] Rx#:[id number] Dexmedetomidine/0.9% NaCl 178.471 4.158 (Pmx) 400 mcg In Empty Bag 1 bag @ Titrate IV . Q0M [facility] Rx#:[id number] Dexmedetomidine/0.9% NaCl 9.607 (Pmx) 400 mcg In Empty Bag 1 bag @ Titrate IV . Q0M [facility] Rx#:[id number] Propofol 1,000 mg In 32.044 Empty Bag 1 bag @ Titrate IV .Q0M RE[facility]O Rx#: [id number] Tube Feeding 714 546 168 Other 1400 1000 1500 Output: Urine 1925 2400 1395 Other: Voiding Method Indwelling Catheter Indwelling Catheter Indwelling Catheter ABP, PAP, CO, CI - Last Documented Arterial Blood Pressure 116/51 - Exam Gen. appearance, comfortable, no acute distress, sedated paralyzed with the mechanical ventilator for now. The patient has an orogastric and orotracheal tube are both in place. Head exam was generally normal. There was no scleral icterus or corneal arcus. Mucous membranes were moist. Neck was supple and without jugular venous distension, thyromegaly, or carotid bruits. Carotids were easily palpable bilaterally. There was no adenopathy. Orogastric and orotracheal tube are both in place and the patient has a left IJ triple-lumen catheter in place. Lung sounds are diminished and some crackles in lung bases bilaterally more so on the left. Otherwise breath sounds are equal and symmetrical. Wheezing also noted on exam. Heart sounds are regular, positive S1-S2 and there is a systolic ejection murmur heard Abdominal exam revealed normal bowel sounds. The abdomen was soft, non-tender, and without masses, organomegaly Examination of the extremities revealed easily palpable radial, femoral and pedal pulses. There was no cyanosis, clubbing or edema. - Labs CBC & Chem 7: 12/14/19 05:35 12/14/19 05:35 Labs: Abnormal Lab Results - Last 24 Hours (Table) 03/30/20 04/05/20 04/05/20 Range/Units 05:41 17:57 23:52 WBC (3.8-10.6) k/uL RBC (3.80-5.40) m/uL Hgb (11.4-16.0) gm/dL Hct (34.0-46.0) % Neutrophils # (1.3-7.7) k/uL ABG pH 7.16 L* (7.35-7.45) ABG pCO2 73 H* (35-45) mmHg ABG pO2 (83-108) mmHg ABG HCO3 (21-25) mmol/L ABG Total CO2 (19-24) mmol/L ABG O2 Saturation (94-97) % Sodium (137-145) mmol/L Potassium (3.5-5.1) mmol/L Chloride (98-107) mmol/L BUN (7-17) mg/dL Creatinine (0.52-1.04) mg/dL Glucose (74-99) mg/dL POC Glucose (mg/dL) 163 H 162 H (75-99) mg/dL Magnesium (1.6-2.3) mg/dL Urine Blood (Negative) Amorphous Sediment (None) /hpf Urine Bacteria (None) /hpf Urine Mucus (None) /hpf 12/14/19 12/14/19 12/14/19 Range/Units 05:02 05:35 05:35 WBC 21.8 H (3.8-10.6) k/uL RBC 3.67 L (3.80-5.40) m/uL Hgb 11.0 L (11.4-16.0) gm/dL Hct 33.4 L (34.0-46.0) % Neutrophils # 20.0 H (1.3-7.7) k/uL ABG pH 7.52 H (7.35-7.45) ABG pCO2 32 L (35-45) mmHg ABG pO2 112 H (83-108) mmHg ABG HCO3 26 H (21-25) mmol/L ABG Total CO2 27 H (19-24) mmol/L ABG O2 Saturation 98.8 H (94-97) % Sodium 148 H (137-145) mmol/L Potassium 3.4 L (3.5-5.1) mmol/L Chloride 115 H (98-107) mmol/L BUN 69 H (7-17) mg/dL Creatinine 2.22 H (0.52-1.04) mg/dL Glucose 161 H (74-99) mg/dL POC Glucose (mg/dL) (75-99) mg/dL Magnesium (1.6-2.3) mg/dL Urine Blood (Negative) Amorphous Sediment (None) /hpf Urine Bacteria (None) /hpf Urine Mucus (None) /hpf 12/14/19 12/14/19 12/14/19 Range/Units 05:35 06:12 09:45 WBC (3.8-10.6) k/uL RBC (3.80-5.40) m/uL Hgb (11.4-16.0) gm/dL Hct (34.0-46.0) % Neutrophils # (1.3-7.7) k/uL ABG pH (7.35-7.45) ABG pCO2 (35-45) mmHg ABG pO2 (83-108) mmHg ABG HCO3 (21-25) mmol/L ABG Total CO2 (19-24) mmol/L ABG O2 Saturation (94-97) % Sodium (137-145) mmol/L Potassium (3.5-5.1) mmol/L Chloride (98-107) mmol/L BUN (7-17) mg/dL Creatinine (0.52-1.04) mg/dL Glucose (74-99) mg/dL POC Glucose (mg/dL) 141 H (75-99) mg/dL Magnesium 2.7 H (1.6-2.3) mg/dL Urine Blood Small H (Negative) Amorphous Sediment Rare H (None) /hpf Urine Bacteria Rare H (None) /hpf Urine Mucus Rare H (None) /hpf 12/14/19 Range/Units 12:28 WBC (3.8-10.6) k/uL RBC (3.80-5.40) m/uL Hgb (11.4-16.0) gm/dL Hct (34.0-46.0) % Neutrophils # (1.3-7.7) k/uL ABG pH (7.35-7.45) ABG pCO2 (35-45) mmHg ABG pO2 (83-108) mmHg ABG HCO3 (21-25) mmol/L ABG Total CO2 (19-24) mmol/L ABG O2 Saturation (94-97) % Sodium (137-145) mmol/L Potassium (3.5-5.1) mmol/L Chloride (98-107) mmol/L BUN (7-17) mg/dL Creatinine (0.52-1.04) mg/dL Glucose (74-99) mg/dL POC Glucose (mg/dL) 113 H (75-99) mg/dL Magnesium (1.6-2.3) mg/dL Urine Blood (Negative) Amorphous Sediment (None) /hpf Urine Bacteria (None) /hpf Urine Mucus (None) /hpf Assessment and Plan Assessment: -Septic shock: Shock improved. patient remains on broad-spectrum antibiotics Zosyn ,sputum cultures did not show any abnormality blood cultures were also negative, COVID negative. Patient remains hypoxic hypoxic hypercapnic and acidotic but significant improvement -Hypernatremia; current sodium is 148 -Acute renal failure secondary to sepsis and septic shock. Nephrology following. Current creatinine is 2.2 with a BUN of 69 -Acute hypercapnic and acute hypoxic respiratory failure: Continue with ventilator support continue with inhalational treatments. -History of congestive heart failure severe systolic dysfunction, unknown ejection fraction. Patient has multi valvular heart disease including severe mitral regurgitation severe tricuspid regurgitation. Patient remains on IV fluids because of severe sepsis. Patient had an echocardiogram which did not show any mitral regurgitation doesn't have any heart failure. -COPD present smoker further management as mentioned above -History of opiate abuse with mildly elevated liver enzymes -Fibromyalgia -Hyperlipidemia -Hypertension -DVT prophylaxis with subcu heparin Plan: Patient is currently off pressors and being monitored closely in the ICU. Patient is currently also on Cleviprex for mildly elevated hypertension and is continued on Precedex as she continues to be extremely agitated. Patient remains on Zosyn and will continue at this time. No weaning today. Further recommendations to follow. Guarded prognosis.
--- NOTE | 2019-12-14 15:47 | EEG ---
ELECTROENCEPHALOGRAM REPORT DATE OF SERVICE: 12/14/2019 PREAMBLE: This is a 54-year-old female with altered mental status. This study is performed to evaluate for any epileptiform activity. EEG FINDINGS: A routine 21-channel awake digital EEG recording was accomplished utilizing the 10/20 international system with bipolar and referential montages. The background consists of well developed, fairly well regulated, mixed frequencies of 8 to 9 Hz alpha, intermixed with moderate to high amplitude generalized mixed delta and theta frequency. Background does not seem to be reactive to eye opening and closing. Different stages of sleep were not clearly seen. No focal or generalized epileptiform activity was seen. EKG rhythm lead revealed tachycardia. IMPRESSION: This is an abnormal EEG due to background slowing of mild to moderate degree. This is suggestive of generalized cerebral dysfunction as can be seen with toxic metabolic encephalopathy or due to diffuse structural brain abnormality. No epileptiform activity was seen. MMODL / IJN: [id number] / MTDD
[2019-12-14 18:07] LABS: Glucose,Whole Blood 185 mg/dL (75-99)
--- NOTE | 2019-12-14 18:23 | P.CNNES ---
History of Present Illness Consult date: 12/14/19 Requesting physician: Duong Ghosh Reason for Consult: Mental status change History of Present Illness: Patient is a 54-year-old female admitted on 12/06/2019 for altered mental status. Patient was a transfer from [facility]. Patient has history of substance abuse with methamphetamine. She is currently on Suboxone. Patient was diagnosed with extensive left lung pneumonia/airspace disease/consolidation. She was intubated in the ER. She was quite septic at the time of arrival. Patient also was ruled out for COVID 19 infection. Patient also has COPD/asthma. Patient also has history of alcoholism. Patient's sedation was discontinued, but was not showing signs of significant clinical improvement. According to the nursing report, at present she is on 0.5 g of Precedex. Patient is showing some meaningful response with closing and opening her eyes to, but but is not tracking. Patient is not following, as regarding moving extremities. Patient's sedation was discontinued, but she is not showing significant clinical improvement. Therefore neurology was consulted. Her chest x-ray showed continuing bilateral infiltrates, worse on the left and right, unchanged from previous. Patient's computed tomography scan head was nondiagnostic study. On my review, reviewed ?old lacune in the right basal ganglia. Her blood tests showed CBC with WBC 21.8, left shift and normal lymphocytes. Hemoglobin 11.0 and platelets are 191. Sodium 148, potassium 3.4. Patient's hemoglobin A1c 5.2 on . Total cholesterol is 113, LDL 60, HDL 39. TSH normal. Sodium 148, potassium 3.4, BUN 69, creatinine 2.22. Patient has acute renal insufficiency, as her baseline creatinine was 0.78 on 12/07/2019. 2-D echo showed left- ventricular size and wall thickness are normal with EF > 55%. Left-ventricular size is normal. Left atrial size normal. Review of Systems ROS unobtainable: due to endotracheal tube, due to mental status Past Medical History Past Medical History: Asthma, Heart Failure, Fibromyalgia, Hyperlipidemia, Hypertension, Pneumonia Additional Past Medical History / Comment(s): back pain, DDD, SOB w/exertion, "2 leaky valves" per pt. History of Any Multi-Drug Resistant Organisms: None Reported Past Surgical History: Hernia Repair Past Anesthesia/Blood Transfusion Reactions: No Reported Reaction Past Psychological History: Depression Smoking Status: Current every day smoker Past Alcohol Use History: Daily Additional Past Alcohol Use History / Comment(s): 1 pack per day smoker since she was 11, 6-12 beers daily Past Drug Use History: Methamphetamine Additional Drug Use History / Comment(s): Methamphetamine and fentanyl use, quit 1 month ago, currently on Suboxone - Past Family History Mother Family Medical History: Diabetes Mellitus Sister(s) Family Medical History: Asthma Father Additional Family Medical History / Comment(s): of brain anrysm 48 Son(s) Family Medical History: Cancer Additional Family Medical History / Comment(s): at 35 years old of aggressive colon cancer Medications and Allergies Home Medications Medication Instructions Recorded Confirmed Type Albuterol Sulfate [Proair Hfa] 1 - 2 puff INHALATION RT-Q6H PRN 04/22/19 12/06/19 History Buprenorphine HCl/Naloxone HCl 1 film SL BID 04/22/19 12/06/19 History [Suboxone 12 mg-3 mg Sl Film] Metoprolol Succinate (ER) [Toprol 100 mg PO DAILY 04/22/19 12/07/19 History XL] Montelukast [Singulair] 10 mg PO DAILY 04/22/19 12/06/19 History Rosuvastatin [Crestor] 20 mg PO DAILY 04/22/19 12/06/19 History amLODIPine [Norvasc] 10 mg PO DAILY #90 tab 04/29/19 12/06/19 Rx Doxycycline Monohydrate [Monodox] 100 mg PO DAILY 12/06/19 12/06/19 History Ergocalciferol [Vitamin D2] 50,000 unit PO Q7D 12/06/19 12/06/19 History Escitalopram [Lexapro] 10 mg PO DAILY 12/06/19 12/06/19 History Escitalopram [Lexapro] 20 mg PO DAILY 12/06/19 12/06/19 History Naproxen 500 mg PO BID 12/06/19 12/06/19 History PARoxetine HCL [Paxil] 30 mg PO DAILY 12/06/19 12/06/19 History Pregabalin [Lyrica] 150 mg PO BID 12/06/19 12/06/19 History Sacubitril/Valsartan [Entresto 24 1 tab PO BID 12/06/19 12/07/19 History mg-26 mg Tablet] busPIRone HCL 15 mg PO TID 12/06/19 12/06/19 History Allergies Allergy/AdvReac Type Severity Reaction Status Date / Time No Known Allergies Allergy Verified 12/06/19 10:16 Physical Examination - Vital Signs Vital Signs: Vital Signs Temp Pulse Resp BP Pulse Ox 12/14/19 15:57 97 12/14/19 15:30 90 18 97 12/14/19 15:15 89 18 97 12/14/19 15:00 91 18 97 12/14/19 14:45 98 18 97 12/14/19 14:30 89 18 97 12/14/19 14:15 92 18 97 12/14/19 14:00 92 18 96 12/14/19 13:45 94 18 96 12/14/19 13:30 98 18 96 12/14/19 13:15 121 H 18 97 12/14/19 13:00 104 H 18 97 12/14/19 12:45 99 18 96 12/14/19 12:30 112 H 18 96 12/14/19 12:15 106 H 18 96 12/14/19 12:00 99.6 F 113 H 18 96 12/14/19 11:45 104 H 18 96 12/14/19 11:30 108 H 18 98 12/14/19 11:20 108 H 12/14/19 11:15 100 18 96 12/14/19 11:00 98 18 96 12/14/19 10:45 98 18 97 12/14/19 10:30 102 H 18 96 12/14/19 10:15 115 H 18 96 12/14/19 10:00 104 H 18 97 12/14/19 09:45 104 H 18 97 12/14/19 09:30 106 H 18 97 12/14/19 09:15 104 H 18 97 12/14/19 09:00 110 H 18 97 12/14/19 08:45 133 H 18 96 12/14/19 08:30 129 H 18 97 12/14/19 08:15 107 H 18 97 12/14/19 08:00 99.4 F 106 H 18 97 12/14/19 07:33 114 H 12/14/19 07:25 134 H 12/14/19 07:00 116 H 18 97 12/14/19 06:00 111 H 18 96 12/14/19 05:00 107 H 18 97 12/14/19 04:00 100.3 F H 110 H 18 98 12/14/19 03:44 18 12/14/19 03:00 99.4 F 99 18 97 12/14/19 02:00 99 18 97 12/14/19 01:19 130 H 12/14/19 01:03 128 H 12/14/19 01:00 99 18 97 12/14/19 00:00 100.1 F H 110 H 18 97 12/13/19 23:00 123 H 18 12/13/19 22:00 114 H 20 97 12/13/19 21:00 123 H 18 96 12/13/19 20:00 99.9 F H 97 18 127/68 96 12/13/19 19:00 115 H 6 L 96 12/13/19 18:00 97.9 F 84 18 158/84 98 12/13/19 17:00 118 H 39 H 151/92 97 Intake and Output 12/14/19 12/14/19 12/14/19 06:59 14:59 22:59 Intake Total 1370.886 9846.874 158 Output Total 1550 1395 300 Balance -638.628 2238.874 -142 Intake: IV 126 628 116 0.45 NACL 90 80 10 Normal Saline Pressure 36 48 6 Bag Piperacillin-Tazobactam 3 500 100 .375 gm In Sodium Chloride 0.9% 100 ml @ 25 mls/hr IVPB Q8HR REGINO Rx# :[id number] Intake, IV Titration 97.891 97.874 Amount Clevidipine Butyrate 25 93.733 88.267 mg In Empty Bag 1 bag @ 1 MG/HR 2 mls/hr IV .Q24H REGINO Rx#:[id number] Dexmedetomidine/0.9% NaCl 4.158 (Pmx) 400 mcg In Empty Bag 1 bag @ Titrate IV . Q0M REGINO Rx#:[id number] Dexmedetomidine/0.9% NaCl 9.607 (Pmx) 400 mcg In Empty Bag 1 bag @ Titrate IV . Q0M REGINO Rx#:[id number] Tube Feeding 294 294 42 Other 500 2000 Output: Urine 1550 1395 300 Other: Voiding Method Indwelling Catheter Indwelling Catheter Indwelling Catheter Weight 97.7 kg 97.7 kg ABP, PAP, CO, CI - Last 8 Hours Arterial Blood Pressure 130/52 Arterial Blood Pressure 121/50 Arterial Blood Pressure 126/52 Arterial Blood Pressure 149/59 Arterial Blood Pressure 118/51 Arterial Blood Pressure 120/53 Arterial Blood Pressure 116/51 Arterial Blood Pressure 118/51 Arterial Blood Pressure 120/51 Arterial Blood Pressure 162/67 Arterial Blood Pressure 132/56 Arterial Blood Pressure 119/51 Arterial Blood Pressure 137/61 Arterial Blood Pressure 111/51 Arterial Blood Pressure 136/60 Arterial Blood Pressure 136/59 Arterial Blood Pressure 149/64 Arterial Blood Pressure 129/56 Arterial Blood Pressure 121/54 Arterial Blood Pressure 132/59 Arterial Blood Pressure 128/57 Arterial Blood Pressure 143/64 Arterial Blood Pressure 134/59 Arterial Blood Pressure 134/60 Arterial Blood Pressure 134/60 Arterial Blood Pressure 123/56 Arterial Blood Pressure 119/57 Arterial Blood Pressure 149/69 Arterial Blood Pressure 156/72 Arterial Blood Pressure 133/61 On examination patient's pupils are round and reacting, visual jimenez could not be tested. Her face appears symmetric although she is intubated. Patient's facial grimacing occurs equally to noxious stimuli involving bilateral upper and lower limbs. Reflexes are diminished and plantars are downgoing. Tone is decreased. No obvious seizure activity noted. Results - Laboratory Findings CBC and BMP: 12/14/19 05:35 12/14/19 16:00 Abnormal Lab Findings: Abnormal Labs 12/06/19 12/06/19 12/06/19 04:07 04:07 04:07 WBC 12.5 H RBC Hgb Hct MCHC Plt Count 146 L Neutrophils # Neutrophils # (Manual) 10.60 H Lymphocytes # Lymphocytes # (Manual) Monocytes # (Manual) Metamyelocytes # (Man) Myelocytes # (Manual) Nucleated RBCs ABG pH ABG pCO2 ABG pO2 ABG HCO3 ABG Total CO2 ABG O2 Saturation Sodium Potassium Chloride 110 H BUN 26 H Creatinine 1.11 H Glucose 104 H POC Glucose (mg/dL) Plasma Lactic Acid [place] Calcium 7.1 L Magnesium Total Bilirubin 2.1 H AST 163 H ALT 35 H Alkaline Phosphatase 37 L Troponin I Total Protein 5.1 L Albumin 2.7 L Procalcitonin Urine Appearance Urine Protein Trace H Urine Blood Moderate H Urine WBC Amorphous Sediment Urine Bacteria Urine Mucus Rare H 12/06/19 12/06/19 12/06/19 04:07 04:07 08:40 WBC RBC Hgb Hct MCHC Plt Count Neutrophils # Neutrophils # (Manual) Lymphocytes # Lymphocytes # (Manual) Monocytes # (Manual) Metamyelocytes # (Man) Myelocytes # (Manual) Nucleated RBCs ABG pH ABG pCO2 ABG pO2 ABG HCO3 ABG Total CO2 ABG O2 Saturation Sodium Potassium Chloride BUN Creatinine Glucose POC Glucose (mg/dL) Plasma Lactic Acid [place] 2.2 H* 2.4 H* Calcium Magnesium Total Bilirubin AST ALT Alkaline Phosphatase Troponin I 0.947 H* Total Protein Albumin Procalcitonin Urine Appearance Urine Protein Urine Blood Urine WBC Amorphous Sediment Urine Bacteria Urine Mucus 12/06/19 12/06/19 12/06/19 08:48 09:28 15:14 WBC RBC Hgb Hct MCHC Plt Count Neutrophils # Neutrophils # (Manual) Lymphocytes # Lymphocytes # (Manual) Monocytes # (Manual) Metamyelocytes # (Man) Myelocytes # (Manual) Nucleated RBCs ABG pH 7.26 L 7.17 L* 7.17 L* ABG pCO2 55 H 69 H 67 H ABG pO2 55 L* 113 H 81 L ABG HCO3 ABG Total CO2 26 H 27 H 26 H ABG O2 Saturation 84.2 L 93.7 L Sodium Potassium Chloride BUN Creatinine Glucose POC Glucose (mg/dL) Plasma Lactic Acid [place] Calcium Magnesium Total Bilirubin AST ALT Alkaline Phosphatase Troponin I Total Protein Albumin Procalcitonin Urine Appearance Urine Protein Urine Blood Urine WBC Amorphous Sediment Urine Bacteria Urine Mucus 12/06/19 12/06/19 12/07/19 18:11 23:21 04:15 WBC 20.1 H RBC 3.72 L Hgb Hct MCHC Plt Count Neutrophils # Neutrophils # (Manual) 18.60 H Lymphocytes # Lymphocytes # (Manual) 0.80 L Monocytes # (Manual) Metamyelocytes # (Man) 0.20 H Myelocytes # (Manual) 0.40 H Nucleated RBCs 1 H ABG pH ABG pCO2 ABG pO2 ABG HCO3 ABG Total CO2 ABG O2 Saturation Sodium Potassium Chloride BUN Creatinine Glucose POC Glucose (mg/dL) 100 H 117 H Plasma Lactic Acid [place] Calcium Magnesium Total Bilirubin AST ALT Alkaline Phosphatase Troponin I Total Protein Albumin Procalcitonin Urine Appearance Urine Protein Urine Blood Urine WBC Amorphous Sediment Urine Bacteria Urine Mucus 12/07/19 12/07/19 12/07/19 04:15 04:15 05:39 WBC RBC Hgb Hct MCHC Plt Count Neutrophils # Neutrophils # (Manual) Lymphocytes # Lymphocytes # (Manual) Monocytes # (Manual) Metamyelocytes # (Man) Myelocytes # (Manual) Nucleated RBCs ABG pH ABG pCO2 ABG pO2 ABG HCO3 ABG Total CO2 ABG O2 Saturation Sodium Potassium Chloride 113 H BUN 22 H Creatinine Glucose 132 H POC Glucose (mg/dL) 124 H Plasma Lactic Acid [place] Calcium 7.3 L Magnesium Total Bilirubin 2.7 H AST 143 H ALT 43 H Alkaline Phosphatase Troponin I Total Protein 4.8 L Albumin 2.4 L Procalcitonin 96.48 H Urine Appearance Urine Protein Urine Blood Urine WBC Amorphous Sediment Urine Bacteria Urine Mucus 12/07/19 12/07/19 12/07/19 05:41 11:52 18:19 WBC RBC Hgb Hct MCHC Plt Count Neutrophils # Neutrophils # (Manual) Lymphocytes # Lymphocytes # (Manual) Monocytes # (Manual) Metamyelocytes # (Man) Myelocytes # (Manual) Nucleated RBCs ABG pH 7.16 L* ABG pCO2 73 H* ABG pO2 ABG HCO3 26 H ABG Total CO2 28 H ABG O2 Saturation Sodium Potassium Chloride BUN Creatinine Glucose POC Glucose (mg/dL) 141 H 115 H Plasma Lactic Acid [place] Calcium Magnesium Total Bilirubin AST ALT Alkaline Phosphatase Troponin I Total Protein Albumin Procalcitonin Urine Appearance Urine Protein Urine Blood Urine WBC Amorphous Sediment Urine Bacteria Urine Mucus 12/08/19 12/08/19 12/08/19 04:30 04:30 05:12 WBC 24.3 H RBC 3.38 L Hgb 10.2 L Hct 33.5 L MCHC 30.6 L Plt Count 137 L Neutrophils # Neutrophils # (Manual) 20.80 H Lymphocytes # Lymphocytes # (Manual) 0.73 L Monocytes # (Manual) 2.19 H Metamyelocytes # (Man) Myelocytes # (Manual) 0.24 H Nucleated RBCs ABG pH 7.18 L* ABG pCO2 62 H ABG pO2 ABG HCO3 ABG Total CO2 25 H ABG O2 Saturation Sodium Potassium Chloride 117 H BUN 31 H Creatinine 1.60 H Glucose 113 H POC Glucose (mg/dL) Plasma Lactic Acid [place] Calcium 7.5 L Magnesium Total Bilirubin AST 80 H ALT 35 H Alkaline Phosphatase Troponin I Total Protein 4.4 L Albumin 2.1 L Procalcitonin Urine Appearance Urine Protein Urine Blood Urine WBC Amorphous Sediment Urine Bacteria Urine Mucus 03/12/08/19 12/08/19 05:24 11:45 12:02 WBC RBC Hgb Hct MCHC Plt Count Neutrophils # Neutrophils # (Manual) Lymphocytes # Lymphocytes # (Manual) Monocytes # (Manual) Metamyelocytes # (Man) Myelocytes # (Manual) Nucleated RBCs ABG pH ABG pCO2 ABG pO2 ABG HCO3 ABG Total CO2 ABG O2 Saturation Sodium Potassium Chloride BUN Creatinine Glucose POC Glucose (mg/dL) 102 H 115 H Plasma Lactic Acid [place] Calcium Magnesium Total Bilirubin AST ALT Alkaline Phosphatase Troponin I Total Protein Albumin Procalcitonin Urine Appearance Cloudy H Urine Protein 1+ H Urine Blood Small H Urine WBC 13 H Amorphous Sediment Rare H Urine Bacteria Rare H Urine Mucus Rare H 12/08/19 12/08/19 12/09/19 17:15 23:34 04:15 WBC 32.6 H RBC 3.34 L Hgb 10.1 L Hct 33.3 L MCHC 30.5 L Plt Count 129 L Neutrophils # Neutrophils # (Manual) 29.90 H Lymphocytes # Lymphocytes # (Manual) Monocytes # (Manual) Metamyelocytes # (Man) 0.65 H Myelocytes # (Manual) Nucleated RBCs 2 H ABG pH ABG pCO2 ABG pO2 ABG HCO3 ABG Total CO2 ABG O2 Saturation Sodium Potassium Chloride BUN Creatinine Glucose POC Glucose (mg/dL) 150 H 157 H Plasma Lactic Acid [place] Calcium Magnesium Total Bilirubin AST ALT Alkaline Phosphatase Troponin I Total Protein Albumin Procalcitonin Urine Appearance Urine Protein Urine Blood Urine WBC Amorphous Sediment Urine Bacteria Urine Mucus 12/09/19 12/09/19 12/09/19 04:15 05:10 06:09 WBC RBC Hgb Hct MCHC Plt Count Neutrophils # Neutrophils # (Manual) Lymphocytes # Lymphocytes # (Manual) Monocytes # (Manual) Metamyelocytes # (Man) Myelocytes # (Manual) Nucleated RBCs ABG pH 7.19 L* ABG pCO2 60 H ABG pO2 68 L ABG HCO3 ABG Total CO2 25 H ABG O2 Saturation 92.9 L Sodium 150 H Potassium Chloride 119 H BUN 34 H Creatinine 1.80 H Glucose 167 H POC Glucose (mg/dL) 170 H Plasma Lactic Acid [place] Calcium 8.1 L Magnesium Total Bilirubin AST 51 H ALT Alkaline Phosphatase 133 H Troponin I Total Protein 4.8 L Albumin 2.3 L Procalcitonin Urine Appearance Urine Protein Urine Blood Urine WBC Amorphous Sediment Urine Bacteria Urine Mucus 12/09/19 12/09/19 12/09/19 11:50 12:22 18:00 WBC RBC Hgb Hct MCHC Plt Count Neutrophils # Neutrophils # (Manual) Lymphocytes # Lymphocytes # (Manual) Monocytes # (Manual) Metamyelocytes # (Man) Myelocytes # (Manual) Nucleated RBCs ABG pH 7.20 L ABG pCO2 60 H ABG pO2 80 L ABG HCO3 ABG Total CO2 25 H ABG O2 Saturation Sodium Potassium Chloride BUN Creatinine Glucose POC Glucose (mg/dL) 183 H 145 H Plasma Lactic Acid [place] Calcium Magnesium Total Bilirubin AST ALT Alkaline Phosphatase Troponin I Total Protein Albumin Procalcitonin Urine Appearance Urine Protein Urine Blood Urine WBC Amorphous Sediment Urine Bacteria Urine Mucus 12/09/19 12/10/19 12/10/19 23:22 04:05 04:05 WBC 23.4 H RBC 3.05 L Hgb 9.3 L Hct 30.5 L MCHC 30.6 L Plt Count 120 L Neutrophils # Neutrophils # (Manual) 18.70 H Lymphocytes # Lymphocytes # (Manual) Monocytes # (Manual) 1.87 H Metamyelocytes # (Man) Myelocytes # (Manual) Nucleated RBCs 3 H ABG pH ABG pCO2 ABG pO2 ABG HCO3 ABG Total CO2 ABG O2 Saturation Sodium Potassium Chloride BUN Creatinine Glucose POC Glucose (mg/dL) 128 H Plasma Lactic Acid [place] Calcium Magnesium Total Bilirubin AST ALT Alkaline Phosphatase Troponin I Total Protein Albumin Procalcitonin 31.53 H Urine Appearance Urine Protein Urine Blood Urine WBC Amorphous Sediment Urine Bacteria Urine Mucus 12/10/19 12/10/19 12/10/19 04:05 05:16 05:20 WBC RBC Hgb Hct MCHC Plt Count Neutrophils # Neutrophils # (Manual) Lymphocytes # Lymphocytes # (Manual) Monocytes # (Manual) Metamyelocytes # (Man) Myelocytes # (Manual) Nucleated RBCs ABG pH 7.16 L* ABG pCO2 65 H ABG pO2 116 H ABG HCO3 ABG Total CO2 25 H ABG O2 Saturation 98.1 H Sodium 149 H Potassium Chloride 121 H BUN 41 H Creatinine 2.11 H Glucose 136 H POC Glucose (mg/dL) 147 H Plasma Lactic Acid [place] Calcium 8.1 L Magnesium Total Bilirubin AST ALT Alkaline Phosphatase 150 H Troponin I Total Protein 4.7 L Albumin 2.2 L Procalcitonin Urine Appearance Urine Protein Urine Blood Urine WBC Amorphous Sediment Urine Bacteria Urine Mucus 12/10/19 12/10/19 12/10/19 09:10 11:58 17:38 WBC RBC Hgb Hct MCHC Plt Count Neutrophils # Neutrophils # (Manual) Lymphocytes # Lymphocytes # (Manual) Monocytes # (Manual) Metamyelocytes # (Man) Myelocytes # (Manual) Nucleated RBCs ABG pH 7.21 L ABG pCO2 57 H ABG pO2 141 H ABG HCO3 ABG Total CO2 ABG O2 Saturation 98.6 H Sodium Potassium Chloride BUN Creatinine Glucose POC Glucose (mg/dL) 185 H 150 H Plasma Lactic Acid [place] Calcium Magnesium Total Bilirubin AST ALT Alkaline Phosphatase Troponin I Total Protein Albumin Procalcitonin Urine Appearance Urine Protein Urine Blood Urine WBC Amorphous Sediment Urine Bacteria Urine Mucus 12/10/19 12/11/19 12/11/19 23:13 04:20 04:20 WBC 15.3 H RBC 2.87 L Hgb 8.9 L Hct 27.8 L MCHC Plt Count 130 L Neutrophils # Neutrophils # (Manual) 13.30 H Lymphocytes # Lymphocytes # (Manual) Monocytes # (Manual) Metamyelocytes # (Man) Myelocytes # (Manual) Nucleated RBCs 2 H ABG pH ABG pCO2 ABG pO2 ABG HCO3 ABG Total CO2 ABG O2 Saturation Sodium 148 H Potassium Chloride 120 H BUN 55 H Creatinine 2.32 H Glucose 145 H POC Glucose (mg/dL) 136 H Plasma Lactic Acid [place] Calcium 8.2 L Magnesium Total Bilirubin AST ALT Alkaline Phosphatase Troponin I Total Protein Albumin Procalcitonin Urine Appearance Urine Protein Urine Blood Urine WBC Amorphous Sediment Urine Bacteria Urine Mucus 12/11/19 12/11/19 12/11/19 05:11 05:32 11:52 WBC RBC Hgb Hct MCHC Plt Count Neutrophils # Neutrophils # (Manual) Lymphocytes # Lymphocytes # (Manual) Monocytes # (Manual) Metamyelocytes # (Man) Myelocytes # (Manual) Nucleated RBCs ABG pH 7.29 L ABG pCO2 50 H ABG pO2 131 H ABG HCO3 ABG Total CO2 26 H ABG O2 Saturation 98.6 H Sodium Potassium Chloride BUN Creatinine Glucose POC Glucose (mg/dL) 151 H 148 H Plasma Lactic Acid [place] Calcium Magnesium Total Bilirubin AST ALT Alkaline Phosphatase Troponin I Total Protein Albumin Procalcitonin Urine Appearance Urine Protein Urine Blood Urine WBC Amorphous Sediment Urine Bacteria Urine Mucus 12/11/19 12/11/19 12/12/19 17:09 23:35 04:35 WBC 17.0 H RBC 3.00 L Hgb 9.2 L Hct 28.3 L MCHC Plt Count 142 L Neutrophils # 15.4 H Neutrophils # (Manual) Lymphocytes # 0.8 L Lymphocytes # (Manual) Monocytes # (Manual) Metamyelocytes # (Man) Myelocytes # (Manual) Nucleated RBCs ABG pH ABG pCO2 ABG pO2 ABG HCO3 ABG Total CO2 ABG O2 Saturation Sodium Potassium Chloride BUN Creatinine Glucose POC Glucose (mg/dL) 134 H 143 H Plasma Lactic Acid [place] Calcium Magnesium Total Bilirubin AST ALT Alkaline Phosphatase Troponin I Total Protein Albumin Procalcitonin Urine Appearance Urine Protein Urine Blood Urine WBC Amorphous Sediment Urine Bacteria Urine Mucus 12/12/19 12/12/19 12/12/19 04:35 04:50 05:35 WBC RBC Hgb Hct MCHC Plt Count Neutrophils # Neutrophils # (Manual) Lymphocytes # Lymphocytes # (Manual) Monocytes # (Manual) Metamyelocytes # (Man) Myelocytes # (Manual) Nucleated RBCs ABG pH ABG pCO2 ABG pO2 ABG HCO3 26 H ABG Total CO2 28 H ABG O2 Saturation Sodium 149 H Potassium Chloride 117 H BUN 67 H Creatinine 2.73 H Glucose 155 H POC Glucose (mg/dL) 150 H Plasma Lactic Acid [place] Calcium 8.3 L Magnesium Total Bilirubin AST ALT Alkaline Phosphatase Troponin I Total Protein Albumin Procalcitonin Urine Appearance Urine Protein Urine Blood Urine WBC Amorphous Sediment Urine Bacteria Urine Mucus 12/12/19 12/12/19 12/12/19 12:52 18:20 23:54 WBC RBC Hgb Hct MCHC Plt Count Neutrophils # Neutrophils # (Manual) Lymphocytes # Lymphocytes # (Manual) Monocytes # (Manual) Metamyelocytes # (Man) Myelocytes # (Manual) Nucleated RBCs ABG pH ABG pCO2 ABG pO2 ABG HCO3 ABG Total CO2 ABG O2 Saturation Sodium Potassium Chloride BUN Creatinine Glucose POC Glucose (mg/dL) 151 H 141 H 167 H Plasma Lactic Acid [place] Calcium Magnesium Total Bilirubin AST ALT Alkaline Phosphatase Troponin I Total Protein Albumin Procalcitonin Urine Appearance Urine Protein Urine Blood Urine WBC Amorphous Sediment Urine Bacteria Urine Mucus 12/13/19 12/13/19 12/13/19 04:22 04:22 04:27 WBC 13.7 H RBC 3.18 L Hgb 9.7 L Hct 30.2 L MCHC Plt Count 149 L Neutrophils # 12.2 H Neutrophils # (Manual) Lymphocytes # 0.8 L Lymphocytes # (Manual) Monocytes # (Manual) Metamyelocytes # (Man) Myelocytes # (Manual) Nucleated RBCs ABG pH 7.46 H ABG pCO2 ABG pO2 ABG HCO3 26 H ABG Total CO2 27 H ABG O2 Saturation 97.6 H Sodium 148 H Potassium Chloride 119 H BUN 76 H Creatinine 2.40 H Glucose 169 H POC Glucose (mg/dL) Plasma Lactic Acid [place] Calcium 8.2 L Magnesium Total Bilirubin AST ALT Alkaline Phosphatase Troponin I Total Protein Albumin Procalcitonin Urine Appearance Urine Protein Urine Blood Urine WBC Amorphous Sediment Urine Bacteria Urine Mucus 12/13/19 12/13/19 12/13/19 06:06 11:51 17:57 WBC RBC Hgb Hct MCHC Plt Count Neutrophils # Neutrophils # (Manual) Lymphocytes # Lymphocytes # (Manual) Monocytes # (Manual) Metamyelocytes # (Man) Myelocytes # (Manual) Nucleated RBCs ABG pH ABG pCO2 ABG pO2 ABG HCO3 ABG Total CO2 ABG O2 Saturation Sodium Potassium Chloride BUN Creatinine Glucose POC Glucose (mg/dL) 194 H 154 H 163 H Plasma Lactic Acid [place] Calcium Magnesium Total Bilirubin AST ALT Alkaline Phosphatase Troponin I Total Protein Albumin Procalcitonin Urine Appearance Urine Protein Urine Blood Urine WBC Amorphous Sediment Urine Bacteria Urine Mucus 12/13/19 12/14/19 12/14/19 23:52 05:02 05:35 WBC RBC Hgb Hct MCHC Plt Count Neutrophils # Neutrophils # (Manual) Lymphocytes # Lymphocytes # (Manual) Monocytes # (Manual) Metamyelocytes # (Man) Myelocytes # (Manual) Nucleated RBCs ABG pH 7.52 H ABG pCO2 32 L ABG pO2 112 H ABG HCO3 26 H ABG Total CO2 27 H ABG O2 Saturation 98.8 H Sodium 148 H Potassium 3.4 L Chloride 115 H BUN 69 H Creatinine 2.22 H Glucose 161 H POC Glucose (mg/dL) 162 H Plasma Lactic Acid [place] Calcium Magnesium Total Bilirubin AST ALT Alkaline Phosphatase Troponin I Total Protein Albumin Procalcitonin Urine Appearance Urine Protein Urine Blood Urine WBC Amorphous Sediment Urine Bacteria Urine Mucus 12/14/19 12/14/19 12/14/19 05:35 05:35 06:12 WBC 21.8 H RBC 3.67 L Hgb 11.0 L Hct 33.4 L MCHC Plt Count Neutrophils # 20.0 H Neutrophils # (Manual) Lymphocytes # Lymphocytes # (Manual) Monocytes # (Manual) Metamyelocytes # (Man) Myelocytes # (Manual) Nucleated RBCs ABG pH ABG pCO2 ABG pO2 ABG HCO3 ABG Total CO2 ABG O2 Saturation Sodium Potassium Chloride BUN Creatinine Glucose POC Glucose (mg/dL) 141 H Plasma Lactic Acid [place] Calcium Magnesium 2.7 H Total Bilirubin AST ALT Alkaline Phosphatase Troponin I Total Protein Albumin Procalcitonin Urine Appearance Urine Protein Urine Blood Urine WBC Amorphous Sediment Urine Bacteria Urine Mucus 12/14/19 12/14/19 09:45 12:28 WBC RBC Hgb Hct MCHC Plt Count Neutrophils # Neutrophils # (Manual) Lymphocytes # Lymphocytes # (Manual) Monocytes # (Manual) Metamyelocytes # (Man) Myelocytes # (Manual) Nucleated RBCs ABG pH ABG pCO2 ABG pO2 ABG HCO3 ABG Total CO2 ABG O2 Saturation Sodium Potassium Chloride BUN Creatinine Glucose POC Glucose (mg/dL) 113 H Plasma Lactic Acid [place] Calcium Magnesium Total Bilirubin AST ALT Alkaline Phosphatase Troponin I Total Protein Albumin Procalcitonin Urine Appearance Urine Protein Urine Blood Small H Urine WBC Amorphous Sediment Rare H Urine Bacteria Rare H Urine Mucus Rare H Assessment and Plan Assessment: * Altered mental status, likely related to toxic metabolic encephalopathy. * History of substance abuse, probably some withdrawal. * Pneumonia Plan: * Patient had an EEG performed today, which revealed intermittent background slowing, consistent with encephalopathy, mild to moderate degree. * At this point I will perform serial neurological examination. Hopefully she will start showing gradual clinical improvement on a daily basis. * Neurology will follow clinically. * Your medical management.
[2019-12-14] MEDS: SODIUM CHLORIDE 0.45% 1,000 ML IV SCH (20:29)
[2019-12-14] MEDS: ACETAMINOPHEN TAB 325 MG TAB PO PRN (20:33)
[2019-12-14 23:32] LABS: Glucose,Whole Blood 195 mg/dL (75-99)
[2019-12-15] MEDS: IPRATROPIUM-ALBUTEROL 3 ML NEB INHALATION SCH ×3 (00:47→07:06)
[2019-12-15] MEDS: CLEVIDIPINE BUTYRATE 25 MG in EMPTY BAG 1 BAG IV SCH ×6 (00:51→20:06)
[2019-12-15] MEDS: fentaNYL (PF) 50 MCG/ML 2 ML AMP IVP PRN ×2 (03:44→20:05)
[2019-12-15] MEDS: ACETAMINOPHEN TAB 325 MG TAB PO PRN (04:01)
[2019-12-15] MEDS: NOREPINEPHRINE 32 MG in SODIUM CHLORIDE 0.9% 218 ML IV SCH (04:32)
[2019-12-15 04:44] LABS: Basophils % (A) 0 %; Eosinophils % (A) 0 %; HCT 28.8 % (34.0-46.0); HGB 9.6 gm/dL (11.4-16.0); Lymphocytes # (A) 0.6 k/uL (1.0-4.8); Lymphocytes % (A) 4 %; MCH 30.4 pg (25.0-35.0); MCHC 33.4 g/dL (31.0-37.0); MCV 91.2 fL (80.0-100.0); Mean Platelet Volume 10.1; Monocytes # (A) 0.4 k/uL (0-1.0); Monocytes % (A) 3 %; Neutrophils # (A) 13.8 k/uL (1.3-7.7); Neutrophils % (A) 92 %; Platelet Count 173 k/uL (150-450); RBC 3.16 m/uL (3.80-5.40); RDW 14.4 % (11.5-15.5)
[2019-12-15 04:57] LABS: Calcium 7.9 mg/dL (8.4-10.2); Potassium 4.5 mmol/L (3.5-5.1)
[2019-12-15] MEDS: DEXMEDETOMIDINE/0.9% NACL(PMX) 400 MCG in EMPTY BAG 1 BAG IV SCH (05:12)
[2019-12-15 05:16] LABS: Glucose,Whole Blood 193 mg/dL (75-99)
[2019-12-15] MEDS: INSULIN ASPART (NovoLOG) 100 UNIT/ML VIAL SQ SCH ×3 (05:18→17:53)
[2019-12-15] MEDS: methylPREDNISolone SOD SUCCI 125 MG/2 ML VIAL IV SCH (05:19)
[2019-12-15 06:04] LABS: ABG Base Excess 3.2 mmol/L; ABG HCO3 26 mmol/L (21-25); ABG Oxygen Saturation 98.2 % (94-97); ABG PCO2 31 mmHg (35-45); ABG PH 7.53 (7.35-7.45); ABG PO2 88 mmHg (83-108); ABG TCO2 27 mmol/L (19-24)
[2019-12-15 06:06] LABS: Allen Test Performed? no
--- NOTE | 2019-12-15 07:04 | XR ---
EXAMINATION TYPE: XR chest 1V portable DATE OF EXAM: 12/15/2019 Comparison: 12/14/2019 Clinical History: 54-year-old female intubated Findings: ET and NG tubes are satisfactory. Left CVC tip within the right atrium. Heart upper limits of normal in size. Patchy airspace opacity left mid and lower lung and also at the right base, unchanged from p rior. Impression: Left greater than right mid and lower lung airspace disease, unchanged from prior.
[2019-12-15] MEDS: HEPARIN SODIUM,PORCINE 5,000 UNIT/ML 1 ML VIAL SQ SCH ×2 (07:59→15:01)
[2019-12-15] MEDS: CHLORHEXIDINE GLUCONATE 15 ML CUP MUCOUS MEM SCH (07:59)
[2019-12-15] MEDS: PIPERACILLIN-TAZOBACTAM 3.375 GM in SODIUM CHLORIDE 0.9% 100 ML IVPB SCH ×2 (07:59→15:01)
[2019-12-15] MEDS: FAMOTIDINE 20 MG/2 ML VIAL IV SCH (08:00)
[2019-12-15 11:04] LABS: ABG Base Excess 3.1 mmol/L; ABG HCO3 27 mmol/L (21-25); ABG Oxygen Saturation 96.8 % (94-97); ABG PCO2 39 mmHg (35-45); ABG PH 7.45 (7.35-7.45); ABG PO2 89 mmHg (83-108); ABG TCO2 28 mmol/L (19-24)
[2019-12-15 11:06] LABS: Allen Test Performed? no
[2019-12-15 12:09] LABS: Glucose,Whole Blood 168 mg/dL (75-99)
[2019-12-15] MEDS: ALBUTEROL HFA INHALER INHALATION SCH ×4 (12:10→23:33)
--- NOTE | 2019-12-15 13:05 | P.PN ---
Subjective Progress Note Date: 12/15/19 Patient off sedation. Patient much more improved today. Patient is opening eyes, tracking with her eyes to the sides bilaterally, wiggling her toes him a also slightly wiggling her thumbs. Objective - Vital Signs Vital signs: Vital Signs Temp 100.4 F H 12/15/19 08:00 Pulse 100 12/15/19 12:00 Resp 14 12/15/19 12:00 BP 127/68 12/13/19 20:00 Pulse Ox 100 12/15/19 12:00 Intake & Output 12/14/19 12/15/19 12/15/19 18:59 06:59 18:59 Intake Total 4366.062 2518.447 234.500 Output Total 2325 1505 630 Balance 2041.062 1013.447 -395.500 Weight 97.7 kg 97.3 kg Intake: IV 1208 176 140 0.45 NACL 130 110 10 Normal Saline Pressure 78 66 30 Bag Piperacillin-Tazobactam 3 1000 100 .375 gm In Sodium Chloride 0.9% 100 ml @ 25 mls/hr IVPB Q8HR REGINO Rx# :[id number] Intake, IV Titration 154.062 352.447 24.500 Amount Clevidipine Butyrate 25 138.267 171.233 24.500 mg In Empty Bag 1 bag @ 1 MG/HR 2 mls/hr IV .Q24H REGINO Rx#:[id number] Dexmedetomidine/0.9% NaCl 15.795 181.214 (Pmx) 400 mcg In Empty Bag 1 bag @ Titrate IV . Q0M REGINO Rx#:[id number] Tube Feeding 504 490 70 Other 2500 1500 Output: Urine 2325 1505 630 Other: Voiding Method Indwelling Catheter Indwelling Catheter Indwelling Catheter ABP, PAP, CO, CI - Last Documented Arterial Blood Pressure 154/65 - Exam Patient intubated on mechanical ventilation. Not on sedation. Patient much more arousable, opens her eyes widely, makes eye contact, tracks on either side. Patient wiggle toes of both feet, very slightly on the thumb if at all. - Labs CBC & Chem 7: 12/15/19 04:25 12/15/19 04:25 Labs: Abnormal Lab Results - Last 24 Hours (Table) 12/14/19 12/14/19 12/15/19 Range/Units 18:05 23:31 04:25 WBC 15.0 H (3.8-10.6) k/uL RBC 3.16 L (3.80-5.40) m/uL Hgb 9.6 L (11.4-16.0) gm/dL Hct 28.8 L (34.0-46.0) % Neutrophils # 13.8 H (1.3-7.7) k/uL Lymphocytes # 0.6 L (1.0-4.8) k/uL ABG pH (7.35-7.45) ABG pCO2 (35-45) mmHg ABG HCO3 (21-25) mmol/L ABG Total CO2 (19-24) mmol/L ABG O2 Saturation (94-97) % Chloride (98-107) mmol/L BUN (7-17) mg/dL Creatinine (0.52-1.04) mg/dL Glucose (74-99) mg/dL POC Glucose (mg/dL) 185 H 195 H (75-99) mg/dL Calcium (8.4-10.2) mg/dL 12/15/19 12/15/19 12/15/19 Range/Units 04:25 05:14 06:00 WBC (3.8-10.6) k/uL RBC (3.80-5.40) m/uL Hgb (11.4-16.0) gm/dL Hct (34.0-46.0) % Neutrophils # (1.3-7.7) k/uL Lymphocytes # (1.0-4.8) k/uL ABG pH 7.53 H (7.35-7.45) ABG pCO2 31 L (35-45) mmHg ABG HCO3 26 H (21-25) mmol/L ABG Total CO2 27 H (19-24) mmol/L ABG O2 Saturation 98.2 H (94-97) % Chloride 115 H (98-107) mmol/L BUN 67 H (7-17) mg/dL Creatinine 2.09 H (0.52-1.04) mg/dL Glucose 182 H (74-99) mg/dL POC Glucose (mg/dL) 193 H (75-99) mg/dL Calcium 7.9 L (8.4-10.2) mg/dL 12/15/19 12/15/19 Range/Units 10:57 12:07 WBC (3.8-10.6) k/uL RBC (3.80-5.40) m/uL Hgb (11.4-16.0) gm/dL Hct (34.0-46.0) % Neutrophils # (1.3-7.7) k/uL Lymphocytes # (1.0-4.8) k/uL ABG pH (7.35-7.45) ABG pCO2 (35-45) mmHg ABG HCO3 27 H (21-25) mmol/L ABG Total CO2 28 H (19-24) mmol/L ABG O2 Saturation (94-97) % Chloride (98-107) mmol/L BUN (7-17) mg/dL Creatinine (0.52-1.04) mg/dL Glucose (74-99) mg/dL POC Glucose (mg/dL) 168 H (75-99) mg/dL Calcium (8.4-10.2) mg/dL Assessment and Plan Assessment: * Altered mental status, likely related to toxic metabolic encephalopathy. * History of substance abuse, probably some withdrawal. * Pneumonia Plan: * Patient's encephalopathy has improved. She is much more responsive today, as per examination above, however still quite encephalopathic. She will continue to improve gradually. * EEG performed 12/14/2019 revealed intermittent background slowing, consistent with encephalopathy, mild to moderate degree. * Continue serial neurological examination. Hopefully she will start showing gradual clinical improvement on a daily basis. * Your medical management.
[2019-12-15] MEDS ORDERED: amLODIPine 10 MG TAB PO SCH (13:15)
--- NOTE | 2019-12-15 13:30 | PN ---
PROGRESS NOTE The patient is seen for followup for acute kidney injury. Renal function has been improving. Serum creatinine is down to 2.09. The patient has good urine output at about 100 to 200 mL an hour. She is maintained on tube feedings and receiving free water flushes as well. The patient remains on the vent. She is awake. She did not her head. The patient is also maintained on Cleviprex drip. PHYSICAL EXAMINATION: On examination this morning, blood pressure was 154/65, heart rate 100 per minute. She is afebrile. Examination reveals patient is awake. She remains on the vent. EXAMINATION OF THE HEART: Heart sounds are heard. ABDOMEN: Soft, nontender. Examination of lower extremities shows no significant edema. LABS: Labs show sodium of 145, potassium 4.5, chloride 115, CO2 is 27, BUN 67, creatinine 2.09, calcium 7.9, hemoglobin 9.6 g/dL. ASSESSMENT: 1. Acute kidney injury, acute tubular necrosis, currently improving. Patient has had good urine output. We will continue to hold ff on Lasix for now. 2. Hypernatremia maintained on free water down the feeding tube. Sodium level has improved. 3. Hypertension currently on Cleviprex drip. I will add oral antihypertensive medications. At home patient was on amlodipine and metoprolol along with Entresto. We can start with Norvasc 10 mg daily for now. We will try to wean down the Cleviprex drip. 4. Acute hypoxic respiratory failure, currently on the vent. 5. Mental status changes, status post evaluation by Neurology. 6. Septic shock from pneumonia, off of pressors. PLAN: Add oral Norvasc down the feeding tube. Try to wean down the Cleviprex. I will also add Lopressor if her blood pressure remains elevated. MMODL / IJN: [id number] /
--- NOTE | 2019-12-15 13:43 | P.PN ---
Subjective Progress Note Date: 12/15/19 Principal diagnosis: Acute left lower lobe pneumonia, community acquired pneumonia. On today's evaluation of 12/07/2019 and seeing the patient for a follow-up. This patient came with an extensive left lung pneumonia/airspace disease/consolidation and she is intubated on a mechanical ventilator. Note that she was quite septic and the time of arrival. She is also being ruled out for COVID 19 infection. The patient has multiple medical problems and comorbidities. The patient has COPD/asthma. The patient also has CHF with an ejection fraction of 25-30% along with previous history of moderate degree of mitral regurgitation. She has history of substance abuse including methamphetamine and fentanyl and the patient has been on methadone on outpatient basis. The patient has hypertension, hyperlipidemia, fibromyalgia, osteoarthritis and previous history of alcoholism This morning, the patient remains sedated with propofol which is currently running at 40 mg per KG per minute. The patient is also paralyzed with Nimbex 01 g per KG per minute. The patient is receiving IV fluids at the rate of 75 mL an hour. The patient is on norepinephrine infusion at 0.15 g per KG per minute. She is an assist-control mode of ventilator. The patient is at the rate of 34 with a tidal volume of 350 and FiO2 of 85% with a PEEP of 15. The blood gases from today showed a pH of 7.16 with a pCO2 of 73 and pO2 of 85 and this was done and FiO2 of 85%. The white cell count is at 20 per lactic acid level is down to 2.4. Renal function is stable with a creatinine of 0.7. Sodi um is at 144. The patient had been she with a combination of antibiotics. For now we have the patient a combination of vancomycin and Zosyn. I added Zithromax today. I also have the patient on Plaquenil for the possibility of an underlying coronavirus infection of the lungs. A repeat echocardiogram is still pending regarding the left ventricle ejection fraction and the extent of mitral regurgitation. Noted the patient was noted to be having a lower CVP this morning. I went ahead and gave her another liter of normal saline with a possibility of giving her a second liter if she continues to have lower urine output. Troponin is at 0.9. Blood cultures still negative. Sputum Gram stain and cultures also negative. Note that on her blood work, the patient has a 28% bandemia time of admission and currently she is up to 58%. Legionella urine antigen will be also sent. On today's evaluation of 12/08/2019 the patient remains intubated on a mechanical ventilator. We will inform that the patient's blood cultures from [place] showed a gram-positive cocci in pairs. Based on that, we aren't anticipating the possibility of an underlying pneumococcal left lung pneumonia. The patient continues to have extensive consolidation of the left lung on today's chest x-ray. Meanwhile, the patient is a mechanical ventilator. She is quite bronchospastic and wheezy. No nebulizers or steroids have been utilizing anticipating a Covid 19 infection which I think it's less likely possibility on today's evaluation. The patient is currently on an assist-control mode at the rate of 34 with a tidal volume of 350 and FiO2 of 70% with a PEEP of 15. Peak airway pressures 42. Static pressure is 28. The patient is sedated with propofol at a dose of 40 g per KG per minute. The patient on Nimbex at 1 g per KG per minute. The patient is also on norepinephrine infusion at 0.3 g per KG per minute. The patient is also on vasopressin physiologic dose. The patient is septic shock. White cell count is up to 24 with a hemoglobin of 10.2. The patient has a percent bandemia which is improved compared to yesterday. The blood gas showed a pH of 7.18 with a pCO2 of 62 and pO2 of 83. The pro-calcitonin level was 96.4 indicating bacterial infection. Covid testing is still pending for now. The patient is receiving a combination of Zithromax, vancomycin and Zosyn for now. Plaquenil be continued pending the Covid 19 status. The patient also suffered an acute kidney injury. Creatinine is up to 1.6 and the patient has a positive fluid balance of 2.5 L over the past 24 hours. On 12/09/2019, the patient remains on a mechanical ventilator. This morning, the patient remains essentially on the same ventilator setting. The patient remains on assist control mode at the rate of 34 with a tidal volume of 350 and FiO2 of 60% with a PEEP of 15. The patient's pulse ox currently is around 93%. The peak airway pressures around 40 with a static pressure of 26. The patient has an extensive left lung consolidation which seems to be slightly improved compared to yesterday. We will inform that the patient had a positive gram- positive cocci in pairs and the blood culture that was obtained in the outside hospital. For that reason, I discontinue the Zithromax and a The patient a combination of Zosyn and vancomycin. Also, the Covid 19 testing came back negative and the patient was taken off the Plaquenil. The patient has a blood gas that showed a pH of 7.2 with a pCO2 of 60 and pO2 of 80. The patient was started on bronchodilators. The patient was also started on IV Solu-Medrol yesterday. The patient is being weaned off the pressors. Note that over the past 24-48 hours the patient was profoundly hypotensive and the patient also developed a component of an acute kidney injury. Creatinine came up to 1.6 and today's up to 1.8. Nevertheless urine output improved and the patient has been taken off the vasopressin and the patient is down on the norepinephrine infusion which is currently running at 0.08 g per KG per minute. The patient continues to be paralyzed with Nimbex and the proposed running at 40 g per KG per minute. The patient is on high protein vital running at 42 mL an hour. She is tolerating her enteral feeding for nutritional support. She is afebrile. No other significant events otherwise for now. The cultures that were obtained here in the hospital were all negative. On 12/10/2019, the patient remains intubated on a mechanical ventilator. The patient also remains sedated and paralyzed. This morning, the patient is an assist-control mode and based on the morning blood gases I made some changes in the mechanical ventilator. Note that the patient was in a assist-control of 34 with a tidal volume of 350 and FiO2 of 60% with a PEEP of 13. The blood gases from this morning showed a pH of 7.16 with a pCO2 of 65 and pO2 of 116. Based on that, increase the tidal volume up to 400s. I also dropped the PEEP. Subsequent evaluation showed that the patient had a pH of 7.21 with a pCO2 of 57 and pO2 of 141. Based on all this, I dropped the PEEP down to 10 and I also drop the FiO2 down to 50% and I dropped a respiratory rate down to 28. In terms of his chest x-ray findings, the patient shows improvement in the left lower l obe consolidation. Hemodynamically, the patient remains on low-dose norepinephrine infusion. The patient is currently on levo fed at 0.01 mcg/kg per minute. The peak air pressure 32 and the static pressures 21. The fluid balance has been positive over the past several days. For that reason the patient will be started on diuretics. Creatinine is up to 2.1. The patient is nonoliguric. Cultures of been all negative thus far and was still awaiting the final cultures to be forwarded to us from an outside hospital which indicated the possibility of a gram-positive cocci in pairs/changes. She is afebrile. She is tolerating enteral feeding for nutrition support. She'll be also taken off the paralytics today and she'll be given a paralytic holiday. He remains on a combination of fentanyl and propofol for sedation. The patient is also taking enteral feeding for nutritional support and she is on vital high protein at the rate of 42 mL an hour. On 12/11/2019 the patient remains intubated on a mechanical ventilator. She is a case of pneumonia with septic shock and multisystem organ failure the patient is still struggling to recover from this. The patient remains on a combination of Zosyn and vancomycin. Clinically, the patient is off paralytics. However, the patient is still requiring a propofol for sedation which is currently running at 14 mcg/kg per minute. On today's evaluation, the patient was assist- control at the rate of 28 with a tidal volume of 400 and PEEP of 10 with an FiO2 of 50%. She was somewhat asynchronous with a mechanical ventilator. She was occasional double stacking. The blood gases showed a pH of 7.29 with a pCO2 of 50 and pO2 131. Based on all this, I switched this patient a VC plus mode with tidal volume of 400. I put in at the rate of 24. Eye doctor tidal down to 40% with a PEEP of 5. I also put her on an inspiratory time of 0.6 seconds. The patient became significantly more synchronous with the mechanical ventilator. The patient however is still the most I a combination of bronchospasm wheezing and for that reason the patient will be kept on a mechanical ventilator for another 24 hours during which she is going to receive bronchodilators and steroids. Antibiotics remain unchanged pending further cultures. The chest x-ray is showing airspace disease throughout the left lung, which is gradually improving compared to the original chest x-ray. There is a small left-sided pleural effusion. There is also some increasing confusion the right lung base. Noted the patient is in a significant fluid positive balance. The patient was given diuretics yesterday. Fluid balance over the past 24 hours is still positive at 2.4 L in the patient's creatinine is up to 2.3. Urine output however his improving. Further diuretics will be given. Case was discussed with nephrology. On 12/12/2019, the patient is being seen for a follow-up. The patient is still sedated on propofol and she is currently running at 50 g per KG per minute. She is also on vital high protein for enteral feeding and nutritional support. She is on assist control mode of ventilation and she is in a VC plus mode and I haven't on a tidal volume of 400 with a rate of 24 with an FiO2 of 40% and a PEEP of 5. She was noted to have double stacking and she was requiring significant a higher volumes. Based on that, increase the tidal volume gradually up to 550 and I also dropped a respiratory rate down to 18. She was kept on a PEEP of 5 and FiO2 of 40%. Her current inspiratory time is at 0.65. Her inhalation exhalation ratio is 1-2 and the most recent blood gases from today shows A pH of 7.4 with a pCO2 of 42 and pO2 of 86. Chest x-ray bilateral infiltrates worse on the left compared to the right, somewhat improved compared to yesterday. The patient has no significant orotracheal secretions. The cultures that were sent over from the outside hospital do not to be a coagulase- negative staph epidermidis and it was not of any valuable information. The patient remains on a combination of Zosyn and vancomycin. Vancomycin trough was quite elevated and the patient's vancomycin is currently on hold. All of the cultures are negative. The patient is on is there is Zosyn also. She has developed an acute kidney failure and the creatinine is up to 2.7. Nevertheless the patient is nonoliguric. Neck fluid balance is at +1.4. Noted the patient was given Lasix yesterday at a dose of 40 mg every 12 hours. Based on the rising and a creatinine in the based on the ongoing improvement in urine output, we'll stop the Lasix upon discussing this with nephrology. The patient is a component of hyperchloremic hypernatremia. Sodium level is at 149. The patient is receiving free water through the NG. On examination, she is much less bronchospastic and wheezy. Her peak airway pressures down to 22. Static pressures down to 15-17. She is afebrile for now. She is on no pressors. She is tolerating her tube feeds. On 12/13/2019 on seeing the patient for a follow-up. Note that the patient is a case of extensive left lung pneumonia with septic shock and she was ruled out for coronary 19 infection. The patient was extremely hypoxic and hemodynamically unstable at time of admission and she gradually improved. This morning, we are on no pressors. The patient is on propofol which were trying to wean and replace it with Precedex. I'm trying to introduce Precedex as the patient is getting quite agitated and restless and tachypneic and tachycardic and hypertensive as the propofol is being weaned off. Nevertheless, she never gets the point where she becomes unresponsive. I'm also going to do a CAT scan of the brain to evaluate her underlying mental status as the patient unable to come off the propofol without any major difficulties. This morning from 4 is running at 20 g and Precedex at 0.7. She remains on a mechanical ventilator. She is having significant amount of double stacking. For that reason, I switched to a pressure control mode of ventilation and she is at the rate of 18 with a pressure control of 24 cm of water with an FiO2 of 40% with a PEEP of 5 and a respiratory time of 1 ms. This very much is eliminated her double stacking and she is very synchronous with the mechanical ventilator for now. She is afebrile. She remains on examination Zosyn and vancomycin. She remains on IV Solu Medrol pH is on DuoNeb nebulized treatments on the clock. In regards to her acute hypertension, I'm going to use clevidipine drip for blood pressure control. The creatinine is improving and creatinine is down to 2.4. She is producing adequate amount of urine output. The blood gases showed a pH of 7.46 with a pCO2 of 37 and pO2 of 93 and this was done and FiO2 of 40%. The chest x- ray shows left sided airspace disease. CAT scan of the brain is to follow. The white cell count is down to 13.7. Hemoglobin is at 9.7. The net fluid balance remains +1.43 yesterday and 1.8 L for today. Her weight is up and she would benefit from diuresis. We'll discuss this with nephrology. Note that she was also getting free water flushes at a dose of 500 mL every 4 hours. Her sodium level is down to 148. Reevaluated today on 12/14/19, patient is being followed for extensive left-sided pneumonia and septic shock. Patient was ruled out for covid 19, patient remains intubated on mechanical ventilation. Patient is on pressure control of 24, FiO2 is 40%, PEEP of 5. And inspiratory time 1ms. Chest x-ray continues to show extensive infiltrate in the left lung, especially in the left lower lobe, and some extent involving the right lower lobe. Consistent with multifocal pneumonia, possibility of underlying interstitial edema is not entirely ruled out. ABG this morning showed a pO2 of 112 pCO2 of 32 pH of 7.52, and this is on 40% FiO2. Her echocardiogram showed good LV function, and significant mitral valve disease. Patient was noted to be extremely agitated off Precedex. Hence I placed her back on Precedex. She is clearly not ready for any weaning. Gets extremely agitated, restless, tachycardic, tachypneic, off sedation. Sputum cultures have been nondiagnostic, hence I discontinued her vancomycin, and place the patient on Zosyn. Remains on updraft treatments, she is also on Solu- Medrol. Remains on clevidipine drip for control of blood pressure. CBC continues to show leukocytosis with WBC count of 21.8 hemoglobin is 11. Renal profile is slightly better compared to yesterday, her creatinine is down to 2.22 from 2.73 few days ago. I did recommend increasing the Lasix dose today since her chest x-ray is suggestive of mild interstitial edema in addition to her underlying pneumonia Reevaluated today on 12/15/19, patient remains intubated and mechanically ventilated, she presented with extensive left-sided pneumonia and septic shock. Covid 19 was basically ruled out. Patient remains on mechanical ventilation. Ventilator settings are pressure control mode of mechanical ventilation, set pressure is 24, inspiratory time is 1 FiO2 is 35% and PEEP is 5. Patient remains on free water, and I cut down the dose to 200 mL via PEG tube every 4 hours. She is still on Precedex which I have cut down, chest x-ray continues to show left lower lobe infiltrate. ABG showed a pO2 of 89 pCO2 of 39 pH of 7.45 and this was on 35% FiO2. [place], the patient seems to be improving significantly compared to yesterday she is opening eyes, tracking with her eyes to the sides bilaterally. Slightly wiggling her toes up on request. Hence I have recommended at least a trial of pressure support of 8 and CPAP, and for about 2 hours she seems to be tolerating that mode of mechanical ventilation/weaning quite well. Then I recommended when she is more awake the patient should be extubated. All labs and chest x-ray were reviewed today. BUN is 67 creatinine is 2.09, improving since admission. Objective - Vital Signs Vital signs: Vital Signs Temp 99.4 F 12/15/19 12:00 Pulse 101 H 12/15/19 13:00 Resp 13 12/15/19 13:00 BP 127/68 12/13/19 20:00 Pulse Ox 100 12/15/19 13:00 Intake & Output 12/14/19 12/15/19 12/15/19 18:59 06:59 18:59 Intake Total 4366.062 2518.447 314.167 Output Total 2325 1505 855 Balance 2041.062 1013.447 -540.833 Weight 97.7 kg 97.3 kg Intake: IV 1208 176 172 0.45 NACL 130 110 30 Normal Saline Pressure 78 66 42 Bag Piperacillin-Tazobactam 3 1000 100 .375 gm In Sodium Chloride 0.9% 100 ml @ 25 mls/hr IVPB Q8HR RE[facility] Rx# :[id number] Intake, IV Titration 154.062 352.447 72.167 Amount Clevidipine Butyrate 25 138.267 171.233 72.167 mg In Empty Bag 1 bag @ 1 MG/HR 2 mls/hr IV .Q24H REGINO Rx#:[id number] Dexmedetomidine/0.9% NaCl 15.795 181.214 (Pmx) 400 mcg In Empty Bag 1 bag @ Titrate IV . Q0M REGINO Rx#:[id number] Tube Feeding 504 490 70 Other 2500 1500 Output: Urine 2325 1505 855 Other: Voiding Method Indwelling Catheter Indwelling Catheter Indwelling Catheter ABP, PAP, CO, CI - Last Documented Arterial Blood Pressure 148/65 - Exam Physical Exam: Revealed a 54-year old -Indian female-in no distress, lethargic, but arousable, and follows instructions. Head: Atraumatic, normocephalic, endotracheal tube and orogastric tube are int act. HEENT:[Neck is supple.] [No neck masses.] [No thyromegaly.] [No JVD.] Chest: [Symmetrical chest expansion, crackles and rhonchi noted bilaterally especially at the left base.] Cardiac Exam: [Normal S1 and S2, no S3 gallop, 2/6 systolic murmur thought the precordium. Abdomen: [Soft, nontender, no megaly, no rebound, no guarding, normal bowel sounds.] Extremities: [No clubbing, no edema, no cyanosis.] Neurological Exam: [Arousable on Precedex, followed very simple instructions but seems to be quite lethargic. Psychiatric: Could not be assessed patient clearly has a blunted mood and affect. And follows simple instructions Skin: No rashes. - Labs CBC & Chem 7: 12/15/19 04:25 12/15/19 04:25 Labs: Abnormal Lab Results - Last 24 Hours (Table) 12/14/19 12/14/19 12/15/19 Range/Units 18:05 23:31 04:25 WBC 15.0 H (3.8-10.6) k/uL RBC 3.16 L (3.80-5.40) m/uL Hgb 9.6 L (11.4-16.0) gm/dL Hct 28.8 L (34.0-46.0) % Neutrophils # 13.8 H (1.3-7.7) k/uL Lymphocytes # 0.6 L (1.0-4.8) k/uL ABG pH (7.35-7.45) ABG pCO2 (35-45) mmHg ABG HCO3 (21-25) mmol/L ABG Total CO2 (19-24) mmol/L ABG O2 Saturation (94-97) % Chloride (98-107) mmol/L BUN (7-17) mg/dL Creatinine (0.52-1.04) mg/dL Glucose (74-99) mg/dL POC Glucose (mg/dL) 185 H 195 H (75-99) mg/dL Calcium (8.4-10.2) mg/dL 12/15/19 12/15/19 12/15/19 Range/Units 04:25 05:14 06:00 WBC (3.8-10.6) k/uL RBC (3.80-5.40) m/uL Hgb (11.4-16.0) gm/dL Hct (34.0-46.0) % Neutrophils # (1.3-7.7) k/uL Lymphocytes # (1.0-4.8) k/uL ABG pH 7.53 H (7.35-7.45) ABG pCO2 31 L (35-45) mmHg ABG HCO3 26 H (21-25) mmol/L ABG Total CO2 27 H (19-24) mmol/L ABG O2 Saturation 98.2 H (94-97) % Chloride 115 H (98-107) mmol/L BUN 67 H (7-17) mg/dL Creatinine 2.09 H (0.52-1.04) mg/dL Glucose 182 H (74-99) mg/dL POC Glucose (mg/dL) 193 H (75-99) mg/dL Calcium 7.9 L (8.4-10.2) mg/dL 12/15/19 12/15/19 Range/Units 10:57 12:07 WBC (3.8-10.6) k/uL RBC (3.80-5.40) m/uL Hgb (11.4-16.0) gm/dL Hct (34.0-46.0) % Neutrophils # (1.3-7.7) k/uL Lymphocytes # (1.0-4.8) k/uL ABG pH (7.35-7.45) ABG pCO2 (35-45) mmHg ABG HCO3 27 H (21-25) mmol/L ABG Total CO2 28 H (19-24) mmol/L ABG O2 Saturation (94-97) % Chloride (98-107) mmol/L BUN (7-17) mg/dL Creatinine (0.52-1.04) mg/dL Glucose (74-99) mg/dL POC Glucose (mg/dL) 168 H (75-99) mg/dL Calcium (8.4-10.2) mg/dL Assessment and Plan Assessment: Impression: Acute community-acquired pneumonia Septic shock secondary to pneumonia Acute hypoxic and hypercapnic respiratory failure secondary to above. Valvular heart disease and moderate mitral regurgitation Suspect some component of acute on chronic congestive heart failure, diastolic in nature ejection fraction is 55% on repeat echocardiogram. Acute kidney injury/acute tubular necrosis being followed by nephrology. Slightly better today History of underlying COPD History of opiate dependence patient has been on Suboxone on outpatient basis. History of alcoholism History of fibromyalgia and chronic pain syndrome Benign essential hypertension Dyslipidemia Recommendation: Trial of pressure support and CPAP will be initiated today. And if tolerated may even consider extubating the patient. Continue GI and deep prophylaxis. Continue nutritional support. Wean and discontinue Precedex. Change antibiotics to Zosyn only, discontinue vancomycin. Continue free water flushes, 200 mL of water every 4 hours. Prognosis remains relatively guarded but improved compared to yesterday. Critical care time is 33 minutes. We'll continue to follow. Time with Patient: Greater than 30
[2019-12-15] MEDS: methylPREDNISolone SOD SUCCI 40 MG/ML 1 ML VIAL IV SCH (15:01)
--- NOTE | 2019-12-15 15:11 | P.PN ---
Subjective Progress Note Date: 12/15/19 Principal diagnosis: Principal diagnosis: Acute hypoxic/hypercapnic respiratory failure; vent dependent Left lower lobe pneumonia Septic shock 12/11/2019 patient remains intubated on a mechanical ventilator due to pneumonia with septic shock and multisystem organ failure; remains on a combination of Zosyn and vancomycin. The patient however is still bronchospastic and for that reason the patient will be kept on a mechanical ventilator for another 24 hours during which she is going to receive bronchodilators and steroids. Antibiotics remain unchanged pending further cultures. The chest x-ray is showing airspace disease throughout the left lung, which is gradually improving compared to the original chest x-ray. There is a small left-sided pleural effusion. There is also some increasing confusion the right lung base. Noted the patient is in a significant fluid positive balance. The patient was given diuretics yesterday. Fluid balance over the past 24 hours is still positive at 2.4 L in the patient's creatinine is up to 2.3. Urine output however his improving. Further diuretics will be given. 12/12/2019 The patient remains intubated; on vital high protein for enteral feeding and nutritional support. Chest x-ray bilateral infiltrates worse on the left compared to the right, somewhat improved compared to yesterday; [id number] staph epidermidis; The patient remains on a combination of Zosyn and vancomycin. Vancomycin trough was quite elevated and the patient's vancomycin is currently on hold. All of the cultures are negative. The patient has developed an acute kidney failure and the creatinine is up to 2.7; patient is nonoliguric; patient was given Lasix yesterday at a dose of 40 mg every 12 hours. Based on the rising and a creatinine in the based on the ongoing improvement in urine output, nephrology recommended discontinuing Lasix. The patient is a component of hyperchloremic hypernatremia. Sodium level is at 149. The patient is receiving free water through the NG. On examination, she is much less bronchospastic and wheezy. Her peak airway pressures down to 22. Static pressures down to 15-17. She is afebrile for now. 12/13/2019 Patient is seen and evaluated in ICU; remains intubated and mechanically ventilated due to extensive left lung pneumonia with septic shock; patient has been ruled out for COVID 19 infection; patient remains afebrile; remains on IV antibiotics in form of Zosyn and vancomycin; continue with IV Solu-Medrol and rhonchal dilator nebulizer treatments; patient did have episode of acute hypertension and Levaquin to pain drip is used for blood pressure control; review of lab work reveals improvement in creatinine down to 2.4, WBC is down to 13.7, hemoglobin is at 9.7, sodium level is down to 148; patient had chest x-ray done which shows left-sided airspace disease; CT of head is ordered and pending 12/14/2019 Patient is seen and evaluated in follow-up and currently remains in the ICU intubated. Patient is being seen and evaluated by neurology today and currently undergoing an EEG. Multiple medical consultations following. Patient remains on IV antibiotics in the form of Zosyn. Currently remains on Cleviprex for hypertension and Precedex she becomes severely agitated. No attempts for weaning off the vent today. Creatinine slightly improved at 2.2 and is to continue with free water flushes through the NG per nephrology recommendations. Patient continue with bronchodilators along with IV steroids. CT of the head was done yesterday although was nondiagnostic due to movement and motion artifact and patient is currently undergoing EEG today. Will await report. 12/15/2019 Patient is seen and evaluated and follow-up in being closely monitored in the ICU. Patient remains on a mechanical vent and is off pressors and sedation at this time. Patient receiving intermittent low doses of Precedex for mild agitation. Patient is awake and responding somewhat to physical commands such as wiggling toes and blinking eyes when being asked. Multiple medical consultations following. Patient remains on IV antibiotics in the form of Zosyn at this time. Attempting to wean off Cleviprex and Norvasc via the orogastric tube is being initiated. Nephrology following. EEG yesterday shows mild to moderate encephalopathy and neurology is following. [employer]ipe[employer] attempting CPAP with hopes of possible extubation soon. Creatinine slightly improved and is 2.09 today. White blood count trending down and is 15.0. Sodium level is 145. Objective - Vital Signs Vital signs: Vital Signs Temp 99.4 F 12/15/19 12:00 Pulse 101 H 12/15/19 14:00 Resp 13 12/15/19 14:00 BP 127/68 12/13/19 20:00 Pulse Ox 100 12/15/19 14:00 Intake & Output 12/14/19 12/15/19 12/15/19 18:59 06:59 18:59 Intake Total 4366.062 2518.447 314.167 Output Total 2325 1505 855 Balance 2041.062 1013.447 -540.833 Weight 97.7 kg 97.3 kg Intake: IV 1208 176 172 0.45 NACL 130 110 30 Normal Saline Pressure 78 66 42 Bag Piperacillin-Tazobactam 3 1000 100 .375 gm In Sodium Chloride 0.9% 100 ml @ 25 mls/hr IVPB Q8HR RE[facility] Rx# :[id number] Intake, IV Titration 154.062 352.447 72.167 Amount Clevidipine Butyrate 25 138.267 171.233 72.167 mg In Empty Bag 1 bag @ 1 MG/HR 2 mls/hr IV .Q24H RE[facility] Rx#:[id number] Dexmedetomidine/0.9% NaCl 15.795 181.214 (Pmx) 400 mcg In Empty Bag 1 bag @ Titrate IV . Q0M RE[facility] Rx#:[id number] Tube Feeding 504 490 70 Other 2500 1500 Output: Urine 2325 1505 855 Other: Voiding Method Indwelling Catheter Indwelling Catheter Indwelling Catheter ABP, PAP, CO, CI - Last Documented Arterial Blood Pressure 153/66 - Exam Gen. appearance, comfortable, no acute distress, sedated paralyzed with the mechanical ventilator for now. The patient has an orogastric and orotracheal tube are both in place. Head exam was generally normal. There was no scleral icterus or corneal arcus. Mucous membranes were moist. Neck was supple and without jugular venous distension, thyromegaly, or carotid bruits. Carotids were easily palpable bilaterally. There was no adenopathy. Orogastric and orotracheal tube are both in place and the patient has a left IJ triple-lumen catheter in place. Lung sounds are diminished and some rhonchi in lung bases bilaterally more so on the left. Otherwise breath sounds are equal and symmetrical. Heart sounds are regular, positive S1-S2 and there is a systolic ejection murmur heard Abdominal exam revealed normal bowel sounds. The abdomen was soft, non-tender, and without masses, organomegaly Examination of the extremities revealed easily palpable radial, femoral and pedal pulses. There was no cyanosis, clubbing or edema. - Labs CBC & Chem 7: 12/15/19 04:25 12/15/19 04:25 Labs: Abnormal Lab Results - Last 24 Hours (Table) 12/14/19 12/14/19 12/15/19 Range/Units 18:05 23:31 04:25 WBC 15.0 H (3.8-10.6) k/uL RBC 3.16 L (3.80-5.40) m/uL Hgb 9.6 L (11.4-16.0) gm/dL Hct 28.8 L (34.0-46.0) % Neutrophils # 13.8 H (1.3-7.7) k/uL Lymphocytes # 0.6 L (1.0-4.8) k/uL ABG pH (7.35-7.45) ABG pCO2 (35-45) mmHg ABG HCO3 (21-25) mmol/L ABG Total CO2 (19-24) mmol/L ABG O2 Saturation (94-97) % Chloride (98-107) mmol/L BUN (7-17) mg/dL Creatinine (0.52-1.04) mg/dL Glucose (74-99) mg/dL POC Glucose (mg/dL) 185 H 195 H (75-99) mg/dL Calcium (8.4-10.2) mg/dL 12/15/19 12/15/19 12/15/19 Range/Units 04:25 05:14 06:00 WBC (3.8-10.6) k/uL RBC (3.80-5.40) m/uL Hgb (11.4-16.0) gm/dL Hct (34.0-46.0) % Neutrophils # (1.3-7.7) k/uL Lymphocytes # (1.0-4.8) k/uL ABG pH 7.53 H (7.35-7.45) ABG pCO2 31 L (35-45) mmHg ABG HCO3 26 H (21-25) mmol/L ABG Total CO2 27 H (19-24) mmol/L ABG O2 Saturation 98.2 H (94-97) % Chloride 115 H (98-107) mmol/L BUN 67 H (7-17) mg/dL Creatinine 2.09 H (0.52-1.04) mg/dL Glucose 182 H (74-99) mg/dL POC Glucose (mg/dL) 193 H (75-99) mg/dL Calcium 7.9 L (8.4-10.2) mg/dL 12/15/19 12/15/19 Range/Units 10:57 12:07 WBC (3.8-10.6) k/uL RBC (3.80-5.40) m/uL Hgb (11.4-16.0) gm/dL Hct (34.0-46.0) % Neutrophils # (1.3-7.7) k/uL Lymphocytes # (1.0-4.8) k/uL ABG pH (7.35-7.45) ABG pCO2 (35-45) mmHg ABG HCO3 27 H (21-25) mmol/L ABG Total CO2 28 H (19-24) mmol/L ABG O2 Saturation (94-97) % Chloride (98-107) mmol/L BUN (7-17) mg/dL Creatinine (0.52-1.04) mg/dL Glucose (74-99) mg/dL POC Glucose (mg/dL) 168 H (75-99) mg/dL Calcium (8.4-10.2) mg/dL Assessment and Plan Assessment: -Septic shock: Shock improved. patient remains on broad-spectrum antibiotics Zosyn ,sputum cultures did not show any abnormality blood cultures were also negative, COVID negative. Patient remains hypoxic hypercapnic and acidotic but significant improvement -Hypernatremia; current sodium is 145 -Acute renal failure secondary to sepsis and septic shock. Nephrology following. Current creatinine is 2.09 with a BUN of 67 -Acute hypercapnic and acute hypoxic respiratory failure: Continue with ventilator support continue with inhalational treatments. -History of congestive heart failure severe systolic dysfunction, unknown ejection fraction. Patient has multi valvular heart disease including severe mitral regurgitation severe tricuspid regurgitation. Patient remains on IV fluids of half normal saline 0.45 because of severe sepsis. Patient had an echocardiogram which did not show any mitral regurgitation doesn't have any heart failure. -COPD present smoker further management as mentioned above -History of opiate abuse with mildly elevated liver enzymes -Fibromyalgia -Hyperlipidemia -Hypertension -DVT prophylaxis with subcu heparin Plan: Patient is currently off pressors and being monitored closely in the ICU. Patient is currently also on Cleviprex for mildly elevated hypertension and is continued on Precedex as she continues to be extremely agitated. Off of sedation with attempts to possibly wean from the mechanical vent today. Norvasc initiated to wean the patient off of Cleviprex. Patient remains on Zosyn and will continue at this time. Further recommendations to follow. Guarded prognosis.
[2019-12-15] MEDS: SODIUM CHLORIDE 0.45% 1,000 ML IV SCH (16:16)
[2019-12-15 16:55] LABS: Glucose,Whole Blood 105 mg/dL (75-99)
[2019-12-15 18:16] LABS: Glucose,Whole Blood 130 mg/dL (75-99)
[2019-12-16 00:03] LABS: Glucose,Whole Blood 142 mg/dL (75-99)
[2019-12-16] MEDS: INSULIN ASPART (NovoLOG) 100 UNIT/ML VIAL SQ SCH ×5 (00:18→23:42)
[2019-12-16] MEDS: PIPERACILLIN-TAZOBACTAM 3.375 GM in SODIUM CHLORIDE 0.9% 100 ML IVPB SCH ×4 (00:29→23:41)
[2019-12-16] MEDS: HEPARIN SODIUM,PORCINE 5,000 UNIT/ML 1 ML VIAL SQ SCH ×4 (00:29→23:41)
[2019-12-16] MEDS: methylPREDNISolone SOD SUCCI 40 MG/ML 1 ML VIAL IV SCH ×4 (00:29→23:41)
[2019-12-16] MEDS: CLEVIDIPINE BUTYRATE 25 MG in EMPTY BAG 1 BAG IV SCH ×4 (00:29→15:21)
[2019-12-16] MEDS: NOREPINEPHRINE 32 MG in SODIUM CHLORIDE 0.9% 218 ML IV SCH (02:41)
[2019-12-16] MEDS: ALBUTEROL HFA INHALER INHALATION SCH ×6 (03:34→23:23)
[2019-12-16 04:26] LABS: Basophils % (A) 0 %; Eosinophils # (A) 0.1 k/uL (0-0.7); Eosinophils % (A) 0 %; HCT 34.1 % (34.0-46.0); HGB 10.9 gm/dL (11.4-16.0); Lymphocytes # (A) 0.6 k/uL (1.0-4.8); Lymphocytes % (A) 3 %; MCH 29.9 pg (25.0-35.0); MCHC 32.1 g/dL (31.0-37.0); MCV 93.1 fL (80.0-100.0); Mean Platelet Volume 10.5; Monocytes # (A) 0.7 k/uL (0-1.0); Monocytes % (A) 4 %; Neutrophils # (A) 17.7 k/uL (1.3-7.7); Neutrophils % (A) 92 %; Platelet Count 190 k/uL (150-450); RBC 3.66 m/uL (3.80-5.40); RDW 14.4 % (11.5-15.5); WBC 19.2 k/uL (3.8-10.6)
[2019-12-16 04:34] LABS: Calcium 8.3 mg/dL (8.4-10.2); Potassium 4.3 mmol/L (3.5-5.1)
[2019-12-16 04:39] LABS: Vancomycin,Random 13.6 ug/mL
[2019-12-16 05:24] LABS: Glucose,Whole Blood 55 mg/dL (75-99)
[2019-12-16 05:26] LABS: Glucose,Whole Blood 127 mg/dL (75-99)
--- NOTE | 2019-12-16 07:23 | XR ---
EXAMINATION TYPE: XR chest 1V portable DATE OF EXAM: 12/16/2019 HISTORY: Shortness of breath. COMPARISON: 12/15/2019 TECHNIQUE: Single view of the chest is submitted. FINDINGS: Endotracheal and NG tubes have been removed. Central venous line is in place. Improving but persisten t left perihilar, left lower lobe and right lower lobe infiltrates. The heart is stable. Hilar and mediastinal structures are within normal limits. Degenerative changes are seen of the dorsal spine. IMPRESSION: 1. Improving but persistent left perihilar, left lower lobe and right lower lobe infiltrates.
[2019-12-16] MEDS: DEXTROSE 5% IN WATER 1,000 ML IV SCH (08:51)
[2019-12-16] MEDS: METOPROLOL TARTRATE 25 MG TAB PO SCH ×2 (08:54→20:06)
[2019-12-16] MEDS: FAMOTIDINE 20 MG/2 ML VIAL IV SCH (08:58)
[2019-12-16] MEDS ORDERED: METOPROLOL TARTRATE 25 MG TAB PO SCH (09:00)
[2019-12-16] MEDS: amLODIPine 5 MG TAB PO SCH ×2 (09:40→20:06)
[2019-12-16 11:42] LABS: Glucose,Whole Blood 135 mg/dL (75-99)
[2019-12-16 12:38] LABS: Glucose,Whole Blood 135 mg/dL (75-99)
--- NOTE | 2019-12-16 13:13 | P.PN ---
Subjective Progress Note Date: 12/16/19 Principal diagnosis: Acute left lower lobe pneumonia, community acquired pneumonia. On today's evaluation of 12/07/2019 and seeing the patient for a follow-up. This patient came with an extensive left lung pneumonia/airspace disease/consolidation and she is intubated on a mechanical ventilator. Note that she was quite septic and the time of arrival. She is also being ruled out for COVID 19 infection. The patient has multiple medical problems and comorbidities. The patient has COPD/asthma. The patient also has CHF with an ejection fraction of 25-30% along with previous history of moderate degree of mitral regurgitation. She has history of substance abuse including methamphetamine and fentanyl and the patient has been on methadone on outpatient basis. The patient has hypertension, hyperlipidemia, fibromyalgia, osteoarthritis and previous history of alcoholism This morning, the patient remains sedated with propofol which is currently running at 40 mg per KG per minute. The patient is also paralyzed with Nimbex 01 g per KG per minute. The patient is receiving IV fluids at the rate of 75 mL an hour. The patient is on norepinephrine infusion at 0.15 g per KG per minute. She is an assist-control mode of ventilator. The patient is at the rate of 34 with a tidal volume of 350 and FiO2 of 85% with a PEEP of 15. The blood gases from today showed a pH of 7.16 with a pCO2 of 73 and pO2 of 85 and this was done and FiO2 of 85%. The white cell count is at 20 per lactic acid level is down to 2.4. Renal function is stable with a creatinine of 0.7. Sodi um is at 144. The patient had been she with a combination of antibiotics. For now we have the patient a combination of vancomycin and Zosyn. I added Zithromax today. I also have the patient on Plaquenil for the possibility of an underlying coronavirus infection of the lungs. A repeat echocardiogram is still pending regarding the left ventricle ejection fraction and the extent of mitral regurgitation. Noted the patient was noted to be having a lower CVP this morning. I went ahead and gave her another liter of normal saline with a possibility of giving her a second liter if she continues to have lower urine output. Troponin is at 0.9. Blood cultures still negative. Sputum Gram stain and cultures also negative. Note that on her blood work, the patient has a 28% bandemia time of admission and currently she is up to 58%. Legionella urine antigen will be also sent. On today's evaluation of 12/08/2019 the patient remains intubated on a mechanical ventilator. We will inform that the patient's blood cultures from [place] showed a gram-positive cocci in pairs. Based on that, we aren't anticipating the possibility of an underlying pneumococcal left lung pneumonia. The patient continues to have extensive consolidation of the left lung on today's chest x-ray. Meanwhile, the patient is a mechanical ventilator. She is quite bronchospastic and wheezy. No nebulizers or steroids have been utilizing anticipating a Covid 19 infection which I think it's less likely possibility on today's evaluation. The patient is currently on an assist-control mode at the rate of 34 with a tidal volume of 350 and FiO2 of 70% with a PEEP of 15. Peak airway pressures 42. Static pressure is 28. The patient is sedated with propofol at a dose of 40 g per KG per minute. The patient on Nimbex at 1 g per KG per minute. The patient is also on norepinephrine infusion at 0.3 g per KG per minute. The patient is also on vasopressin physiologic dose. The patient is septic shock. White cell count is up to 24 with a hemoglobin of 10.2. The patient has a percent bandemia which is improved compared to yesterday. The blood gas showed a pH of 7.18 with a pCO2 of 62 and pO2 of 83. The pro-calcitonin level was 96.4 indicating bacterial infection. Covid testing is still pending for now. The patient is receiving a combination of Zithromax, vancomycin and Zosyn for now. Plaquenil be continued pending the Covid 19 status. The patient also suffered an acute kidney injury. Creatinine is up to 1.6 and the patient has a positive fluid balance of 2.5 L over the past 24 hours. On 12/09/2019, the patient remains on a mechanical ventilator. This morning, the patient remains essentially on the same ventilator setting. The patient remains on assist control mode at the rate of 34 with a tidal volume of 350 and FiO2 of 60% with a PEEP of 15. The patient's pulse ox currently is around 93%. The peak airway pressures around 40 with a static pressure of 26. The patient has an extensive left lung consolidation which seems to be slightly improved compared to yesterday. We will inform that the patient had a positive gram- positive cocci in pairs and the blood culture that was obtained in the outside hospital. For that reason, I discontinue the Zithromax and a The patient a combination of Zosyn and vancomycin. Also, the Covid 19 testing came back negative and the patient was taken off the Plaquenil. The patient has a blood gas that showed a pH of 7.2 with a pCO2 of 60 and pO2 of 80. The patient was started on bronchodilators. The patient was also started on IV Solu-Medrol yesterday. The patient is being weaned off the pressors. Note that over the past 24-48 hours the patient was profoundly hypotensive and the patient also developed a component of an acute kidney injury. Creatinine came up to 1.6 and today's up to 1.8. Nevertheless urine output improved and the patient has been taken off the vasopressin and the patient is down on the norepinephrine infusion which is currently running at 0.08 g per KG per minute. The patient continues to be paralyzed with Nimbex and the proposed running at 40 g per KG per minute. The patient is on high protein vital running at 42 mL an hour. She is tolerating her enteral feeding for nutritional support. She is afebrile. No other significant events otherwise for now. The cultures that were obtained here in the hospital were all negative. On 12/10/2019, the patient remains intubated on a mechanical ventilator. The patient also remains sedated and paralyzed. This morning, the patient is an assist-control mode and based on the morning blood gases I made some changes in the mechanical ventilator. Note that the patient was in a assist-control of 34 with a tidal volume of 350 and FiO2 of 60% with a PEEP of 13. The blood gases from this morning showed a pH of 7.16 with a pCO2 of 65 and pO2 of 116. Based on that, increase the tidal volume up to 400s. I also dropped the PEEP. Subsequent evaluation showed that the patient had a pH of 7.21 with a pCO2 of 57 and pO2 of 141. Based on all this, I dropped the PEEP down to 10 and I also drop the FiO2 down to 50% and I dropped a respiratory rate down to 28. In terms of his chest x-ray findings, the patient shows improvement in the left lower l obe consolidation. Hemodynamically, the patient remains on low-dose norepinephrine infusion. The patient is currently on levo fed at 0.01 mcg/kg per minute. The peak air pressure 32 and the static pressures 21. The fluid balance has been positive over the past several days. For that reason the patient will be started on diuretics. Creatinine is up to 2.1. The patient is nonoliguric. Cultures of been all negative thus far and was still awaiting the final cultures to be forwarded to us from an outside hospital which indicated the possibility of a gram-positive cocci in pairs/changes. She is afebrile. She is tolerating enteral feeding for nutrition support. She'll be also taken off the paralytics today and she'll be given a paralytic holiday. He remains on a combination of fentanyl and propofol for sedation. The patient is also taking enteral feeding for nutritional support and she is on vital high protein at the rate of 42 mL an hour. On 12/11/2019 the patient remains intubated on a mechanical ventilator. She is a case of pneumonia with septic shock and multisystem organ failure the patient is still struggling to recover from this. The patient remains on a combination of Zosyn and vancomycin. Clinically, the patient is off paralytics. However, the patient is still requiring a propofol for sedation which is currently running at 14 mcg/kg per minute. On today's evaluation, the patient was assist- control at the rate of 28 with a tidal volume of 400 and PEEP of 10 with an FiO2 of 50%. She was somewhat asynchronous with a mechanical ventilator. She was occasional double stacking. The blood gases showed a pH of 7.29 with a pCO2 of 50 and pO2 131. Based on all this, I switched this patient a VC plus mode with tidal volume of 400. I put in at the rate of 24. Eye doctor tidal down to 40% with a PEEP of 5. I also put her on an inspiratory time of 0.6 seconds. The patient became significantly more synchronous with the mechanical ventilator. The patient however is still the most I a combination of bronchospasm wheezing and for that reason the patient will be kept on a mechanical ventilator for another 24 hours during which she is going to receive bronchodilators and steroids. Antibiotics remain unchanged pending further cultures. The chest x-ray is showing airspace disease throughout the left lung, which is gradually improving compared to the original chest x-ray. There is a small left-sided pleural effusion. There is also some increasing confusion the right lung base. Noted the patient is in a significant fluid positive balance. The patient was given diuretics yesterday. Fluid balance over the past 24 hours is still positive at 2.4 L in the patient's creatinine is up to 2.3. Urine output however his improving. Further diuretics will be given. Case was discussed with nephrology. On 12/12/2019, the patient is being seen for a follow-up. The patient is still sedated on propofol and she is currently running at 50 g per KG per minute. She is also on vital high protein for enteral feeding and nutritional support. She is on assist control mode of ventilation and she is in a VC plus mode and I haven't on a tidal volume of 400 with a rate of 24 with an FiO2 of 40% and a PEEP of 5. She was noted to have double stacking and she was requiring significant a higher volumes. Based on that, increase the tidal volume gradually up to 550 and I also dropped a respiratory rate down to 18. She was kept on a PEEP of 5 and FiO2 of 40%. Her current inspiratory time is at 0.65. Her inhalation exhalation ratio is 1-2 and the most recent blood gases from today shows A pH of 7.4 with a pCO2 of 42 and pO2 of 86. Chest x-ray bilateral infiltrates worse on the left compared to the right, somewhat improved compared to yesterday. The patient has no significant orotracheal secretions. The cultures that were sent over from the outside hospital do not to be a coagulase- negative staph epidermidis and it was not of any valuable information. The patient remains on a combination of Zosyn and vancomycin. Vancomycin trough was quite elevated and the patient's vancomycin is currently on hold. All of the cultures are negative. The patient is on is there is Zosyn also. She has developed an acute kidney failure and the creatinine is up to 2.7. Nevertheless the patient is nonoliguric. Neck fluid balance is at +1.4. Noted the patient was given Lasix yesterday at a dose of 40 mg every 12 hours. Based on the rising and a creatinine in the based on the ongoing improvement in urine output, we'll stop the Lasix upon discussing this with nephrology. The patient is a component of hyperchloremic hypernatremia. Sodium level is at 149. The patient is receiving free water through the NG. On examination, she is much less bronchospastic and wheezy. Her peak airway pressures down to 22. Static pressures down to 15-17. She is afebrile for now. She is on no pressors. She is tolerating her tube feeds. On 12/13/2019 on seeing the patient for a follow-up. Note that the patient is a case of extensive left lung pneumonia with septic shock and she was ruled out for coronary 19 infection. The patient was extremely hypoxic and hemodynamically unstable at time of admission and she gradually improved. This morning, we are on no pressors. The patient is on propofol which were trying to wean and replace it with Precedex. I'm trying to introduce Precedex as the patient is getting quite agitated and restless and tachypneic and tachycardic and hypertensive as the propofol is being weaned off. Nevertheless, she never gets the point where she becomes unresponsive. I'm also going to do a CAT scan of the brain to evaluate her underlying mental status as the patient unable to come off the propofol without any major difficulties. This morning from 4 is running at 20 g and Precedex at 0.7. She remains on a mechanical ventilator. She is having significant amount of double stacking. For that reason, I switched to a pressure control mode of ventilation and she is at the rate of 18 with a pressure control of 24 cm of water with an FiO2 of 40% with a PEEP of 5 and a respiratory time of 1 ms. This very much is eliminated her double stacking and she is very synchronous with the mechanical ventilator for now. She is afebrile. She remains on examination Zosyn and vancomycin. She remains on IV Solu Medrol pH is on DuoNeb nebulized treatments on the clock. In regards to her acute hypertension, I'm going to use clevidipine drip for blood pressure control. The creatinine is improving and creatinine is down to 2.4. She is producing adequate amount of urine output. The blood gases showed a pH of 7.46 with a pCO2 of 37 and pO2 of 93 and this was done and FiO2 of 40%. The chest x- ray shows left sided airspace disease. CAT scan of the brain is to follow. The white cell count is down to 13.7. Hemoglobin is at 9.7. The net fluid balance remains +1.43 yesterday and 1.8 L for today. Her weight is up and she would benefit from diuresis. We'll discuss this with nephrology. Note that she was also getting free water flushes at a dose of 500 mL every 4 hours. Her sodium level is down to 148. Reevaluated today on 12/14/19, patient is being followed for extensive left-sided pneumonia and septic shock. Patient was ruled out for covid 19, patient remains intubated on mechanical ventilation. Patient is on pressure control of 24, FiO2 is 40%, PEEP of 5. And inspiratory time 1ms. Chest x-ray continues to show extensive infiltrate in the left lung, especially in the left lower lobe, and some extent involving the right lower lobe. Consistent with multifocal pneumonia, possibility of underlying interstitial edema is not entirely ruled out. ABG this morning showed a pO2 of 112 pCO2 of 32 pH of 7.52, and this is on 40% FiO2. Her echocardiogram showed good LV function, and significant mitral valve disease. Patient was noted to be extremely agitated off Precedex. Hence I placed her back on Precedex. She is clearly not ready for any weaning. Gets extremely agitated, restless, tachycardic, tachypneic, off sedation. Sputum cultures have been nondiagnostic, hence I discontinued her vancomycin, and place the patient on Zosyn. Remains on updraft treatments, she is also on Solu- Medrol. Remains on clevidipine drip for control of blood pressure. CBC continues to show leukocytosis with WBC count of 21.8 hemoglobin is 11. Renal profile is slightly better compared to yesterday, her creatinine is down to 2.22 from 2.73 few days ago. I did recommend increasing the Lasix dose today since her chest x-ray is suggestive of mild interstitial edema in addition to her underlying pneumonia Reevaluated today on 12/15/19, patient remains intubated and mechanically ventilated, she presented with extensive left-sided pneumonia and septic shock. Covid 19 was basically ruled out. Patient remains on mechanical ventilation. Ventilator settings are pressure control mode of mechanical ventilation, set pressure is 24, inspiratory time is 1 FiO2 is 35% and PEEP is 5. Patient remains on free water, and I cut down the dose to 200 mL via PEG tube every 4 hours. She is still on Precedex which I have cut down, chest x-ray continues to show left lower lobe infiltrate. ABG showed a pO2 of 89 pCO2 of 39 pH of 7.45 and this was on 35% FiO2. [place]choe, the patient seems to be improving significantly compared to yesterday she is opening eyes, tracking with her eyes to the sides bilaterally. Slightly wiggling her toes up on request. Hence I have recommended at least a trial of pressure support of 8 and CPAP, and for about 2 hours she seems to be tolerating that mode of mechanical ventilation/weaning quite well. Then I recommended when she is more awake the patient should be extubated. All labs and chest x-ray were reviewed today. BUN is 67 creatinine is 2.09, improving since admission. Patient was reevaluated today on 12/16/19, patient was extubated yesterday, and her extubation was well-tolerated. She is now on nasal cannula, doing quite well, O2 at 2 L nasal cannula, and her O2 saturation is 97%. Patient is resting, comfortable, denies any specific complaints. Her blood pressure is elevated, hence she is on clevidipine at 6 mg/h, I suggested switching the patient to Norvasc 5 mg twice a day and Lopressor 25 twice a day. IV fluids rem ains at D5W 50 mL per hour. Physical therapy will be consulted, patient seems to be generally weak. On physical examination, patient had basically clear chest. Chest x-ray showed bilateral perihilar infiltrates, and left lower lobe infiltrate. As well as right lower lobe infiltrate, improving compared to her previous x-ray. Labs showed WBC count of 19.2 hemoglobin of 10.9. Electrolytes showed sodium of 147, improving, BUN remains elevated at 61 creatinine is 1.96. Sputum culture is nondiagnostic. Urine culture is negative Objective - Vital Signs Vital signs: Vital Signs Temp 98.7 F 12/16/19 12:00 Pulse 76 12/16/19 12:00 Resp 12 12/16/19 12:00 BP 166/105 12/16/19 12:00 Pulse Ox 98 12/16/19 12:00 Intake & Output 12/15/19 12/16/19 12/16/19 18:59 06:59 18:59 Intake Total 520.167 891.866 835.0 Output Total 1430 2290 1215 Balance -909.833 -1398.134 -380.0 Weight 95.4 kg 95.4 kg Intake: IV 328 276 26 0.45 NACL 50 110 20 Normal Saline Pressure 78 66 6 Bag Piperacillin-Tazobactam 3 200 100 .375 gm In Sodium Chloride 0.9% 100 ml @ 25 mls/hr IVPB Q8HR RE[facility] Rx# :[id number] Intake, IV Titration 122.167 135.866 449.0 Amount Clevidipine Butyrate 25 122.167 135.866 49.0 mg In Empty Bag 1 bag @ 1 MG/HR 2 mls/hr IV .Q24H RE[facility]O Rx#:[id number] Dextrose 5% in Water 1, 200 000 ml @ 50 mls/hr IV . Q20H [facility] Rx#:[id number] Piperacillin-Tazobactam 3 200 .375 gm In Sodium Chloride 0.9% 100 ml @ 25 mls/hr IVPB Q8HR REGINO Rx# :[id number] Oral 480 360 Tube Feeding 70 Output: Urine 1430 2290 1215 Other: Voiding Method Indwelling Catheter Indwelling Catheter Indwelling Catheter ABP, PAP, CO, CI - Last Documented Arterial Blood Pressure 177/77 - Exam Physical Exam: Revealed a 54-year old -[place] female-in no distress, on 2 L nasal cannula. Head: Atraumatic, normocephalic, HEENT:[Neck is supple.] [No neck masses.] [No thyromegaly.] [No JVD.] Chest: [Symmetrical chest expansion, diminished breath sounds at the bases no crackles or rhonchi or wheezes. Cardiac Exam: [Normal S1 and S2, no S3 gallop, 2/6 systolic murmur thought the precordium. Abdomen: [Soft, nontender, no megaly, no rebound, no guarding, normal bowel sounds.] Extremities: [No clubbing, no edema, no cyanosis.] Neurological Exam: Alert and oriented 3, no gross focal neurologic deficits. Psychiatric; normal mood, affect and normal mental status Skin: No rashes. - Labs CBC & Chem 7: 12/16/19 04:15 12/16/19 04:15 Labs: Abnormal Lab Results - Last 24 Hours (Table) 12/15/19 12/15/19 12/16/19 Range/Units 16:53 18:14 00:01 WBC (3.8-10.6) k/uL RBC (3.80-5.40) m/uL Hgb (11.4-16.0) gm/dL Neutrophils # (1.3-7.7) k/uL Lymphocytes # (1.0-4.8) k/uL Sodium (137-145) mmol/L Chloride (98-107) mmol/L BUN (7-17) mg/dL Creatinine (0.52-1.04) mg/dL Glucose (74-99) mg/dL POC Glucose (mg/dL) 105 H 130 H 142 H (75-99) mg/dL Calcium (8.4-10.2) mg/dL 12/16/19 12/16/19 12/16/19 Range/Units 04:15 04:15 05:23 WBC 19.2 H (3.8-10.6) k/uL RBC 3.66 L (3.80-5.40) m/uL Hgb 10.9 L (11.4-16.0) gm/dL Neutrophils # 17.7 H (1.3-7.7) k/uL Lymphocytes # 0.6 L (1.0-4.8) k/uL Sodium 147 H (137-145) mmol/L Chloride 116 H (98-107) mmol/L BUN 61 H (7-17) mg/dL Creatinine 1.96 H (0.52-1.04) mg/dL Glucose 139 H (74-99) mg/dL POC Glucose (mg/dL) 55 L (75-99) mg/dL Calcium 8.3 L (8.4-10.2) mg/dL 12/16/19 12/16/19 12/16/19 Range/Units 05:25 11:41 12:37 WBC (3.8-10.6) k/uL RBC (3.80-5.40) m/uL Hgb (11.4-16.0) gm/dL Neutrophils # (1.3-7.7) k/uL Lymphocytes # (1.0-4.8) k/uL Sodium (137-145) mmol/L Chloride (98-107) mmol/L BUN (7-17) mg/dL Creatinine (0.52-1.04) mg/dL Glucose (74-99) mg/dL POC Glucose (mg/dL) 127 H 135 H 135 H (75-99) mg/dL Calcium (8.4-10.2) mg/dL Assessment and Plan Assessment: Impression: Acute community-acquired pneumonia Septic shock secondary to pneumonia Acute hypoxic and hypercapnic respiratory failure secondary to above. Valvular heart disease and moderate mitral regurgitation Acute kidney injury/acute tubular necrosis being followed by nephrology. Improving. History of underlying COPD History of opiate dependence patient has been on Suboxone on outpatient basis. This will be restarted. History of alcoholism History of fibromyalgia and chronic pain syndrome Benign essential hypertension Dyslipidemia Recommendation: Patient tolerated extubation well over the last 24 hours. Continue GI and deep prophylaxis. Continue nutritional support. Change antibiotics / Zosyn Continue Suboxone Continue to monitor her hypernatremia and continue D5W. Overall patient is improving, we'll monitor the patient for the next 24 hours in the ICU, and if she continues to do well with transfer out of the ICU tomorrow. Consult physical therapy. We'll continue to follow. Time with Patient: Less than 30
--- NOTE | 2019-12-16 15:02 | PN ---
PROGRESS NOTE Patient is seen for followup for acute kidney injury. She was extubated yesterday. This morning she is sitting up in a bedside chair. She is comfortable. Patient is not in any acute distress. She is quite weak, though. She has started clear liquids. Oral intake remains poor. This morning patient was started on D5W for the hypernatremia as she is not on tube feeds anymore. She had been getting free water flushes through the PEG tube. PHYSICAL EXAMINATION: On examination today, blood pressure is 165/106, heart rate 81 per minute, patient is afebrile. Examination of lower extremities shows no significant edema. ABDOMEN: Soft, nontender. LABS: Show sodium 147, potassium 4.3, chloride 116, BUN 61, serum creatinine 1.96, hemoglobin 10.9 g/dL. ASSESSMENT: 1. Acute kidney injury, ATN currently improving. 2. Hypernatremia started on D5W as patient is not receiving free water down the feeding tube anymore, as she is extubated. 3. Acute hypoxic respiratory failure, status post extubation. Patient was started on Norvasc yesterday and she is currently off the Cleviprex drip. Blood pressure remains controlled. Patient has good urine output. 4. Hypertension currently off Cleviprex drip, maintained on Norvasc. 5. Sepsis from pneumonia, now improved. 6. Mental status changes, now improved. 7. History of underlying chronic obstructive pulmonary disease. 8. Valvular heart disease with moderate mitral regurgitation. PLAN: Continue with the D5W. Repeat labs in a.m. Continue to avoid nephrotoxic medications. MMODL / IJN: [id number] /
--- NOTE | 2019-12-16 15:42 | P.PN ---
Subjective Progress Note Date: 12/16/19 Principal diagnosis: Principal diagnosis: Acute hypoxic/hypercapnic respiratory failure; vent dependent Left lower lobe pneumonia Septic shock 12/11/2019 patient remains intubated on a mechanical ventilator due to pneumonia with septic shock and multisystem organ failure; remains on a combination of Zosyn and vancomycin. The patient however is still bronchospastic and for that reason the patient will be kept on a mechanical ventilator for another 24 hours during which she is going to receive bronchodilators and steroids. Antibiotics remain unchanged pending further cultures. The chest x-ray is showing airspace disease throughout the left lung, which is gradually improving compared to the original chest x-ray. There is a small left-sided pleural effusion. There is also some increasing confusion the right lung base. Noted the patient is in a significant fluid positive balance. The patient was given diuretics yesterday. Fluid balance over the past 24 hours is still positive at 2.4 L in the patient's creatinine is up to 2.3. Urine output however his improving. Further diuretics will be given. 12/12/2019 The patient remains intubated; on vital high protein for enteral feeding and nutritional support. Chest x-ray bilateral infiltrates worse on the left compared to the right, somewhat improved compared to yesterday; [id number] staph epidermidis; The patient remains on a combination of Zosyn and vancomycin. Vancomycin trough was quite elevated and the patient's vancomycin is currently on hold. All of the cultures are negative. The patient has developed an acute kidney failure and the creatinine is up to 2.7; patient is nonoliguric; patient was given Lasix yesterday at a dose of 40 mg every 12 hours. Based on the rising and a creatinine in the based on the ongoing improvement in urine output, nephrology recommended discontinuing Lasix. The patient is a component of hyperchloremic hypernatremia. Sodium level is at 149. The patient is receiving free water through the NG. On examination, she is much less bronchospastic and wheezy. Her peak airway pressures down to 22. Static pressures down to 15-17. She is afebrile for now. 12/13/2019 Patient is seen and evaluated in ICU; remains intubated and mechanically ventilated due to extensive left lung pneumonia with septic shock; patient has been ruled out for COVID 19 infection; patient remains afebrile; remains on IV antibiotics in form of Zosyn and vancomycin; continue with IV Solu-Medrol and rhonchal dilator nebulizer treatments; patient did have episode of acute hypertension and Levaquin to pain drip is used for blood pressure control; review of lab work reveals improvement in creatinine down to 2.4, WBC is down to 13.7, hemoglobin is at 9.7, sodium level is down to 148; patient had chest x-ray done which shows left-sided airspace disease; CT of head is ordered and pending 12/14/2019 Patient is seen and evaluated in follow-up and currently remains in the ICU intubated. Patient is being seen and evaluated by neurology today and currently undergoing an EEG. Multiple medical consultations following. Patient remains on IV antibiotics in the form of Zosyn. Currently remains on Cleviprex for hypertension and Precedex she becomes severely agitated. No attempts for weaning off the vent today. Creatinine slightly improved at 2.2 and is to continue with free water flushes through the NG per nephrology recommendations. Patient continue with bronchodilators along with IV steroids. CT of the head was done yesterday although was nondiagnostic due to movement and motion artifact and patient is currently undergoing EEG today. Will await report. 12/15/2019 Patient is seen and evaluated and follow-up in being closely monitored in the ICU. Patient remains on a mechanical vent and is off pressors and sedation at this time. Patient receiving intermittent low doses of Precedex for mild agitation. Patient is awake and responding somewhat to physical commands such as wiggling toes and blinking eyes when being asked. Multiple medical consultations following. Patient remains on IV antibiotics in the form of Zosyn at this time. Attempting to wean off Cleviprex and Norvasc via the orogastric tube is being initiated. Nephrology following. EEG yesterday shows mild to moderate encephalopathy and neurology is following. [employer] attempting CPAP with hopes of possible extubation soon. Creatinine slightly improved and is 2.09 today. White blood count trending down and is 15.0. Sodium level is 145. 12/16/2019 Patient is seen in follow-up today and remains in the ICU being closely monitored. Was extubated yesterday and currently on 2 L of oxygen via nasal cannula. Patient is awake and responding to some simple commands although continues to be confused and oriented 0-1. Patient's blood pressure remains elevated and continued on Cleviprex with attempts to wean. Norvasc and Lopressor have been started and increased. Patient continues to be quite weak and will have PT/OT evaluate. Patient is tolerating some diet but not much of an appetite at this time. Creatinine slightly improved and is 1.96 today. Sodium is 147. Patient was initiated on D5 and tube feedings have been discontinued. Case management and social work following as patient will likely need rehab once stabilized and discharged. Will continue to monitor closely. Objective - Vital Signs Vital signs: Vital Signs Temp 98.7 F 12/16/19 12:00 Pulse 82 12/16/19 15:00 Resp 14 12/16/19 15:00 BP 144/89 12/16/19 15:00 Pulse Ox 98 12/16/19 15:00 Intake & Output 12/15/19 12/16/19 12/16/19 18:59 06:59 18:59 Intake Total 520.167 974.056 2020.033 Output Total 1430 2290 1615 Balance -909.833 -1398.134 390.033 Weight 95.4 kg 95.4 kg Intake: IV 328 276 26 0.45 NACL 50 110 20 Normal Saline Pressure 78 66 6 Bag Piperacillin-Tazobactam 3 200 100 .375 gm In Sodium Chloride 0.9% 100 ml @ 25 mls/hr IVPB Q8HR [facility] Rx# :[id number] Intake, IV Titration 122.167 135.866 599.033 Amount Clevidipine Butyrate 25 122.167 135.866 49.033 mg In Empty Bag 1 bag @ 1 MG/HR 2 mls/hr IV .Q24H [facility] Rx#:[id number] Dextrose 5% in Water 1, 350 000 ml @ 50 mls/hr IV . Q20H [facility] Rx#:[id number] Piperacillin-Tazobactam 3 200 .375 gm In Sodium Chloride 0.9% 100 ml @ 25 mls/hr IVPB Q8HR [facility] Rx# :[id number] Oral 480 1380 Tube Feeding 70 Output: Urine 1430 2290 1615 Other: Voiding Method Indwelling Catheter Indwelling Catheter Indwelling Catheter ABP, PAP, CO, CI - Last Documented Arterial Blood Pressure 155/65 - Exam Gen. appearance, comfortable, no acute distress, extubated yesterday, confused Head exam was generally normal. There was no scleral icterus or corneal arcus. Mucous membranes were moist. Neck was supple and without jugular venous distension, thyromegaly, or carotid bruits. Carotids were easily palpable bilaterally. There was no adenopathy. the patient has a left IJ triple-lumen catheter in place. Lung sounds are diminished and some rhonchi in lung bases bilaterally more so on the left. Otherwise breath sounds are equal and symmetrical. Heart sounds are regular, positive S1-S2 and there is a systolic ejection murmur heard Abdominal exam revealed normal bowel sounds. The abdomen was soft, non-tender, and without masses, organomegaly Examination of the extremities revealed no cyanosis, clubbing or edema. Bila teral SCDs noted - Labs CBC & Chem 7: 12/16/19 04:15 12/16/19 04:15 Labs: Abnormal Lab Results - Last 24 Hours (Table) 12/15/19 12/15/19 12/16/19 Range/Units 16:53 18:14 00:01 WBC (3.8-10.6) k/uL RBC (3.80-5.40) m/uL Hgb (11.4-16.0) gm/dL Neutrophils # (1.3-7.7) k/uL Lymphocytes # (1.0-4.8) k/uL Sodium (137-145) mmol/L Chloride (98-107) mmol/L BUN (7-17) mg/dL Creatinine (0.52-1.04) mg/dL Glucose (74-99) mg/dL POC Glucose (mg/dL) 105 H 130 H 142 H (75-99) mg/dL Calcium (8.4-10.2) mg/dL 12/16/19 12/16/19 12/16/19 Range/Units 04:15 04:15 05:23 WBC 19.2 H (3.8-10.6) k/uL RBC 3.66 L (3.80-5.40) m/uL Hgb 10.9 L (11.4-16.0) gm/dL Neutrophils # 17.7 H (1.3-7.7) k/uL Lymphocytes # 0.6 L (1.0-4.8) k/uL Sodium 147 H (137-145) mmol/L Chloride 116 H (98-107) mmol/L BUN 61 H (7-17) mg/dL Creatinine 1.96 H (0.52-1.04) mg/dL Glucose 139 H (74-99) mg/dL POC Glucose (mg/dL) 55 L (75-99) mg/dL Calcium 8.3 L (8.4-10.2) mg/dL 12/16/19 12/16/19 12/16/19 Range/Units 05:25 11:41 12:37 WBC (3.8-10.6) k/uL RBC (3.80-5.40) m/uL Hgb (11.4-16.0) gm/dL Neutrophils # (1.3-7.7) k/uL Lymphocytes # (1.0-4.8) k/uL Sodium (137-145) mmol/L Chloride (98-107) mmol/L BUN (7-17) mg/dL Creatinine (0.52-1.04) mg/dL Glucose (74-99) mg/dL POC Glucose (mg/dL) 127 H 135 H 135 H (75-99) mg/dL Calcium (8.4-10.2) mg/dL Assessment and Plan Assessment: -Septic shock: Shock improved. patient remains on broad-spectrum antibiotics Z osyn ,sputum cultures did not show any abnormality blood cultures were also negative, COVID negative. -Hypernatremia; current sodium is 147. Started on D5. Nephrology following -Acute renal failure secondary to sepsis and septic shock. Nephrology following. Current creatinine is 1.96 with a BUN of 61 -Acute hypercapnic and acute hypoxic respiratory failure: Patient recently extubated yesterday and tolerating 2 L via nasal cannula -History of congestive heart failure severe systolic dysfunction, unknown ejection fraction. Patient has multi valvular heart disease including severe mitral regurgitation severe tricuspid regurgitation. Patient had an echocardiogram which did not show any mitral regurgitation doesn't have any heart failure. -COPD present smoker further management as mentioned above -History of opiate abuse with mildly elevated liver enzymes -Fibromyalgia -Hyperlipidemia -Hypertension, remains on Cleviprex and attempting to wean. Norvasc 5 mg twice daily along with metoprolol started. -DVT prophylaxis with subcu heparin Plan: Patient is currently off pressors and being monitored closely in the ICU. Recently extubated tolerating 2 L of oxygen via nasal cannula. PT/OT to follow this patient is quite weak. Patient continues to be confused status post sedation. Responding appropriately to some simple commands. Patient is currently also on Cleviprex for mildly elevated hypertension Norvasc and metoprolol initiated to wean the patient off of Cleviprex. Patient remains on Zosyn and will continue at this time. Further recommendations to follow. Guarded prognosis.
--- NOTE | 2019-12-16 16:38 | P.PN ---
Subjective Progress Note Date: 12/16/19 Patient is extubated. She is fully alert and awake. She is smiling. Speech and language functions appears fairly normal. She appears generalized weak. She can move her arms and wiggling her feet but appears generalized weak. Hopefully will improve daily. Patient has been on paralyzing agent for quite some time, which may be still lingering in her system. Objective - Vital Signs Vital signs: Vital Signs Temp 98.7 F 12/16/19 12:00 Pulse 79 12/16/19 16:00 Resp 9 L 12/16/19 16:00 BP 147/77 12/16/19 16:00 Pulse Ox 99 12/16/19 16:00 Intake & Output 12/15/19 12/16/19 12/16/19 18:59 06:59 18:59 Intake Total 520.167 820.533 3629.366 Output Total 1430 2290 1615 Balance -909.833 -5309.029 3985.366 Weight 95.4 kg 95.4 kg Intake: IV 328 276 26 0.45 NACL 50 110 20 Normal Saline Pressure 78 66 6 Bag Piperacillin-Tazobactam 3 200 100 .375 gm In Sodium Chloride 0.9% 100 ml @ 25 mls/hr IVPB Q8HR [facility] Rx# :[id number] Intake, IV Titration 122.167 135.866 651.366 Amount Clevidipine Butyrate 25 122.167 135.866 51.366 mg In Empty Bag 1 bag @ 1 MG/HR 2 mls/hr IV .Q24H [facility] Rx#:[id number] Dextrose 5% in Water 1, 400 000 ml @ 50 mls/hr IV . Q20H [facility] Rx#:[id number] Piperacillin-Tazobactam 3 200 .375 gm In Sodium Chloride 0.9% 100 ml @ 25 mls/hr IVPB Q8HR [facility] Rx# :[id number] Oral 480 2180 Tube Feeding 70 Output: Urine 1430 2290 1615 Other: Voiding Method Indwelling Catheter Indwelling Catheter Indwelling Catheter ABP, PAP, CO, CI - Last Documented Arterial Blood Pressure 174/74 - Exam Patient is extubated. Very alert and awake. Moves all 4 extremities, although appears weak distally more than proximally in the upper limbs. In the lower limbs she is moving her ankles better. - Labs CBC & Chem 7: 12/16/19 04:15 12/16/19 04:15 Labs: Abnormal Lab Results - Last 24 Hours (Table) 12/15/19 12/15/19 12/16/19 Range/Units 16:53 18:14 00:01 WBC (3.8-10.6) k/uL RBC (3.80-5.40) m/uL Hgb (11.4-16.0) gm/dL Neutrophils # (1.3-7.7) k/uL Lymphocytes # (1.0-4.8) k/uL Sodium (137-145) mmol/L Chloride (98-107) mmol/L BUN (7-17) mg/dL Creatinine (0.52-1.04) mg/dL Glucose (74-99) mg/dL POC Glucose (mg/dL) 105 H 130 H 142 H (75-99) mg/dL Calcium (8.4-10.2) mg/dL 12/16/19 12/16/19 12/16/19 Range/Units 04:15 04:15 05:23 WBC 19.2 H (3.8-10.6) k/uL RBC 3.66 L (3.80-5.40) m/uL Hgb 10.9 L (11.4-16.0) gm/dL Neutrophils # 17.7 H (1.3-7.7) k/uL Lymphocytes # 0.6 L (1.0-4.8) k/uL Sodium 147 H (137-145) mmol/L Chloride 116 H (98-107) mmol/L BUN 61 H (7-17) mg/dL Creatinine 1.96 H (0.52-1.04) mg/dL Glucose 139 H (74-99) mg/dL POC Glucose (mg/dL) 55 L (75-99) mg/dL Calcium 8.3 L (8.4-10.2) mg/dL 12/16/19 12/16/19 12/16/19 Range/Units 05:25 11:41 12:37 WBC (3.8-10.6) k/uL RBC (3.80-5.40) m/uL Hgb (11.4-16.0) gm/dL Neutrophils # (1.3-7.7) k/uL Lymphocytes # (1.0-4.8) k/uL Sodium (137-145) mmol/L Chloride (98-107) mmol/L BUN (7-17) mg/dL Creatinine (0.52-1.04) mg/dL Glucose (74-99) mg/dL POC Glucose (mg/dL) 127 H 135 H 135 H (75-99) mg/dL Calcium (8.4-10.2) mg/dL Assessment and Plan Assessment: * Altered mental status, likely related to toxic metabolic encephalopathy. * History of substance abuse, probably some withdrawal. * Pneumonia Plan: * Patient's encephalopathy has remarkably improved. She is extubated, alert, awake following commands. Appears generalized weak, which hopefully will improve rapidly over the next few days. * EEG performed 12/14/2019 revealed intermittent background slowing, consistent with encephalopathy, mild to moderate degree. * Continue serial neurological examination. Hopefully she will start showing gradual clinical improvement on a daily basis. * Start PT/OT and consider rehab. * Neurology will sign off. Please call neurology if any concerns.
[2019-12-16 17:15] LABS: Glucose,Whole Blood 121 mg/dL (75-99)
[2019-12-16 23:36] LABS: Glucose,Whole Blood 142 mg/dL (75-99)
[2019-12-17] MEDS: NOREPINEPHRINE 32 MG in SODIUM CHLORIDE 0.9% 218 ML IV SCH (00:16)
[2019-12-17] MEDS: DEXTROSE 5% IN WATER 1,000 ML IV SCH (05:11)
[2019-12-17 05:13] LABS: Basophils % (A) 0 %; Eosinophils # (A) 0.1 k/uL (0-0.7); Eosinophils % (A) 0 %; HCT 30.9 % (34.0-46.0); HGB 10.1 gm/dL (11.4-16.0); Lymphocytes # (A) 0.5 k/uL (1.0-4.8); Lymphocytes % (A) 3 %; MCH 30.1 pg (25.0-35.0); MCHC 32.5 g/dL (31.0-37.0); MCV 92.5 fL (80.0-100.0); Monocytes # (A) 0.6 k/uL (0-1.0); Monocytes % (A) 3 %; Neutrophils # (A) 16.9 k/uL (1.3-7.7); Neutrophils % (A) 92 %; Platelet Count 211 k/uL (150-450); RBC 3.34 m/uL (3.80-5.40); RDW 14.2 % (11.5-15.5); WBC 18.3 k/uL (3.8-10.6)
[2019-12-17 05:27] LABS: Calcium 8.3 mg/dL (8.4-10.2); Potassium 4.3 mmol/L (3.5-5.1)
[2019-12-17 05:32] LABS: Glucose,Whole Blood 136 mg/dL (75-99)
[2019-12-17] MEDS: INSULIN ASPART (NovoLOG) 100 UNIT/ML VIAL SQ SCH ×3 (05:40→18:01)
[2019-12-17] MEDS: ALBUTEROL HFA INHALER INHALATION SCH ×4 (07:16→19:10)
[2019-12-17] MEDS: HEPARIN SODIUM,PORCINE 5,000 UNIT/ML 1 ML VIAL SQ SCH ×2 (07:55→16:13)
[2019-12-17] MEDS: methylPREDNISolone SOD SUCCI 40 MG/ML 1 ML VIAL IV SCH ×2 (07:55→16:14)
[2019-12-17] MEDS: PIPERACILLIN-TAZOBACTAM 3.375 GM in SODIUM CHLORIDE 0.9% 100 ML IVPB SCH ×2 (07:56→16:13)
[2019-12-17] MEDS: amLODIPine 5 MG TAB PO SCH ×2 (07:57→20:22)
[2019-12-17] MEDS: METOPROLOL TARTRATE 25 MG TAB PO SCH ×2 (07:57→20:22)
[2019-12-17] MEDS: FAMOTIDINE 20 MG/2 ML VIAL IV SCH (07:57)
--- NOTE | 2019-12-17 08:03 | XR ---
EXAMINATION TYPE: XR chest 1V portable DATE OF EXAM: 12/17/2019 COMPARISON: 12/16/2019 INDICATION: Intubated, difficulty breathing TECHNIQUE: Single frontal view of the chest is obtained. FINDINGS: The heart size is borderline prominent. The pulmonary vasculature is normal. Is mild infiltrate within the left perihilar region and in the medial right lower lobe. Small left pl eural effusion and/or infiltrate is in the retrocardiac region. Findings are stable Left central venous catheter is stable in position. IMPRESSION: 1. Stable left perihilar and right lower lobe infiltrates. 2. Left central venous catheter stable in position.
--- NOTE | 2019-12-17 11:17 | P.PN ---
Subjective Progress Note Date: 12/17/19 Principal diagnosis: Principal diagnosis: Acute hypoxic/hypercapnic respiratory failure; vent dependent Left lower lobe pneumonia Septic shock 12/11/2019 patient remains intubated on a mechanical ventilator due to pneumonia with septic shock and multisystem organ failure; remains on a combination of Zosyn and vancomycin. The patient however is still bronchospastic and for that reason the patient will be kept on a mechanical ventilator for another 24 hours during which she is going to receive bronchodilators and steroids. Antibiotics remain unchanged pending further cultures. The chest x-ray is showing airspace disease throughout the left lung, which is gradually improving compared to the original chest x-ray. There is a small left-sided pleural effusion. There is also some increasing confusion the right lung base. Noted the patient is in a significant fluid positive balance. The patient was given diuretics yesterday. Fluid balance over the past 24 hours is still positive at 2.4 L in the patient's creatinine is up to 2.3. Urine output however his improving. Further diuretics will be given. 12/12/2019 The patient remains intubated; on vital high protein for enteral feeding and nutritional support. Chest x-ray bilateral infiltrates worse on the left compared to the right, somewhat improved compared to yesterday; [id number] staph epidermidis; The patient remains on a combination of Zosyn and vancomycin. Vancomycin trough was quite elevated and the patient's vancomycin is currently on hold. All of the cultures are negative. The patient has developed an acute kidney failure and the creatinine is up to 2.7; patient is nonoliguric; patient was given Lasix yesterday at a dose of 40 mg every 12 hours. Based on the rising and a creatinine in the based on the ongoing improvement in urine output, nephrology recommended discontinuing Lasix. The patient is a component of hyperchloremic hypernatremia. Sodium level is at 149. The patient is receiving free water through the NG. On examination, she is much less bronchospastic and wheezy. Her peak airway pressures down to 22. Static pressures down to 15-17. She is afebrile for now. 12/13/2019 Patient is seen and evaluated in ICU; remains intubated and mechanically ventilated due to extensive left lung pneumonia with septic shock; patient has been ruled out for COVID 19 infection; patient remains afebrile; remains on IV antibiotics in form of Zosyn and vancomycin; continue with IV Solu-Medrol and rhonchal dilator nebulizer treatments; patient did have episode of acute hypertension and Levaquin to pain drip is used for blood pressure control; review of lab work reveals improvement in creatinine down to 2.4, WBC is down to 13.7, hemoglobin is at 9.7, sodium level is down to 148; patient had chest x-ray done which shows left-sided airspace disease; CT of head is ordered and pending 12/14/2019 Patient is seen and evaluated in follow-up and currently remains in the ICU intubated. Patient is being seen and evaluated by neurology today and currently undergoing an EEG. Multiple medical consultations following. Patient remains on IV antibiotics in the form of Zosyn. Currently remains on Cleviprex for hypertension and Precedex she becomes severely agitated. No attempts for weaning off the vent today. Creatinine slightly improved at 2.2 and is to continue with free water flushes through the NG per nephrology recommendations. Patient continue with bronchodilators along with IV steroids. CT of the head was done yesterday although was nondiagnostic due to movement and motion artifact and patient is currently undergoing EEG today. Will await report. 12/15/2019 Patient is seen and evaluated and follow-up in being closely monitored in the ICU. Patient remains on a mechanical vent and is off pressors and sedation at this time. Patient receiving intermittent low doses of Precedex for mild agitation. Patient is awake and responding somewhat to physical commands such as wiggling toes and blinking eyes when being asked. Multiple medical consultations following. Patient remains on IV antibiotics in the form of Zosyn at this time. Attempting to wean off Cleviprex and Norvasc via the orogastric tube is being initiated. Nephrology following. EEG yesterday shows mild to moderate encephalopathy and neurology is following. [employer] attempting CPAP with hopes of possible extubation soon. Creatinine slightly improved and is 2.09 today. White blood count trending down and is 15.0. Sodium level is 145. 12/16/2019 Patient is seen in follow-up today and remains in the ICU being closely monitored. Was extubated yesterday and currently on 2 L of oxygen via nasal cannula. Patient is awake and responding to some simple commands although continues to be confused and oriented 0-1. Patient's blood pressure remains elevated and continued on Cleviprex with attempts to wean. Norvasc and Lopressor have been started and increased. Patient continues to be quite weak and will have PT/OT evaluate. Patient is tolerating some diet but not much of an appetite at this time. Creatinine slightly improved and is 1.96 today. Sodium is 147. Patient was initiated on D5 and tube feedings have been discontinued. Case management and social work following as patient will likely need rehab once stabilized and discharged. Will continue to monitor closely. 12/17/2019 Patient is seen in follow-up today sitting in the chair responding appropriately to questions and commands able to follow simple commands. Patient awaiting transfer out of the ICU at this time. Patient continues to be extremely weak and lethargic and falls asleep frequently during conversation. Patient is off Cleviprex and blood pressures have been 140s systolic. Patient remains on 2 L of oxygen with saturations of 94-96%. Patient is afebrile. Patient is on a clear liquid diet although continues to have poor oral intake. Sodium today is 141 and creatinine slowly trending down at 1.73 with a BUN of 52. Patient is off of IV fluids and remains on IV antibiotics in the form of Zosyn and will continue at this time. To continue with bronchodilators along with IV steroids at this time. Objective - Vital Signs Vital signs: Vital Signs Temp 97.7 F 12/17/19 08:00 Pulse 79 12/17/19 09:00 Resp 16 12/17/19 09:00 BP 143/89 12/17/19 09:00 Pulse Ox 94 L 12/17/19 09:00 Intake & Output 12/16/19 12/17/19 12/17/19 18:59 06:59 18:59 Intake Total 3194.366 1450.933 730 Output Total 1965 1705 510 Balance 1229.366 -254.067 220 Weight 95.4 kg 94.2 kg Intake: IV 26 415 250 D5 20 400 150 Normal Saline Pressure 6 15 Bag Piperacillin-Tazobactam 3 100 .375 gm In Sodium Chloride 0.9% 100 ml @ 25 mls/hr IVPB Q8HR [facility] Rx# :[id number] Intake, IV Titration 751.366 75.933 Amount Clevidipine Butyrate 25 51.366 25.933 mg In Empty Bag 1 bag @ 1 MG/HR 2 mls/hr IV .Q24H [facility] Rx#:[id number] Dextrose 5% in Water 1, 500 50 000 ml @ 50 mls/hr IV . Q20H [facility] Rx#:[id number] Piperacillin-Tazobactam 3 200 .375 gm In Sodium Chloride 0.9% 100 ml @ 25 mls/hr IVPB Q8HR [facility] Rx# :[id number] Oral 2417 960 480 Output: Urine 1965 1705 510 Other: Voiding Method Indwelling Catheter Indwelling Catheter Indwelling Catheter # Bowel Movements 1 1 ABP, PAP, CO, CI - Last Documented Arterial Blood Pressure 147/66 - Exam Gen. appearance, comfortable, no acute distress, awake, alert and oriented 1-2, quite lethargic and fatigues easily Head exam was generally normal. There was no scleral icterus or corneal arcus. Mucous membranes were moist. Neck was supple and without jugular venous distension, thyromegaly, or carotid bruits. Carotids were easily palpable bilaterally. There was no adenopathy. the patient has a left IJ triple-lumen catheter in place. Lung sounds are diminished and some rhonchi in lung bases bilaterally more so on the left. Otherwise breath sounds are equal and symmetrical. Heart sounds are regular, positive S1-S2 and there is a systolic ejection murmur heard Abdominal exam revealed normal bowel sounds. The abdomen was soft, non-tender, and without masses, organomegaly Examination of the extremities revealed no cyanosis, clubbing or edema. Bilateral SCDs noted - Labs CBC & Chem 7: 12/17/19 04:50 12/17/19 04:50 Labs: Abnormal Lab Results - Last 24 Hours (Table) 12/16/19 12/16/19 12/16/19 Range/Units 11:41 12:37 17:13 WBC (3.8-10.6) k/uL RBC (3.80-5.40) m/uL Hgb (11.4-16.0) gm/dL Hct (34.0-46.0) % Neutrophils # (1.3-7.7) k/uL Lymphocytes # (1.0-4.8) k/uL Chloride (98-107) mmol/L BUN (7-17) mg/dL Creatinine (0.52-1.04) mg/dL Glucose (74-99) mg/dL POC Glucose (mg/dL) 135 H 135 H 121 H (75-99) mg/dL Calcium (8.4-10.2) mg/dL 12/16/19 12/17/19 12/17/19 Range/Units 23:33 04:50 04:50 WBC 18.3 H (3.8-10.6) k/uL RBC 3.34 L (3.80-5.40) m/uL Hgb 10.1 L (11.4-16.0) gm/dL Hct 30.9 L (34.0-46.0) % Neutrophils # 16.9 H (1.3-7.7) k/uL Lymphocytes # 0.5 L (1.0-4.8) k/uL Chloride 111 H (98-107) mmol/L BUN 52 H (7-17) mg/dL Creatinine 1.73 H (0.52-1.04) mg/dL Glucose 131 H (74-99) mg/dL POC Glucose (mg/dL) 142 H (75-99) mg/dL Calcium 8.3 L (8.4-10.2) mg/dL 12/17/19 Range/Units 05:31 WBC (3.8-10.6) k/uL RBC (3.80-5.40) m/uL Hgb (11.4-16.0) gm/dL Hct (34.0-46.0) % Neutrophils # (1.3-7.7) k/uL Lymphocytes # (1.0-4.8) k/uL Chloride (98-107) mmol/L BUN (7-17) mg/dL Creatinine (0.52-1.04) mg/dL Glucose (74-99) mg/dL POC Glucose (mg/dL) 136 H (75-99) mg/dL Calcium (8.4-10.2) mg/dL Assessment and Plan Assessment: -Septic shock: Shock improved. patient remains on Zosyn -Covid 19 ruled out, Covid testing was negative -Hypernatremia; current sodium is 141. Off of IV fluids Nephrology following -Acute renal failure secondary to sepsis and septic shock. Nephrology following. Current creatinine is 1.73 with a BUN of 52 -Acute hypercapnic and acute hypoxic respiratory failure: tolerating 2 L via nasal cannula -History of congestive heart failure severe systolic dysfunction, unknown ejection fraction. Patient has multi valvular heart disease including severe mitral regurgitation severe tricuspid regurgitation. Patient had an echocardiogram which did not show any mitral regurgitation doesn't have any heart failure. -COPD present smoker further management as mentioned above -History of opiate abuse with mildly elevated liver enzymes -Fibromyalgia -Hyperlipidemia -Hypertension, Norvasc 5 mg twice daily along with metoprolol. Currently off Cleviprex -DVT prophylaxis with subcu heparin Plan: Patient is currently off Cleviprex and being monitored closely in the ICU. Awaiting transfer from the ICU. Mentation and confusion continues to improve and is more responsive and following commands although continues to be quite weak and lethargic. PT/OT to follow. To continue with bronchodilators and IV steroids at this time. Patient remains on Zosyn and will continue at this time. Further recommendations to follow. Guarded prognosis. Case management and social work following as patient will likely need rehab once stabilized and discharged.
[2019-12-17 11:43] LABS: Glucose,Whole Blood 139 mg/dL (75-99)
--- NOTE | 2019-12-17 13:07 | P.PN ---
Subjective Progress Note Date: 12/17/19 Principal diagnosis: Acute left lower lobe pneumonia, community acquired pneumonia. On today's evaluation of 12/07/2019 and seeing the patient for a follow-up. This patient came with an extensive left lung pneumonia/airspace disease/consolidation and she is intubated on a mechanical ventilator. Note that she was quite septic and the time of arrival. She is also being ruled out for COVID 19 infection. The patient has multiple medical problems and comorbidities. The patient has COPD/asthma. The patient also has CHF with an ejection fraction of 25-30% along with previous history of moderate degree of mitral regurgitation. She has history of substance abuse including methamphetamine and fentanyl and the patient has been on methadone on outpatient basis. The patient has hypertension, hyperlipidemia, fibromyalgia, osteoarthritis and previous history of alcoholism This morning, the patient remains sedated with propofol which is currently running at 40 mg per KG per minute. The patient is also paralyzed with Nimbex 01 g per KG per minute. The patient is receiving IV fluids at the rate of 75 mL an hour. The patient is on norepinephrine infusion at 0.15 g per KG per minute. She is an assist-control mode of ventilator. The patient is at the rate of 34 with a tidal volume of 350 and FiO2 of 85% with a PEEP of 15. The blood gases from today showed a pH of 7.16 with a pCO2 of 73 and pO2 of 85 and this was done and FiO2 of 85%. The white cell count is at 20 per lactic acid level is down to 2.4. Renal function is stable with a creatinine of 0.7. Sodi um is at 144. The patient had been she with a combination of antibiotics. For now we have the patient a combination of vancomycin and Zosyn. I added Zithromax today. I also have the patient on Plaquenil for the possibility of an underlying coronavirus infection of the lungs. A repeat echocardiogram is still pending regarding the left ventricle ejection fraction and the extent of mitral regurgitation. Noted the patient was noted to be having a lower CVP this morning. I went ahead and gave her another liter of normal saline with a possibility of giving her a second liter if she continues to have lower urine output. Troponin is at 0.9. Blood cultures still negative. Sputum Gram stain and cultures also negative. Note that on her blood work, the patient has a 28% bandemia time of admission and currently she is up to 58%. Legionella urine antigen will be also sent. On today's evaluation of 12/08/2019 the patient remains intubated on a mechanical ventilator. We will inform that the patient's blood cultures from [place] showed a gram-positive cocci in pairs. Based on that, we aren't anticipating the possibility of an underlying pneumococcal left lung pneumonia. The patient continues to have extensive consolidation of the left lung on today's chest x-ray. Meanwhile, the patient is a mechanical ventilator. She is quite bronchospastic and wheezy. No nebulizers or steroids have been utilizing anticipating a Covid 19 infection which I think it's less likely possibility on today's evaluation. The patient is currently on an assist-control mode at the rate of 34 with a tidal volume of 350 and FiO2 of 70% with a PEEP of 15. Peak airway pressures 42. Static pressure is 28. The patient is sedated with propofol at a dose of 40 g per KG per minute. The patient on Nimbex at 1 g per KG per minute. The patient is also on norepinephrine infusion at 0.3 g per KG per minute. The patient is also on vasopressin physiologic dose. The patient is septic shock. White cell count is up to 24 with a hemoglobin of 10.2. The patient has a percent bandemia which is improved compared to yesterday. The blood gas showed a pH of 7.18 with a pCO2 of 62 and pO2 of 83. The pro-calcitonin level was 96.4 indicating bacterial infection. Covid testing is still pending for now. The patient is receiving a combination of Zithromax, vancomycin and Zosyn for now. Plaquenil be continued pending the Covid 19 status. The patient also suffered an acute kidney injury. Creatinine is up to 1.6 and the patient has a positive fluid balance of 2.5 L over the past 24 hours. On 12/09/2019, the patient remains on a mechanical ventilator. This morning, the patient remains essentially on the same ventilator setting. The patient remains on assist control mode at the rate of 34 with a tidal volume of 350 and FiO2 of 60% with a PEEP of 15. The patient's pulse ox currently is around 93%. The peak airway pressures around 40 with a static pressure of 26. The patient has an extensive left lung consolidation which seems to be slightly improved compared to yesterday. We will inform that the patient had a positive gram- positive cocci in pairs and the blood culture that was obtained in the outside hospital. For that reason, I discontinue the Zithromax and a The patient a combination of Zosyn and vancomycin. Also, the Covid 19 testing came back negative and the patient was taken off the Plaquenil. The patient has a blood gas that showed a pH of 7.2 with a pCO2 of 60 and pO2 of 80. The patient was started on bronchodilators. The patient was also started on IV Solu-Medrol yesterday. The patient is being weaned off the pressors. Note that over the past 24-48 hours the patient was profoundly hypotensive and the patient also developed a component of an acute kidney injury. Creatinine came up to 1.6 and today's up to 1.8. Nevertheless urine output improved and the patient has been taken off the vasopressin and the patient is down on the norepinephrine infusion which is currently running at 0.08 g per KG per minute. The patient continues to be paralyzed with Nimbex and the proposed running at 40 g per KG per minute. The patient is on high protein vital running at 42 mL an hour. She is tolerating her enteral feeding for nutritional support. She is afebrile. No other significant events otherwise for now. The cultures that were obtained here in the hospital were all negative. On 12/10/2019, the patient remains intubated on a mechanical ventilator. The patient also remains sedated and paralyzed. This morning, the patient is an assist-control mode and based on the morning blood gases I made some changes in the mechanical ventilator. Note that the patient was in a assist-control of 34 with a tidal volume of 350 and FiO2 of 60% with a PEEP of 13. The blood gases from this morning showed a pH of 7.16 with a pCO2 of 65 and pO2 of 116. Based on that, increase the tidal volume up to 400s. I also dropped the PEEP. Subsequent evaluation showed that the patient had a pH of 7.21 with a pCO2 of 57 and pO2 of 141. Based on all this, I dropped the PEEP down to 10 and I also drop the FiO2 down to 50% and I dropped a respiratory rate down to 28. In terms of his chest x-ray findings, the patient shows improvement in the left lower l obe consolidation. Hemodynamically, the patient remains on low-dose norepinephrine infusion. The patient is currently on levo fed at 0.01 mcg/kg per minute. The peak air pressure 32 and the static pressures 21. The fluid balance has been positive over the past several days. For that reason the patient will be started on diuretics. Creatinine is up to 2.1. The patient is nonoliguric. Cultures of been all negative thus far and was still awaiting the final cultures to be forwarded to us from an outside hospital which indicated the possibility of a gram-positive cocci in pairs/changes. She is afebrile. She is tolerating enteral feeding for nutrition support. She'll be also taken off the paralytics today and she'll be given a paralytic holiday. He remains on a combination of fentanyl and propofol for sedation. The patient is also taking enteral feeding for nutritional support and she is on vital high protein at the rate of 42 mL an hour. On 12/11/2019 the patient remains intubated on a mechanical ventilator. She is a case of pneumonia with septic shock and multisystem organ failure the patient is still struggling to recover from this. The patient remains on a combination of Zosyn and vancomycin. Clinically, the patient is off paralytics. However, the patient is still requiring a propofol for sedation which is currently running at 14 mcg/kg per minute. On today's evaluation, the patient was assist- control at the rate of 28 with a tidal volume of 400 and PEEP of 10 with an FiO2 of 50%. She was somewhat asynchronous with a mechanical ventilator. She was occasional double stacking. The blood gases showed a pH of 7.29 with a pCO2 of 50 and pO2 131. Based on all this, I switched this patient a VC plus mode with tidal volume of 400. I put in at the rate of 24. Eye doctor tidal down to 40% with a PEEP of 5. I also put her on an inspiratory time of 0.6 seconds. The patient became significantly more synchronous with the mechanical ventilator. The patient however is still the most I a combination of bronchospasm wheezing and for that reason the patient will be kept on a mechanical ventilator for another 24 hours during which she is going to receive bronchodilators and steroids. Antibiotics remain unchanged pending further cultures. The chest x-ray is showing airspace disease throughout the left lung, which is gradually improving compared to the original chest x-ray. There is a small left-sided pleural effusion. There is also some increasing confusion the right lung base. Noted the patient is in a significant fluid positive balance. The patient was given diuretics yesterday. Fluid balance over the past 24 hours is still positive at 2.4 L in the patient's creatinine is up to 2.3. Urine output however his improving. Further diuretics will be given. Case was discussed with nephrology. On 12/12/2019, the patient is being seen for a follow-up. The patient is still sedated on propofol and she is currently running at 50 g per KG per minute. She is also on vital high protein for enteral feeding and nutritional support. She is on assist control mode of ventilation and she is in a VC plus mode and I haven't on a tidal volume of 400 with a rate of 24 with an FiO2 of 40% and a PEEP of 5. She was noted to have double stacking and she was requiring significant a higher volumes. Based on that, increase the tidal volume gradually up to 550 and I also dropped a respiratory rate down to 18. She was kept on a PEEP of 5 and FiO2 of 40%. Her current inspiratory time is at 0.65. Her inhalation exhalation ratio is 1-2 and the most recent blood gases from today shows A pH of 7.4 with a pCO2 of 42 and pO2 of 86. Chest x-ray bilateral infiltrates worse on the left compared to the right, somewhat improved compared to yesterday. The patient has no significant orotracheal secretions. The cultures that were sent over from the outside hospital do not to be a coagulase- negative staph epidermidis and it was not of any valuable information. The patient remains on a combination of Zosyn and vancomycin. Vancomycin trough was quite elevated and the patient's vancomycin is currently on hold. All of the cultures are negative. The patient is on is there is Zosyn also. She has developed an acute kidney failure and the creatinine is up to 2.7. Nevertheless the patient is nonoliguric. Neck fluid balance is at +1.4. Noted the patient was given Lasix yesterday at a dose of 40 mg every 12 hours. Based on the rising and a creatinine in the based on the ongoing improvement in urine output, we'll stop the Lasix upon discussing this with nephrology. The patient is a component of hyperchloremic hypernatremia. Sodium level is at 149. The patient is receiving free water through the NG. On examination, she is much less bronchospastic and wheezy. Her peak airway pressures down to 22. Static pressures down to 15-17. She is afebrile for now. She is on no pressors. She is tolerating her tube feeds. On 12/13/2019 on seeing the patient for a follow-up. Note that the patient is a case of extensive left lung pneumonia with septic shock and she was ruled out for coronary 19 infection. The patient was extremely hypoxic and hemodynamically unstable at time of admission and she gradually improved. This morning, we are on no pressors. The patient is on propofol which were trying to wean and replace it with Precedex. I'm trying to introduce Precedex as the patient is getting quite agitated and restless and tachypneic and tachycardic and hypertensive as the propofol is being weaned off. Nevertheless, she never gets the point where she becomes unresponsive. I'm also going to do a CAT scan of the brain to evaluate her underlying mental status as the patient unable to come off the propofol without any major difficulties. This morning from 4 is running at 20 g and Precedex at 0.7. She remains on a mechanical ventilator. She is having significant amount of double stacking. For that reason, I switched to a pressure control mode of ventilation and she is at the rate of 18 with a pressure control of 24 cm of water with an FiO2 of 40% with a PEEP of 5 and a respiratory time of 1 ms. This very much is eliminated her double stacking and she is very synchronous with the mechanical ventilator for now. She is afebrile. She remains on examination Zosyn and vancomycin. She remains on IV Solu Medrol pH is on DuoNeb nebulized treatments on the clock. In regards to her acute hypertension, I'm going to use clevidipine drip for blood pressure control. The creatinine is improving and creatinine is down to 2.4. She is producing adequate amount of urine output. The blood gases showed a pH of 7.46 with a pCO2 of 37 and pO2 of 93 and this was done and FiO2 of 40%. The chest x- ray shows left sided airspace disease. CAT scan of the brain is to follow. The white cell count is down to 13.7. Hemoglobin is at 9.7. The net fluid balance remains +1.43 yesterday and 1.8 L for today. Her weight is up and she would benefit from diuresis. We'll discuss this with nephrology. Note that she was also getting free water flushes at a dose of 500 mL every 4 hours. Her sodium level is down to 148. Reevaluated today on 12/14/19, patient is being followed for extensive left-sided pneumonia and septic shock. Patient was ruled out for covid 19, patient remains intubated on mechanical ventilation. Patient is on pressure control of 24, FiO2 is 40%, PEEP of 5. And inspiratory time 1ms. Chest x-ray continues to show extensive infiltrate in the left lung, especially in the left lower lobe, and some extent involving the right lower lobe. Consistent with multifocal pneumonia, possibility of underlying interstitial edema is not entirely ruled out. ABG this morning showed a pO2 of 112 pCO2 of 32 pH of 7.52, and this is on 40% FiO2. Her echocardiogram showed good LV function, and significant mitral valve disease. Patient was noted to be extremely agitated off Precedex. Hence I placed her back on Precedex. She is clearly not ready for any weaning. Gets extremely agitated, restless, tachycardic, tachypneic, off sedation. Sputum cultures have been nondiagnostic, hence I discontinued her vancomycin, and place the patient on Zosyn. Remains on updraft treatments, she is also on Solu- Medrol. Remains on clevidipine drip for control of blood pressure. CBC continues to show leukocytosis with WBC count of 21.8 hemoglobin is 11. Renal profile is slightly better compared to yesterday, her creatinine is down to 2.22 from 2.73 few days ago. I did recommend increasing the Lasix dose today since her chest x-ray is suggestive of mild interstitial edema in addition to her underlying pneumonia Reevaluated today on 12/15/19, patient remains intubated and mechanically ventilated, she presented with extensive left-sided pneumonia and septic shock. Covid 19 was basically ruled out. Patient remains on mechanical ventilation. Ventilator settings are pressure control mode of mechanical ventilation, set pressure is 24, inspiratory time is 1 FiO2 is 35% and PEEP is 5. Patient remains on free water, and I cut down the dose to 200 mL via PEG tube every 4 hours. She is still on Precedex which I have cut down, chest x-ray continues to show left lower lobe infiltrate. ABG showed a pO2 of 89 pCO2 of 39 pH of 7.45 and this was on 35% FiO2. Mentation-choe, the patient seems to be improving significantly compared to yesterday she is opening eyes, tracking with her eyes to the sides bilaterally. Slightly wiggling her toes up on request. Hence I have recommended at least a trial of pressure support of 8 and CPAP, and for about 2 hours she seems to be tolerating that mode of mechanical ventilation/weaning quite well. Then I recommended when she is more awake the patient should be extubated. All labs and chest x-ray were reviewed today. BUN is 67 creatinine is 2.09, improving since admission. Patient was reevaluated today on 12/16/19, patient was extubated yesterday, and her extubation was well-tolerated. She is now on nasal cannula, doing quite well, O2 at 2 L nasal cannula, and her O2 saturation is 97%. Patient is resting, comfortable, denies any specific complaints. Her blood pressure is elevated, hence she is on clevidipine at 6 mg/h, I suggested switching the patient to Norvasc 5 mg twice a day and Lopressor 25 twice a day. IV fluids rem ains at D5W 50 mL per hour. Physical therapy will be consulted, patient seems to be generally weak. On physical examination, patient had basically clear chest. Chest x-ray showed bilateral perihilar infiltrates, and left lower lobe infiltrate. As well as right lower lobe infiltrate, improving compared to her previous x-ray. Labs showed WBC count of 19.2 hemoglobin of 10.9. Electrolytes showed sodium of 147, improving, BUN remains elevated at 61 creatinine is 1.96. Sputum culture is nondiagnostic. Urine culture is negative Reevaluated today on 12/17/19, patient is on 2 L nasal cannula, sating at a bedside chair, in no distress. She is in normal sinus rhythm, she is afebrile. She has D5W at 50 mL per hour. Electrolytes are basically normal BUN is 52 creatinine is 1.73. Improving impaired to baseline. WBC count is improving down to 18.3 hemoglobin is 10.1. Chest x-ray continues to show stable left perihilar and right lower lobe infiltrates. Objective - Vital Signs Vital signs: Vital Signs Temp 98 F 12/17/19 12:00 Pulse 73 12/17/19 12:00 Resp 16 12/17/19 12:00 BP 147/84 12/17/19 12:00 Pulse Ox 95 12/17/19 12:00 Intake & Output 12/16/19 12/17/19 12/17/19 18:59 06:59 18:59 Intake Total 3194.366 0766.058 0712 Output Total 1965 1705 830 Balance 1229.366 -254.067 300 Weight 95.4 kg 94.2 kg Intake: IV 26 415 250 D5 20 400 150 Normal Saline Pressure 6 15 Bag Piperacillin-Tazobactam 3 100 .375 gm In Sodium Chloride 0.9% 100 ml @ 25 mls/hr IVPB Q8HR [facility] Rx# :[id number] Intake, IV Titration 751.366 75.933 Amount Clevidipine Butyrate 25 51.366 25.933 mg In Empty Bag 1 bag @ 1 MG/HR 2 mls/hr IV .Q24H [facility] Rx#:[id number] Dextrose 5% in Water 1, 500 50 000 ml @ 50 mls/hr IV . Q20H [facility] Rx#:[id number] Piperacillin-Tazobactam 3 200 .375 gm In Sodium Chloride 0.9% 100 ml @ 25 mls/hr IVPB Q8HR [facility] Rx# :[id number] Oral 2417 960 880 Output: Urine 1964 1705 830 Other: Voiding Method Indwelling Catheter Indwelling Catheter Indwelling Catheter # Bowel Movements 1 1 ABP, PAP, CO, CI - Last Documented Arterial Blood Pressure 147/66 - Exam Physical Exam: Revealed a 54-year old -[place] female-in no distress, on 2 L nasal cannula. Head: Atraumatic, normocephalic, HEENT:[Neck is supple.] [No neck masses.] [No thyromegaly.] [No JVD.] Chest: [Symmetrical chest expansion, on crackles at the bases Cardiac Exam: [Normal S1 and S2, no S3 gallop, 2/6 systolic murmur thought the precordium. Abdomen: [Soft, nontender, no megaly, no rebound, no guarding, normal bowel sounds.] Extremities: [No clubbing, no edema, no cyanosis.] Neurological Exam: Alert and oriented 3, no gross focal neurologic deficits. Psychiatric; normal mood, affect and normal mental status Skin: No rashes. - Labs CBC & Chem 7: 12/17/19 04:50 12/17/19 04:50 Labs: Abnormal Lab Results - Last 24 Hours (Table) 12/16/19 12/16/19 12/17/19 Range/Units 17:13 23:33 04:50 WBC 18.3 H (3.8-10.6) k/uL RBC 3.34 L (3.80-5.40) m/uL Hgb 10.1 L (11.4-16.0) gm/dL Hct 30.9 L (34.0-46.0) % Neutrophils # 16.9 H (1.3-7.7) k/uL Lymphocytes # 0.5 L (1.0-4.8) k/uL Chloride (98-107) mmol/L BUN (7-17) mg/dL Creatinine (0.52-1.04) mg/dL Glucose (74-99) mg/dL POC Glucose (mg/dL) 121 H 142 H (75-99) mg/dL Calcium (8.4-10.2) mg/dL 12/17/19 12/17/19 12/17/19 Range/Units 04:50 05:31 11:42 WBC (3.8-10.6) k/uL RBC (3.80-5.40) m/uL Hgb (11.4-16.0) gm/dL Hct (34.0-46.0) % Neutrophils # (1.3-7.7) k/uL Lymphocytes # (1.0-4.8) k/uL Chloride 111 H (98-107) mmol/L BUN 52 H (7-17) mg/dL Creatinine 1.73 H (0.52-1.04) mg/dL Glucose 131 H (74-99) mg/dL POC Glucose (mg/dL) 136 H 139 H (75-99) mg/dL Calcium 8.3 L (8.4-10.2) mg/dL Assessment and Plan Assessment: Impression: Acute community-acquired pneumonia Septic shock secondary to pneumonia, resolved Acute hypoxic and hypercapnic respiratory failure secondary to above. Resolved. Valvular heart disease and moderate mitral regurgitation Acute kidney injury/acute tubular necrosis being followed by nephrology. Improving. History of underlying COPD History of opiate dependence patient has been on Suboxone on outpatient basis. This will be restarted. History of alcoholism History of fibromyalgia and chronic pain syndrome Benign essential hypertension Dyslipidemia Recommendation: Patient tolerated extubation well over the last 48 hours. Continue GI and deep prophylaxis. Continue nutritional support. Change antibiotics / Zosyn Continue Suboxone Monitor labs and electrolytes. Continue physical therapy. Transfer patient today to a regular medical floor. We'll continue to follow. Time with Patient: Less than 30
--- NOTE | 2019-12-17 15:57 | PN ---
PROGRESS NOTE Patient is seen for followup for acute kidney injury. Her renal function is improving. She is currently sitting on a bedside chair. Patient is being transferred out of the ICU. She is awake, following commands. She has started to eat. The patient has good urine output. On examination, blood pressure is 147/84, heart rate 73 per minute, patient is afebrile. Examination of lower extremities shows no significant edema. Abdomen is soft, nontender. [employer]ERAL JUDGE exam, patient is weak but he is moving all 4 extremities. LABS: Show sodium 141, potassium 4.3, chloride 111, BUN 52, creatinine 1.73, hemoglobin of 10.1 g/dL. ASSESSMENT: 1. Acute kidney injury, acute tubular necrosis, currently significantly improved. 2. Hypoxic respiratory failure currently status post extubation, doing well. 3. Hypertension, blood pressure is much better controlled. Continue with the Norvasc and the Lopressor. 4. Hypernatremia, now resolved. 5. Sepsis from pneumonia, improved. 6. Valvular heart disease with moderate mitral regurgitation. PLAN: Patient can be transferred out, encourage increased oral intake, particularly free water. Continue off of D5W. Repeat labs in a.m.. MMODL / IJN: [id number] /
[2019-12-17] MEDS ORDERED: LOSARTAN 50 MG TAB PO SCH (17:52)
[2019-12-17 17:58] LABS: Glucose,Whole Blood 206 mg/dL (75-99)
[2019-12-17] MEDS: predniSONE 20 MG TAB PO SCH (18:01)
[2019-12-17 20:23] LABS: Glucose,Whole Blood 188 mg/dL (75-99)
[2019-12-18 00:04] LABS: Glucose,Whole Blood 141 mg/dL (75-99)
[2019-12-18] MEDS: INSULIN ASPART (NovoLOG) 100 UNIT/ML VIAL SQ SCH ×3 (00:04→11:31)
[2019-12-18] MEDS: HEPARIN SODIUM,PORCINE 5,000 UNIT/ML 1 ML VIAL SQ SCH ×2 (00:06→07:36)
[2019-12-18] MEDS: PIPERACILLIN-TAZOBACTAM 3.375 GM in SODIUM CHLORIDE 0.9% 100 ML IVPB SCH ×2 (00:06→07:35)
[2019-12-18] MEDS: methylPREDNISolone SOD SUCCI 40 MG/ML 1 ML VIAL IV SCH (02:48)
[2019-12-18 03:47] VITALS: PULSE 75
[2019-12-18 05:36] LABS: Glucose,Whole Blood 134 mg/dL (75-99)
[2019-12-18] MEDS ORDERED: PANTOPRAZOLE 40 MG TABLET PO SCH (07:30)
[2019-12-18] MEDS: METOPROLOL TARTRATE 25 MG TAB PO SCH (07:35)
[2019-12-18] MEDS: amLODIPine 5 MG TAB PO SCH (07:35)
[2019-12-18] MEDS: predniSONE 20 MG TAB PO SCH (07:36)
[2019-12-18 07:50] VITALS: BP 137/82; RESP 16; TEMP 97.5
[2019-12-18] MEDS: ALBUTEROL HFA INHALER INHALATION SCH ×3 (08:03→16:12)
[2019-12-18 11:00] VITALS: BMI 32.4
[2019-12-18 11:28] LABS: Albumin 2.7 g/dL (3.5-5.0); Calcium 8.2 mg/dL (8.4-10.2); Potassium 3.7 mmol/L (3.5-5.1); Total Bilirubin 0.6 mg/dL (0.2-1.3); Total Protein 5.4 g/dL (6.3-8.2)
[2019-12-18 11:31] LABS: Glucose,Whole Blood 128 mg/dL (75-99)
--- NOTE | 2019-12-18 12:14 | P.DS ---
Providers Date of admission: 12/06/19 05:21 Attending physician: Duong Ghosh Consults: 12/06/19 05:21 Consult Physician Stat Consulting Provider: Zurdo Sharp Consult Reason/Comments: ICU Management. Hypotension Do you want consulting provider notified?: Already Contacted 12/10/19 12:09 Consult Physician Routine Consulting Provider: Barak Zurita Consult Reason/Comments: karthik Do you want consulting provider notified?: Yes 12/14/19 08:11 Consult Physician Routine Consulting Provider: Brie Horn Consult Reason/Comments: mental status changed Do you want consulting provider notified?: Yes Primary care physician: ZOHAIB Marmolejo Hospital Course: Acute hypoxic/hypercapnic respiratory failure; vent dependent Left lower lobe pneumonia Septic shock 12/11/2019 patient remains intubated on a mechanical ventilator due to pneumonia with septic shock and multisystem organ failure; remains on a combination of Zosyn and vancomycin. The patient however is still bronchospastic and for that reason the patient will be kept on a mechanical ventilator for another 24 hours during which she is going to receive bronchodilators and steroids. Antibiotics remain unchanged pending further cultures. The chest x-ray is showing airspace disease throughout the left lung, which is gradually improving compared to the original chest x-ray. There is a small left-sided pleural effusion. There is also some increasing confusion the right lung base. Noted the patient is in a significant fluid positive balance. The patient was given diuretics yesterday. Fluid balance over the past 24 hours is still positive at 2.4 L in the patient's creatinine is up to 2.3. Urine output however his improving. Further diuretics will be given. 12/12/2019 The patient remains intubated; on vital high protein for enteral feeding and nutritional support. Chest x-ray bilateral infiltrates worse on the left compared to the right, somewhat improved compared to yesterday; juwrycxp-rmpikwavw-wrardkut staph epidermidis; The patient remains on a combination of Zosyn and vancomycin. Vancomycin trough was quite elevated and the patient's vancomycin is currently on hold. All of the cultures are negative. The patient has developed an acute kidney failure and the creatinine is up to 2.7; patient is nonoliguric; patient was given Lasix yesterday at a dose of 40 mg every 12 hours. Based on the rising and a creatinine in the based on the ongoing improvement in urine output, nephrology recommended discontinuing Lasix. The patient is a component of hyperchloremic hypernatremia. Sodium level is at 149. The patient is receiving free water through the NG. On examination, she is much less bronchospastic and wheezy. Her peak airway pressures down to 22. Static pressures down to 15-17. She is afebrile for now. 12/13/2019 Patient is seen and evaluated in ICU; remains intubated and mechanically ventilated due to extensive left lung pneumonia with septic shock; patient has been ruled out for COVID 19 infection; patient remains afebrile; remains on IV antibiotics in form of Zosyn and vancomycin; continue with IV Solu-Medrol and rhonchal dilator nebulizer treatments; patient did have episode of acute hypertension and Levaquin to pain drip is used for blood pressure control; review of lab work reveals improvement in creatinine down to 2.4, WBC is down to 13.7, hemoglobin is at 9.7, sodium level is down to 148; patient had chest x-ray done which shows left-sided airspace disease; CT of head is ordered and pending 12/14/2019 Patient is seen and evaluated in follow-up and currently remains in the ICU intubated. Patient is being seen and evaluated by neurology today and currently undergoing an EEG. Multiple medical consultations following. Patient remains on IV antibiotics in the form of Zosyn. Currently remains on Cleviprex for hypertension and Precedex she becomes severely agitated. No attempts for weaning off the vent today. Creatinine slightly improved at 2.2 and is to continue with free water flushes through the NG per nephrology recommendations. Patient continue with bronchodilators along with IV steroids. CT of the head was done yesterday although was nondiagnostic due to movement and motion artifact and patient is currently undergoing EEG today. Will await report. 12/15/2019 Patient is seen and evaluated and follow-up in being closely monitored in the ICU. Patient remains on a mechanical vent and is off pressors and sedation at this time. Patient receiving intermittent low doses of Precedex for mild agitation. Patient is awake and responding somewhat to physical commands such as wiggling toes and blinking eyes when being asked. Multiple medical consultations following. Patient remains on IV antibiotics in the form of Zosyn at this time. Attempting to wean off Cleviprex and Norvasc via the orogastric tube is being initiated. Nephrology following. EEG yesterday shows mild to moderate encephalopathy and neurology is following. Contracts Paralegal attempting CPAP with hopes of possible extubation soon. Creatinine slightly improved and is 2.09 today. White blood count trending down and is 15.0. Sodium level is 145. 12/16/2019 Patient is seen in follow-up today and remains in the ICU being closely monitored. Was extubated yesterday and currently on 2 L of oxygen via nasal cannula. Patient is awake and responding to some simple commands although continues to be confused and oriented 0-1. Patient's blood pressure remains elevated and continued on Cleviprex with attempts to wean. Norvasc and Lopressor have been started and increased. Patient continues to be quite weak and will have PT/OT evaluate. Patient is tolerating some diet but not much of an appetite at this time. Creatinine slightly improved and is 1.96 today. Sodium is 147. Patient was initiated on D5 and tube feedings have been discontinued. Case management and social work following as patient will likely need rehab once stabilized and discharged. Will continue to monitor closely. 12/17/2019 Patient is seen in follow-up today sitting in the chair responding appropriately to questions and commands able to follow simple commands. Patient awaiting transfer out of the ICU at this time. Patient continues to be extremely weak and lethargic and falls asleep frequently during conversation. Patient is off Cleviprex and blood pressures have been 140s systolic. Patient remains on 2 L of oxygen with saturations of 94-96%. Patient is afebrile. Patient is on a clear liquid diet although continues to have poor oral intake. Sodium today is 141 and creatinine slowly trending down at 1.73 with a BUN of 52. Patient is off of IV fluids and remains on IV antibiotics in the form of Zosyn and will continue at this time. To continue with bronchodilators along with IV steroids at this time. 12/18/2019 Patient is hemodialysis stable sitting in the chair is on oxygen but will be completely discontinue Lanoxin and will see how she saturates. Patient will be discharged today, patient was on entresto she had a normal ejection fraction testing her poor renal function acute tubular necrosis and acute renal failure. Patient creatinine is slowly improving and is 1.6 today. Patient is cleared for discharge from nephrology perspective. Metoprolol was changed to Coreg for better blood pressure control which is still elevated. Patient is also on Norvasc. - Exam Gen. appearance, comfortable, no acute distress, awake, alert and oriented 3, still with the tired and lethargic Head exam was generally normal. There was no scleral icterus or corneal arcus. Mucous membranes were moist. Neck was supple and without jugular venous distension, thyromegaly, or carotid bruits. Carotids were easily palpable bilaterally. There was no adenopathy. the Lung sounds are diminished and some rhonchi in lung bases bilaterally more so on the left. Otherwise breath sounds are equal and symmetrical. Heart sounds are regular, positive S1-S2 and there is a systolic ejection murmur heard Abdominal exam revealed normal bowel sounds. The abdomen was soft, non-tender, and without masses, organomegaly Examination of the extremities revealed no cyanosis, clubbing or edema. Assessment and Plan Assessment: -Septic shock: Shock improved. Patient sepsis is secondary to come in today quite pneumonia -Covid 19 ruled out, Covid testing X2 was negative -Hypernatremia; improved now -Acute renal failure secondary to acute tubular necrosis and sepsis and septic shock. Patient present creatinine is 1.6 which is a significant improvement from about 2 -Acute hypercapnic and acute hypoxic respiratory failure: We will try to wean off oxygen to assess for any oxygen requirement upon discharge -History of congestive heart failure severe systolic dysfunction, unknown ejection fraction. Patient has multi valvular heart disease including severe mitral regurgitation severe tricuspid regurgitation. Patient had an echocardiogram which did not show any mitral regurgitation doesn't have any heart failure. Patient had severe systolic dysfunction the past patient doesn't have any such issues at this time now -COPD present smoker further management as mentioned above -History of opiate abuse with mildly elevated liver enzymes -Fibromyalgia -Hyperlipidemia -Hypertension, Norvasc 5 mg twice daily along with Coreg Patient Condition at Discharge: Critical Plan - Discharge Summary Discharge Rx Participant: No New Discharge Prescriptions: New Amoxic-Pot Clav 875-125Mg [Augmentin 875-125] 1 tab PO Q12HR 5 Days #10 tab Carvedilol [Coreg] 3.125 mg PO BID #10 tablet predniSONE [Deltasone] 10 mg PO DAILY tab Albuterol Inhaler [Ventolin Hfa Inhaler] 2 puff INHALATION RT-QID puff Tiotropium [place] [Spiriva] 1 cap INHALATION DAILY #1 device Continue Montelukast [Singulair] 10 mg PO DAILY Rosuvastatin [Crestor] 20 mg PO DAILY Buprenorphine HCl/Naloxone HCl [Suboxone 12 mg-3 mg Sl Film] 1 film SL BID amLODIPine [Norvasc] 10 mg PO DAILY #90 tab Ergocalciferol [Vitamin D2 (DRISDOL)] 50,000 unit PO Q7D Pregabalin [Lyrica] 150 mg PO BID PARoxetine HCL [Paxil] 30 mg PO DAILY Escitalopram [Lexapro] 20 mg PO DAILY Escitalopram [Lexapro] 10 mg PO DAILY busPIRone HCL 15 mg PO TID Discontinued Metoprolol Succinate (ER) [Toprol XL] 100 mg PO DAILY Albuterol Sulfate [Proair Hfa] 1 - 2 puff INHALATION RT-Q6H PRN PRN Reason: Dyspnea Naproxen 500 mg PO BID Sacubitril/Valsartan [Entresto 24 mg-26 mg Tablet] 1 tab PO BID Doxycycline Monohydrate [Monodox] 100 mg PO DAILY Discharge Medication List Buprenorphine HCl/Naloxone HCl [Suboxone 12 mg-3 mg Sl Film] 1 film SL BID 04/22/19 [History] Montelukast [Singulair] 10 mg PO DAILY 04/22/19 [History] Rosuvastatin [Crestor] 20 mg PO DAILY 04/22/19 [History] amLODIPine [Norvasc] 10 mg PO DAILY #90 tab 04/29/19 [Rx] Ergocalciferol [Vitamin D2 (DRISDOL)] 50,000 unit PO Q7D 12/06/19 [History] Escitalopram [Lexapro] 10 mg PO DAILY 12/06/19 [History] Escitalopram [Lexapro] 20 mg PO DAILY 12/06/19 [History] PARoxetine HCL [Paxil] 30 mg PO DAILY 12/06/19 [History] Pregabalin [Lyrica] 150 mg PO BID 12/06/19 [History] busPIRone HCL 15 mg PO TID 12/06/19 [History] Albuterol Inhaler [Ventolin Hfa Inhaler] 2 puff INHALATION RT-QID puff 12/18/19 [Rx] Amoxic-Pot Clav 875-125Mg [Augmentin 875-125] 1 tab PO Q12HR 5 Days #10 tab 12/18/19 [Rx] Carvedilol [Coreg] 3.125 mg PO BID #10 tablet 12/18/19 [Rx] Tiotropium [place] [Spiriva] 1 cap INHALATION DAILY #1 device 12/18/19 [Rx] predniSONE [Deltasone] 10 mg PO DAILY tab 12/18/19 [Rx] Follow up Appointment(s)/Referral(s): Lisette Gregory MD [STAFF PHYSICIAN] - 1 Week
--- NOTE | 2019-12-18 12:35 | P.PN ---
Subjective Progress Note Date: 12/18/19 Principal diagnosis: Acute left lower lobe pneumonia, community-acquired Reevaluated today on 12/15/19, patient remains intubated and mechanically ventilated, she presented with extensive left-sided pneumonia and septic shock. Covid 19 was basically ruled out. Patient remains on mechanical ventilation. Ventilator settings are pressure control mode of mechanical ventilation, set pressure is 24, inspiratory time is 1 FiO2 is 35% and PEEP is 5. Patient remains on free water, and I cut down the dose to 200 mL via PEG tube every 4 hours. She is still on Precedex which I have cut down, chest x-ray continues to show left lower lobe infiltrate. ABG showed a pO2 of 89 pCO2 of 39 pH of 7.45 and this was on 35% FiO2. Mentation-choe, the patient seems to be improving significantly compared to yesterday she is opening eyes, tracking with her eyes to the sides bilaterally. Slightly wiggling her toes up on request. Hence I have recommended at least a trial of pressure support of 8 and CPAP, and for about 2 hours she seems to be tolerating that mode of mechanical ventilat ion/weaning quite well. Then I recommended when she is more awake the patient should be extubated. All labs and chest x-ray were reviewed today. BUN is 67 creatinine is 2.09, improving since admission. Patient was reevaluated today on 12/16/19, patient was extubated yesterday, and her extubation was well-tolerated. She is now on nasal cannula, doing quite well, O2 at 2 L nasal cannula, and her O2 saturation is 97%. Patient is resting, comfortable, denies any specific complaints. Her blood pressure is elevated, hence she is on clevidipine at 6 mg/h, I suggested switching the patient to Norvasc 5 mg twice a day and Lopressor 25 twice a day. IV fluids remains at D5W 50 mL per hour. Physical therapy will be consulted, patient seems to be generally weak. On physical examination, patient had basically clear chest. Chest x-ray showed bilateral perihilar infiltrates, and left lower lobe infiltrate. As well as right lower lobe infiltrate, improving compared to her previous x-ray. Labs showed WBC count of 19.2 hemoglobin of 10.9. Electrolytes showed sodium of 147, improving, BUN remains elevated at 61 creatinine is 1.96. Sputum culture is nondiagnostic. Urine culture is negative Reevaluated today on 12/17/19, patient is on 2 L nasal cannula, sating at a bedside chair, in no distress. She is in normal sinus rhythm, she is afebrile. She has D5W at 50 mL per hour. Electrolytes are basically normal BUN is 52 creatinine is 1.73. Improving impaired to baseline. WBC count is improving down to 18.3 hemoglobin is 10.1. Chest x-ray continues to show stable left perihilar and right lower lobe infiltrates. On 12/18/2019 patient seen in follow-up on general medical floor, she is awake and alert, in no acute distress, on minimal oxygen, on 1 L with a pulse ox of 99%, no worsening dyspnea, afebrile, hemodynamically she stable, does still have some generalized weakness, which is improving. Her Caceres virus retest was negative, today's labs have been reviewed showing sodium of 138, potassium is 3.7, chloride is on awake, CO2 is 25, B1 is 45 creatinine 1.67. Blood, sputum and urine cultures have shown no growth. She sitting up in the recliner, in no acute distress, no complaints of shortness of breath, her mentation is appropriate, she is awake and alert, oriented 3. She is tolerating oral diet. Objective - Vital Signs Vital signs: Vital Signs Temp 97.5 F L 12/18/19 07:00 Pulse 75 12/18/19 07:00 Resp 16 12/18/19 07:00 BP 137/82 12/18/19 07:00 Pulse Ox 99 12/18/19 07:00 Intake & Output 12/17/19 12/18/19 12/18/19 18:59 06:59 18:59 Intake Total 1580 480 400 Output Total 1515 Balance 65 480 400 Weight 94 kg 94 kg Intake: IV 600 D5 400 Piperacillin-Tazobactam 3 200 .375 gm In Sodium Chloride 0.9% 100 ml @ 25 mls/hr IVPB Q8HR [facility] Rx# :[id number] Oral 980 480 400 Output: Urine 1515 Other: Voiding Method Indwelling Catheter Indwelling Catheter Indwelling Catheter # Bowel Movements 1 1 ABP, PAP, CO, CI - Last Documented Arterial Blood Pressure 147/66 - Exam GENERAL EXAM: Alert, very pleasant, 54-year-old -[place] female, currently on 1 L of oxygen with a pulse ox of 99%, and up in the recliner comfortable in no apparent distress. HEAD: Normocephalic/atraumatic. EYES: Normal reaction of pupils, equal size. Conjunctiva pink, sclera white. NOSE: Clear with pink turbinates. THROAT: No erythema or exudates. NECK: No masses, no JVD, no thyroid enlargement, no adenopathy. CHEST: No chest wall deformity. Symmetrical expansion. LUNGS: Equal air entry with no crackles, wheeze, rhonchi or dullness. CVS: Regular rate and rhythm, normal S1 and S2, no gallops, no murmurs, no rubs ABDOMEN: Soft, nontender. No hepatosplenomegaly, normal bowel sounds, no guarding or rigidity. EXTREMITIES: No clubbing, no edema, no cyanosis, 2+ pulses and upper and lower extremities. MUSCULOSKELETAL: Muscle strength and tone normal. SPINE: No scoliosis or deformity SKIN: No rashes CENTRAL NERVOUS SYSTEM: Alert and oriented -3. No focal deficits, tone is normal in all 4 extremities. PSYCHIATRIC: Alert and oriented -3. Appropriate affect. Intact judgment and insight. - Labs CBC & Chem 7: 12/17/19 04:50 12/18/19 10:52 Labs: Abnormal Lab Results - Last 24 Hours (Table) 12/17/19 12/17/19 12/18/19 Range/Units 17:57 20:21 00:03 Chloride (98-107) mmol/L BUN (7-17) mg/dL Creatinine (0.52-1.04) mg/dL Glucose (74-99) mg/dL POC Glucose (mg/dL) 206 H 188 H 141 H (75-99) mg/dL Calcium (8.4-10.2) mg/dL AST (14-36) U/L ALT (4-34) U/L Alkaline Phosphatase (38-126) U/L Total Protein (6.3-8.2) g/dL Albumin (3.5-5.0) g/dL 12/18/19 12/18/19 12/18/19 Range/Units 05:35 10:52 11:29 Chloride 108 H (98-107) mmol/L BUN 45 H (7-17) mg/dL Creatinine 1.67 H (0.52-1.04) mg/dL Glucose 135 H (74-99) mg/dL POC Glucose (mg/dL) 134 H 128 H (75-99) mg/dL Calcium 8.2 L (8.4-10.2) mg/dL AST 94 H (14-36) U/L ALT 89 H (4-34) U/L Alkaline Phosphatase 140 H (38-126) U/L Total Protein 5.4 L (6.3-8.2) g/dL Albumin 2.7 L (3.5-5.0) g/dL Assessment and Plan Plan: Assessment: #1. Acute community acquired pneumonia #2. Septic shock related to pneumonia, resolved, #3. Acute hypoxic and hypercapnic respiratory failure requiring intubation and placement on mechanical ventilation, resolved, patient was successfully extubated, and tolerating extubation quite well #4. Valvular heart disease and moderate mitral regurgitation #5. Acute kidney injury, acute tubular necrosis being followed by nephrology, and improving #6. History of underlying COPD #7. History of opiate dependence, patient is maintained on Suboxone outpatient basis #8. History of alcoholism #9. History of fibromyalgia and chronic pain syndrome #10. Benign essential hypertension #11. Dyslipidemia Plan: Patient is doing well, continue weaning FiO2, physical therapy is working with the patient, this is still has generalized weakness, we will likely need subacute rehab placement after discharge. She is tolerating extubation quite well so far, encourage deep breathing and coughing, follow-up chest x-ray tomorrow, continue nutritional support, she is tolerating oral diet, IV steroids have been converted to oral prednisone 20 mg daily, continue Ventolin inhaler as needed, she continues on Zosyn, she's been afebrile, cultures from this institution have been negative. I performed a history & physical examination of the patient and discussed their management with my nurse practitioner, Eve Seymour. I reviewed the nurse practitioner's note and agree with the documented findings and plan of care. Lung sounds are positive for diminished breath sounds. The findings and the impression was discussed with the patient. I attest to the documentation by the nurse practitioner. Time with Patient: Less than 30
--- NOTE | 2019-12-18 16:53 | PN ---
PROGRESS NOTE Patient is seen for followup for acute kidney injury. She is currently sitting up on a bedside chair. Renal function continues to improve. Overall, patient is getting stronger as well. Her oral intake has improved. Patient has a Kaufman catheter. She has had good urine output. On examination, blood pressure this morning 137/82, heart rate 75 per minute. She is afebrile. EXAMINATION OF THE HEART: S1 and S2. EXAMINATION OF LUNGS: Bilateral breath sounds are heard. ABDOMEN: Soft, non-tender. Examination of lower extremities shows no significant edema. WEB APPLICATION TESTER exam is grossly intact. Labs show sodium 138, potassium 3.7, BUN 45, creatinine 1.67. ASSESSMENT: 1. Acute kidney injury, currently improving. Serum creatinine continues to improve. 2. Hypoxic respiratory failure, status post extubation. 3. Hypertension, now well controlled; maintained on Norvasc and Lopressor. 4. Hypernatremia, now resolved. 5. Sepsis from pneumonia, currently improved. 6. Generalized debility. 7. Valvular heart disease and moderate mitral regurgitation. PLAN: Continue to encourage increased oral intake. Repeat labs as outpatient to follow up on the kidney function. MMODL / IJN: [id number] /
== END 2019-12-18 16:20 | DRG 870 ==
LOC: EC 03:33 → 2SICU 05:21 → 4SSUR 12-17 17:38
PROVIDERS: ADMIT Hospitalist; ATTEND Hospitalist
PROC: 02HV33Z Insertion of Infusion Device into Superior Vena Cava, Percutaneous Approach (ICD-10-PCS; principal; 2019-12-06)
PROC: 5A1955Z Respiratory Ventilation, Greater than 96 Consecutive Hours (ICD-10-PCS; 2019-12-06)
PROC: 0BH17EZ Insertion of Endotracheal Airway into Trachea, Via Natural or Artificial Opening (ICD-10-PCS; 2019-12-06)
DX: A41.9 Sepsis, unspecified organism (principal); G92 Toxic encephalopathy; J18.1 Lobar pneumonia, unspecified organism; J96.01 Acute respiratory failure with hypoxia; J96.02 Acute respiratory failure with hypercapnia; N17.0 Acute kidney failure with tubular necrosis; R65.21 Severe sepsis with septic shock; E87.0 Hyperosmolality and hypernatremia; E87.1 Hypo-osmolality and hyponatremia; E87.4 Mixed disorder of acid-base balance; F11.20 Opioid dependence, uncomplicated; I50.22 Chronic systolic (congestive) heart failure; J44.0 Chronic obstructive pulmonary disease with (acute) lower respiratory infection; Z99.11 Dependence on respirator [ventilator] status; E78.5 Hyperlipidemia, unspecified; E87.6 Hypokalemia; E87.8 Other disorders of electrolyte and fluid balance, not elsewhere classified; F17.200 Nicotine dependence, unspecified, uncomplicated; Z20.828 Contact with and (suspected) exposure to other viral communicable diseases; F32.9 Major depressive disorder, single episode, unspecified; G89.4 Chronic pain syndrome; I08.1 Rheumatic disorders of both mitral and tricuspid valves; I11.0 Hypertensive heart disease with heart failure; M19.90 Unspecified osteoarthritis, unspecified site; M79.7 Fibromyalgia; T50.2X5A Adverse effect of carbonic-anhydrase inhibitors, benzothiadiazides and other diuretics, initial encounter; Z79.899 Other long term (current) drug therapy; Z80.0 Family history of malignant neoplasm of digestive organs; Z82.5 Family history of asthma and other chronic lower respiratory diseases; Z83.3 Family history of diabetes mellitus; M54.9 Dorsalgia, unspecified; F10.21 Alcohol dependence, in remission; F15.11 Other stimulant abuse, in remission
CPT/HCPCS: 36415; 36556; 36600; 70450; 71045; 80048; 80053; 80074; 80202; 81001; 82533; 82805; 83605; 83735; 84132; 84145; 84478; 84484; 85025; 87040; 87070; 87086; 87205; 87449; 87502; 87635; 93005; 93306; 94002; 94003; 94640; 94770; 95819; 96365; 96366; 99291

== ENCOUNTER → 2021-02-10 | Outpatient (CLI) | payer OTHER ==
--- NOTE | 2021-02-10 20:32 | CT ---
EXAMINATION TYPE: CT pelvis w con DATE OF EXAM: 02/10/2021 COMPARISON: None HISTORY: Left inguinal pain and back pain. CT DLP: 1303.6 mGycm Automated exposure control for dose reduction was used. CONTRAST: CT scan of the is performed with IV Contrast, patient injected with 100ml mL of Isovue 300. FINDINGS- Somewhat lobulation of the lower margin of the uterus or a prominent right ovary measuring 3.3 cm. Re commend pelvic ultrasound. Bladder distends normally. No free fluid or adenopathy. Visualized bowel g as pattern is nonspecific. Severe degenerative disc disease L5-S1. Facet arthropathy seen. No evidenc e of inguinal hernia. There is a simple appearing left renal cyst measuring 2.3 cm and 11 Hounsfield units. Tiny fat-containing periumbilical hernia. Hypodensity within the liver measuring 5 mm too smal l to characterize and only partially included exam. IMPRESSION- 1. There is a 3.3 cm prominent density in the right adnexa likely related to the right ovary. Pelvic ultrasound is recommended as well as correlation with CA 125. No evidence of adenopathy or free fluid . 2. Severe degenerative disc disease L5-S1.
== END | disposition home or self-care (01) ==
LOC: RADCTMAIN 15:02
PROVIDERS: ATTEND Surgery Plastic and Reconstructive Surgery
DX: M51.37 Other intervertebral disc degeneration, lumbosacral region (principal)
CPT/HCPCS: 72193; Q9967

== ENCOUNTER → 2021-04-17 | Outpatient (CLI) | payer OTHER ==
[2021-04-17 12:33] VITALS: BP 135/85; PULSE 101; RESP 18; TEMP 98.5
--- NOTE | 2021-04-17 12:48 | P.PAINCN ---
History of Present Illness - Reason for Consult Consult date: 04/17/21 - History of Present Illness This is a 56-year-old patient referred by an [employer] due to low back pain. Pain has been going on for a year. The pain is primarily located in the right groin but is now starting to spread to the right low back and occasionally anterior thigh. Pain is described as sharp and stabbing and constant throughout the day. There are no alleviating factors outside of the [place] that her primary care provider is giving her. Exacerbating factors include standing and sitting for long periods of time. Currently a 7 out of 10 at best 5 out of 10 at its worst a 10 out of 10. In terms of management she is on [place] 10 being given to her in short course (42 pills for 7 days) from her primary care provider. She has been prescribed ativan at times in the past as well as well as Suboxone in 2019, but is no longer on Suboxone. Uses ice, heat, and a walker. Has not had injections before. Not doing PT due to the pain currently. In addition to above, 13-point review of systems is also negative for chest pain, shortness of breath, changes in vision, changes in hearing, new onset weakness, abdominal pain, diarrhea, extreme fatigue, malaise, fever, skin changes, homicidal or suicidal ideation, or bowel or bladder incontinence. Physical exam: Vital Signs: Reviewed in EMR GENERAL: Well appearing, in no acute distress PSYCH: Mood and affect is appropriate. Awake, alert, and oriented SKIN: Skin color, texture, turgor normal, no rashes or lesions HEENT: Normocephalic, atraumatic. EOM intact CV: No pedal edema RESP: Respirations are unlabored, no audible wheezing GI: Abdomen non-distended MUSCULOSKELETAL: Overall physical exam was limited due to the patient being in a walker and in pain. Lower extremity strength was 4 out of 5 bilaterally. No atrophy or tone abnormalities. There was pain over the right groin and right PSIS area. External and internal rotation while seated was painful on the right side. Gait was unable to be assessed due to pain. NEUR: Bilateral upper and lower extremity coordination and muscle stretch reflexes are physiologic and symmetric. Negative clonus. No loss of sensation is noted. Cranial nerves are grossly intact. Imaging: CT Abdomen/pelvis 02/2021: 3.3 cm density at right adnexa Assessment: 1. Hip osteoarthritis 2. Lumbar radiculopathy Plan: - We will order a right hip x-ray lumbar MRI to determine the cause of the kris herring's pain. Based on the results of the imaging we will schedule her for an injection. It is highly likely that the patient has right hip mediated pain but I want to rule out any acute fractures or any significant neural foraminal stenosis before proceeding. I spent 45 minutes on patient care today. The time was used to review medical records including relevant urine studies and prescription history (MAPs), review of the available imaging, evaluation and examination the patient, coordination of care at the medical staff and if applicable referring physicians, as well as creation of the medical record. Past Medical History Past Medical History: Asthma, Heart Failure, Fibromyalgia, Hyperlipidemia, Hypertension, Pneumonia Additional Past Medical History / Comment(s): back pain, DDD, SOB w/exertion, "2 leaky valves" per pt. History of Any Multi-Drug Resistant Organisms: None Reported Past Surgical History: Adenoidectomy, Hernia Repair, Tonsillectomy Past Anesthesia/Blood Transfusion Reactions: No Reported Reaction Past Psychological History: Anxiety, Depression Smoking Status: Former smoker Past Alcohol Use History: None Reported, Daily Additional Past Alcohol Use History / Comment(s): 1 pack per day smoker since she was 11- quit smoking three days ago, 6-12 beers daily for 10 years- quit drinking two weeks ago. Past Drug Use History: None Reported, Methamphetamine Additional Drug Use History / Comment(s): Methamphetamine- quit one month ago. and fentanyl- 2 years ago use. - Past Family History Mother Family Medical History: Diabetes Mellitus Sister(s) Family Medical History: Asthma Father Additional Family Medical History / Comment(s): of brain anrysm 48 Son(s) Family Medical History: Cancer Additional Family Medical History / Comment(s): at 35 years old of aggressive colon cancer Medications and Allergies Home Medications Medication Instructions Recorded Confirmed Type Montelukast [Singulair] 10 mg PO DAILY 04/22/19 08/06/20 History Rosuvastatin [Crestor] 20 mg PO DAILY 04/22/19 08/06/20 History amLODIPine [Norvasc] 10 mg PO DAILY #90 tab 04/29/19 08/06/20 Rx FLUoxetine HCL [PROzac] 40 mg PO DAILY 08/06/20 08/06/20 History Ferrous Sulfate [Iron] 325 mg PO DAILY 08/06/20 08/06/20 History Folic Acid 1 mg PO DAILY 08/06/20 08/06/20 History Furosemide [Lasix] 40 mg PO DAILY 08/06/20 08/06/20 History Potassium Chloride ER [K-Dur 10] 10 meq PO DAILY 08/06/20 08/06/20 History Sacubitril/Valsartan [Entresto 24 1 tab PO DAILY 08/06/20 08/06/20 History mg-26 mg Tablet] diphenhydrAMINE HCL [Benadryl] 25 mg PO HS PRN 08/06/20 08/06/20 History Albuterol Sulfate [Albuterol 2 puff PO Q6H 30 Days inhaler 08/08/20 Rx Sulfate Hfa] Budesonide-Formot 160-4.5 Mcg 2 puff INHALATION BID 30 Days 08/08/20 Rx [Symbicort 160-4.5 Mcg Inhaler] inhaler predniSONE 50 mg PO DAILY 5 Days tab 08/08/20 Rx Allergies Allergy/AdvReac Type Severity Reaction Status Date / Time No Known Allergies Allergy Verified 08/06/20 22:37 PQRS Measure Charge Sheet PQRS Narrative: Smoking Status Current every day smoker Home Medications: Ambulatory Orders Montelukast [Singulair] 10 mg PO DAILY 04/22/19 Rosuvastatin [Crestor] 20 mg PO DAILY 04/22/19 amLODIPine [Norvasc] 10 mg PO DAILY #90 tab 04/29/19 FLUoxetine HCL [PROzac] 40 mg PO DAILY 08/06/20 Ferrous Sulfate [Iron] 325 mg PO DAILY 08/06/20 Folic Acid 1 mg PO DAILY 08/06/20 Furosemide [Lasix] 40 mg PO DAILY 08/06/20 Potassium Chloride ER [K-Dur 10] 10 meq PO DAILY 08/06/20 Sacubitril/Valsartan [Entresto 24 mg-26 mg Tablet] 1 tab PO DAILY 08/06/20 diphenhydrAMINE HCL [Benadryl] 25 mg PO HS PRN 08/06/20 Albuterol Sulfate [Albuterol Sulfate Hfa] 2 puff PO Q6H 30 Days inhaler 08/08/20 Budesonide-Formot 160-4.5 Mcg [Symbicort 160-4.5 Mcg Inhaler] 2 puff INHALATION BID 30 Days inhaler 08/08/20 predniSONE 50 mg PO DAILY 5 Days tab 08/08/20
== END | disposition home or self-care (01) ==
LOC: PNWHC3 12:16
PROVIDERS: ATTEND Anesthesiology
DX: M54.16 Radiculopathy, lumbar region (principal); M16.10 Unilateral primary osteoarthritis, unspecified hip; R93.5 Abnormal findings on diagnostic imaging of other abdominal regions, including retroperitoneum
CPT/HCPCS: 99211

== ENCOUNTER → 2021-04-24 | Outpatient (CLI) | payer OTHER ==
--- NOTE | 2021-04-24 09:30 | XR ---
EXAMINATION TYPE: XR Hip Complete RT DATE OF EXAM: 04/24/2021 COMPARISON: NONE HISTORY: Pain TECHNIQUE: 2 views submitted FINDINGS: There is no evidence of erosive change or acute fracture. Moderate to severe concentric narrowing the joint space. Calcifications in the pelvis. IMPRESSION: 1. Moderate to severe changes of arthritis correlate for femoral acetabular impingement.
== END | disposition home or self-care (01) ==
LOC: RADXRMAIN 08:54
PROVIDERS: ATTEND Specialist
DX: M16.11 Unilateral primary osteoarthritis, right hip (principal)
CPT/HCPCS: 73502

== ENCOUNTER → 2021-05-29 | Outpatient (CLI) | payer OTHER ==
--- NOTE | 2021-05-29 14:54 | P.PN ---
Subjective Progress Note Date: 05/29/21 This is a 56-year-old lady with history of lower back and right hip pain. We will do for some diagnostic test and she was in our clinic last time and she came back with the results today. She had lumbar spine MRI which showed marked facet arthropathy at the L5-S1 level and posterior disc bulging contacting the proximal S1 nerve root with some disc desiccation at L4-L5 and L5-S1 levels. The right hip x-ray showed severe arthritic changes in the hip joint. The patient's pain has been getting worse lately and limiting her to the wheelchair as she states. The pain is mostly in the right hip laterally and also anteriorly with mild pain in the lower back area. Patient denies new-onset weakness, bowel/bladder incontinence, or any other signs or symptoms of cauda equina syndrome. There are no signs of acute intoxication, and no indications of medication diversion or overuse. In addition to above, 13-point review of systems is also negative for chest pain, shortness of breath, changes in vision, changes in hearing, new onset weakness, abdominal pain, diarrhea, extreme fatigue, malaise, fever, skin changes, homicidal or suicidal ideation, or bowel or bladder incontinence. Vital Signs: Reviewed in EMR Gen: AAOx3, NAD HEENT: PERRLA,hearing grossly normal Pulm: resp unlabored Neck: supple, trachea midline Neuro exam of the lower extremities: Straight leg raising test: Raf's test: Range of motion of the lumbar spine: Facet loading test: Tenderness in the paravertebral musculature: Neuro: CN II-XII grossly intact, Imaging: Reviewed in EMR/chart Assessment: Severe arthritic changes in the right hip Lumbar facet arthropathy Plan: 1. Explanation: When patients on opioids, opioid and psychological risk scores were reviewed. Diagnoses, prognoses, and multiple treatment options including but not limited to physical therapy, interventional therapies, adjuvant medical therapies, narcotic medication therapies, and surgery were discussed with the patient and all questions were answered to the patient's satisfaction. 2. Opioid agreement:When patients are prescribed opoids through our clinic, opioid agreement is signed with the patient and the patient is warned not to use opioids while driving or before driving and not to combine opioids with benzodiazepines or alcohol. 3. Counseling: When patient is smoking or obese, the patient was counseled extensively on SMOKING CESSATION, BODY MASS INDEX, EXERCISE. Specifically, the patient was instructed regarding the importance of smoking cessation, obesity, and exercise in the context of both chronic pain and overall health. 4. Procedures: The patient may benefit from an intra-articular steroid injection on the right hip joint. She also that this procedure and has only temporary effect multilevel decrease her acute pain to a tolerable level. The patient also will be given a referral to orthopedic surgery 5. Consultations: Refer to orthopedic surgery 6. Investigations: None 7. Medications: The patient received [place] from her primary care physician 8. Disposition: Proceed with the above-mentioned procedure as soon as possible 9. Maps were reviewed and were appropriate.
[2021-05-29 15:03] VITALS: BP 145/74; PULSE 93; RESP 18
== END | disposition home or self-care (01) ==
LOC: PNWHC3 13:45
PROVIDERS: ATTEND Anesthesiology
DX: M13.851 Other specified arthritis, right hip (principal); M46.96 Unspecified inflammatory spondylopathy, lumbar region
CPT/HCPCS: 99211

== ENCOUNTER 2021-06-27 08:56 | Day surgery (SDC) | payer OTHER ==
[2021-06-26 12:22] VITALS: BMI 34.9
[~2021-06-27 08:56] MED LIST changes: -ALPRAZolam 0.25 MG TAB PO PRN; -ALPRAZolam 0.5 MG TAB PO PRN; -ASPIRIN 325 MG TAB PO STA; -ATORVASTATIN 80 MG TAB PO STA; -BENZOCAINE SPRAY 1 CAN MUCOUS MEM ONE; -ENALAPRILAT 1.25 MG/ML 1 ML VIAL IV ONE; -ENALAPRILAT 1.25 MG/ML 1 ML VIAL ONE; -FUROSEMIDE 20 MG TAB PO SCH; -IOPAMIDOL-370 100ML BTL INJ ONE; -IV FLUID CONTINUATION 1,000 ML IV ONE; +LACTATED RINGERS 1,000 ML IV SCH; -LIDOCAINE 1% INJ 10MG/ML (20 ML MDV) ONE; -LIDOCAINE 1% INJ 10MG/ML (20 ML MDV) SQ ONE; -NITROGLYCERIN SL TABS 0.4 MG TAB SUBLINGUAL PRN; -RX INFO: IV CONTRAST WAS GIVEN 1 EACH MISC MISCELLANE PRN; -SODIUM CHLORIDE 0.9% 1,000 ML in EMPTY BAG 1 BAG IV ONE; -amLODIPine 10 MG TAB PO SCH; -fentaNYL (PF) 50 MCG/ML 2 ML AMP ONE; -hydrALAZINE HCL 20 MG/ML 1 ML VIAL IV ONE; -hydrALAZINE HCL 20 MG/ML 1 ML VIAL IVP PRN; -hydrALAZINE HCL 20 MG/ML 1 ML VIAL ONE
[2021-06-27 09:12] VITALS: TEMP 96.9
[2021-06-27 09:18] LABS: Glucose,Whole Blood 119 mg/dL (75-99)
[2021-06-27] MEDS ORDERED: MIDAZOLAM 2 MG/2 ML VIAL ONE (09:19)
[2021-06-27] MEDS ORDERED: IOPAMIDOL M200 10 ML VIAL ONE (09:19)
[2021-06-27] MEDS ORDERED: fentaNYL (PF) 50 MCG/ML 2 ML AMP ONE (09:19)
[2021-06-27] MEDS ORDERED: ROPIVACAINE 5MG/ML 20ML VIAL ONE (09:19)
[2021-06-27] MEDS ORDERED: TRIAMCINOLONE ACETONIDE 40 MG/ML 1 ML VIAL ONE (09:19)
[2021-06-27] MEDS ORDERED: IV FLUID CONTINUATION 700 ML IV ONE (09:35)
--- NOTE | 2021-06-27 09:37 | P.PCN ---
Date of Procedure: 06/27/21 Surgeon: Rubén Lilly Pathology: none sent Condition: stable Disposition: PACU Description of Procedure: Name of procedure: Right hip joint intra-articular steroid injection under fluoroscopic guidance Diagnosis: Right hip joint osteoarthritis Description of procedure: The patient was brought into the procedure room and placed in the supine position. Skin was prepped with ChloraPrep in the right groin area and draped in a sterile manner. Lidocaine 1% was used to numb the skin up at the target points which was chosen at the intertrochanteric line. 3- 1/2 inch 22-gauge Quincke spinal needle was used to go through the skin and to contact the head of the right femur under fluoroscopic guidance. Then 1 mL of Isovue was given which showed typical spread in the in intra-articular space. After that I injected 40 mg of Kenalog +5 MLS of ropivacaine 0.5%. Patient tolerated procedure well. The patient will recover in PACU and will be discharged home in stable condition.
[2021-06-27 09:43] VITALS: RESP 16
[2021-06-27 09:59] VITALS: BP 137/88; PULSE 76
--- NOTE | 2021-06-27 10:03 | FL ---
EXAMINATION TYPE: FL guidance operating room DATE OF EXAM: 06/27/2021 HISTORY: Fluoroscopy time 3 seconds of fluoroscopy provided. IMPRESSION: 1. Fluoroscopy time.
== END 2021-06-27 10:15 | disposition home or self-care (01) ==
LOC: ORPAIN 08:56
PROVIDERS: ATTEND Anesthesiology
DX: M16.11 Unilateral primary osteoarthritis, right hip (principal)
CPT/HCPCS: 20610; J2250; J3301; J3010; Q9966; J2795